=== PATIENT | female | born 1940 | race Caucasian/White ===

== ENCOUNTER → 2016-08-29 | Outpatient (CLI) | payer OTHER ==
[~2016-08-29] MED LIST: ATEN50TA PO; ATV/1 PO; CLTP PO; FERROUS SULFATE 325 MG PO; GELATIN PO; MULT-506 PO; OMEP20CA9 PO; OXYC-57 PO; POTASSIUM PO; ROSE HIPS PO; SIMV10TA2 PO; VIT B COMPLEX PO; VIT C PO; WARF5TAB90 PO; [UNRECOGNIZED DRUG - CODE]
--- NOTE | 2016-08-29 15:55 | MAMMOGRAPHY REPORT ---
BILATERAL DIGITAL SCREENING MAMMOGRAM TOMOSYNTHESIS WITH CAD: 08/29/2016 CLINICAL HISTORY: Routine screening examination. TECHNIQUE: Breast tomosynthesis in addition to standard 2D mammography was performed. Current study was also evaluated with a Computer Aided Detection (CAD) system. COMPARISON: Comparison is made to exams dated: 08/26/2015 mammogram, 08/20/2014 mammogram, 08/14/2013 ma mmogram, 08/12/2012 mammogram, 07/12/2011 mammogram, and 06/29/2010 mammogram - [facility] er. BREAST COMPOSITION: The tissue of both breasts is heterogeneously dense, which may obscure small mas ses. FINDINGS: There are moderate vascular calcifications in the breasts. No new suspicious mass, archite ctural distortion or cluster of microcalcifications is seen. IMPRESSION: ACR BI-RADS CATEGORY 1: NEGATIVE There is no mammographic evidence of malignancy. A 1 year screening mammogram is recommended. The pa tient will receive written notification of the results. Approximately 10% of breast cancers are not detected with mammography. A negative mammographic report should not delay biopsy if a clinically suggestive mass is present. Laura Rubalcava M.D. ay/:08/29/2016 14:53:17 Line Service Person: Krystina HEMPHILL(Veronica)(June), [facility] letter sent: Normal 1/2 BI-RADS Code: ACR BI-RADS Category 1: Negative
== END | disposition home or self-care (01) ==
LOC: C.MAMM 12:48
PROVIDERS: ATTEND Internal Medicine
DX: Z12.31 Encounter for screening mammogram for malignant neoplasm of breast (principal); Z79.01 Long term (current) use of anticoagulants

== ENCOUNTER → 2016-10-25 | Outpatient (CLI) | payer OTHER | END | disposition home or self-care (01) | LOC: C.LABBC 12:30 | PROVIDERS: ATTEND Internal Medicine Rheumatology | DX: Z00.00 Encounter for general adult medical examination without abnormal findings (principal); S32.000A Wedge compression fracture of unspecified lumbar vertebra, initial encounter for closed fracture; X58.XXXA Exposure to other specified factors, initial encounter; E61.8 Deficiency of other specified nutrient elements; M81.0 Age-related osteoporosis without current pathological fracture; E55.9 Vitamin D deficiency, unspecified; I10 Essential (primary) hypertension; E78.5 Hyperlipidemia, unspecified; R73.01 Impaired fasting glucose; D47.2 Monoclonal gammopathy; Z79.01 Long term (current) use of anticoagulants ==

== ENCOUNTER → 2017-02-19 | Outpatient (CLI) | payer OTHER ==
[2017-02-19 17:06] LABS: BASO % 0.2 %; BASO ABS # 0.01 K/uL (0-0.2); COMPLETE YES; EOS % 2.1 %; HEMATOCRIT 37.5 % (37-47); IG% 0.2 %; LYMPH % 25.5 %; LYMPH ABS # 1.59 K/uL (1.2-3.4); MEAN CELL VOLUME 93.3 fL (80-100); MEAN CORPUSCULAR HEMOGLOBIN 31.3 pg (25-34); MEAN CORPUSCULAR HGB CONC 33.6 g/dl (32-36); MEAN PLATELET VOLUME 9.8 fL (7.4-10.4); MONO % 8.3 %; NEUT % 63.7 %; PLATELET COUNT 199 K/uL (130-400); RED BLOOD COUNT 4.02 M/uL (4.2-5.4); WHITE BLOOD COUNT 6.24 K/uL (4.8-10.8)
[2017-02-19 17:28] LABS: ALT/SGPT 23 U/L (12-78); AST/SGOT 24 U/L (15-37); BLOOD UREA NITROGEN 17 mg/dl (7-18); BUN/CREATININE RATIO 17.5 (10-20); CALCIUM 8.3 mg/dl (8.5-10.1); CARBON DIOXIDE 26 mmol/L (21-32); CHLORIDE 101 mmol/L (98-107); CREATININE 0.97 mg/dl (0.60-1.20); GLUCOSE 109 mg/dl (70-99); SODIUM 133 mmol/L (136-145)
[2017-02-19 17:39] LABS: ALB/GLOB RATIO 0.7 (0.9-2); ALKALINE PHOSPHATASE 95 U/L (45-117); CHOLESTEROL 139 mg/dl (0-200); CHOLESTEROL/HDL RATIO 3.7; HDL CHOLESTEROL 38 mg/dl; LDL CHOLESTEROL CALCULATED 37 mg/dl; TRIGLYCERIDES 322 mg/dl (0-150); VERY LOW DENSITY LIPOPROT CALC 64 mg/dl
[2017-02-20 07:17] LABS: ESTIMATED AVERAGE GLUCOSE 117 mg/dl; HA1C FLAG Normal (Normal)
== END | disposition home or self-care (01) ==
LOC: C.LABBC 14:10
PROVIDERS: ATTEND Internal Medicine
DX: Z51.81 Encounter for therapeutic drug level monitoring (principal); I10 Essential (primary) hypertension; E78.5 Hyperlipidemia, unspecified; M54.5 Low back pain; M48.061 Spinal stenosis, lumbar region without neurogenic claudication; M81.0 Age-related osteoporosis without current pathological fracture; R73.01 Impaired fasting glucose; Z79.01 Long term (current) use of anticoagulants; D68.69 Other thrombophilia; I35.0 Nonrheumatic aortic (valve) stenosis

== ENCOUNTER → 2017-03-01 | Outpatient (CLI) | payer OTHER ==
[2017-03-01 17:00] LABS: INR 2.1 (0.9-1.1); PROTHROMBIN TIME (PATIENT) 21.9 SECONDS (9.0-12.0)
== END | disposition home or self-care (01) ==
LOC: C.LABBC 13:32
PROVIDERS: ATTEND Internal Medicine
DX: Z51.81 Encounter for therapeutic drug level monitoring (principal); Z79.01 Long term (current) use of anticoagulants

== ENCOUNTER → 2017-05-02 | Outpatient (CLI) | payer OTHER | END | disposition home or self-care (01) | LOC: C.LABBC 12:43 | PROVIDERS: ATTEND Internal Medicine Rheumatology | DX: M54.5 Low back pain (principal); M81.0 Age-related osteoporosis without current pathological fracture; E55.9 Vitamin D deficiency, unspecified ==

== ENCOUNTER → 2017-05-31 | Outpatient (CLI) | payer OTHER ==
[2017-05-31 17:23] LABS: INR 2.7 (0.9-1.1)
== END | disposition home or self-care (01) ==
LOC: C.LABBC 13:02
PROVIDERS: ATTEND Internal Medicine
DX: Z79.01 Long term (current) use of anticoagulants (principal)

== ENCOUNTER 2021-11-15 19:01 | Inpatient (IN) ==
--- NOTE | 2021-11-15 19:32 | ED Triage Note ---
Date of Service November 15, 2021 History of Present Illness This patient was briefly evaluated while in triage. An abbreviated physical exam was performed. This patient is a 81-year-old Female who presents to the ED for evaluation of mental status changes. Her daughter states that her mental status has been steadily declining ever since she had a surgery several weeks ago. Physical Exam VITALS: Vitals are noted on the nurse's note and reviewed by myself. GENERAL: This is an 81-year-old female, in no acute distress, sitting up in a wheelchair. SKIN: The skin was without rashes. EYES: Pupils equal round and reactive to light and accommodation. MOUTH: Mucous membranes slightly dry. NECK: Supple without nuchal rigidity. HEART: Regular rate and rhythm without murmurs gallops or rubs. LUNGS: Clear to auscultation bilaterally without wheezes, rales or rhonchi. NEURO: Patient is somewhat confused, does not answer questions appropriately. Initial orders for labs and / or imaging were placed and patient was placed in the waiting area until a bed is available. Please see further documentation for the full ED course. MDM / Impression Impression Impression: Acute hyponatremia, Confusion
--- NOTE | 2021-11-15 20:40 | XRay Report ---
XR chest 1V portable HISTORY: 81 years-old Female weakness acute weakness COMPARISON: Chest radiograph 08/25/2020 TECHNIQUE: Portable AP view of the chest FINDINGS: Cardiac silhouette is enlarged. Endograft of the aortic valve. Left subclavian pacer. No pneumothorax . Probable trace pleural effusions. Reticular interstitial coarsening is similar to prior. No lobar a irspace consolidation. Degenerative changes of the shoulders and spine. IMPRESSION: 1. Cardiomegaly with chronic interstitial coarsening. 2. Probable trace pleural effusions. ACT 112: Negative or not required by law. The above report was generated using voice recognition software. It may contain grammatical, syntax o r spelling errors. Electronically signed by: Marquise Hawley M.D. 11/15/2021 8:39 PM
--- NOTE | 2021-11-15 20:56 | Emergency Department Note ---
Impression & Plan Acute hyponatremia, Confusion ED Provider Note Provider: Kane Alcazar MD DATE OF SERVICE: 11/15/2021 CHIEF COMPLAINT: Confusion HISTORY OF PRESENT ILLNESS: Patient is a 81-year-old female history of Crohn's disease with ileostomy, aortic stenosis status post TAVR placement about 2 months ago, anxiety, hypertension, and vertebral compression fractures presenting here today with and daughter. Evidently over the last several weeks since the surgery has been declining a little bit according to the . The last several days has been much more confused and was emptying her ileostomy around the house overnight. No trauma or falls reported. She states that almost everything hurts just a little bit. Family report there is been a little bit of irritation around the ileostomy site. No fevers or illnesses or cough or cold symptoms reported. No recent medication changes otherwise noted. No history of similar reported. REVIEW OF SYSTEMS: A total of 10 review of systems was obtained and negative except as stated above in the HPI. PAST MEDICAL HISTORY: As noted above MEDICATIONS: Reviewed home medication list include Eliquis SOCIAL HISTORY: Lives at home with PHYSICAL EXAM: GENERAL: alert and oriented to person but not what year it is states is 1955 in no acute distress on stretcher Head: normocephalic and atraumatic EYES: No injection, discharge or icterus. NECK: Trachea midline. Supple. ENT: Mucous membranes pink and moist. LUNGS: Airway patent. No retractions. Breath sounds clear with good air entry bilaterally. HEART: Regular rate and rhythm. No chest wall tenderness with left upper chest pacemaker noted. ABDOMEN: Soft with some voluntary guarding. A left lower quadrant ileostomy and site in place with pink ostomy itself. There is some slight fungal irritation erythema around the site and a few small areas of slight skin breakdown but no significant depth or purulence noted. No crepitus. SKIN: Acyanotic, warm, dry, without rashes EXTREMITIES: Without swelling, tenderness or deformity NEUROLOGICAL: No focal deficits. No aphasia. No facial droop or slurred speech. Intact strength in the upper extremities. Well oriented to recent events or time. EK bpm AV paced rhythm occasional PVC. No acute ST segment elevation noted with significant amount of artifact. QTc 484. CONTINUOUS CARDIAC MONITORING: was ordered and showed a heart rate of 60s bpm in AV paced occasional PVC Patient's laboratory studies and imaging reviewed. Differential includes Infection, dehydration, metabolic abnormality, hypo/hyperglycemia, electrolyte disturbance, anemia, hypoxia, cardiac sources, intracerebral event, toxicologic, neurologic, as well as other pathologies. IMPRESSION/MEDICAL DECISION MAKING: Daughter family report a fairly significant change in mental status in the last several days but some declines and surgery 2 weeks ago. On an anticoagulant. No trauma history. No infectious symptoms reported. Lab work was sent and imaging of the head completed. Abdomen without significant tenderness ileostomy site in place with maybe little bit of slight tinea around the site and may be a small area of slight skin breakdown but no significant tenderness to doubt acute intra-abdominal process at this point. Blood work here shows worsened hyponatremia with a sodium of 120 could easily explain her confusion issues. No significant anemia or leukocytosis noted. No evidence of significant renal dysfunction. Urine and serum awesome's ordered. Will start on some slow LR replacement. Patient with some diffuse pain and given tylenol. Will bring in to hospital. DIAGNOSIS: hyponatremia, confusion DISPOSITION: Hospitalist will evaluate Preliminary Findings Only See Final Report For Complete Findings CT HEAD: Moderate brain volume loss and moderate chronic ischemic changes. No mass, hemorrhage or acute infarct. Sinuses, mastoids and bones are intact. Impression: No acute findings. Radiologist: Kirit Hdez M.D. 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 Opioid use agreement exists Osteoporosis Secondary hypercoagulable state Tremor Surgical History H/O abdominal aortic aneurysm repair H/O heart artery stent H/O pyloroplasty H/O resection of small bowel History of abdominal aortic aneurysm (AAA) repair History of appendectomy History of breast biopsy History of carpal tunnel surgery History of colostomy History of colposcopy History of hernia repair History of ileostomy History of resection of small bowel History of tonsillectomy and adenoidectomy History of tooth extraction Hx of tubal ligation Status post catheter ablation of atrial fibrillation Status post proctocolectomy Family History Father Coronary heart disease Hypertension Stroke Sister No problems noted. Mother Coronary heart disease Hypertension Stroke Denies family history of Ovarian cancer Prostate cancer Myocardial infarction Breast cancer Lung cancer Colorectal cancer Social History Smoking Status: Never smoker Age Started Using Tobacco: 26; Age Quit Using Tobacco: 61; packs per day: 1; Years Smoked: 20; Second Hand Exposure: No; Hx Alcohol Use: No Hx Substance Use: Yes Prescribed Medications: Opiates Preferred Language: Lao Communication Ability: Effective Visual Impairment: Limited Hearing Ability: Normal marital status: Current Living Situation: Spouse current occupational status: retired How many Children do You have: 2 Feels Safe at Home: Yes Childhood Exposure to Second-Hand Smoke: Yes caffeine: Yes (coffee) Dental Care, Regularly: Yes Physical Activity Frequency: Daily Physical Activity Frequency Comment: walks Seatbelt Use: always Sunscreen Use: Yes Allergies Allergies Allergy/AdvReac Type Severity Reaction Status Date / Time bee venom protein (honey bee) Allergy Unknown Unknown Verified 11/15/21 22:48 duloxetine [From Cymbalta] Allergy Unknown Unknown Verified 11/15/21 22:48 iodine Allergy Unknown Unknown Verified 11/15/21 22:48 shellfish derived Allergy Unknown Unknown Verified 11/15/21 22:48 Cymbal Allergy Severe severe Uncoded 11/15/21 22:48 nausea Home Meds Home Medications Medication Instructions Recorded Confirmed denosumab 60 mg/mL subcutaneous 60 mg subcut Q6MO 02/13/19 11/15/21 syringe (Prolia) nystatin 100,000 unit/gram topical 1 applic topical TID PRN irritation 11/15/21 11/15/21 powder (Nystop) omeprazole 20 mg capsule,delayed 20 mg PO BID 11/15/21 11/15/21 release Previous Rx's Medication Instructions Recorded drain pouches #10 ea 02/09/21 skin barrier wafer #10 ea 02/09/21 skin barriers seals #10 ea 02/09/21 atenolol 50 mg tablet 50 mg PO DAILY #90 tabs 03/10/21 apixaban 2.5 mg tablet (Eliquis) 2.5 mg PO BID #180 tabs 05/03/21 meclizine 25 mg tablet 25 mg PO TID PRN dizziness #30 tabs 09/06/21 simvastatin 10 mg tablet 10 mg PO DAILY #90 tabs 10/05/21 lorazepam 1 mg tablet 1 mg PO HS PRN sleep #30 tabs 10/31/21 oxycodone-acetaminophen 5 mg-325 0.5 - 1 tab PO BID PRN pain #30 11/11/21 mg tablet tabs Results & Data (ED) Vital Signs Vital Signs - 24 hr 11/15/21 19:26 11/15/21 21:01 11/15/21 23:00 Temperature 36.8 C Temperature Source Temporal Artery Scan Pulse Rate 78 70 Pulse Rate [Finger] 65 Pulse Rate from SpO2 Sensor 69 Respiratory Rate 18 18 15 Respiratory Effort / Characteristics Non-Labored Spontaneous Respiratory Depth Normal Blood Pressure 136/69 Blood Pressure [Right Arm] 137/64 Blood Pressure Mean 91 Blood Pressure Mean [Right Arm] 88 Pulse Oximetry 93 95 95 Oxygen Delivery Method Room Air Sepsis Recent Fever Within 48 Hours No Sepsis New/Unexplained Change in Mental Status No Sepsis Action Taken by Nursing No Action Required Laboratory Data Result diagrams: 11/15/21 20:34 11/15/21 20:34 Lab Results 11/15/21 11/15/21 11/15/21 Range/Units 20:34 20:34 20:34 WBC 6.96 (4.8-10.8) K/ul RBC 4.03 (3.93-5.22) M/uL Hgb 12.9 (12.0-16.0) g/dl Hct 36.4 (34.1-44.9) % MCV 90.3 (80.0-100.0) fL MCH 32.0 (25.0-34.0) pg MCHC 35.4 (32.0-36.0) g/dL RDW Std Deviation 46.3 (36.4-46.3) fL RDW Coeff of Ana M 14.0 (11.5-14.5) % Plt Count 176 (130-400) K/uL MPV 9.0 L (9.4-12.3) fL Immature Gran % (Auto) 0.4 % Neut % (Auto) 80.7 % Lymph % (Auto) 11.9 % Burnet % (Auto) 6.0 % Eos % (Auto) 0.7 % Baso % (Auto) 0.3 % Neut # (Auto) 5.61 (1.4-6.5) K/uL Lymph # (Auto) 0.83 L (1.2-3.4) K/uL Burnet # (Auto) 0.42 (0.24-0.82) K/uL Eos # (Auto) 0.05 (0-0.50) K/uL Baso # (Auto) 0.02 (0-0.2) K/uL Immature Gran # (Auto) 0.03 H (0.00-0.02) K/uL Sodium 120 L (136-145) mmol/L Potassium 4.1 (3.5-5.1) mmol/L Chloride 86 L (98-107) mmol/L Carbon Dioxide 26 (21-32) mmol/L Anion Gap 8 (3-11) BUN 13 (6-23) mg/dl Creatinine 0.67 (0.6-1.2) mg/dl Est Cr Clr Drug Dosing Not Reportable Est GFR ( Amer) 96.2 ml/min Est GFR (Non-Af Amer) 83.0 ml/min BUN/Creatinine Ratio 19.4 (10-20) Glucose 97 (70-99(Fasting)) mg/dl Calcium 10.1 (8.5-10.1) mg/dl Magnesium 1.7 (1.7-2.4) mg/dl Total Bilirubin 0.7 (0.2-1.0) mg/dl AST 31 (13-39) U/L ALT 16 (7-52) U/L Alkaline Phosphatase 96 (34-104) U/L Troponin I High Sens 16.0 H Cancelled (0-14) pg/ml Total Protein 8.6 H (6.0-8.3) gm/dl Albumin 4.0 (3.4-5.0) gm/dl Globulin 4.6 H (2.5-4.0) gm/dl Albumin/Globulin Ratio 0.9 (0.9-2) Urine Color Urine Appearance (Clear) Urine pH (4.5-7.5) Ur Specific Vidal (1.000-1.030) Urine Protein (Negative) Urine Glucose (UA) (Negative) Urine Ketones (Negative) Urine Blood (Negative) Urine Nitrite (Negative) Urine Bilirubin (Negative) Urine Urobilinogen (Negative) Ur Leukocyte Esterase (Negative) Urine Osmolality (500-800) mOsm/kg SARS-CoV-2, RNA, NAAT (NEGATIVE) 11/15/21 11/15/21 11/15/21 Range/Units 21:27 22:55 22:55 WBC (4.8-10.8) K/ul RBC (3.93-5.22) M/uL Hgb (12.0-16.0) g/dl Hct (34.1-44.9) % MCV (80.0-100.0) fL MCH (25.0-34.0) pg MCHC (32.0-36.0) g/dL RDW Std Deviation (36.4-46.3) fL RDW Coeff of Ana M (11.5-14.5) % Plt Count (130-400) K/uL MPV (9.4-12.3) fL Immature Gran % (Auto) % Neut % (Auto) % Lymph % (Auto) % Burnet % (Auto) % Eos % (Auto) % Baso % (Auto) % Neut # (Auto) (1.4-6.5) K/uL Lymph # (Auto) (1.2-3.4) K/uL Burnet # (Auto) (0.24-0.82) K/uL Eos # (Auto) (0-0.50) K/uL Baso # (Auto) (0-0.2) K/uL Immature Gran # (Auto) (0.00-0.02) K/uL Sodium (136-145) mmol/L Potassium (3.5-5.1) mmol/L Chloride (98-107) mmol/L Carbon Dioxide (21-32) mmol/L Anion Gap (3-11) BUN (6-23) mg/dl Creatinine (0.6-1.2) mg/dl Est Cr Clr Drug Dosing Est GFR ( Amer) ml/min Est GFR (Non-Af Amer) ml/min BUN/Creatinine Ratio (10-20) Glucose (70-99(Fasting)) mg/dl Calcium (8.5-10.1) mg/dl Magnesium (1.7-2.4) mg/dl Total Bilirubin (0.2-1.0) mg/dl AST (13-39) U/L ALT (7-52) U/L Alkaline Phosphatase (34-104) U/L Troponin I High Sens (0-14) pg/ml Total Protein (6.0-8.3) gm/dl Albumin (3.4-5.0) gm/dl Globulin (2.5-4.0) gm/dl Albumin/Globulin Ratio (0.9-2) Urine Color Yellow Urine Appearance Clear (Clear) Urine pH 6.0 (4.5-7.5) Ur Specific Vidal 1.022 (1.000-1.030) Urine Protein Negative (Negative) Urine Glucose (UA) Negative (Negative) Urine Ketones Trace H (Negative) Urine Blood Negative (Negative) Urine Nitrite Negative (Negative) Urine Bilirubin Negative (Negative) Urine Urobilinogen Negative (Negative) Ur Leukocyte Esterase Negative (Negative) Urine Osmolality 901 H (500-800) mOsm/kg SARS-CoV-2, RNA, NAAT NEGATIVE (NEGATIVE) Administered Medications Discontinued Medications Lactated Ringer's (Lr) 1,000 mls @ 80 mls/hr IV .[id number] MINNA Stop: 12/15/21 21:44 Last Infusion: 11/16/21 00:00 Dose: 0 mls/hr Documented By: Admin: 11/15/21 21:44 Dose: 80 mls/hr Documented By: SIL Acetaminophen (Ofirmev) 1,000 mg in 100 mls @ 400 mls/hr IV NOW STA Stop: 11/15/21 21:58 Last Infusion: 11/15/21 22:30 Dose: 0 mls/hr Documented By: Admin: 11/15/21 21:50 Dose: 400 mls/hr Documented By: SIL Miscellaneous (Patient's Height &/Or Weight Needed) 1 each N/A Q2H MINNA Stop: 12/16/21 00:44 Last Admin: 11/16/21 00:46 Dose: 1 each Documented By: MANDA Imaging Data Radiologist's Impression: Chest X-Ray 11/15/21 19:28 XR chest 1V portable HISTORY: 81 years-old Female weakness acute weakness COMPARISON: Chest radiograph 08/25/2020 TECHNIQUE: Portable AP view of the chest FINDINGS: Cardiac silhouette is enlarged. Endograft of the aortic valve. Left subclavian pacer. No pneumothorax. Probable trace pleural effusions. Reticular interstitial coarsening is similar to prior. No lobar airspace consolidation. Degenerative ch anges of the shoulders and spine. IMPRESSION: 1. Cardiomegaly with chronic interstitial coarsening. 2. Probable trace pleural effusions. ACT 112: Negative or not required by law. The above report was generated using voice recognition software. It may contain grammatical, syntax or spelling errors. Electronically signed by: Marquise Hawley M.D. 11/15/2021 8:39 PM Discharge Plan Visit Data Chief Complaint: Confusion Stated Complaint: CONFUSION ED Provider: Kane Alcazar Discharge Problem: Acute hyponatremia, Confusion Patient Disposition: Admitted As Inpatient Discharge Instructions Interventions: ED Discharge Assessment Last Done: 11/15/21 23:54
[2021-11-15 20:58] LABS: Basophils # (auto) 0.02 K/uL (0-0.2); Basophils % (auto) 0.3 %; Eosinophils # (auto) 0.05 K/uL (0-0.50); Eosinophils % (auto) 0.7 %; Hematocrit (blood only) 36.4 % (34.1-44.9); Hemoglobin 12.9 g/dl (12.0-16.0); Immature Granulocytes # (auto) 0.03 K/uL (0.00-0.02); Immature Granulocytes % (auto) 0.4 %; Lymphocytes # (auto) 0.83 K/uL (1.2-3.4); Lymphocytes % (auto) 11.9 %; Mean Corpuscular Hgb Conc 35.4 g/dL (32.0-36.0); Mean Corpuscular Volume 90.3 fL (80.0-100.0); Monocytes # (auto) 0.42 K/uL (0.24-0.82); Neutrophils # (auto) 5.61 K/uL (1.4-6.5); Neutrophils % (auto) 80.7 %; Platelet Count 176 K/uL (130-400); RDW Standard Deviation 46.3 fL (36.4-46.3); Red Blood Count 4.03 M/uL (3.93-5.22); White Blood Count 6.96 K/ul (4.8-10.8)
[2021-11-15 21:14] LABS: Alanine Aminotransferase 16 U/L (7-52); Albumin Globulin Ratio 0.9 (0.9-2); Alkaline Phosphatase 96 U/L (34-104); Anion Gap 8 (3-11); Aspartate Aminotransferase 31 U/L (13-39); BUN Creatinine Ratio 19.4 (10-20); Bilirubin,Total 0.7 mg/dl (0.2-1.0); Blood Urea Nitrogen 13 mg/dl (6-23); Calcium 10.1 mg/dl (8.5-10.1); Carbon Dioxide 26 mmol/L (21-32); Chloride 86 mmol/L (98-107); Est GFR (African American) 96.2 ml/min; Globulin 4.6 gm/dl (2.5-4.0); Glucose 97 mg/dl (70-99(Fasting)); Magnesium 1.7 mg/dl (1.7-2.4); Potassium 4.1 mmol/L (3.5-5.1); Sodium 120 mmol/L (136-145); Total Protein 8.6 gm/dl (6.0-8.3)
[2021-11-15] MEDS ORDERED: ACETAMINOPHEN 1,000 MG/100 ML VIAL IV STA (21:44)
[2021-11-15] MEDS ORDERED: LACTATED RINGER'S 1,000 ML IV SCH (21:45)
--- NOTE | 2021-11-15 23:06 | History & Physical Report ---
Date of Service November 15, 2021 Assessment & Plan (1) Acute hyponatremia: Plan: 81yo female s/p TAVR with pacemaker placement 09/23/21 presenting with functional decline and confusion over the last several weeks. Found with acute hyponatremia, Na of 120 (was previously 127 on 08/12/21). Patient given LR at 80mL/hr in ER -Admit to medical -Check urine and serum osmolality -Check urine Na -Check TSH -Frequent orientation -Repeat BMP q 8 hours (2) Confusion: Plan: Most likely secondary to acute hyponatremia as above -Monitor Na -Frequent orientation (3) Hypertension: Plan: Chronic. Well controlled presently at 137/64 -Continue Atenolol -Monitor (4) Vertebral compression fracture: Plan: With chronic pain, unchanged -Percocet PRN (5) GERD (gastroesophageal reflux disease): Plan: Chronic. Stable -Continue Protonix 40mg po BID (6) Hyperlipidemia: Plan: Chronic. Stable -Continue Simvastatin 10mg po daily F/E/N - Fluid restriction, monitor Na Ppx - Continue Apixaban Code - Full Dispo - Admit to medical History of Present Illness Chief Complaint: Confusion Primary Care Provider: Buck Zamorano MD Miranda Reddy is an 81yo female with history of GERD, HTN, longstanding colostomy presenting with confusion. Patient presents with her with whom she resides as well as her daughter who is an [employer] and does not live with her. Patient had a TAVR with pacemaker placement performed on 09/23/21 at [facility]. Per family and patient, the surgery went well with no complications. Patient was discharged home - she presently has visiting nursing on 2 days per week for 7 weeks. reports that patient has not been doing well at home since the surgery. She has not been eating well, has had progressive weakness and most recently episodes of confusion. Patient has become more forgetful, she wanders around the home and becomes confused. Yesterday she was in the office and emptied her colostomy bag in the office thinking it was the bathroom. There has been no report of fever, chest pain, cough, SOB, abdominal pain, nausea or vomiting. Ostomy output has been stable with no blood or diarrhea. No falls, imbalance or seizure No additional complaints at this time In the ER, patient afebrile, HD stable. She is confused but easily redirected, answering questions appropriately. Allergies Allergy/AdvReac Type Severity Reaction Status Date / Time bee venom protein (honey bee) Allergy Unknown Unknown Verified 11/15/21 22:48 duloxetine [From Cymbalta] Allergy Unknown Unknown Verified 11/15/21 22:48 iodine Allergy Unknown Unknown Verified 11/15/21 22:48 shellfish derived Allergy Unknown Unknown Verified 11/15/21 22:48 Cymbal Allergy Severe severe Uncoded 11/15/21 22:48 nausea Home Medications Medication Instructions Recorded Confirmed Type denosumab 60 mg/mL subcutaneous 60 mg subcut Q6MO 02/13/19 11/15/21 History syringe (Prolia) drain pouches #10 ea 02/09/21 08/22/21 Rx skin barrier wafer #10 ea 02/09/21 08/22/21 Rx skin barriers seals #10 ea 02/09/21 08/22/21 Rx atenolol 50 mg tablet 50 mg PO DAILY #90 tabs 03/10/21 11/15/21 Rx apixaban 2.5 mg tablet (Eliquis) 2.5 mg PO BID #180 tabs 05/03/21 11/15/21 Rx meclizine 25 mg tablet 25 mg PO TID PRN dizziness #30 tabs 09/06/21 11/15/21 Rx simvastatin 10 mg tablet 10 mg PO DAILY #90 tabs 10/05/21 11/15/21 Rx lorazepam 1 mg tablet 1 mg PO HS PRN sleep #30 tabs 10/31/21 11/15/21 Rx oxycodone-acetaminophen 5 mg-325 0.5 - 1 tab PO BID PRN pain #30 11/11/21 11/15/21 Rx mg tablet tabs nystatin 100,000 unit/gram topical 1 applic topical TID PRN irritation 11/15/21 11/15/21 History powder (Nystop) omeprazole 20 mg capsule,delayed 20 mg PO BID 11/15/21 11/15/21 History release Past Med/Surg History Medical History Aortic stenosis Chronic pain syndrome Colostomy care Crohns disease Degenerative lumbar spinal stenosis GERD (gastroesophageal reflux disease) H/O small bowel obstruction Hyperproteinemia (~02/13/19) Hypertension snf current use of anticoagulant Opioid use agreement exists Osteoporosis Secondary hypercoagulable state Tremor Surgical History H/O abdominal aortic aneurysm repair H/O heart artery stent H/O pyloroplasty H/O resection of small bowel History of abdominal aortic aneurysm (AAA) repair History of appendectomy History of breast biopsy History of carpal tunnel surgery History of colostomy History of colposcopy History of hernia repair History of ileostomy History of resection of small bowel History of tonsillectomy and adenoidectomy History of tooth extraction Hx of tubal ligation Status post catheter ablation of atrial fibrillation Status post proctocolectomy Family History Father Coronary heart disease Hypertension Stroke Sister No problems noted. Mother Coronary heart disease Hypertension Stroke Denies family history of Ovarian cancer Prostate cancer Myocardial infarction Breast cancer Lung cancer Colorectal cancer Social History Smoking Status: Never smoker Age Started Using Tobacco: 26; Age Quit Using Tobacco: 61; packs per day: 1; Years Smoked: 20; Second Hand Exposure: No; Hx Alcohol Use: No Hx Substance Use: Yes Prescribed Medications: Opiates Preferred Language: Montserratian Communication Ability: Effective Visual Impairment: Limited Hearing Ability: Normal marital status: Current Living Situation: Spouse current occupational status: retired How many Children do You have: 2 Feels Safe at Home: Yes Childhood Exposure to Second-Hand Smoke: Yes caffeine: Yes (coffee) Dental Care, Regularly: Yes Physical Activity Frequency: Daily Physical Activity Frequency Comment: walks Seatbelt Use: always Sunscreen Use: Yes Review of Systems Review of Systems: All systems reviewed & are unremarkable except as noted in HPI & below Physical Exam Physical Exam: General: patient resting comfortably, NAD, non-toxic in appearance, AA&O x 4 Skin: warm, dry, intact, no rashes or lesions HEENT: NC/AT, PERRL, EOMI, anicteric sclera, conjunctiva without injection, external ear normal to inspection and nontender, nares patent, moist mucus membranes, dentition intact, no oropharyngeal lesions, neck supple, trachea midline, no LAD, no thyromegaly, no JVD Heart: +S1/S2, regular, no m/r/g Lungs: equal air entry bilaterally, no rales/rhonchi/wheezes Abd: +BS, soft, NT/ND, no masses/organomegaly/ascites, ostomy in place Ext: warm, 2+ pulses in UE/LE bilaterally, no clubbing/cyanosis or edema Neuro: nonfocal, patient AA&O x 4, speech intact, no facial droop, moving all extremities on command with equal strength 5/5 Results & Data Results & Data ([facility]) Vital Signs (Past 12 Hours) Vital Signs Temp Pulse Pulse Resp BP BP Pulse Ox 11/15/21 21:01 65 18 137/64 95 11/15/21 19:26 36.8 C 78 18 136/69 93 O2 Del Method 11/15/21 21:01 11/15/21 19:26 Room Air Laboratory Results Laboratory Results WBC 6.96 K/ul (4.8-10.8) 11/15/21 20:34 RBC 4.03 M/uL (3.93-5.22) 11/15/21 20:34 Hgb 12.9 g/dl (12.0-16.0) 11/15/21 20:34 Hct 36.4 % (34.1-44.9) 11/15/21 20:34 MCV 90.3 fL (80.0-100.0) 11/15/21 20:34 MCH 32.0 pg (25.0-34.0) 11/15/21 20:34 MCHC 35.4 g/dL (32.0-36.0) 11/15/21 20:34 RDW Std Deviation 46.3 fL (36.4-46.3) 11/15/21 20:34 RDW Coeff of Ana M 14.0 % (11.5-14.5) 11/15/21 20:34 Plt Count 176 K/uL (130-400) 11/15/21 20:34 MPV 9.0 fL (9.4-12.3) L 11/15/21 20:34 Immature Gran % (Auto) 0.4 % 11/15/21 20:34 Neut % (Auto) 80.7 % 11/15/21 20:34 Lymph % (Auto) 11.9 % 11/15/21 20:34 [place] % (Auto) 6.0 % 11/15/21 20:34 Eos % (Auto) 0.7 % 11/15/21 20:34 Baso % (Auto) 0.3 % 11/15/21 20:34 Neut # (Auto) 5.61 K/uL (1.4-6.5) 11/15/21 20:34 Lymph # (Auto) 0.83 K/uL (1.2-3.4) L 11/15/21 20:34 [place] # (Auto) 0.42 K/uL (0.24-0.82) 11/15/21 20:34 Eos # (Auto) 0.05 K/uL (0-0.50) 11/15/21 20:34 Baso # (Auto) 0.02 K/uL (0-0.2) 11/15/21 20:34 Immature Gran # (Auto) 0.03 K/uL (0.00-0.02) H 11/15/21 20:34 Sodium 120 mmol/L (136-145) L 11/15/21 20:34 Potassium 4.1 mmol/L (3.5-5.1) 11/15/21 20:34 Chloride 86 mmol/L (98-107) L 11/15/21 20:34 Carbon Dioxide 26 mmol/L (21-32) 11/15/21 20:34 Anion Gap 8 (3-11) 11/15/21 20:34 BUN 13 mg/dl (6-23) 11/15/21:34 Creatinine 0.67 mg/dl (0.6-1.2) 11/15/21 20:34 Est Cr Clr Drug Dosing Not Reportable 11/15/21 20:34 Est GFR ( Amer) 96.2 ml/min 11/15/21 20:34 Est GFR (Non-Af Amer) 83.0 ml/min 11/15/21 20:34 BUN/Creatinine Ratio 19.4 (10-20) 11/15/21 20:34 Glucose 97 mg/dl (70-99(Fasting)) 11/15/21 20:34 Calcium 10.1 mg/dl (8.5-10.1) 11/15/21 20:34 Magnesium 1.7 mg/dl (1.7-2.4) 11/15/21 20:34 Total Bilirubin 0.7 mg/dl (0.2-1.0) 11/15/21 20:34 AST 31 U/L (13-39) 11/15/21 20:34 ALT 16 U/L (7-52) 11/15/21 20:34 Alkaline Phosphatase 96 U/L (34-104) 11/15/21 20:34 Troponin I High Sens 16.0 pg/ml (0-14) H 11/15/21 20:34 Troponin I High Sens Cancelled 11/15/21 20:34 Total Protein 8.6 gm/dl (6.0-8.3) H 11/15/21 20:34 Albumin 4.0 gm/dl (3.4-5.0) 11/15/21 20:34 Globulin 4.6 gm/dl (2.5-4.0) H 11/15/21 20:34 Albumin/Globulin Ratio 0.9 (0.9-2) 11/15/21 20:34 Urine Color Yellow 11/15/21 22:55 Urine Appearance Clear (Clear) 11/15/21 22:55 Urine pH 6.0 (4.5-7.5) 11/15/21 22:55 Ur Specific [place] 1.022 (1.000-1.030) 11/15/21 22:55 Urine Protein Negative (Negative) 11/15/21 22:55 Urine Glucose (UA) Negative (Negative) 11/15/21 22:55 Urine Ketones Trace (Negative) H 11/15/21 22:55 Urine Blood Negative (Negative) 11/15/21 22:55 Urine Nitrite Negative (Negative) 11/15/21 22:55 Urine Bilirubin Negative (Negative) 11/15/21 22:55 Urine Urobilinogen Negative (Negative) 11/15/21 22:55 Ur Leukocyte Esterase Negative (Negative) 11/15/21 22:55 Urine Osmolality 901 mOsm/kg (500-800) H 11/15/21 22:55 SARS-CoV-2, RNA, NAAT NEGATIVE (NEGATIVE) 11/15/21 21:27 Impressions Chest X-Ray 11/15/21 19:28 XR chest 1V portable HISTORY: 81 years-old Female weakness acute weakness COMPARISON: Chest radiograph 08/25/2020 TECHNIQUE: Portable AP view of the chest FINDINGS: Cardiac silhouette is enlarged. Endograft of the aortic valve. Left subclavian pacer. No pneumothorax. Probable trace pleural effusions. Reticular interstitial coarsening is similar to prior. No lobar airspace consolidation. Degenerative changes of the shoulders and spine. IMPRESSION: 1. Cardiomegaly with chronic interstitial coarsening. 2. Probable trace pleural effusions. ACT 112: Negative or not required by law. The above report was generated using voice recognition software. It may contain grammatical, syntax or spelling errors. Electronically signed by: Marquise Hawley M.D. 11/15/2021 8:39 PM Code Status & VTE Plan VTE Prophylaxis Plan VTE Prophylaxis will be ordered: Yes PG Care Time/CCT Total # of Minutes Spent Total Time Spent with Patient: Total time spent is greater than 50% in coordination of care (as documented) at patient's floor/unit and/or counseling patient: Coding Level of Care Code 25682 Initial Inpt Care Lvl 3 Diagnoses Acute hyponatremia E87.1 Confusion R41.0 Hypertension I10 Vertebral compression fracture M48.50XA GERD (gastroesophageal reflux disease) K21.9 Hyperlipidemia E78.5
[2021-11-15 23:26] LABS: Appearance Urine Clear (Clear); Bilirubin Urine Negative (Negative); Blood Urine Negative (Negative); Color Urine Yellow; Glucose Urine UA Negative (Negative); Ketones Urine Trace (Negative); Leukocyte Esterase Urine Negative (Negative); Nitrite Urine Negative (Negative); Protein Urine Negative (Negative); Specific Gravity Urine 1.022 (1.000-1.030); Urobilinogen Urine Negative (Negative)
[2021-11-16] MEDS ORDERED: ONDANSETRON INJ 2 MG/ML 2 ML VIAL IV PRN (00:16)
[2021-11-16] MEDS ORDERED: LORazepam 1 MG TAB PO PRN (00:16)
[2021-11-16] MEDS ORDERED: MECLIZINE HCL 25 MG TAB PO PRN (00:16)
[2021-11-16] MEDS ORDERED: Patient's HEIGHT &/or WEIGHT Needed SCH (00:45)
[2021-11-16 06:42] LABS: BUN Creatinine Ratio 19.4 (10-20); Calcium 9.5 mg/dl (8.5-10.1); Creatinine Clr Calc Pharmacy 51.3 ml/min; Est GFR (African American) 98.7 ml/min; Est GFR (Non-African American) 85.2 ml/min; Potassium 3.9 mmol/L (3.5-5.1)
[2021-11-16] MEDS: ACETAMINOPHEN 325 MG TAB PO PRN ×3 (07:20→23:00)
--- NOTE | 2021-11-16 07:20 | CT Scan Report ---
HEAD CT NONCONTRAST CT DOSE: 537.48 mGy.cm HISTORY: Confusion, mental status decline TECHNIQUE: Multiaxial CT images of the head were performed without the use of intravenous contrast. A utomated exposure control was utilized for this study. A dose lowering technique was utilized adheri ng to the principles of ALARA. Comparison: None. Findings: The paranasal sinuses and mastoid air cells are clear. The calvarium and skull base are int act. There is no mass, hematoma, midline shift, acute infarct. White matter hypodensity is nonspecifi c but suggestive of microvascular ischemic change. The ventricles and sulci demonstrate mild age-rela yanira involutional changes. Impression: No acute intracranial abnormality. Atrophy and microvascular ischemic changes. ACT 112: Negative or not required by law. Electronically signed by: Josh Palacios M.D. 11/16/2021 7:19 AM
--- NOTE | 2021-11-16 08:10 | Hospitalist Progress Note ---
Date of Service November 16, 2021 Assessment & Plan (1) Acute hyponatremia: Plan: 81yo female s/p TAVR with pacemaker placement 09/23/21 presenting with functional decline and confusion over the last several weeks SINCE TAVR/pacer Found with acute hyponatremia, Na of 120 (was previously 127 on 08/12/21). --suspect related to reset osm following surgery for recent TAVR in patient with baseline hyponatremia CT head negative CXR with cardiomegaly, chronic interstitial coarsening, trace pleural effusions Patient given LR at 80mL/hr in ER -- discontinued Urine sodium 33 Urine osm ELEVATED 900, serum Osm 268 Given 20mg PO lasix x 1 this morning after discussion with Cardiology and BNP 333 (not on diuretics) --Follows with [facility], stated recent ECHo looked good -- Per Grace PEREZ, patient cancelled her recent appt, they were going to look at her Na level, patient also cancelled her nephrology appointment TSH 1.464 wnl Na 123 on repeat not on any thiazie diuretics Moved to telemetry to look for any arrhythmias as well (hx PSVT s/p ablation in past) Seizure precautions given hyponatremia Nephrology consulted for acute on chronic hyponatremia --> plans to given 3% saline 150mL bolus and repeat Na after completion of bolus Continue fluid restriction 1200mL/day Plans to repeat urine osm in AM Continue to monitor labs (2) Confusion: Plan: Most likely secondary to acute hyponatremia as above appears alert oriented to person/place, intermittent to time but was easily re- oriented B12/tsh wnl deficiency WBC wnl, afebrile Suspect related to hyponatremia --> see above Frequent orientation (3) Hypertension: Plan: Chronic. presently at 130/68 Continue atenolol 50mg daily (4) Vertebral compression fracture: Plan: With chronic pain, unchanged Percocet PRN (5) GERD (gastroesophageal reflux disease): Plan: Chronic. Stable. Mag 1.7 Continue Protonix 40mg po BID (6) Hyperlipidemia: Plan: Chronic. Stable Continue Simvastatin 10mg po daily (7) Hypercoagulable state: Plan: hyperproteinemia, protein S deficiency remains on Eliquis 2.5mg BID (8) CHB (complete heart block): Plan: s/p pacemaker with recent TAVR (9) Cardiac pacemaker in situ: Plan: noted consider interrogation but moving to tele as above to eval any arrhythmias cont ributing to "weakness/fatigue" over past 2 weeks (10) S/P TAVR (transcatheter aortic valve replacement): Plan: noted as above Also with hx Crohn's disease s/p proctocolectomy with ileostomy formation 1976 Also hx abdominal aortic aneursym repair [address] Zaman Plan continued inpatient stay, working on hyponatremia nephrology on consult 3% NaCl for this afternoon, repeat labs following PT/OT consulted Admission and Anticipated Discharge Date Admission Date: November 15, 2021 Supervising Physician Co-Signing Physician Notes PA Supervision Note: I did not personally see or examine the patient today, but I verified all malloy points of KENNY Schaefer's assessment and plan with the following exceptions/additions: None Subjective Eval this morning, was hopeful for d/c. endorses TAVR about 2 weeks ago (and notes pacemaker). Endorses she has been feeling weak since the procedure. Discussed with cardiology, and recs to move to monitored bed. Patient does not take lasix in general, was going to have f/u appt at 1 months but she cancelled (had low sodium then, but f/u with nephro in 2 days, patient also cancelled that). 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 Consutled nephro as well. Patient denies any fever/chills, chest pain or shortness of breath,abdominal pain, nausea vomiting or diarrhea. Knows she is in the hospital but stated year 1965. When discussed 2021, she states she kept forgetting this, but that she knows it. Review of Systems Review of Systems: All systems reviewed & are unremarkable except as noted in HPI & below Physical Exam Physical Exam: General: WD/WN thin elderly female sitting in bed, NAD HEENT: head normocephalic, atraumatic, trachea midline, no deviation, mmm Chest: pacemaker to chest, no evidence for infection Resp: normal effort, diminished in the bases with rales bilaterally, no rhonchi/wheezing, on room air CV: regular rate/rhythm, 3/6 systolic murmur with radiation to carotid GI: +BS, soft, nontender, ostomy in place : no rm MSK/Neuro: moves all extremities, no facial droop/slurred speech, follows commands, no focal deficit Psych: alert to person/place (knows in hospital), intermittent to year (initially thought 1966, easily reoriented) Skin: cool, dry Results & Data Results & Data ([facility]) Vital Signs (Past 12 Hours) Vital Signs Temp Pulse Pulse Resp BP Pulse Ox O2 Del Method 11/16/21 07:56 36.5 C 73 19 181/74 H 94 Room Air 11/16/21 00:00 36.8 C 87 18 150/68 H 97 Room Air 11/15/21 23:50 73 15 11/15/21 23:40 71 17 95 11/15/21 23:30 67 16 97 11/15/21 23:20 69 14 95 11/15/21 23:10 68 14 93 11/15/21 23:00 70 15 95 11/15/21 21:01 65 18 137/64 95 Laboratory Results 11/16/21 11/16/21 11/16/21 Range/Units 12:41 08:40 08:40 WBC (4.8-10.8) K/ul RBC (3.93-5.22) M/uL Hgb (12.0-16.0) g/dl Hct (34.1-44.9) % MCV (80.0-100.0) fL MCH (25.0-34.0) pg MCHC (32.0-36.0) g/dL RDW Std Deviation (36.4-46.3) fL RDW Coeff of Ana M (11.5-14.5) % Plt Count (130-400) K/uL MPV (9.4-12.3) fL Immature Gran % (Auto) % Neut % (Auto) % Lymph % (Auto) % [place] % (Auto) % Eos % (Auto) % Baso % (Auto) % Neut # (Auto) (1.4-6.5) K/uL Lymph # (Auto) (1.2-3.4) K/uL [place] # (Auto) (0.24-0.82) K/uL Eos # (Auto) (0-0.50) K/uL Baso # (Auto) (0-0.2) K/uL Immature Gran # (Auto) (0.00-0.02) K/uL Sodium 123 L (136-145) mmol/L Potassium 3.5 (3.5-5.1) mmol/L Chloride 89 L (98-107) mmol/L Carbon Dioxide 25 (21-32) mmol/L Anion Gap 9 (3-11) BUN 12 (6-23) mg/dl Creatinine 0.59 L (0.6-1.2) mg/dl Est Cr Clr Drug Dosing 53.9 Est GFR ( Amer) 100.3 ml/min Est GFR (Non-Af Amer) 86.6 ml/min BUN/Creatinine Ratio 20.3 H (10-20) Glucose 91 (70-99(Fasting)) mg/dl Osmolality (280-300) mOsm/kg Calcium 9.4 (8.5-10.1) mg/dl Magnesium (1.7-2.4) mg/dl Total Bilirubin (0.2-1.0) mg/dl AST (13-39) U/L ALT (7-52) U/L Alkaline Phosphatase (34-104) U/L Troponin I High Sens (0-14) pg/ml B-Natriuretic Peptide 333 H (0-100) pg/ml Total Protein (6.0-8.3) gm/dl Albumin (3.4-5.0) gm/dl Globulin (2.5-4.0) gm/dl Albumin/Globulin Ratio (0.9-2) Vitamin B12 > 1500 H (180-914) pg/ml TSH (0.300-4.500) uIu/ml Urine Color Urine Appearance (Clear) Urine pH (4.5-7.5) Ur Specific [place] (1.000-1.030) Urine Protein (Negative) Urine Glucose (UA) (Negative) Urine Ketones (Negative) Urine Blood (Negative) Urine Nitrite (Negative) Urine Bilirubin (Negative) Urine Urobilinogen (Negative) Ur Leukocyte Esterase (Negative) Urine Osmolality (500-800) mOsm/kg Ur Random Sodium mmol/L SARS-CoV-2, RNA, NAAT (NEGATIVE) 11/16/21 11/16/21 11/16/21 Range/Units 07:30 06:04 01:24 WBC (4.8-10.8) K/ul RBC (3.93-5.22) M/uL Hgb (12.0-16.0) g/dl Hct (34.1-44.9) % MCV (80.0-100.0) fL MCH (25.0-34.0) pg MCHC (32.0-36.0) g/dL RDW Std Deviation (36.4-46.3) fL RDW Coeff of Ana M (11.5-14.5) % Plt Count (130-400) K/uL MPV (9.4-12.3) fL Immature Gran % (Auto) % Neut % (Auto) % Lymph % (Auto) % [place] % (Auto) % Eos % (Auto) % Baso % (Auto) % Neut # (Auto) (1.4-6.5) K/uL Lymph # (Auto) (1.2-3.4) K/uL [place] # (Auto) (0.24-0.82) K/uL Eos # (Auto) (0-0.50) K/uL Baso # (Auto) (0-0.2) K/uL Immature Gran # (Auto) (0.00-0.02) K/uL Sodium 122 L (136-145) mmol/L Potassium 3.9 (3.5-5.1) mmol/L Chloride 89 L (98-107) mmol/L Carbon Dioxide 27 (21-32) mmol/L Anion Gap 6 (3-11) BUN 12 (6-23) mg/dl Creatinine 0.62 (0.6-1.2) mg/dl Est Cr Clr Drug Dosing 51.3 Est GFR ( Amer) 98.7 ml/min Est GFR (Non-Af Amer) 85.2 ml/min BUN/Creatinine Ratio 19.4 (10-20) Glucose 83 (70-99(Fasting)) mg/dl Osmolality 268 L (280-300) mOsm/kg Calcium 9.5 (8.5-10.1) mg/dl Magnesium (1.7-2.4) mg/dl Total Bilirubin (0.2-1.0) mg/dl AST (13-39) U/L ALT (7-52) U/L Alkaline Phosphatase (34-104) U/L Troponin I High Sens (0-14) pg/ml B-Natriuretic Peptide (0-100) pg/ml Total Protein (6.0-8.3) gm/dl Albumin (3.4-5.0) gm/dl Globulin (2.5-4.0) gm/dl Albumin/Globulin Ratio (0.9-2) Vitamin B12 (180-914) pg/ml TSH (0.300-4.500) uIu/ml Urine Color Urine Appearance (Clear) Urine pH (4.5-7.5) Ur Specific [place] (1.000-1.030) Urine Protein (Negative) Urine Glucose (UA) (Negative) Urine Ketones (Negative) Urine Blood (Negative) Urine Nitrite (Negative) Urine Bilirubin (Negative) Urine Urobilinogen (Negative) Ur Leukocyte Esterase (Negative) Urine Osmolality (500-800) mOsm/kg Ur Random Sodium 33 mmol/L SARS-CoV-2, RNA, NAAT (NEGATIVE) 11/16/21 11/15/21 11/15/21 Range/Units 01:24 22:55 22:55 WBC (4.8-10.8) K/ul RBC (3.93-5.22) M/uL Hgb (12.0-16.0) g/dl Hct (34.1-44.9) % MCV (80.0-100.0) fL MCH (25.0-34.0) pg MCHC (32.0-36.0) g/dL RDW Std Deviation (36.4-46.3) fL RDW Coeff of Ana M (11.5-14.5) % Plt Count (130-400) K/uL MPV (9.4-12.3) fL Immature Gran % (Auto) % Neut % (Auto) % Lymph % (Auto) % [place] % (Auto) % Eos % (Auto) % Baso % (Auto) % Neut # (Auto) (1.4-6.5) K/uL Lymph # (Auto) (1.2-3.4) K/uL [place] # (Auto) (0.24-0.82) K/uL Eos # (Auto) (0-0.50) K/uL Baso # (Auto) (0-0.2) K/uL Immature Gran # (Auto) (0.00-0.02) K/uL Sodium (136-145) mmol/L Potassium (3.5-5.1) mmol/L Chloride (98-107) mmol/L Carbon Dioxide (21-32) mmol/L Anion Gap (3-11) BUN (6-23) mg/dl Creatinine (0.6-1.2) mg/dl Est Cr Clr Drug Dosing Est GFR ( Amer) ml/min Est GFR (Non-Af Amer) ml/min BUN/Creatinine Ratio (10-20) Glucose (70-99(Fasting)) mg/dl Osmolality (280-300) mOsm/kg Calcium (8.5-10.1) mg/dl Magnesium (1.7-2.4) mg/dl Total Bilirubin (0.2-1.0) mg/dl AST (13-39) U/L ALT (7-52) U/L Alkaline Phosphatase (34-104) U/L Troponin I High Sens (0-14) pg/ml B-Natriuretic Peptide (0-100) pg/ml Total Protein (6.0-8.3) gm/dl Albumin (3.4-5.0) gm/dl Globulin (2.5-4.0) gm/dl Albumin/Globulin Ratio (0.9-2) Vitamin B12 (180-914) pg/ml TSH 1.464 (0.300-4.500) uIu/ml Urine Color Yellow Urine Appearance Clear (Clear) Urine pH 6.0 (4.5-7.5) Ur Specific [place] 1.022 (1.000-1.030) Urine Protein Negative (Negative) Urine Glucose (UA) Negative (Negative) Urine Ketones Trace H (Negative) Urine Blood Negative (Negative) Urine Nitrite Negative (Negative) Urine Bilirubin Negative (Negative) Urine Urobilinogen Negative (Negative) Ur Leukocyte Esterase Negative (Negative) Urine Osmolality 901 H (500-800) mOsm/kg Ur Random Sodium mmol/L SARS-CoV-2, RNA, NAAT (NEGATIVE) 11/15/21 11/15/21 11/15/21 Range/Units 21:27 20:34 20:34 WBC (4.8-10.8) K/ul RBC (3.93-5.22) M/uL Hgb (12.0-16.0) g/dl Hct (34.1-44.9) % MCV (80.0-100.0) fL MCH (25.0-34.0) pg MCHC (32.0-36.0) g/dL RDW Std Deviation (36.4-46.3) fL RDW Coeff of Ana M (11.5-14.5) % Plt Count (130-400) K/uL MPV (9.4-12.3) fL Immature Gran % (Auto) % Neut % (Auto) % Lymph % (Auto) % [place] % (Auto) % Eos % (Auto) % Baso % (Auto) % Neut # (Auto) (1.4-6.5) K/uL Lymph # (Auto) (1.2-3.4) K/uL [place] # (Auto) (0.24-0.82) K/uL Eos # (Auto) (0-0.50) K/uL Baso # (Auto) (0-0.2) K/uL Immature Gran # (Auto) (0.00-0.02) K/uL Sodium 120 L (136-145) mmol/L Potassium 4.1 (3.5-5.1) mmol/L Chloride 86 L (98-107) mmol/L Carbon Dioxide 26 (21-32) mmol/L Anion Gap 8 (3-11) BUN 13 (6-23) mg/dl Creatinine 0.67 (0.6-1.2) mg/dl Est Cr Clr Drug Dosing Not Reportable Est GFR ( Amer) 96.2 ml/min Est GFR (Non-Af Amer) 83.0 ml/min BUN/Creatinine Ratio 19.4 (10-20) Glucose 97 (70-99(Fasting)) mg/dl Osmolality (280-300) mOsm/kg Calcium 10.1 (8.5-10.1) mg/dl Magnesium 1.7 (1.7-2.4) mg/dl Total Bilirubin 0.7 (0.2-1.0) mg/dl AST 31 (13-39) U/L ALT 16 (7-52) U/L Alkaline Phosphatase 96 (34-104) U/L Troponin I High Sens Cancelled 16.0 H (0-14) pg/ml B-Natriuretic Peptide (0-100) pg/ml Total Protein 8.6 H (6.0-8.3) gm/dl Albumin 4.0 (3.4-5.0) gm/dl Globulin 4.6 H (2.5-4.0) gm/dl Albumin/Globulin Ratio 0.9 (0.9-2) Vitamin B12 (180-914) pg/ml TSH (0.300-4.500) uIu/ml Urine Color Urine Appearance (Clear) Urine pH (4.5-7.5) Ur Specific [place] (1.000-1.030) Urine Protein (Negative) Urine Glucose (UA) (Negative) Urine Ketones (Negative) Urine Blood (Negative) Urine Nitrite (Negative) Urine Bilirubin (Negative) Urine Urobilinogen (Negative) Ur Leukocyte Esterase (Negative) Urine Osmolality (500-800) mOsm/kg Ur Random Sodium mmol/L SARS-CoV-2, RNA, NAAT NEGATIVE (NEGATIVE) 11/15/21 Range/Units 20:34 WBC 6.96 (4.8-10.8) K/ul RBC 4.03 (3.93-5.22) M/uL Hgb 12.9 (12.0-16.0) g/dl Hct 36.4 (34.1-44.9) % MCV 90.3 (80.0-100.0) fL MCH 32.0 (25.0-34.0) pg MCHC 35.4 (32.0-36.0) g/dL RDW Std Deviation 46.3 (36.4-46.3) fL RDW Coeff of Ana M 14.0 (11.5-14.5) % Plt Count 176 (130-400) K/uL MPV 9.0 L (9.4-12.3) fL Immature Gran % (Auto) 0.4 % Neut % (Auto) 80.7 % Lymph % (Auto) 11.9 % [place] % (Auto) 6.0 % Eos % (Auto) 0.7 % Baso % (Auto) 0.3 % Neut # (Auto) 5.61 (1.4-6.5) K/uL Lymph # (Auto) 0.83 L (1.2-3.4) K/uL [place] # (Auto) 0.42 (0.24-0.82) K/uL Eos # (Auto) 0.05 (0-0.50) K/uL Baso # (Auto) 0.02 (0-0.2) K/uL Immature Gran # (Auto) 0.03 H (0.00-0.02) K/uL Sodium (136-145) mmol/L Potassium (3.5-5.1) mmol/L Chloride (98-107) mmol/L Carbon Dioxide (21-32) mmol/L Anion Gap (3-11) BUN (6-23) mg/dl Creatinine (0.6-1.2) mg/dl Est Cr Clr Drug Dosing Est GFR ( Amer) ml/min Est GFR (Non-Af Amer) ml/min BUN/Creatinine Ratio (10-20) Glucose (70-99(Fasting)) mg/dl Osmolality (280-300) mOsm/kg Calcium (8.5-10.1) mg/dl Magnesium (1.7-2.4) mg/dl Total Bilirubin (0.2-1.0) mg/dl AST (13-39) U/L ALT (7-52) U/L Alkaline Phosphatase (34-104) U/L Troponin I High Sens (0-14) pg/ml B-Natriuretic Peptide (0-100) pg/ml Total Protein (6.0-8.3) gm/dl Albumin (3.4-5.0) gm/dl Globulin (2.5-4.0) gm/dl Albumin/Globulin Ratio (0.9-2) Vitamin B12 (180-914) pg/ml TSH (0.300-4.500) uIu/ml Urine Color Urine Appearance (Clear) Urine pH (4.5-7.5) Ur Specific [place] (1.000-1.030) Urine Protein (Negative) Urine Glucose (UA) (Negative) Urine Ketones (Negative) Urine Blood (Negative) Urine Nitrite (Negative) Urine Bilirubin (Negative) Urine Urobilinogen (Negative) Ur Leukocyte Esterase (Negative) Urine Osmolality (500-800) mOsm/kg Ur Random Sodium mmol/L SARS-CoV-2, RNA, NAAT (NEGATIVE) Diagnostic Findings Chest X-Ray 11/15/21 19:28 XR chest 1V portable HISTORY: 81 years-old Female weakness acute weakness COMPARISON: Chest radiograph 08/25/2020 TECHNIQUE: Portable AP view of the chest FINDINGS: Cardiac silhouette is enlarged. Endograft of the aortic valve. Left subclavian pacer. No pneumothorax. Probable trace pleural effusions. Reticular interstitial coarsening is similar to prior. No lobar airspace consolidation. Degenerative changes of the shoulders and spine. IMPRESSION: 1. Cardiomegaly with chronic interstitial coarsening. 2. Probable trace pleural effusions. ACT 112: Negative or not required by law. The above report was generated using voice recognition software. It may contain grammatical, syntax or spelling errors. Electronically signed by: Marquise Hawley M.D. 11/15/2021 8:[address] 11/15/21 19:[address] DOSE: 537.48 mGy.cm HISTORY: Confusion, mental status decline TECHNIQUE: Multiaxial CT images of the head were performed without the use of intravenous contrast. Automated exposure control was utilized for this study. A dose lowering technique was utilized adhering to the principles of ALARA. Comparison: None. Findings: The paranasal sinuses and mastoid air cells are clear. The calvarium and skull base are intact. There is no mass, hematoma, midline shift, acute infarct. White matter hypodensity is nonspecific but suggestive of microvascular ischemic change. The ventricles and sulci demonstrate mild age-related involutional changes. Impression: No acute intracranial abnormality. Atrophy and microvascular ischemic changes. ACT 112: Negative or not required by law. Electronically signed by: Josh Palacios M.D. 11/16/2021 7:19 AM PG Care Time/CCT Total # of Minutes Spent Total Time Spent with Patient: Total time spent is greater than 50% in coordination of care (as documented) at patient's floor/unit and/or counseling patient: Coding Level of Care Code 08997 Subseq Hosp Care Lvl 3 Diagnoses Acute hyponatremia E87.1 Confusion R41.0 Hypertension I10 Vertebral compression fracture M48.50XA GERD (gastroesophageal reflux disease) K21.9 Hyperlipidemia E78.5 Hypercoagulable state D68.59 CHB (complete heart block) I44.2 Cardiac pacemaker in situ Z95.0 S/P TAVR (transcatheter aortic valve replacement) Z95.2
[2021-11-16] MEDS: PANTOprazole 40 MG TAB PO SCH ×2 (08:56→20:05)
[2021-11-16] MEDS: SIMVASTATIN 10 MG TAB PO SCH (08:56)
[2021-11-16] MEDS: APIXABAN 2.5 MG TAB PO SCH ×2 (08:56→20:05)
[2021-11-16] MEDS: ATENOLOL 50 MG TABLET PO SCH (08:56)
[2021-11-16] MEDS ORDERED: FUROSEMIDE 20 MG TAB PO ONE (10:11)
--- NOTE | 2021-11-16 10:24 | Cardiology Consultation ---
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 Also had permanent pacemaker implanted at that time due to postprocedural complete heart block. Has had ongoing/worsening hyponatremia with progressive confusion. Patient examining possibly mildly hypervolemic. Crackles heard throughout lung bello. Patient subjectively denies shortness of breath. Was given Lasix 20 mg p.o. by hospitalist team. TAVR gradient stable on recent echocardiogram on 11/07. Case was discussed at bedside with Eliana Cruz PA-C. 1. Confusion likely secondary to significant hyponatremia. Agree with nephrology consult as well as additional lab work as ordered by primary team. 2. Continue to trend BMP/sodium level. We will watch to see outpatient response to p.o. Lasix this morning. Fluid restriction. 3. Recommend transferring patient to a monitored bed. Recommend seizure precautions. 4. Blood pressure elevated this afternoon, normally controlled. Will monitor. Continue all cardiac medications as ordered. Case discussed with Dr. Billy, will follow. Supervising Physician Co-Signing Physician Notes I have seen and examined the patient. I reviewed the medical record and discussed the case with the PROOF TECHNICIAN. It appears the patient's predominant problem is hyponatremia and I agree with consultation with nephrology. History of Present Illness Reason for Consultation: Confusion/hyponatremia Requesting Physician: Anel hospitalist Attending Physician: Shannan Redmond MD History of Present Illness Medically complex 81-year-old female initially presenting to the emergency department due to worsening functional capacity and confusion. Patient primarily follows with Edmar Garcia PA-C as an outpatient. She has been evaluated by the undersigned in valve clinic on 11/07 approximately 1 month following her TAVR. At this appointment on 11/07 her main concern was having little stamina or drive to do activities. Patient did not offer much insight to her symptoms during this appointment would not elaborate on how she is feeling. Patient appeared slightly confused. She went on to have an echocardiogram following that appointment showing stable TAVR gradients. Since discharge from her TAVR she was having hyponatremia. Sodium continued to decrease patient was instructed to come to the emergency department on 11/07 due to a sodium level of 125. Patient declined ED presentation and then canceled both of her nephrology appointments on 11/09 and 11/10. Sodium on admission was 120, this morning 122. Chest x-ray: Cardiomegaly with chronic interstitial coarsening, probable trace pleural effusions Head CT: No acute intracranial abnormalities, atrophy and microvascular ischemic changes. EKG 11/15: AV dual paced rhythm with occasional PVCs Upon entrance into the room patient was resting comfortably in bed. Patient remains confused. Specifically with dates. Easily redirected. No chest pain or shortness of breath. No lower extremity edema. No nausea or vomiting. No diarrhea. Past medical history: 1. Severe aortic stenosis, s/p TAVR (Successful transcarotidimplantation of a # 26mm Loving Elvi S3 Ultravalve, underinflated by one cc) 1. HB post TAVR s/p dual chamber ppm 09/23/[address] Gayle. 2. Recurrent drug-refractory PSVT status post ablation 3. Hypertension 4. Mild carotid stenosis 5. Dyslipidemia 6. Abdominal aortic aneurysm status post remote repair by Dr. Zaman, 2005 7. PFO 8. 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 Crohn's disease 12. GERD 13. Osteoporosis 14. Lumbar spinal stenosis 15. Chronic pain syndrome 16. Anxiety 17. Pyloroplasty 18. Small bowel resection 1. Proctocolectomy with ileostomy formation in 1976. 19. Multiple incisional hernia repairs Allergies Allergy/AdvReac Type Severity Reaction Status Date / Time bee venom protein (honey bee) Allergy Unknown Unknown Verified 11/15/21 22:48 duloxetine [From Cymbalta] Allergy Unknown Unknown Verified 11/15/21 22:48 iodine Allergy Unknown Unknown Verified 11/15/21 22:48 shellfish derived Allergy Unknown Unknown Verified 11/15/21 22:48 Cymbal Allergy Severe severe Uncoded 11/15/21 22:48 nausea Home Medications Medication Instructions Recorded Confirmed Type denosumab 60 mg/mL subcutaneous 60 mg subcut Q6MO 12/05/19 09/06/22 History syringe (Prolia) drain pouches #10 ea 02/09/21 08/22/21 Rx skin barrier wafer #10 ea 02/09/21 08/22/21 Rx skin barriers seals #10 ea 02/09/21 08/22/21 Rx atenolol 50 mg tablet 50 mg PO DAILY #90 tabs 03/10/21 11/15/21 Rx apixaban 2.5 mg tablet (Eliquis) 2.5 mg PO BID #180 tabs 05/03/21 11/15/21 Rx meclizine 25 mg tablet 25 mg PO TID PRN dizziness #30 tabs 09/06/21 11/15/21 Rx simvastatin 10 mg tablet 10 mg PO DAILY #90 tabs 10/05/21 11/15/21 Rx lorazepam 1 mg tablet 1 mg PO HS PRN sleep #30 tabs 10/31/21 11/15/21 Rx oxycodone-acetaminophen 5 mg-325 0.5 - 1 tab PO BID PRN pain #30 11/11/21 11/15/21 Rx mg tablet tabs nystatin 100,000 unit/gram topical 1 applic topical TID PRN irritation 11/15/21 11/15/21 History powder (Nystop) omeprazole 20 mg capsule,delayed 20 mg PO BID 11/15/21 11/15/21 History release Patient History Medical History Aortic stenosis Chronic pain syndrome Colostomy care Crohns disease Degenerative lumbar spinal stenosis GERD (gastroesophageal reflux disease) H/O small bowel obstruction Hyperproteinemia (~02/13/19) Hypertension senior care current use of anticoagulant Opioid use agreement exists Osteoporosis Secondary hypercoagulable state Tremor Surgical History H/O abdominal aortic aneurysm repair H/O heart artery stent H/O pyloroplasty H/O resection of small bowel History of abdominal aortic aneurysm (AAA) repair History of appendectomy History of breast biopsy History of carpal tunnel surgery History of colostomy History of colposcopy History of hernia repair History of ileostomy History of resection of small bowel History of tonsillectomy and adenoidectomy History of tooth extraction Hx of tubal ligation Status post catheter ablation of atrial fibrillation Status post proctocolectomy Family History Father Coronary heart disease Hypertension Stroke Sister No problems noted. 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 Beliefs That Will Affect Care: None marital status: Current Living Situation: Spouse current occupational status: retired How many Children do You have: 2 Other Information That Helps Us Care for You: No Feels Safe at Home: Yes Safety Concerns: Feels Safe At This Time Childhood Exposure to Second-Hand Smoke: Yes caffeine: Yes (coffee) Dental Care, Regularly: Yes Physical Activity Frequency: Daily Physical Activity Frequency Comment: walks Seatbelt Use: always Sunscreen Use: Yes Assistive Devices: None Review of Systems Review of Systems: All systems reviewed & are unremarkable except as noted in HPI & below Patient is confused. Physical Exam Constitutional: + thin, cooperative and comfortable Neck: normal visual inspection and trachea midline Respiratory: normal respiratory effort; no cough Auscultation: + rales (BL); no rhonchi and no wheezes Cardiovascular: Rate/Rhythm: regular rate and regular rhythm Heart Sounds: normal S1, normal S2 and + murmur (+1/6 systolic murmur) Vessels: no JVD Chest (Breasts): Chest: + pacemaker Skin: no rashes, warm and dry Psychiatric: Orientation: alert and oriented to person; + not oriented to place (intermittently) and + not oriented to time (intermittently) Affect: euthymic affect Results & Data ([facility]) Vital Signs (Past 12 Hours) Vital Signs Temp Pulse Pulse Resp BP Pulse Ox O2 Del Method 11/16/21 07:56 36.5 C 73 19 181/74 H 94 Room Air 11/16/21 00:00 36.8 C 87 18 150/68 H 97 Room Air 11/15/21 23:50 73 15 11/15/21 23:40 71 17 95 11/15/21 23:30 67 16 97 11/15/21 23:20 69 14 95 11/15/21 23:10 68 14 93 11/15/21 23:00 70 15 95 Laboratory Results Cardiac Enzymes 11/15/21 11/15/21 11/16/21 Range/Units 20:34 20:34 08:40 AST 31 (13-39) U/L Troponin I High Sens 16.0 H Cancelled (0-14) pg/ml B-Natriuretic Peptide 333 H (0-100) pg/ml Coagulation 11/16/21 Range/Units 08:40 B-Natriuretic Peptide 333 H (0-100) pg/ml CBC 11/15/21 Range/Units 20:34 WBC 6.96 (4.8-10.8) K/ul RBC 4.03 (3.93-5.22) M/uL Hgb 12.9 (12.0-16.0) g/dl Hct 36.4 (34.1-44.9) % Plt Count 176 (130-400) K/uL Neut # (Auto) 5.61 (1.4-6.5) K/uL Lymph # (Auto) 0.83 L (1.2-3.4) K/uL [place] # (Auto) 0.42 (0.24-0.82) K/uL Eos # (Auto) 0.05 (0-0.50) K/uL Baso # (Auto) 0.02 (0-0.2) K/uL Comprehensive Metabolic Panel 11/15/21 11/16/21 Range/Units 20:34 06:04 Sodium 120 L 122 L (136-145) mmol/L Potassium 4.1 3.9 (3.5-5.1) mmol/L Chloride 86 L 89 L (98-107) mmol/L Carbon Dioxide 26 27 (21-32) mmol/L BUN 13 12 (6-23) mg/dl Creatinine 0.67 0.62 (0.6-1.2) mg/dl Glucose 97 83 (70-99(Fasting)) mg/dl Calcium 10.1 9.5 (8.5-10.1) mg/dl AST 31 (13-39) U/L ALT 16 (7-52) U/L Alkaline Phosphatase 96 (34-104) U/L Total Protein 8.6 H (6.0-8.3) gm/dl Albumin 4.0 (3.4-5.0) gm/dl Intake and Output 11/15/21 11/16/21 11/16/21 22:59 06:59 14:59 Intake Total 100 / 281.333 181.333 / 281.333 Balance 100 / 281.333 181.333 / 281.333 Intake: IV 100 / 281.333 181.333 / 281.333 Acetaminophen 1,000 mg In 100 100 / 100 ml @ 400 mls/hr IV NOW STA Rx#: [id number] Lactated Ringer's 1,000 ml @ 80 181.333 / 181.333 mls/hr IV .[id number] MINNA Rx#: [id number] Other: # Unmeasured Voids 1 Weight 44.9 kg Weight Measurement Method Wheelchair Built in [facility] Diagnostic Findings Echo 11/07/2021 The examination is adequate to evaluate the referral indication. The qualitative LV ejection fraction is 65-69% (normal). The LV wall thickness is moderately increased (concentric). The patient is status post TAVR with Elvi type prosthetic valve. Aortic valve prosthesis stenosis is absent. Significant aortic valve prosthesis regurgitation is absent. Mild tricuspid regurgitation is present. The estimated pulmonary artery systolic pressure is 39mm Hg. There are moderate atherosclerotic plaques in the descending aorta.
[2021-11-16 13:38] LABS: BUN Creatinine Ratio 20.3 (10-20); Calcium 9.4 mg/dl (8.5-10.1); Creatinine Clr Calc Pharmacy 53.9 ml/min; Est GFR (African American) 100.3 ml/min; Est GFR (Non-African American) 86.6 ml/min; Potassium 3.5 mmol/L (3.5-5.1)
--- NOTE | 2021-11-16 15:30 | Nephrology Consultation ---
Date of Consultation November 16, 2021 Assessment & Plan (1) Acute hyponatremia: Plan Acute hyponatremia associated with generalized weakness forgetfulness with recent history of TAVR and pacemaker placement few weeks ago. No diarrhea or vomiting. Blood pressure has been somewhat elevated without any history of hypertensive episode. Significantly elevated urine osmolality suggestive of some component of SIADH. -- will give 3% saline 150 mL bolus and repeat serum sodium after the completion of the bolus. Avoid normal saline, restrict free water intake to less than 1200 mL per day -- check S Na q 6 h and urine osm in am Thank you for allowing me to participate in your patient's care. It was a pleasure to see Miranda History of Present Illness Reason for Consultation: acute hyponatremia Attending Physician: Shannan Redmond MD History of Present Illness Miranda Reddy is an 81yo female with past medical history significant for hypertension, recent TAVR and pacemaker placement, GERD admitted to the hospital with generalized weakness, confusion and noted to have acute hyponatremia. Nephrology consult was requested for further management. EMR records are reviewed in detail during patient's visit. Miranda was brought to the hospital yesterday with progressive generalized weakn ess and episodes of confusion. She was also becoming more forgetful and was wondering around the home. In ER sodium was found to be 120, received LR and now she is on fluid restriction and sodium this afternoon was 123. Urine osmolality was 900. she was not on any thiazide diuretics. Urine sodium was 33. TSH was normal at 1.4. No recent hypotension, dizziness, lightheadedness. s/p TAVR with pacemaker placement on 09/23/21 at [facility]. Per family and patient, the surgery went well with no complications But according to the family since the surgery overall she has not been doing well. She has been becoming more and more forgetful. No report of fever, chest pain, cough, SOB, abdominal pain, nausea or vomiting. no personal history of malignancy. h/o Crohn's disease s/p ileostomy. She feels tired but denies confusion and her feels she is doing slightly better. Allergies Allergy/AdvReac Type Severity Reaction Status Date / Time bee venom protein (honey bee) Allergy Unknown Unknown Verified 11/15/21 22:48 duloxetine [From Cymbalta] Allergy Unknown Unknown Verified 11/15/21 22:48 Fish Containing Products Allergy Unknown Gastrointestinal Verified 11/16/21 15:40 Upset iodine Allergy Unknown Unknown Verified 11/15/21 22:48 shellfish derived Allergy Unknown Unknown Verified 11/15/21 22:48 Home Medications Medication Instructions Recorded Confirmed Type denosumab 60 mg/mL subcutaneous 60 mg subcut Q6MO 02/13/19 11/15/21 History syringe (Prolia) drain pouches #10 ea 02/09/21 08/22/21 Rx skin barrier wafer #10 ea 02/09/21 08/22/21 Rx skin barriers seals #10 ea 02/09/21 08/22/21 Rx atenolol 50 mg tablet 50 mg PO DAILY #90 tabs 03/10/21 11/15/21 Rx apixaban 2.5 mg tablet (Eliquis) 2.5 mg PO BID #180 tabs 05/03/21 11/15/21 Rx meclizine 25 mg tablet 25 mg PO TID PRN dizziness #30 tabs 09/06/21 11/15/21 Rx simvastatin 10 mg tablet 10 mg PO DAILY #90 tabs 10/05/21 11/15/21 Rx lorazepam 1 mg tablet 1 mg PO HS PRN sleep #30 tabs 10/31/21 11/15/21 Rx oxycodone-acetaminophen 5 mg-325 0.5 - 1 tab PO BID PRN pain #30 11/11/21 11/15/21 Rx mg tablet tabs nystatin 100,000 unit/gram topical 1 applic topical TID PRN irritation 11/15/21 11/15/21 History powder (Nystop) omeprazole 20 mg capsule,delayed 20 mg PO BID 11/15/21 11/15/21 History release Patient History Medical History Aortic stenosis Chronic pain syndrome Colostomy care Crohns disease Degenerative lumbar spinal stenosis GERD (gastroesophageal reflux disease) H/O small bowel obstruction Hyperproteinemia (~02/13/19) Hypertension rn long term care current use of anticoagulant Opioid use agreement exists Osteoporosis Secondary hypercoagulable state Tremor Surgical History H/O abdominal aortic aneurysm repair H/O heart artery stent H/O pyloroplasty H/O resection of small bowel History of abdominal aortic aneurysm (AAA) repair History of appendectomy History of breast biopsy History of carpal tunnel surgery History of colostomy History of colposcopy History of hernia repair History of ileostomy History of resection of small bowel History of tonsillectomy and adenoidectomy History of tooth extraction Hx of tubal ligation Status post catheter ablation of atrial fibrillation Status post proctocolectomy Family History Father Coronary heart disease Hypertension Stroke Sister No problems noted. 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 Beliefs That Will Affect Care: None marital status: Current Living Situation: Spouse current occupational status: retired How many Children do You have: 2 Other Information That Helps Us Care for You: No Feels Safe at Home: Yes Safety Concerns: Feels Safe At This Time Childhood Exposure to Second-Hand Smoke: Yes caffeine: Yes (coffee) Dental Care, Regularly: Yes Physical Activity Frequency: Daily Physical Activity Frequency Comment: walks Seatbelt Use: always Sunscreen Use: Yes Assistive Devices: None Review of Systems Review of Systems: Detail ROS was otherwise negative except mentioned in HPI. Physical Exam Constitutional: WD/WN, vitals as above + ill appearing and + thin; no acute distress Eyes: + anicteric sclerae ENMT: Ears: no hearing impairment Neck: normal visual inspection Respiratory: normal respiratory effort, lungs clear to auscultation Cardiovascular: Rate/Rhythm: regular rate and regular rhythm Heart Sounds: + murmur Extremities: no edema Gastrointestinal (Abdomen): Inspection/Auscultation: abdomen normal to inspection and normal bowel sounds Percussion/Palpation: abdomen soft; abdomen nontender Musculoskeletal: Extremities: extremities normal to inspection Skin: no rashes Neurologic: no focal motor deficits Psychiatric: Orientation: alert and oriented x 3 Affect: euthymic affect Results & Data ([facility]) Vital Signs (Past 12 Hours) Vital Signs Temp Pulse Resp BP Pulse Ox O2 Del Method 11/16/21 12:09 36.4 C L 61 20 158/71 H 96 Room Air 11/16/21 07:56 36.5 C 73 19 181/74 H 94 Room Air PG Care Time/CCT Total # of Minutes Spent Total Time Spent with Patient: Total time spent is greater than 50% in coordination of care (as documented) at patient's floor/unit and/or counseling patient: Coding Level of Care Code 42855 Office/OBS Consult Lvl 4 Diagnoses Acute hyponatremia E87.1
[2021-11-16] MEDS ORDERED: STAT IV STA (16:15)
[2021-11-16] MEDS ORDERED: SODIUM CHLORIDE 3 % 150 ML IV ONE (16:15)
--- NOTE | 2021-11-16 17:46 | Electrocardiogram Report ---
Test Reason : Blood Pressure : / mmHG Vent. Rate : 064 BPM Atrial Rate : 064 BPM P-R Int : 000 ms QRS Dur : 142 ms QT Int : 470 ms P-R-T Axes : 000 264 -07 degrees QTc Int : 484 ms AV dual-paced rhythm with occasional Premature ventricular complexes Abnormal ECG When compared with ECG of 13-JAN-2012 19:35, Electronic ventricular pacemaker has replaced Sinus rhythm Confirmed by Slim Yousif ([id number]) on 11/16/2021 5:45:54 PM Referred By: REFERRED SELF Confirmed By:Demarco Yousif
[2021-11-16 18:54] LABS: BUN Creatinine Ratio 21.5 (10-20); Calcium 9.1 mg/dl (8.5-10.1); Creatinine Clr Calc Pharmacy 48.9 ml/min; Est GFR (African American) 97.2 ml/min; Est GFR (Non-African American) 83.9 ml/min; Potassium 3.3 mmol/L (3.5-5.1)
[2021-11-16] MEDS ORDERED: POTASSIUM CHLORIDE CRTAB 20 MEQ TABCR PO STA (19:01)
[2021-11-17] MEDS: ACETAMINOPHEN 325 MG TAB PO PRN ×3 (06:36→19:51)
[2021-11-17 07:06] LABS: BUN Creatinine Ratio 23.4 (10-20); Calcium 9.4 mg/dl (8.5-10.1); Creatinine Clr Calc Pharmacy 49.7 ml/min; Est GFR (African American) 97.7 ml/min; Est GFR (Non-African American) 84.3 ml/min; Magnesium 1.6 mg/dl (1.7-2.4); Potassium 3.8 mmol/L (3.5-5.1)
--- NOTE | 2021-11-17 07:24 | Cardiology Progress Note ---
Date of Service November 17, 2021 Assessment & Plan (1) Acute hyponatremia: (2) Confusion: (3) Aortic stenosis: (4) S/P TAVR (transcatheter aortic valve replacement): (5) CHB (complete heart block): (6) Cardiac pacemaker in situ: Plan: Device interrogation as an outpatient 11/07/2021: A paced V sensed, 51% atrial pacing burden, 93% RV pacing burden. 0 mode switches. Battery longevity 4.8 years. Decreased amplitudes, PW, turned off acute phase clock Normal dual-chamber pacemaker function with stable pacing and sensing thresholds. (7) Hypertension: (8) Hypercoagulable state: (9) senior living current use of anticoagulant: Plan Medically complex 81-year-old female with status post TAVR in September. Also had permanent pacemaker implanted at that time due to postprocedural complete heart block. TAVR gradient stable on recent echo, 11/07. Pacemaker interrogation on 11/07 showing stable function. Has had ongoing/worsening hyponatremia with progressive confusion since TAVR. Hyponatremia likely the cause of her significant confusion. Questionable component of SIADH. 1. Confusion likely secondary to significant hyponatremia. Management per nephrology. 1200mL fluid restriction per nephro 2. Continue to monitor on telemetry. Seizure precautions given hyponatremia. 3. Blood pressure controlled. No changes at this time Case discussed with Dr. Billy, will follow. Admission and Anticipated Discharge Date Admission Date: November 15, 2021 Supervising Physician Co-Signing Physician Notes I have reviewed the medical record and discussed the case with the ASSOCIATE APPLICATION DEVELOPER. Sodium is up to 125. The patient is up to baseline mental status. Subjective Medically complex 81-year-old female status post TAVR and pacemaker placement 09/23/2021 initially presenting to the emergency department due to worsening functional capacity and confusion. Patient found to have acute hyponatremia, sodium level of 120. 9/7: Given x1 dose of 20 mg of p.o. Lasix, not normally on diuretics. Moved to telem etry. Seen by nephrology, questionable SIADH-given 3% saline, 150 mL bolus. NA-- 120>>122>>123>>126>>126>>125 Chart and telemetry reviewed. Patient seen and examined at bedside. Patient appears slightly more oriented. Still confusing dates. States that she is feeling well. No chest pain or unusual shortness of breath. No palpitations, dizziness or syncope. Review of Systems Review of Systems: All systems reviewed & are unremarkable except as noted in HPI & below Physical Exam Constitutional: + thin, cooperative and comfortable Neck: normal visual inspection and trachea midline Respiratory: normal respiratory effort; no cough Auscultation: + rales (BL); no rhonchi and no wheezes Cardiovascular: Rate/Rhythm: regular rate and regular rhythm Heart Sounds: normal S1, normal S2 and + murmur (+1/6 systolic murmur) Vessels: no JVD Chest (Breasts): Chest: + pacemaker Skin: no rashes, warm and dry Psychiatric: Orientation: alert and oriented to person; + not oriented to place (intermittently) and + not oriented to time (intermittently) Affect: euthymic affect Results & Data ([facility]) Vital Signs (Past 12 Hours) Vital Signs Temp Pulse Pulse Resp BP Pulse Ox O2 Del Method 11/17/21 07:00 36.4 C L 63 20 132/62 96 Room Air 11/17/21 03:00 36.6 C 64 20 128/62 97 Room Air 11/17/21 01:00 66 11/17/21 00:03 Room Air 11/16/21 22:49 36.8 C 67 20 137/62 94 Room Air
[2021-11-17] MEDS ORDERED: MAGNESIUM SULFATE / D5W 1 GM/100 ML BAG IV ONE (07:30)
--- NOTE | 2021-11-17 07:30 | Hospitalist Progress Note ---
Date of Service November 17, 2021 Assessment & Plan (1) Acute hyponatremia: Plan: 81yo female s/p TAVR with pacemaker placement 09/23/21 presenting with functional decline and confusion over the last several weeks SINCE TAVR/pacer Found with acute hyponatremia, Na of 120 (was previously 127 on 08/12/21). 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 chronic hyponatremia and recent surgery (not on diuretics at home) --Follows with [facility], stated recent ECHo looked good -- Per Grace PEREZ, patient cancelled her recent appt, they were going to look at her Na level, patient also cancelled her nephrology appointment TSH 1.464 wnl Moved to telemetry to look for any arrhythmias as well (hx PSVT s/p ablation in past) Seizure precautions given hyponatremia Nephrology consulted for acute on chronic hyponatremia --> given 3% saline 150mL bolus Na 125 this morning, repeat urine Osm 365 from 901 Fluid restriction removed by nephrology Given tolvaptan 15mg x 1 this morning Repeat BMP this afternoon, additional medications pending repeat Would like to be closer to 130 prior to discharge Continue to monitor labs (2) Metabolic encephalopathy: Plan: likely 2nd to above, hyponatremia/SIADH improving with improvement in Na-alert oriented to person/place, intermittent to time per at bedside, having issues with using phone but is on the right track Most likely secondary to acute hyponatremia as above appears alert oriented to person/place, intermittent to time but was easily re- oriented B12/tsh wnl deficiency WBC wnl, afebrile Frequent orientation (3) Hypertension: Plan: Chronic. presently at 154/64 Continue atenolol 50mg daily (4) Vertebral compression fracture: Plan: With chronic pain, unchanged. meds per Dr Zamorano w/ Percocet prn Percocet PRN --> instructed to ask tonight if needed (5) GERD (gastroesophageal reflux disease): Plan: Chronic. Stable. Continue Protonix 40mg po BID mag checked 1.6 --> 1gm IV replacement ordered for today and repeat mag in AM (6) Hyperlipidemia: Plan: Chronic. Stable Continue Simvastatin 10mg po daily (7) Hypercoagulable state: Plan: hyperproteinemia, protein S deficiency remains on Eliquis 2.5mg BID (8) CHB (complete heart block): Plan: s/p pacemaker with recent TAVR (9) Cardiac pacemaker in situ: Plan: noted consider interrogation but moving to tele as above to eval any arrhythmias contributing to "weakness/fatigue" over past 2 weeks (10) S/P TAVR (transcatheter aortic valve replacement): Plan: noted as above Also with hx Crohn's disease s/p proctocolectomy with ileostomy formation 1976 ostomy changed last evening 11/16, has own supplies in room Also hx abdominal aortic aneursym repair [address] Zaman (11) Protein calorie malnutrition: Plan: Moderate protein-calorie malnutrition will consult cotton expert while inpatient Plan Tolvaptan x 1 this morning, repeat BMP this afternoon. Appreciate continued nephrology recs Aiming for sodium closer to 130 prior to discharge Patient anxious for discharge but understands PT/OT consulted Admission and Anticipated Discharge Date Admission Date: November 15, 2021 Supervising Physician Co-Signing Physician Notes PA Supervision Note: I did not personally see or examine the patient today, but I verified all malloy points of KENNY Schaefer's assessment and plan with the following exceptions/additions: None Subjective Eval this morning with at bedside, patient states feeling well. Na to 125 but given medication this morning and repeat labs pending for this afternoon. Would like to see sodium closer to 130. Patient alert/oriented to person/place but intermittent to time. states still having issues with dialing phone numbers but improved from day prior. Ostomy changed last night, has own supplies. Has a slight headache, frontal, similar to headaches at home and requesting Tylenol. JERRY Tafoya, in another room but to administer after finished up. Of note, patient takes oxycodone at night as prescribed from Dr Zamorano for back pain -- discussed available prn and will have to ask for it tonight. Also takes lorazepam at night on occasion for sleep, has not gotten inpatient but also discussed available prn. Discussed cautious use of both with confusion but given chronic use at home can ask if needed for this evening. No fever/chills, chest pain, shortness of breath, abdominal pain, nausea or vomiting. Questions/concerns addressed at this time. would like written instructions of what she is to be taking/not taking at home. Discussed will outline and review prior to discharge. Patient notes she was on oral salt tabs in the past after placement of her ostomy over 40 years ago. Review of Systems Review of Systems: All systems reviewed & are unremarkable except as noted in HPI & below Physical Exam Physical Exam: General: WD/WN thin elderly female sitting in bed, NAD HEENT: head normocephalic, atraumatic, trachea midline, no deviation, mmm Chest: pacemaker to chest, no evidence for infection Resp: normal effort, diminished in the bases, no rhonchi/wheezing, on room air CV: regular rate/rhythm, 3/6 systolic murmur with radiation to carotid GI: +BS, soft, nontender, ostomy in place (reportedly changed last night) : no Roth MSK/Neuro: moves all extremities, no facial droop/slurred speech, follows comma nds, no focal deficit Psych: alert to person/place (knows in hospital), intermittent to year (initially thought wrong year, easily reoriented) Skin: cool, dry Results & Data Results & Data ([facility]) Vital Signs (Past 12 Hours) Vital Signs Temp Pulse Pulse Resp BP Pulse Ox O2 Del Method 11/17/21 07:00 36.4 C L 63 20 132/62 96 Room Air 11/17/21 03:00 36.6 C 64 20 128/62 97 Room Air 11/17/21 01:00 66 11/17/21 00:03 Room Air 11/16/21 22:49 36.8 C 67 20 137/62 94 Room Air Laboratory Results 11/17/21 11/16/21 11/16/21 Range/Units 06:28 22:40 18:26 Sodium 125 L 126 L (136-145) mmol/L Potassium 3.8 (3.5-5.1) mmol/L Chloride 94 L (98-107) mmol/L Carbon Dioxide 27 (21-32) mmol/L Anion Gap 4 (3-11) BUN 15 (6-23) mg/dl Creatinine 0.64 (0.6-1.2) mg/dl Est Cr Clr Drug Dosing 49.7 ml/min Est GFR ( Amer) 97.7 ml/min Est GFR (Non-Af Amer) 84.3 ml/min BUN/Creatinine Ratio 23.4 H (10-20) Glucose 97 (70-99(Fasting)) mg/dl Calcium 9.4 (8.5-10.1) mg/dl Magnesium 1.6 L (1.7-2.4) mg/dl B-Natriuretic Peptide (0-100) pg/ml Vitamin B12 (180-914) pg/ml Urine Osmolality 365 L (500-800) mOsm/kg Ur Random Sodium mmol/L 11/16/21 11/16/21 11/16/21 Range/Units 18:26 12:41 08:40 Sodium 126 L 123 L (136-145) mmol/L Potassium 3.3 L 3.5 (3.5-5.1) mmol/L Chloride 94 L 89 L (98-107) mmol/L Carbon Dioxide 25 25 (21-32) mmol/L Anion Gap 7 9 (3-11) BUN 14 12 (6-23) mg/dl Creatinine 0.65 0.59 L (0.6-1.2) mg/dl Est Cr Clr Drug Dosing 48.9 53.9 ml/min Est GFR ( Amer) 97.2 100.3 ml/min Est GFR (Non-Af Amer) 83.9 86.6 ml/min BUN/Creatinine Ratio 21.5 H 20.3 H (10-20) Glucose 114 H 91 (70-99(Fasting)) mg/dl Calcium 9.1 9.4 (8.5-10.1) mg/dl Magnesium (1.7-2.4) mg/dl B-Natriuretic Peptide 333 H (0-100) pg/ml Vitamin B12 (180-914) pg/ml Urine Osmolality (500-800) mOsm/kg Ur Random Sodium mmol/L 11/16/21 11/16/21 Range/Units 08:40 07:30 Sodium (136-145) mmol/L Potassium (3.5-5.1) mmol/L Chloride (98-107) mmol/L Carbon Dioxide (21-32) mmol/L Anion Gap (3-11) BUN (6-23) mg/dl Creatinine (0.6-1.2) mg/dl Est Cr Clr Drug Dosing ml/min Est GFR ( Amer) ml/min Est GFR (Non-Af Amer) ml/min BUN/Creatinine Ratio (10-20) Glucose (70-99(Fasting)) mg/dl Calcium (8.5-10.1) mg/dl Magnesium (1.7-2.4) mg/dl B-Natriuretic Peptide (0-100) pg/ml Vitamin B12 > 1500 H (180-914) pg/ml Urine Osmolality (500-800) mOsm/kg Ur Random Sodium 33 mmol/L PG Care Time/CCT Total # of Minutes Spent Total Time Spent with Patient: Total time spent is greater than 50% in coordination of care (as documented) at patient's floor/unit and/or counseling patient: Coding Level of Care Code 19196 Subseq Hosp Care Lvl 3 Diagnoses Acute hyponatremia E87.1 Metabolic encephalopathy G93.41 Hypertension I10 Vertebral compression fracture M48.50XA GERD (gastroesophageal reflux disease) K21.9 Hyperlipidemia E78.5 Hypercoagulable state D68.59 CHB (complete heart block) I44.2 Cardiac pacemaker in situ Z95.0 S/P TAVR (transcatheter aortic valve replacement) Z95.2 Protein calorie malnutrition E46
[2021-11-17] MEDS ORDERED: TOLVAPTAN 15 MG TABLET PO ONE (08:00)
[2021-11-17] MEDS: PANTOprazole 40 MG TAB PO SCH ×2 (08:23→21:04)
[2021-11-17] MEDS: ATENOLOL 50 MG TABLET PO SCH (08:23)
[2021-11-17] MEDS: SIMVASTATIN 10 MG TAB PO SCH (08:23)
[2021-11-17] MEDS: APIXABAN 2.5 MG TAB PO SCH ×2 (08:23→21:04)
--- NOTE | 2021-11-17 09:36 | Nephrology Progress Note ---
Date of Service November 17, 2021 Assessment & Plan (1) Acute hyponatremia: Plan Acute hyponatremia associated with generalized weakness forgetfulness with recent history of TAVR and pacemaker placement few weeks ago. No diarrhea or vomiting. Blood pressure has been somewhat elevated without any history of hypertensive episode. Significantly elevated urine osmolality suggestive of some component of SIADH. Na slightly improved to 126 after 3% saline but again dropped to 125 --Tolvaptan 15 mg x 1 dose now, encourage po intake, cncel fluid restriction, repeat Na at 2 pm Admission and Anticipated Discharge Date Admission Date: November 15, 2021 Gabe Jean was seen and evaluated this morning. She is comfortable, awake, alert, no confusion. Eager to go home. Na dropped to 125 , U osm improved to 350. BP stable. Review of Systems Review of Systems: Detail ROS was otherwise negative except mentioned above. Physical Exam Constitutional: WD/WN, vitals as above + ill appearing and + thin; no acute distress Eyes: + anicteric sclerae Respiratory: normal respiratory effort, lungs clear to auscultation Cardiovascular: RRR, no murmur, no edema Rate/Rhythm: regular rate and regular rhythm Heart Sounds: + murmur Extremities: no edema Skin: no rashes Neurologic: no focal motor deficits Psychiatric: Orientation: alert and oriented x 3 Affect: euthymic affect Results & Data ([facility] [place]) Vital Signs (Past 12 Hours) Vital Signs Temp Pulse Pulse Resp BP Pulse Ox O2 Del Method 11/17/21 07:00 36.4 C L 63 20 132/62 96 Room Air 11/17/21 03:00 36.6 C 64 20 128/62 97 Room Air 11/17/21 01:00 66 11/17/21 00:03 Room Air 11/16/21 22:49 36.8 C 67 20 137/62 94 Room Air PG Care Time/CCT Total # of Minutes Spent Total Time Spent with Patient: Total time spent is greater than 50% in coordination of care (as documented) at patient's floor/unit and/or counseling patient: Coding Level of Care Code 51085 Subseq Hosp Care Lvl 2 Diagnoses Acute hyponatremia E87.1
[2021-11-17] MEDS: oxyCODONE/ACETAMINOPHEN 5mg/325mg TAB PO PRN (20:30)
[2021-11-17] MEDS ORDERED: SODIUM CHLORIDE 1 GM TABLET PO ONE (23:06)
[2021-11-18] MEDS: ACETAMINOPHEN 325 MG TAB PO PRN (06:20)
[2021-11-18 07:06] LABS: BUN Creatinine Ratio 28.6 (10-20); Calcium 9.3 mg/dl (8.5-10.1); Creatinine Clr Calc Pharmacy 50.5 ml/min; Est GFR (African American) 98.2 ml/min; Est GFR (Non-African American) 84.7 ml/min; Magnesium 1.6 mg/dl (1.7-2.4); Potassium 3.9 mmol/L (3.5-5.1)
--- NOTE | 2021-11-18 07:57 | Hospitalist Progress Note ---
Date of Service November 18, 2021 Assessment & Plan Admission and Anticipated Discharge Date Admission Date: November 15, 2021 Results & Data Results & Data ([facility]) Vital Signs (Past 12 Hours) Vital Signs Temp Pulse Pulse Resp BP Pulse Ox O2 Del Method 11/18/21 07:50 36.5 C 66 17 138/71 96 Room Air 11/18/21 04:15 36.8 C 61 18 143/69 H 97 Room Air 11/17/21 22:30 63 11/17/21 22:00 36.7 C 64 20 145/72 H 97 Room Air Laboratory Results 11/18/21 11/17/21 11/17/21 Range/Units 05:54 20:48 14:11 Sodium 128 L 127 L 127 L (136-145) mmol/L Potassium 3.9 (3.5-5.1) mmol/L Chloride 97 L (98-107) mmol/L Carbon Dioxide 26 (21-32) mmol/L Anion Gap 5 (3-11) BUN 18 (6-23) mg/dl Creatinine 0.63 (0.6-1.2) mg/dl Est Cr Clr Drug Dosing 50.5 ml/min Est GFR ( Amer) 98.2 ml/min Est GFR (Non-Af Amer) 84.7 ml/min BUN/Creatinine Ratio 28.6 H (10-20) Glucose 92 (70-99(Fasting)) mg/dl Calcium 9.3 (8.5-10.1) mg/dl Magnesium 1.6 L (1.7-2.4) mg/dl PG Care Time/CCT Total # of Minutes Spent Total Time Spent with Patient: Total time spent is greater than 50% in coordination of care (as documented) at patient's floor/unit and/or counseling patient: Coding
[2021-11-18] MEDS ORDERED: TOLVAPTAN 15 MG TABLET PO ONE (08:28)
[2021-11-18] MEDS ORDERED: SODIUM CHLORIDE 1 GM TABLET PO SCH (09:00)
[2021-11-18] MEDS: APIXABAN 2.5 MG TAB PO SCH (09:17)
[2021-11-18] MEDS: PANTOprazole 40 MG TAB PO SCH (09:17)
[2021-11-18] MEDS: SIMVASTATIN 10 MG TAB PO SCH (09:17)
[2021-11-18] MEDS: ATENOLOL 50 MG TABLET PO SCH (09:17)
[2021-11-18] MEDS ORDERED: SODIUM CHLORIDE 1 GM TABLET PO ONE (10:00)
[2021-11-18] MEDS: oxyCODONE/ACETAMINOPHEN 5mg/325mg TAB PO PRN (10:11)
--- NOTE | 2021-11-18 10:11 | Nephrology Progress Note ---
Date of Service November 18, 2021 Assessment & Plan (1) Acute hyponatremia: Plan Acute hyponatremia associated with generalized weakness forgetfulness with recent history of TAVR and pacemaker placement few weeks ago. No diarrhea or vomiting. Blood pressure has been somewhat elevated without any history of hypertensive episode. Significantly elevated urine osmolality suggestive of some component of SIADH. Na improved to 128 this morning after 1 dose of tolvaptan yesterday and salt tablet. --another dose of tolvaptan was ordered for this morning however not available in stock at this time. Will give 2 g of salt tablet now and then check sodium at noon. If sodium stays stable or improved, okay to be discharged. -- Continue oral salt tablet 1 g twice a day on discharge, advised to liberalize salt in diet and decreased free water intake to less than 1500 mL per day. Repeat sodium Sunday and follow with PCP. No further Nephrology follow-up needed at this time. will sign off. Admission and Anticipated Discharge Date Admission Date: November 15, 2021 Gabe Jean was seen and evaluated this morning. She is comfortable, awake, alert, no confusion. Eager to go home. Na improved to 128 this morning after 1 dose of tolvaptan yesterday. BP stable. Review of Systems Review of Systems: Detail ROS was otherwise negative except mentioned above. Physical Exam Constitutional: WD/WN, vitals as above + ill appearing and + thin; no acute distress Eyes: + anicteric sclerae Respiratory: normal respiratory effort, lungs clear to auscultation Cardiovascular: RRR, no murmur, no edema Rate/Rhythm: regular rate and regular rhythm Heart Sounds: + murmur Extremities: no edema Skin: no rashes Neurologic: no focal motor deficits Psychiatric: Orientation: alert and oriented x 3 Affect: euthymic affect Results & Data ([facility]) Vital Signs (Past 12 Hours) Vital Signs Temp Pulse Pulse Resp BP Pulse Ox O2 Del Method 11/18/21 09:58 61 11/18/21 07:50 36.5 C 66 17 138/71 96 Room Air 11/18/21 04:15 36.8 C 61 18 143/69 H 97 Room Air 11/17/21 22:30 63 PG Care Time/CCT Total # of Minutes Spent Total Time Spent with Patient: Total time spent is greater than 50% in coordination of care (as documented) at patient's floor/unit and/or counseling patient: Coding Level of Care Code 20265 Subseq Hosp Care Lvl 3 Diagnoses Acute hyponatremia E87.1
[2021-11-18] MEDS ORDERED: MAGNESIUM SULFATE / D5W 1 GM/100 ML BAG IV SCH (10:30)
--- NOTE | 2021-11-18 11:23 | Discharge Summary ---
Date of Service November 18, 2021 Admission HPI Per Admitting Provider Miranda Reddy is an 81yo female with history of GERD, HTN, longstanding colostomy presenting with confusion. Patient presents with her with whom she resides as well as her daughter who is an IT GENERALIST and does not live with her. Patient had a TAVR with pacemaker placement performed on 09/23/21 at [facility]. Per family and patient, the surgery went well with no complications. Patient was discharged home - she presently has visiting nursing on 2 days per week for 7 weeks. reports that patient has not been doing well at home since the surgery. She has not been eating well, has had progressive weakness and most recently episodes of confusion. Patient has become more forgetful, she wanders around the home and becomes confused. Yesterday she was in the office and emptied her colostomy bag in the office thinking it was the bathroom. There has been no report of fever, chest pain, cough, SOB, abdominal pain, nausea or vomiting. Ostomy output has been stable with no blood or diarrhea. No falls, imbalance or seizure No additional complaints at this time In the ER, patient afebrile, HD stable. She is confused but easily redirected, answering questions appropriately. Admission Exam Per Admitting Provider General: patient resting comfortably, NAD, non-toxic in appearance, AA&O x 4 Skin: warm, dry, intact, no rashes or lesions HEENT: NC/AT, PERRL, EOMI, anicteric sclera, conjunctiva without injection, external ear normal to inspection and nontender, nares patent, moist mucus membranes, dentition intact, no oropharyngeal lesions, neck supple, trachea midline, no LAD, no thyromegaly, no JVD Heart: +S1/S2, regular, no m/r/g Lungs: equal air entry bilaterally, no rales/rhonchi/wheezes Abd: +BS, soft, NT/ND, no masses/organomegaly/ascites, ostomy in place Ext: warm, 2+ pulses in UE/LE bilaterally, no clubbing/cyanosis or edema Neuro: nonfocal, patient AA&O x 4, speech intact, no facial droop, moving all extremities on command with equal strength 5/5 Principal Diagnosis Hyponatremia Discharge Exam General: WD/WN thin elderly female sitting in bed, NAD HEENT: head normocephalic, atraumatic, trachea midline, no deviation, mmm Chest: pacemaker to chest, no evidence for infection Resp: normal effort, diminished in the bases, no rhonchi/wheezing, on room air CV: regular rate/rhythm, systolic murmur, no calf edema/tenderness to palpation GI: +BS, soft, nontender, ostomy in place : no Roth MSK/Neuro: moves all extremities, no facial droop/slurred speech, follows commands, no focal deficit Psych: alert to person/place/year, anxious about wanting to go home regardless of further testing Skin: cool, dry Discharge Data Allergies Allergy/AdvReac Type Severity Reaction Status Date / Time bee venom protein (honey bee) Allergy Unknown Unknown Verified 11/15/21 22:48 duloxetine [From Cymbalta] Allergy Unknown Unknown Verified 11/15/21 22:48 Fish Containing Products Allergy Unknown Gastrointestinal Verified 11/16/21 15:40 Upset iodine Allergy Unknown Unknown Verified 11/15/21 22:48 shellfish derived Allergy Unknown Unknown Verified 11/15/21 22:48 Consultations 11/15/21 22:07 ED Decision to Admit Stat 11/16/21 09:42 Consult Cardiology Routine 11/16/21 10:10 Consult Nephrology Routine Ordered Studies Chest X-Ray 11/15/21 19:28 XR chest 1V portable HISTORY: 81 years-old Female weakness acute weakness COMPARISON: Chest radiograph 08/25/2020 TECHNIQUE: Portable AP view of the chest FINDINGS: Cardiac silhouette is enlarged. Endograft of the aortic valve. Left subclavian pacer. No pneumothorax. Probable trace pleural effusions. Reticular interstitial coarsening is similar to prior. No lobar airspace consolidation. Degenerative changes of the shoulders and spine. IMPRESSION: 1. Cardiomegaly with chronic interstitial coarsening. 2. Probable trace pleural effusions. ACT 112: Negative or not required by law. The above report was generated using voice recognition software. It may contain grammatical, syntax or spelling errors. Electronically signed by: Marquise Hawley M.D. 11/15/2021 8:[address] 11/15/21 19:[address] DOSE: 537.48 mGy.cm HISTORY: Confusion, mental status decline TECHNIQUE: Multiaxial CT images of the head were performed without the use of intravenous contrast. Automated exposure control was utilized for this study. A dose lowering technique was utilized adhering to the principles of ALARA. Comparison: None. Findings: The paranasal sinuses and mastoid air cells are clear. The calvarium and skull base are intact. There is no mass, hematoma, midline shift, acute infarct. White matter hypodensity is nonspecific but suggestive of microvascular ischemic change. The ventricles and sulci demonstrate mild age-related involutional changes. Impression: No acute intracranial abnormality. Atrophy and microvascular ischemic changes. ACT 112: Negative or not required by law. Electronically signed by: Josh Palacios M.D. 11/16/2021 7:19 AM Hospital Course (1) Acute hyponatremia: 81yo female s/p TAVR with pacemaker placement 09/23/21 presenting with functional decline and confusion over the last several weeks SINCE TAVR/pacer Found with acute hyponatremia, Na of 120 (was previously 127 on 08/12/21). 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 and recent surgery --Follows with [facility], stated recent ECHo looked good -- Per Grace PEREZ, patient cancelled her recent appt, they were going to look at her Na level, patient also cancelled her nephrology appointment CT head negative CXR with cardiomegaly, chronic interstitial coarsening, trace pleural effusions Patient given LR at 80mL/hr in ER -- discontinued Urine sodium was 33, Urine osm ELEVATED 900, serum Osm 268 TSH wnl 1.464 Moved to telemetry to look for any arrhythmias as well (hx PSVT s/p ablation in past) -- no arrhythmia, paced on monitor 60-70s No seizure activity witnessed Nephrology consulted given 3% Nacl 150ml bolus with repeat urine osm 365 from 901 and fluid restriction removed. subsequently given tolvaptan 15mg and 2gm NaCl on 11/17 with improvement in Na to 128 on AM labs Ideally wanted to be closer to 130 however patient stated nephrology told her she could go this morning. Repeat unchanged but at base cognitively Rx for 1gm Nacl BID at discharge with repeat labs on Sunday provided. To liberalize salt in diet and decreased free water intake to less than 1500ml/day ENCOURAGED PATIENT TO KEEP ALL FOLLOW UP APPOINTMENTS GIVEN SHE CANCELLED CARDS/NEPHRO FOLLOWING TAVR SHE "WASN'T FEELING WELL" Of note, patient with mild headache reported to myself on 11/17 (reporedly frontal, similar to prior at home and relieved with Tylenol). NO headache reported to myself 11/18 however was reported to supervising provider but had resolved (2) Metabolic encephalopathy: likely 2nd to above, hyponatremia/SIADH improving with improvement in Na Per , almost to baseline 11/17 but trouble with report and fatigue, 11/18 reported at baseline B12/TSH wnl WBC wnl , afebrile nacl at discharge, fluid restriction and liberalized salt with close f/u with cards/nephrology this upcoming week (3) Hypertension: Continued atenolol 50mg daily (4) Vertebral compression fracture: With chronic pain, unchanged. meds per Dr Zamorano w/ Percocet prn Percocet PRN --> took dose evening 11/17, AM 11/18 --> could have rebound headache in afternoon from opiates limit use to only as needed -- reported increased back pain due to bed, controlled with home meds (5) GERD (gastroesophageal reflux disease): Chronic. Stable. Continued Protonix 40mg po BID while inpatient, omeprazole resumed at discharge Checked mag, tomas given ostomy --> 1.6 IV replacement w/ 1gm however repeat unchanged. Given 1gm IV prior to d/c as declined waiting for 2nd dose given dose slow mag and rx for once daily at discharge recommend outpatient follow up (6) Hyperlipidemia: Chronic. Stable Continued Simvastatin 10mg po daily (7) Hypercoagulable state: hyperproteinemia, protein S deficiency Remained on eliquis 2.5mg BID (8) CHB (complete heart block): s/p pacemaker with recent TAVR (9) Cardiac pacemaker in situ: noted (10) S/P TAVR (transcatheter aortic valve replacement): noted as above Also with hx Crohn's disease s/p proctocolectomy with ileostomy formation 1976 ostomy changed evening 11/16, own supplies in room Also hx abdominal aortic aneursym repair [address] Zaman (11) Protein calorie malnutrition: Moderate protein-calorie malnutrition nutrition consulted while inpatient, encouraged vanilla boost GC daily (equate at home), yogurt at dinner and snack in afternoon encouraged increased intake/supplements at discharge Total Time Total Time Spent Total Time Spent (In Minutes): 45 Discharge Plan Discharge Items Patient Disposition: Home - Self-Care Reason For Visit: HYPONATREMIA Discharge Diagnosis: Hyponatremia Goals: You have been hospitalized for an acute medical problem. During your stay at [facility], we have made an effort to correct the problem that brought you to the hospital while keeping you as comfortable as possible. Medications were used to bring your condition under control and your discharge instructions will include directions for any medications you should take after leaving the hospital. Please make sure you see your Primary Care Provider as part of your follow up plan. Activity: Resume your previous activity Non-emergency contact: Primary Care Provider, Financial Operations Clerk and Deicer Tester Call non-emergency contact if: you have any medication questions, your symptoms worsen and you have a fever Follow-up/Referrals: Buck Zamorano MD [Primary Care Provider] - 11/25/21 11:00 am Guillermo Fitzgerald DO [Physician] - 11/30/21 10:40 am Glenn Paula MD [Physician] - Diet: Heart Healthy Diet Comment: KEEP WATER INTAKE TO LESS THAN 1500mL/day Ambulatory Orders: Basic Metabolic Panel (Routine) Timeframe: [id number] Location: Determined by Patient Ordered By: Eliana Murillo Attending Provider Instructions: You have been hospitalized for altered mental status and confusion. Imaging of the brain was NEGATIVE for stroke. Your sodium level was found to be much lower than usual and nephrology was consulted. You have an issue with an inappropriate diuretic hormone secretion which was probably worsened after your surgery for your heart valve. Cardiology saw you while inpatient and your valve and pacemaker were functioning properly and you should follow up with them in 1 week to monitor your status after valve replacement. Your sodium levels have slowly been improving and repeat levels are closer to your normal. You are being sent on oral salt tablets 1g by mouth TWICE daily. We have sent in repeat labs for Sunday and will have the results forwarded to the automobile mechanic supervisor office. I have also sent in prescription for slow magnesium as your magnesium levels have been a little lower and this is likely from your ostomy output. Please follow up with your PCP in the next 7-10 days to ensure stable after hospital discharge. It is VERY IMPORTANT TO KEEP FOLLOW UP APPOINTMENTS especially when feeling poor so that we can catch these issues before they require inpatient hospitalization. Please return to the ER with any increased confusion/fatigue, shortness of breath or for any other symptoms concerning for you. Take care! Pending Studies at Discharge: No Stand-Alone Forms: My [facility] Medications and DC Order Prescriptions: New Mag 64 64 mg Tablet,Delayed Release (Dr/Ec) 64 mg PO QAM Qty: 30 0RF sodium chloride 1 gram Tablet 1 g PO BID Qty: 60 0RF Continued (DME) skin barrier wafer See Rx Instructions .Route .MEDSUPPLY Qty: 10 11RF Rx Instructions: As directed (DME) drain pouches See Rx Instructions .Route .MEDSUPPLY Qty: 10 11RF Rx Instructions: As directed (DME) skin barriers seals See Rx Instructions .Route .MEDSUPPLY Qty: 10 11RF Rx Instructions: As directed atenolol 50 mg tablet 50 mg PO DAILY Qty: 90 3RF Eliquis 2.5 mg tablet 2.5 mg PO BID Qty: 180 3RF meclizine 25 mg tablet 25 mg PO TID PRN (Reason: dizziness) Qty: 30 0RF simvastatin 10 mg tablet 10 mg PO DAILY Qty: 90 3RF lorazepam 1 mg tablet 1 mg PO HS PRN (Reason: sleep) Qty: 30 0RF oxycodone-acetaminophen 5-325 mg tablet 0.5 - 1 tab PO BID PRN (Reason: pain) Qty: 30 0RF Prolia 60 mg/mL syringe 60 mg SQ Q6MO omeprazole 20 mg capsule,delayed release(DR/EC) 20 mg PO BID nystatin [Nystop] 100,000 unit/gram powder 1 applic topical TID PRN (Reason: irritation) Discharge Orders: Discharge Order (Routine); Ordered 11/18/21 Ordered By: Eliana Noyola/Other Patient Handouts: Hyponatremia Dc Admission Data Admit Date/Time: 11/15/21 23:05 Attending Provider: Shannan Redmond Admit Provider: Mary Jane Snow Primary Care Provider: Buck Zamorano Other Providers: Mary Jane Snow ; Glenn Paula ; Guillermo Fitzgerald Other Interventions: Discharge Summary Assessment (RN) Last Done: 11/18/21 13:26 Supervising Physician Co-Signing Physician Notes PA Supervision Note: I personally saw and examined the patient. I verified all malloy points and agree with KENNY Schaefer with the following exceptions and/or additions: S-Pt feeling so much better. No further headache, no more confusion. Anxious for discharge. Sodium back to her baseline O- Vitals reviewed Gen: [AAOx3, NAD] HEENT: [anicteric sclerae, EOMI] CV: [RRR 2/6 DILAN RUSB nl S1S2] Pulm: [CTAB no wcr] Abd: [+BS soft NT ND no masses or hernias] Ext: [no edema] Skin: [no rashes, warm/dry] Neuro: [full strength throughout] A/P-81 yo female here with acute encephalopathy, acute on chronic hyponatremia, from SIADH. Now resolved, sodium back to baseline. CLose f/u of sodium as outpt dc to home with plan as above Coding Level of Care Code D/C DAY MANAGEMENT >30 MINS Diagnoses Acute hyponatremia E87.1 Metabolic encephalopathy G93.41 Hypertension I10 Vertebral compression fracture M48.50XA GERD (gastroesophageal reflux disease) K21.9 Hyperlipidemia E78.5 Hypercoagulable state D68.59 CHB (complete heart block) I44.2 Cardiac pacemaker in situ Z95.0 S/P TAVR (transcatheter aortic valve replacement) Z95.2 Protein calorie malnutrition E46
[2021-11-18] MEDS ORDERED: MAGNESIUM CHLORIDE W/CALCIUM 64MG DELAYED REL TAB PO SCH (11:30)
== END 2021-11-18 14:04 | disposition home health service (06) | DRG 643 ==
LOC: ED 19:01 → SUATTDRO 23:05 → 3N 23:05 → 2N 11-16 10:47

== ENCOUNTER 2022-01-24 07:41 | Inpatient (IN) ==
--- NOTE | 2022-01-24 08:17 | Emergency Department Note ---
Impression & Plan Hypoxia, CHF (congestive heart failure), Breath shortness ED Provider Note NAME: SANDRA NAVA AGE: 81 SEX: F : 1940 ARRIVES VIA: Walk-In INFORMANT: Patient ED PROVIDER(S): Vlad Baron DO CHIEF COMPLAINT: Shortness of breath HPI: Patient is an 81-year-old female who presents to the ER for shortness of breath which has been getting worse for the past 2 weeks. Got significant worse over the past 24 hours. Denies any headache or change in vision. No chest pain but does note that she has trouble with memory. 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 No belly pain, nausea, vomiting, or diarrhea. No dysuria, urgency, or frequency. No other exacerbating or remitting factors. Family notes that she does recently have a new cough for the past 24 hours as well. Nonproductive. ROS: See above HPI for pertinent positives & negatives. A total of 10 systems reviewed and were otherwise negative. PAST MEDICAL HISTORY:See Below PAST SURGICAL HISTORY:See Below FAMILY HISTORY:See Below SOCIAL HISTORY:See Below HOME MEDICATIONS:See Below ALLERGIES:See Below VITALS:See Below PHYSICAL EXAMINATION: GENERAL: Sitting up in bed, alert, cachectic, disheveled EYE EXAM: normal conjunctiva. PERRL and EOM's grossly intact. OROPHARYNX: no exudate, no erythema, lips, buccal mucosa, and tongue normal and mucous membranes are moist NECK: supple, no nuchal rigidity, no adenopathy, non-tender CHEST: Pacer in left upper chest wall LUNGS: Mild wheezing at the bilateral bases. Normal chest wall mechanics HEART: no murmurs, S1 normal and S2 normal ABDOMEN: abdomen soft, non-tender, normo-active bowel sounds, ostomy in left lower quadrant UPPER EXTREMITIES: upper extremities are grossly normal. LOWER EXTREMITIES: No pitting edema. NEURO EXAM: Normal sensorium, cranial nerves II-XII grossly intact, normal speech, no gross weakness of arms, no gross weakness of legs. MEDICAL DECISION MAKING: Patient is an 81-year-old female who presents ER for above-stated complaint. Patient was found to be hypoxic at 87% on room air. She was placed on 2 L nasal cannula. IV was established blood work is obtained. Labs show no significant leukocytosis. Mild anemia 11.4. BMP along with LFTs bilirubin was unremarkable. Troponin was slightly elevated at 19. Lipase was normal. Influenza COVID and RSV were negative. Chest x-ray with some questionable cephalization. Patient remained on 2 L nasal cannula throughout her stay in the ER. She was updated bedside. Discussed with Guillermo king not any hospitalist was seen and evaluated admitted for further work-up. Triage Nursing notes reviewed. Limited review of prior medical records performed Vital Signs: reviewed and remarkable for hypoxia Differential diagnosis: Differential diagnoses includes but is not limited to pneumonia, bronchitis, COPD/Asthma exacerbation, pneumothorax, pulmonary embolism, congestive heart f ailure, acute coronary syndrome ER treatment provided: See below Diagnostics interpreted by me: ECG: Atrial sensed ventricularly paced rate 89 Left axis No PVCs T wave inversion in V1 through V3 QTC 452 Cardiac Monitoring: An order was placed for continuous cardiac monitoring. The monitor shows a rate of 92 with sinus rhythm. Laboratory studies: As stated above and show below. Imaging studies: Portable AP upright 1 view of the chest as described above Consultation(s): As described above Procedures: none Critical Care: I have personally spent 31 minutes of critical care time in the direct management of this patient. This includes bedside care, interpretation of diagnostic studies, and testing, discussion with consultants, patient, and family members, and other required patient management activities. This 31 minutes is in excess of all separately billable procedures. 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 Opioid use agreement exists Osteoporosis Secondary hypercoagulable state Tremor Surgical History H/O abdominal aortic aneurysm repair H/O heart artery stent H/O pyloroplasty H/O resection of small bowel History of abdominal aortic aneurysm (AAA) repair History of appendectomy History of breast biopsy History of carpal tunnel surgery History of colostomy History of colposcopy History of hernia repair History of ileostomy History of resection of small bowel History of tonsillectomy and adenoidectomy History of tooth extraction Hx of tubal ligation Status post catheter ablation of atrial fibrillation Status post proctocolectomy Family History Father Coronary heart disease Hypertension Stroke Sister No problems noted. 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 Beliefs That Will Affect Care: None marital status: Current Living Situation: Spouse current occupational status: retired How many Children do You have: 2 Other Information That Helps Us Care for You: No Feels Safe at Home: Yes Safety Concerns: Feels Safe At This Time Childhood Exposure to Second-Hand Smoke: Yes caffeine: Yes (coffee) Dental Care, Regularly: Yes Physical Activity Frequency: Daily Physical Activity Frequency Comment: walks Seatbelt Use: always Sunscreen Use: Yes Assistive Devices: None Allergies Allergies Allergy/AdvReac Type Severity Reaction Status Date / Time bee venom protein (honey bee) Allergy Unknown Unknown Verified 12/02/21 14:39 duloxetine [From Cymbalta] Allergy Unknown Unknown Verified 12/02/21 14:39 Fish Containing Products Allergy Unknown Gastrointestinal Verified 12/02/21 14:39 Upset iodine Allergy Unknown Unknown Verified 12/02/21 14:39 shellfish derived Allergy Unknown Unknown Verified 12/02/21 14:39 Home Meds Home Medications Medication Instructions Recorded Confirmed denosumab 60 mg/mL subcutaneous 60 mg subcut Q6MO 02/13/19 01/24/22 syringe (Prolia) nystatin 100,000 unit/gram topical 1 applic topical TID PRN irritation 11/15/21 01/24/22 powder (Nystop) omeprazole 20 mg capsule,delayed 20 mg PO BID 11/15/21 01/24/22 release Previous Rx's Medication Instructions Recorded apixaban 2.5 mg tablet (Eliquis) 2.5 mg PO BID #180 tabs 05/03/21 meclizine 25 mg tablet 25 mg PO TID PRN dizziness #30 tabs 09/06/21 simvastatin 10 mg tablet 10 mg PO DAILY #90 tabs 10/05/21 magnesium chloride 64 mg 64 mg PO QAM #30 tabs 11/18/21 (magnesium chloride) tablet,delayed release (Mag 64) furosemide 20 mg tablet 20 mg PO DAILY #30 tabs 12/02/21 potassium chloride 20 mEq 20 meq PO DAILY #30 tabs 12/05/21 tablet,extended release atenolol 50 mg tablet 50 mg PO DAILY #90 tabs 12/12/21 lorazepam 1 mg tablet 1 mg PO HS PRN sleep #30 tabs 12/21/21 oxycodone-acetaminophen 5 mg-325 0.5 tab PO BID PRN pain #30 tabs 01/13/22 mg tablet sodium chloride 1 gram tablet 1,000 mg PO BID #60 tabs 01/23/22 Results & Data (ED) Vital Signs Vital Signs - 24 hr 01/24/22 07:50 01/24/22 08:06 01/24/22 08:08 Temperature 36.4 C L Temperature Source Temporal Artery Scan Pulse Rate 96 H Pulse Rate [Apical] 84 Respiratory Rate 44 H 23 Respiratory Effort / Characteristics SOB on Exertion Short of Breath SOB on Exertion Blood Pressure 172/84 H Blood Pressure Mean 113 Pulse Oximetry 95 86 L Oxygen Delivery Method Room Air Room Air Oxygen Flow Rate Sepsis Recent Fever Within 48 Hours No Sepsis New/Unexplained Change in Mental Status N/A Sepsis Action Taken by Nursing No Action Required 01/24/22 08:08 01/24/22 08:22 Temperature Temperature Source Pulse Rate Pulse Rate [Apical] Respiratory Rate Respiratory Effort / Characteristics Blood Pressure Blood Pressure Mean Pulse Oximetry 98 96 Oxygen Delivery Method Nasal Cannula Nasal Cannula Oxygen Flow Rate 2 2 Sepsis Recent Fever Within 48 Hours Sepsis New/Unexplained Change in Mental Status Sepsis Action Taken by Nursing Laboratory Data Result diagrams: 01/24/22 08:25 01/24/22 10:15 Lab Results 01/24/22 01/24/22 01/24/22 Range/Units 08:25 08:25 08:25 WBC 8.62 (4.8-10.8) K/ul RBC 3.52 L (3.93-5.22) M/uL Hgb 11.4 L (12.0-16.0) g/dl Hct 34.4 (34.1-44.9) % MCV 97.7 (80.0-100.0) fL MCH 32.4 (25.0-34.0) pg MCHC 33.1 (32.0-36.0) g/dL RDW Std Deviation 55.0 H (36.4-46.3) fL RDW Coeff of Ana M 15.5 H (11.5-14.5) % Plt Count 221 (130-400) K/uL MPV 9.4 (9.4-12.3) fL Immature Gran % (Auto) 0.6 % Neut % (Auto) 76.2 % Lymph % (Auto) 13.8 % [place] % (Auto) 7.9 % Eos % (Auto) 1.4 % Baso % (Auto) 0.1 % Neut # (Auto) 6.57 H (1.4-6.5) K/uL Lymph # (Auto) 1.19 L (1.2-3.4) K/uL [place] # (Auto) 0.68 (0.24-0.82) K/uL Eos # (Auto) 0.12 (0-0.50) K/uL Baso # (Auto) 0.01 (0-0.2) K/uL Immature Gran # (Auto) 0.05 H (0.00-0.02) K/uL Sodium 133 L (136-145) mmol/L Potassium TNP Chloride 98 (98-107) mmol/L Carbon Dioxide 30 (21-32) mmol/L Anion Gap 5 (3-11) BUN 16 (6-23) mg/dl Creatinine 0.54 L (0.6-1.2) mg/dl Est Cr Clr Drug Dosing 55.7 ml/min Est GFR ( Amer) 103.3 ml/min Est GFR (Non-Af Amer) 89.1 ml/min BUN/Creatinine Ratio 29.6 H (10-20) Glucose 95 (70-99(Fasting)) mg/dl Calcium 8.4 L (8.5-10.1) mg/dl Total Bilirubin 0.4 (0.2-1.0) mg/dl AST TNP ALT 12 (7-52) U/L Alkaline Phosphatase 133 H (34-104) U/L Troponin I High Sens 19.1 H (0-14) pg/ml B-Natriuretic Peptide (0-100) pg/ml Total Protein 7.5 (6.0-8.3) gm/dl Albumin 3.3 L (3.4-5.0) gm/dl Globulin 4.2 H (2.5-4.0) gm/dl Albumin/Globulin Ratio 0.8 L (0.9-2) Lipase 23 (11-82) U/L Procalcitonin (0-0.5) ng/ml SARS-CoV-2 (PCR) NEGATIVE (Negative) Influenza Type A (PCR) Negative (Neg) Influenza Type B (PCR) Negative (Neg) RSV (RT-PCR) Negative (Neg) 01/24/22 01/24/22 01/24/22 Range/Units 08:25 10:15 10:15 WBC (4.8-10.8) K/ul RBC (3.93-5.22) M/uL Hgb (12.0-16.0) g/dl Hct (34.1-44.9) % MCV (80.0-100.0) fL MCH (25.0-34.0) pg MCHC (32.0-36.0) g/dL RDW Std Deviation (36.4-46.3) fL RDW Coeff of Ana M (11.5-14.5) % Plt Count (130-400) K/uL MPV (9.4-12.3) fL Immature Gran % (Auto) % Neut % (Auto) % Lymph % (Auto) % [place] % (Auto) % Eos % (Auto) % Baso % (Auto) % Neut # (Auto) (1.4-6.5) K/uL Lymph # (Auto) (1.2-3.4) K/uL [place] # (Auto) (0.24-0.82) K/uL Eos # (Auto) (0-0.50) K/uL Baso # (Auto) (0-0.2) K/uL Immature Gran # (Auto) (0.00-0.02) K/uL Sodium (136-145) mmol/L Potassium 4.1 Chloride (98-107) mmol/L Carbon Dioxide (21-32) mmol/L Anion Gap (3-11) BUN (6-23) mg/dl Creatinine (0.6-1.2) mg/dl Est Cr Clr Drug Dosing ml/min Est GFR ( Amer) ml/min Est GFR (Non-Af Amer) ml/min BUN/Creatinine Ratio (10-20) Glucose (70-99(Fasting)) mg/dl Calcium (8.5-10.1) mg/dl Total Bilirubin (0.2-1.0) mg/dl AST 17 ALT (7-52) U/L Alkaline Phosphatase (34-104) U/L Troponin I High Sens (0-14) pg/ml B-Natriuretic Peptide 318 H (0-100) pg/ml Total Protein (6.0-8.3) gm/dl Albumin (3.4-5.0) gm/dl Globulin (2.5-4.0) gm/dl Albumin/Globulin Ratio (0.9-2) Lipase (11-82) U/L Procalcitonin < 0.05 (0-0.5) ng/ml SARS-CoV-2 (PCR) (Negative) Influenza Type A (PCR) (Neg) Influenza Type B (PCR) (Neg) RSV (RT-PCR) (Neg) Administered Medications Discontinued Medications Morphine Sulfate (Morphine Sulfate 2 Mg/Ml Carp) 1 mg IV NOW STA Stop: 01/24/22 10:34 Last Admin: 01/24/22 10:44 Dose: 1 mg Documented By: KV Imaging Data Radiologist's Impression: Chest X-Ray 01/24/22 08:13 XR chest 1V portable HISTORY: Shortness of breath. Wheezing. Atypical Chest Pain COMPARISON: Chest 11/15/2021. FINDINGS: There are low lung volumes. The patient is slightly rotated. Progressive interstitial thickening is noted which may represent mild congestive change. The heart is mildly enlarged. Cardiac valve prosthesis and a left-sided pacemaker again noted. No pneumothorax. No pleural effusions. There are in creased markings within the left lung base. There is a tortuous thoracic aorta. IMPRESSION: 1. Mild interstitial thickening which is slightly progressed. This could represent superimposed congestive change. 2. Increased markings at the left lung base which may represent chronic interstitial change or atelectasis/pneumonitis. ACT 112: Negative or not required by law. Electronically signed by: Josh Palacios M.D. 01/24/2022 8:43 AM Discharge Plan Visit Data Chief Complaint: Shortness of Breath/Dyspnea Stated Complaint: SOB ED Provider: Vlad Baron Discharge Problem: Hypoxia, CHF (congestive heart failure), Breath shortness
[2022-01-24 08:43] LABS: Basophils # (auto) 0.01 K/uL (0-0.2); Basophils % (auto) 0.1 %; Eosinophils # (auto) 0.12 K/uL (0-0.50); Eosinophils % (auto) 1.4 %; Hematocrit (blood only) 34.4 % (34.1-44.9); Hemoglobin 11.4 g/dl (12.0-16.0); Immature Granulocytes # (auto) 0.05 K/uL (0.00-0.02); Immature Granulocytes % (auto) 0.6 %; Lymphocytes # (auto) 1.19 K/uL (1.2-3.4); Lymphocytes % (auto) 13.8 %; Mean Corpuscular Hemoglobin 32.4 pg (25.0-34.0); Mean Corpuscular Hgb Conc 33.1 g/dL (32.0-36.0); Mean Corpuscular Volume 97.7 fL (80.0-100.0); Mean Platelet Volume 9.4 fL (9.4-12.3); Monocytes # (auto) 0.68 K/uL (0.24-0.82); Monocytes % (auto) 7.9 %; Neutrophils # (auto) 6.57 K/uL (1.4-6.5); Neutrophils % (auto) 76.2 %; Platelet Count 221 K/uL (130-400); RDW Coefficient of Variation 15.5 % (11.5-14.5); Red Blood Count 3.52 M/uL (3.93-5.22); White Blood Count 8.62 K/ul (4.8-10.8)
--- NOTE | 2022-01-24 08:44 | XRay Report ---
XR chest 1V portable HISTORY: Shortness of breath. Wheezing. Atypical Chest Pain COMPARISON: Chest 11/15/2021. FINDINGS: There are low lung volumes. The patient is slightly rotated. Progressive interstitial thick ening is noted which may represent mild congestive change. The heart is mildly enlarged. Cardiac valv e prosthesis and a left-sided pacemaker again noted. No pneumothorax. No pleural effusions. There are increased markings within the left lung base. There is a tortuous thoracic aorta. IMPRESSION: 1. Mild interstitial thickening which is slightly progressed. This could represent superimposed conge stive change. 2. Increased markings at the left lung base which may represent chronic interstitial change or atelec tasis/pneumonitis. ACT 112: Negative or not required by law. Electronically signed by: Josh Palacios M.D. 01/24/2022 8:43 AM
[2022-01-24 09:19] LABS: Alanine Aminotransferase 12 U/L (7-52); Albumin Globulin Ratio 0.8 (0.9-2); Albumin Level 3.3 gm/dl (3.4-5.0); Alkaline Phosphatase 133 U/L (34-104); Anion Gap 5 (3-11); BUN Creatinine Ratio 29.6 (10-20); Bilirubin,Total 0.4 mg/dl (0.2-1.0); Blood Urea Nitrogen 16 mg/dl (6-23); Calcium 8.4 mg/dl (8.5-10.1); Carbon Dioxide 30 mmol/L (21-32); Chloride 98 mmol/L (98-107); Creatinine Clr Calc Pharmacy 55.7 ml/min; Est GFR (African American) 103.3 ml/min; Est GFR (Non-African American) 89.1 ml/min; Globulin 4.2 gm/dl (2.5-4.0); Glucose 95 mg/dl (70-99(Fasting)); Lipase 23 U/L (11-82); Sodium 133 mmol/L (136-145); Total Protein 7.5 gm/dl (6.0-8.3); Troponin I High Sensitivity 19.1 pg/ml (0-14)
[2022-01-24 09:21] LABS: Influenza A virus by PCR Negative (Neg); Influenza B virus by PCR Negative (Neg); RSV by PCR Negative (Neg); SARS CoV2 RNA(COVID-19)Cepheid NEGATIVE (Negative)
--- NOTE | 2022-01-24 10:13 | History & Physical Report ---
Date of Service January 24, 2022 Assessment & Plan (1) Hypoxia: Plan: -Admit to med/tele -Patient is currently afebrile, hemodynamically stable, and currently stable on 2L NC -Tried to wean patient off O2 during me exam but she desaturated into the mid 80's on RA -Hypoxia is likely multifactorial at this time including CHF exacerbation, anxiety, and pain driven. Low suspicion for infectious etiology at this time, has been afebrile, no leukocytosis, and negative procal. BNP elevated at 318 -Continue as needed O2 for SpO2 equal to or greater than 95% -Ordering incentive spirometry, flutter therapy, and scheduled albuterol treatments -Low suspicion for PE at this time as she is has been on her prescribed Eliquis -Will obtain new TTE as her last was over a year ago -Will start IV lasix at 20 mg BID, home dose is normally 20 mg po daily -Will start with a 2L fluid restriction, and 2g sodium restriction. Management of fluid level may be difficult as she has been on NaCL tabs for her hyponatremia, will continue for now as we are using IV lasix. Will obtain urine studies tomorrow morning prior to am lasix dose to monitor -Monitor intake and output -Wean O2 as able -May need to adjust lasix dose prior to discharge -AM CBC and CMP (2) Elevated troponin: Plan: -First high sensitivity trop elevated at 19.1 -No chest pain/pressure or ECG changes noted -Likely due to demand from her hypoxia -Will obtain repeat and monitor for any substantial elevation (3) Confusion: Plan: -Patient is currently alert and oriented and at neurologic baseline -She and her family report more memory loss and forgetfulness over the past year -No acute neuro defects on exam, sodium currently stable at 133 -Should likely be evaluated for possible dementia/Alzheimer's in an outpatient setting on discharge (4) Hypertension: Plan: -Continue Atenlol (5) Vertebral compression fracture: Plan: -Has chronic pain -Gave 1mg IV morphine prior to exam and ABG -Continue home Percocet (6) Crohn's disease: Plan: -Currently stable and with ostomy bag in place, continue to monitor output (7) GERD (gastroesophageal reflux disease): Plan: -Continue omeprazole (8) Secondary hypercoagulable state: Plan: -Continue Eliquis (9) Anxiety disorder: Plan: -Will continue HS ativan as she has been on it for years but would recommend PCP try starting her on an antidepressant and attempting to wean her off as jail Benzodiazepine use can increase risk of Dementia (10) Sacral decubitus ulcer: Plan: -Turn and position q2h -Wound care nurse consult placed Plan The patiient was discussed with Dr. Simons at the time of the admission History of Present Illness Chief Complaint: Shortness of breath Primary Care Provider: Buck Zamorano MD Miranda is an 81 year old female with a PMH significant for Aortic stenosis and complete heart block, S/P TAVR and pacemaker placement in 2020, grade I diastolic dysfunction, LVEF of 65% as of 08/2020, hx of hyperproteinemia and protein S deficiency on Eliquis, hx of vertebral compression fracture, chronic pain syndrome, Crohns disease, Hx of SBO, current colostomy status, chronic hyponatremia, GERD, and hypertension who presented to the [facility] ED on 01/24/22 with a chief complaint of SOB and confusion. In the ED the patient was found to be afebrile, hemodynamically stable, but hypoxic at 86% on RA, but was stable when placed on 2L NC. Labs were significant for WBC WNL, stable Hgb at 11.4, Lymphocyte count of 1.19, sodium of 133, potassium hemolyzed with repeat ordered, stable renal function, corrected calcium of 9.0, AST which is in process but Alk phos of 133, high sensitivity trop of 19.1, and negative covid, influenza A/B, and RSV. Chest xray shows "Mild interstitial thickening which is slightly progressed. This could represent superimposed congestive change. Increased markings at the left lung base which may represent chronic interstitial change or atelectasis/pneumonitis." Prior to admission the patient was not given treatment for her SOB. At the time of the exam the patient was sitting in bed in moderate distress due to her chronic back pain with her and family friend at bedside. History was obtained from all three during the exam. They state that the patient has had progressive dyspnea and SOB for the past two weeks. Starting yesterday she started to develop a productive cough with yellow sputum. They deny any recent fevers or chills during this time. They state that she always has to sleep in a recliner due to her chronic back pain so she is unsure if she gets SOB when she would lay flat. She smoked approximately 30 years ago and does not use oxygen at baseline. She and her family have noted increased swelling in her BL lower extremities over the past two weeks, despite taking her daily lasix. They state that ever since being hospitalized for her hyponatremia she has continued issues with memory loss and forgetfulness, they think she is at her neurologic baseline at this time. I spoke to them regarding code status, the patient was adamant that she wants to be a DNR/DNI. During my initial exam the patient was very anxious and distraught due to her chronic back pain and not having pain medications yet today. She was taking very shallow breaths due to her back pain. She denies any chest pain, hemoptysis, abdominal pain, changes in ostomy output, nausea, vomiting, dysuria, hematuria, and recent falls. The patient's states that she has started to develop a sacral ulcer on her buttocks as she is sitting most of the day. They confirmed that she has no had any of her meds yet today and still takes her Eliquis as prescribed. Please refer to Dr. Simons's attestation for any changes to the treatment plan Allergies Allergy/AdvReac Type Severity Reaction Status Date / Time bee venom protein (honey bee) Allergy Unknown Unknown Verified 12/02/21 14:39 duloxetine [From Cymbalta] Allergy Unknown Unknown Verified 12/02/21 14:39 Fish Containing Products Allergy Unknown Gastrointestinal Verified 12/02/21 14:39 Upset iodine Allergy Unknown Unknown Verified 12/02/21 14:39 shellfish derived Allergy Unknown Unknown Verified 12/02/21 14:39 Home Medications Medication Instructions Recorded Confirmed Type denosumab 60 mg/mL subcutaneous 60 mg subcut Q6MO 02/13/19 01/24/22 History syringe (Prolia) apixaban 2.5 mg tablet (Eliquis) 2.5 mg PO BID #180 tabs 05/03/21 01/24/22 Rx meclizine 25 mg tablet 25 mg PO TID PRN dizziness #30 tabs 09/06/21 01/24/22 Rx simvastatin 10 mg tablet 10 mg PO DAILY #90 tabs 10/05/21 01/24/22 Rx nystatin 100,000 unit/gram topical 1 applic topical TID PRN irritation 11/15/21 01/24/22 History powder (Nystop) omeprazole 20 mg capsule,delayed 20 mg PO BID 11/15/21 01/24/22 History release magnesium chloride 64 mg 64 mg PO QAM #30 tabs 11/18/21 01/24/22 Rx (magnesium chloride) tablet,delayed release (Mag 64) furosemide 20 mg tablet 20 mg PO DAILY #30 tabs 12/02/21 01/24/22 Rx potassium chloride 20 mEq 20 meq PO DAILY #30 tabs 12/05/21 01/24/22 Rx tablet,extended release atenolol 50 mg tablet 50 mg PO DAILY #90 tabs 12/12/21 01/24/22 Rx lorazepam 1 mg tablet 1 mg PO HS PRN sleep #30 tabs 12/21/21 01/24/22 Rx oxycodone-acetaminophen 5 mg-325 0.5 tab PO BID PRN pain #30 tabs 01/13/22 01/24/22 Rx mg tablet sodium chloride 1 gram tablet 1,000 mg PO BID #60 tabs 01/23/22 01/24/22 Rx Past Med/Surg History Medical History (Updated 01/24/22 @ 12:29 by Vlad Baron DO) Aortic stenosis Chronic pain syndrome Colostomy care Crohns disease Degenerative lumbar spinal stenosis GERD (gastroesophageal reflux disease) H/O small bowel obstruction Hyperproteinemia (~02/13/19) Hypertension Hypokalemia MCC current use of anticoagulant Opioid use agreement exists Osteoporosis Secondary hypercoagulable state Tremor Surgical History H/O abdominal aortic aneurysm repair H/O heart artery stent H/O pyloroplasty H/O resection of small bowel History of abdominal aortic aneurysm (AAA) repair History of appendectomy History of breast biopsy History of carpal tunnel surgery History of colostomy History of colposcopy History of hernia repair History of ileostomy History of resection of small bowel History of tonsillectomy and adenoidectomy History of tooth extraction Hx of tubal ligation Status post catheter ablation of atrial fibrillation Status post proctocolectomy Family History Father Coronary heart disease Hypertension Stroke Sister No problems noted. Mother Coronary heart disease Hypertension Stroke Denies family history of Ovarian cancer Prostate cancer Myocardial infarction Breast cancer Lung cancer Colorectal cancer Social History Smoking Status: Former smoker Tobacco Type: Cigarettes Age Started Using Tobacco: 26; Age Quit Using Tobacco: 61; packs per day: 1; Second Hand Exposure: No; Do You Dip or Chew Tobacco: No; Tobacco Cessation Education Requested by Patient: No Hx Alcohol Use: No Hx Substance Use: No Preferred Language: Turkmen Communication Ability: Effective Visual Impairment: Limited Hearing Ability: Normal Convey[employer] Work[employer] Required: No Beliefs That Will Affect Care: None marital status: Current Living Situation: Spouse current occupational status: retired How many Children do You have: 2 Other Information That Helps Us Care for You: No Feels Safe at Home: Yes Safety Concerns: Feels Safe At This Time Childhood Exposure to Second-Hand Smoke: Yes caffeine: Yes (coffee) Dental Care, Regularly: Yes Physical Activity Frequency: Daily Physical Activity Frequency Comment: walks Seatbelt Use: always Sunscreen Use: Yes Assistive Devices: None Review of Systems Review of Systems: Denies current fever, chills, headache, changes in vision, hearing, taste, and smell, chest pain, abdominal pain, nausea, vomiting, diarrhea, hematemesis, melena, dysuria, hematuria, and recent falls. All systems have been reviewed and are otherwise negative. Physical Exam Physical Exam: Physical Exam: General: In moderate distress due to chronic back pain, stated age, malnourished, chronically ill-appearing HEENT: Normocephalic, atraumatic, no scleral icterus, pupils around round, symmetrical, and reactive to light, moist mucus membranes, trachea midline, no thyromegaly Chest/Pulm: No respiratory distress, symmetrical chest expansion, rales and crackles noted in the lower left lung field, all other lung bello are CTA Cardiac: RRR, systolic murmur noted Abdomen: Negative for ascites and bruising, ostomy in site in the left lower abdomen without signs of infection or leaking, normoactive bowel sounds, soft, non-tender to palpation throughout Musculoskeletal: Symmetrical and without signs of acute trauma, upper and lower extremities with full ROM, no atrophy, spasticity, or flaccidity Extremities: Radial, dorsalis pedis, and posterior tibial pulses are intact and symmetrical, no pitting edema noted in the BL LE's Skin: Patient noted to have erythema and skin breakdown on the sacrum without signs of drainage during skin exam Neuro: Alert and oriented to person, place, month, year, and president, no focal defects, CN II-XII tested and intact, finger to nose test negative, no tremors noted Psych: Anxious, in moderate distress, able to redirect and was cooperative during exam Results & Data Results & Data ([facility]) Vital Signs (Past 12 Hours) Vital Signs Temp Pulse Pulse Resp BP Pulse Ox O2 Del Method 01/24/22 08:22 96 Nasal Cannula 01/24/22 08:08 98 Nasal Cannula 01/24/22 08:06 84 23 86 L Room Air 01/24/22 07:50 36.4 C L 96 H 44 H 172/84 H 95 Room Air O2 Flow Rate 01/24/22 08:22 2 01/24/22 08:08 2 01/24/22 08:06 01/24/22 07:50 Laboratory Results Abnormal lab results 01/24/22 01/24/22 Range/Units 08:25 08:25 RBC 3.52 L (3.93-5.22) M/uL Hgb 11.4 L (12.0-16.0) g/dl RDW Std Deviation 55.0 H (36.4-46.3) fL RDW Coeff of Ana M 15.5 H (11.5-14.5) % Neut # (Auto) 6.57 H (1.4-6.5) K/uL Lymph # (Auto) 1.19 L (1.2-3.4) K/uL Immature Gran # (Auto) 0.05 H (0.00-0.02) K/uL Sodium 133 L (136-145) mmol/L Creatinine 0.54 L (0.6-1.2) mg/dl BUN/Creatinine Ratio 29.6 H (10-20) Calcium 8.4 L (8.5-10.1) mg/dl Alkaline Phosphatase 133 H (34-104) U/L Troponin I High Sens 19.1 H (0-14) pg/ml Albumin 3.3 L (3.4-5.0) gm/dl Globulin 4.2 H (2.5-4.0) gm/dl Albumin/Globulin Ratio 0.8 L (0.9-2) Diagnostic Findings Chest X-Ray 01/24/22 08:13 XR chest 1V portable HISTORY: Shortness of breath. Wheezing. Atypical Chest Pain COMPARISON: Chest 11/15/2021. FINDINGS: There are low lung volumes. The patient is slightly rotated. Progressive interstitial thickening is noted which may represent mild congestive change. The heart is mildly enlarged. Cardiac valve prosthesis and a left-sided pacemaker again noted. No pneumothorax. No pleural effusions. There are increased markings within the left lung base. There is a tortuous thoracic aorta. IMPRESSION: 1. Mild interstitial thickening which is slightly progressed. This could represent superimposed congestive change. 2. Increased markings at the left lung base which may represent chronic interstitial change or atelectasis/pneumonitis. ACT 112: Negative or not required by law. Electronically signed by: Josh Palacios M.D. 01/24/2022 8:43 AM ECG Additional Comments: Atrial-sensed ventricular-paced rhythm Abnormal ECG When compared with ECG of 15-NOV-2021 20:20, Premature ventricular complexes are no longer Present Vent. rate has increased BY 25 BPM Code Status & VTE Plan Code Status DNR/DNI VTE Prophylaxis Plan VTE Prophylaxis will be ordered: Yes Supervising Physician Co-Signing Physician Notes Patient seen and examined, chart reviewed, case discussed with Guillermo Singh PA-C and I agree with the assessment and plan as above except as otherwise noted Labs and images reviewed Miranda is an 81-year-old female with a past medical history of complete heart block s/p pacemaker placement, PSVT, Crohn's, ileostomy 2/2 Crohn's, GERD, hyperlipidemia, and protein calorie malnutrition with BMI of 18 who presents with 2 weeks of progressively worsening shortness of breath which acutely worsened in the last day. Chronic hyponatremia thought to be due to stress/operative induced SIADH. On chronic oxy/APAP 2/2 compression fractures. Has an ostomy x20 years 2/2 chrons. Denies fevers/chills. No chest pain/chest pressure. Cannot lay flat due to back pain, unsure if change/orthopnea. Productive cough for yellow sputum x1 days. Remote tobacco use history, no O2 at baseline. Hypoxic in ER and on supplemental O2. +anxiety on chronic benzos attempting to wean as outpatient. Will continue home reqs for now. Acute SOB: ABG 7.41/51/34/32, compensated hypercapnea with low O2. No leukocytosis. Hemoglobin 11.4, baseline approximately 12. MCV 97. Sodium 133, potassium last 4.1 pending recheck due to hemolysis. Creatinine with normal b aseline, 0.54 on admission although age adjusted creatinine clearance of 55. High-sensitivity troponin 19.1, repeat trended; no CP. COVID-negative, flu/RSV negative. CXR: Mild progressive interstitial thickening suggestive of congestion. Increased left lung base? Atelectasis/pneumonitis. BNP mildly elevated. Procalcitonin negative. Given overall appearance suspect CHF. Lasix 20mg IV, Spo2 PRN. Incentive bipin. No wheezing on exam, defer abx/steroids. Chronic medications as below. Protein S deficiency, continue eliquis. 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 Mild, on salt tabs at home. Continue fluid restriction. 133 on admission, no indication for urgent interventions. PG Care Time/CCT Total # of Minutes Spent Total Time Spent with Patient: Total time spent is greater than 50% in coordination of care (as documented) at patient's floor/unit and/or counseling patient: Coding Level of Care Code 44674 Initial Inpt Care Lvl 3 Diagnoses Hypoxia R09.02 Elevated troponin R77.8 Confusion R41.0 Hypertension I10 Vertebral compression fracture M48.50XA Crohn's disease K50.90 GERD (gastroesophageal reflux disease) K21.9 Secondary hypercoagulable state D68.69 Anxiety disorder F41.9 Sacral decubitus ulcer L89.159
[2022-01-24] MEDS ORDERED: MoRPHine SULFATE 2 MG/ML CARP IV STA (10:33)
[2022-01-24 10:54] LABS: Potassium 4.1 mmol/L (3.5-5.1)
[2022-01-24 10:55] LABS: Base Excess ABG 6.3 mEq/L (-9-1.8); HCO3 ABG 32 mmol/L (19-24); Oxygen Saturation ABG < 60.0 % (90-95); PCO2 ABG 51 mmHg (35-46); PO2 ABG 34 mmHg (80-95); pH ABG 7.41 (7.35-7.45)
[2022-01-24 10:56] LABS: Allen Test Pos (Pos)
[2022-01-24] MEDS ORDERED: LORazepam 1 MG TAB PO PRN (11:48)
[2022-01-24] MEDS ORDERED: SODIUM CHLORIDE 1 GM TABLET PO SCH (12:19)
[2022-01-24] MEDS ORDERED: MECLIZINE HCL 25 MG TAB PO PRN (12:19)
[2022-01-24] MEDS: POTASSIUM CHLORIDE CRTAB 20 MEQ TABCR PO SCH (12:48)
[2022-01-24] MEDS: FUROSEMIDE INJ 20 MG/2 ML VIAL IV SCH ×2 (12:48→21:09)
[2022-01-24] MEDS: ATENOLOL 50 MG TABLET PO SCH (12:49)
[2022-01-24] MEDS: SODIUM CHLORIDE 1 GM TABLET PO SCH ×2 (12:49→21:08)
[2022-01-24] MEDS: ALBUTEROL 0.5% NEB SOLN 2.5 MG/0.5 ML VIAL NEB SCH ×2 (13:09→19:48)
[2022-01-24] MEDS: oxyCODONE/ACETAMINOPHEN 5mg/325mg TAB PO PRN ×2 (13:20→18:18)
--- NOTE | 2022-01-24 16:51 | XCELERA ---
[id number]
--- NOTE | 2022-01-24 17:04 | Electrocardiogram Report ---
Test Reason : Blood Pressure : / mmHG Vent. Rate : 089 BPM Atrial Rate : 089 BPM P-R Int : 182 ms QRS Dur : 076 ms QT Int : 372 ms P-R-T Axes : 039 -65 004 degrees QTc Int : 452 ms Atrial-sensed ventricular-paced rhythm Abnormal ECG When compared with ECG of 15-NOV-2021 20:20, Premature ventricular complexes are no longer Present Vent. rate has increased BY 25 BPM Confirmed by Nickolas Wilburn ([id number]) on 01/24/2022 5:04:42 PM Referred By: REFERRED SELF Confirmed By:Nickolas Wilburn
[2022-01-24] MEDS: APIXABAN 2.5 MG TAB PO SCH (21:08)
[2022-01-24] MEDS: PANTOprazole 40 MG TAB PO SCH (21:09)
[2022-01-24] MEDS: LORazepam 1 MG TAB PO PRN (22:01)
[2022-01-25] MEDS: ALBUTEROL 0.5% NEB SOLN 2.5 MG/0.5 ML VIAL NEB SCH ×2 (00:31→07:15)
[2022-01-25] MEDS: oxyCODONE/ACETAMINOPHEN 5mg/325mg TAB PO PRN ×2 (05:51→16:16)
[2022-01-25 06:29] LABS: Hematocrit (blood only) 31.8 % (34.1-44.9); Hemoglobin 10.5 g/dl (12.0-16.0); Mean Corpuscular Hemoglobin 32.6 pg (25.0-34.0); Mean Corpuscular Volume 98.8 fL (80.0-100.0); Mean Platelet Volume 9.6 fL (9.4-12.3); Platelet Count 196 K/uL (130-400); RDW Coefficient of Variation 15.5 % (11.5-14.5); RDW Standard Deviation 56.2 fL (36.4-46.3); Red Blood Count 3.22 M/uL (3.93-5.22); White Blood Count 8.13 K/ul (4.8-10.8)
[2022-01-25 06:52] LABS: Albumin Globulin Ratio 0.8 (0.9-2); BUN Creatinine Ratio 30.2 (10-20); Bilirubin,Total 0.4 mg/dl (0.2-1.0); Calcium 7.8 mg/dl (8.5-10.1); Creatinine Clr Calc Pharmacy 49.1 ml/min; Est GFR (African American) 98.2 ml/min; Est GFR (Non-African American) 84.7 ml/min; Globulin 3.8 gm/dl (2.5-4.0); Potassium 3.9 mmol/L (3.5-5.1); Total Protein 6.8 gm/dl (6.0-8.3)
[2022-01-25] MEDS: POTASSIUM CHLORIDE CRTAB 20 MEQ TABCR PO SCH (07:52)
[2022-01-25] MEDS: MAGNESIUM CHLORIDE W/CALCIUM 64MG DELAYED REL TAB PO SCH (07:53)
[2022-01-25] MEDS: APIXABAN 2.5 MG TAB PO SCH ×2 (07:53→20:28)
[2022-01-25] MEDS: FUROSEMIDE INJ 20 MG/2 ML VIAL IV SCH ×2 (07:53→20:27)
[2022-01-25] MEDS: PANTOprazole 40 MG TAB PO SCH ×2 (07:53→20:28)
[2022-01-25] MEDS: SODIUM CHLORIDE 1 GM TABLET PO SCH (07:53)
[2022-01-25] MEDS: ATENOLOL 50 MG TABLET PO SCH (07:54)
[2022-01-25] MEDS: SIMVASTATIN 10 MG TAB PO SCH (07:54)
--- NOTE | 2022-01-25 08:40 | Hospitalist Progress Note ---
Date of Service January 25, 2022 Assessment & Plan (1) Hypoxia: Plan: No oxygen use at home, desaturated to mid 80s on room air in ER, improved with 2L Multifactorial -- CHF exacerbation (acute on chronic diastolic CHF), anxiety/pain (did appear anxious, stated pain to back making breathing worse as well) WBC not elevated on admission but did have L shift. Afebrile. Procal negative Had been admitted in November w/ hyponatremia (na as low as 120) and discharg ed on PO NaCl tablets w/ discussions with Nephrology, started on 20mg PO lasix outpatient and had been taking up to 2gm PO NaCl TWICE DAILY (1gm BID on admit, but stated Dr Story had her taking 2gm BID) CXR with mild interstitial thickening, slightly progressed. Could represent superimposed congestive change. increased markings L lung base ? chronic interstitial change/atelectasis/pneumonitis BNP elevated at 318 (was actually slightly higher in November, but no increased LE edema or hypoxia/shortness of breath at that time, however did just recover from recent TAVR/pacemaker this summer) * ECHO repeated--> compared to August 2018, aortic valve replaced, R ventricular systolic pressure now mildly increased. Otherwise, no significant change * Lasix 20mg IV BID continued (on 20mg PO daily) * -->On PO Kcl 20meq daily, will give additional 20meq today * Monitor I&O -- not accurate * Daily weights -- actually weights appear less than in the summer. Rec standing scale weights, unclear how accurate prior weights were * Continue fluid restriction, decrease from 2L to 1200ml per nephro prior instructions Discussed with Nephrology, can decrease NaCl to 1gm PO daily, consider 40mg PO lasix at d/c but will monitor labs on repeat/adjust as needed. Can reach out/consult if needed but Na much improved and actually 136 on AM labs Supplemental O2 as needed to maintain sats, currently 95% on 1L rec 2step prior to d/c as well Hyponatremia Na 136 on am labs, following with Dr Story. Discussed with nephro today, as suspected volume overload from increased NaCl outpatient Plans to decreased to 1gm once daily (may need to adjust back to 1gm BID given recently was taking 2gm BID) and possible lasix 40mg PO daily to prevent volume overload Urine Na 113 (prior 33) but did get lasix last evening, urine osm 428 Monitor labs in AM (2) CHF (congestive heart failure): Plan: hx diastolic CHF, repeat ECHO w/ grade I diastolic dysfunction admitted with acute on chronic diastolic heart failure Weights/I&O, lasix as above -- weights actually lower than last admission (BNP was 333, currently 318) Follows with [facility] -- recently had TAVR in September, and 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 Pacer interrogations stable 11/07 Of note, had been admitted and missed her cards follow up local after her TAVR due to "feeling poorly" when admitted with hyponatremia in w/ Na down to 120 Discussed with nephrology and recs to decrease nacl to 1gm daily, --> plans to change lasix to 40mg PO daily, but will continue IV BID for now/possible switch to PO in AM pending response to IV this evening Will need close f/u both nephrology/cardiology (3) Elevated troponin: Plan: First high sensitivity trop elevated at 19.1, decreased on repeat -No chest pain/pressure or ECG changes noted -Likely due to demand from her hypoxia (4) Confusion: Plan: Patient is currently alert and oriented and at neurologic baseline, at bedside -She and her family report more memory loss and forgetfulness over the past year -No acute neuro defects on exam, sodium currently stable at 136 -Should likely be evaluated for possible dementia/Alzheimer's in an outpatient setting on discharge (5) Hypertension: Plan: -Continue Atenlol (6) Vertebral compression fracture: Plan: -Has chronic pain -Gave 1mg IV morphine prior to exam and ABG -Continue home Percocet , increased to TID Checking sarcal/lumbar xrays given increased pain reported waffle cushion for comfort (7) Crohn's disease: Plan: Currently stable and with ostomy bag in place sine 1977 continue to monitor output -- liquid output, assists with changing (8) GERD (gastroesophageal reflux disease): Plan: Continue omeprazole (9) Secondary hypercoagulable state: Plan: hyperproteinemia, protein S deficiency Continue Eliquis 2.5mg BID (10) Anxiety disorder: Plan: Will continue HS ativan as she has been on it for years but would recommend PCP try starting her on an antidepressant and attempting to wean her off as care home Benzodiazepine use can increase risk of Dementia She does have a large component of anxiety driving worsening shortness of breath, worsened by increased pain to her lower back (11) Sacral decubitus ulcer: Plan: -Turn and position q2h -Wound care nurse consult placed Plan continued inpatient stay continue diuresis, adjustment in PO NaCl, possible need for increased PO lasix at d/c will consult PT/OT as well Admission and Anticipated Discharge Date Admission Date: January 24, 2022 Supervising Physician Co-Signing Physician Notes KENNY Supervision Note: I did not personally see or examine the patient today, but I verified all malloy points of KENNY Schaefer's assessment and plan with the following exceptions/additions: None Subjective Eval this morning, mild distress reporting pain to her coccyx. Usually takes oxycodone twice daily at home. Will order 1x now dose, change prn to TID and instructed to alert if not controlled. Slightly less swelling to her LE. Endorses shortness of breath, but that pain making breathing issues worse. Discussed obtaining pain control, continuing diuretics. She had been on 2gm NaCl twice daily, decreased to twice daily on admission. Discussed Na 136 on am labs and discussed with Nephrology recs to decrease to once daily and possible d/c on increased dose of diuretics but will reach out to them in AM if any issues. Ostomy intact and functioning, just emptied this morning. Eating/drinking ok. No chest pain reported/sputum production. Review of Systems Review of Systems: All systems reviewed & are unremarkable except as noted in HPI & below Physical Exam Physical Exam: General: WD slightly malnourished, frail elderly female sitting up in bed, at bedside, mild-moderately uncomfortable with reported back pain, NAD HEENT: head normocephalic, mmm, trachea midline without deviation Resp: diminished in the bases with associated crackles, with faint expiratory wheezing, no rales, on 2L NC CV: RRR, +systolic murmur, calves nontender, cap refill wnl, trace pedal LE edema ( reported decreased) GI: soft/nontender, ostomy to LLQ functioning and intact MSK/Neuro: pain to sacrum w/ movements in bed, no spinal tenderness to palpation, sensation intact b/l LE, follows commands, no focal deficit Skin: cool, dry Psych: alert/oriented to person/place/time, at bedside, anxious and sofia nful Results & Data Results & Data ([facility]) Vital Signs (Past 12 Hours) Vital Signs Temp Pulse Pulse Resp BP Pulse Ox O2 Del Method 01/25/22 07:39 36.8 C 79 20 106/60 98 Nasal Cannula 01/25/22 07:17 80 20 97 Nasal Cannula 01/25/22 03:46 36.7 C 82 18 151/68 H 100 Nasal Cannula 01/24/22 22:16 70 01/24/22 22:33 36.8 C 74 18 105/58 L 98 Nasal Cannula 01/24/22 22:17 Nasal Cannula O2 Flow Rate 01/25/22 07:39 2 01/25/22 07:17 2 01/25/22 03:46 2 01/24/22 22:16 01/24/22 22:33 2 01/24/22 22:17 2 Laboratory Results 01/25/22 01/25/22 01/25/22 Range/Units 05:23 05:23 05:23 WBC 8.13 (4.8-10.8) K/ul RBC 3.22 L (3.93-5.22) M/uL Hgb 10.5 L (12.0-16.0) g/dl Hct 31.8 L (34.1-44.9) % MCV 98.8 (80.0-100.0) fL MCH 32.6 (25.0-34.0) pg MCHC 33.0 (32.0-36.0) g/dL RDW Std Deviation 56.2 H (36.4-46.3) fL RDW Coeff of Ana M 15.5 H (11.5-14.5) % Plt Count 196 (130-400) K/uL MPV 9.6 (9.4-12.3) fL ABG pH (7.35-7.45) ABG pCO2 (35-46) mmHg ABG pO2 (80-95) mmHg ABG HCO3 (19-24) mmol/L ABG O2 Saturation (90-95) % ABG Base Excess (-9-1.8) mEq/L Srikanth Test (Pos) Oxygen Given Sodium 136 (136-145) mmol/L Potassium 3.9 Chloride 101 (98-107) mmol/L Carbon Dioxide 31 (21-32) mmol/L Anion Gap 4 (3-11) BUN 19 (6-23) mg/dl Creatinine 0.63 (0.6-1.2) mg/dl Est Cr Clr Drug Dosing 49.1 ml/min Est GFR ( Amer) 98.2 ml/min Est GFR (Non-Af Amer) 84.7 ml/min BUN/Creatinine Ratio 30.2 H (10-20) Glucose 89 (70-99(Fasting)) mg/dl Osmolality 289 (280-300) mOsm/kg Calcium 7.8 L (8.5-10.1) mg/dl Total Bilirubin 0.4 (0.2-1.0) mg/dl AST 16 ALT 9 (7-52) U/L Alkaline Phosphatase 115 H (34-104) U/L Troponin I High Sens (0-14) pg/ml B-Natriuretic Peptide (0-100) pg/ml Total Protein 6.8 (6.0-8.3) gm/dl Albumin 3.0 L (3.4-5.0) gm/dl Globulin 3.8 (2.5-4.0) gm/dl Albumin/Globulin Ratio 0.8 L (0.9-2) Lipase (11-82) U/L Procalcitonin (0-0.5) ng/ml Urine Osmolality (500-800) mOsm/kg Ur Random Sodium mmol/L SARS-CoV-2 (PCR) (Negative) Influenza Type A (PCR) (Neg) Influenza Type B (PCR) (Neg) RSV (RT-PCR) (Neg) 01/25/22 01/25/22 01/24/22 Range/Units 04:09 04:09 12:54 WBC (4.8-10.8) K/ul RBC (3.93-5.22) M/uL Hgb (12.0-16.0) g/dl Hct (34.1-44.9) % MCV (80.0-100.0) fL MCH (25.0-34.0) pg MCHC (32.0-36.0) g/dL RDW Std Deviation (36.4-46.3) fL RDW Coeff of Ana M (11.5-14.5) % Plt Count (130-400) K/uL MPV (9.4-12.3) fL ABG pH (7.35-7.45) ABG pCO2 (35-46) mmHg ABG pO2 (80-95) mmHg ABG HCO3 (19-24) mmol/L ABG O2 Saturation (90-95) % ABG Base Excess (-9-1.8) mEq/L Srikanth Test (Pos) Oxygen Given Sodium (136-145) mmol/L Potassium Chloride (98-107) mmol/L Carbon Dioxide (21-32) mmol/L Anion Gap (3-11) BUN (6-23) mg/dl Creatinine (0.6-1.2) mg/dl Est Cr Clr Drug Dosing ml/min Est GFR ( Amer) ml/min Est GFR (Non-Af Amer) ml/min BUN/Creatinine Ratio (10-20) Glucose (70-99(Fasting)) mg/dl Osmolality (280-300) mOsm/kg Calcium (8.5-10.1) mg/dl Total Bilirubin (0.2-1.0) mg/dl AST ALT (7-52) U/L Alkaline Phosphatase (34-104) U/L Troponin I High Sens 18.6 H (0-14) pg/ml B-Natriuretic Peptide (0-100) pg/ml Total Protein (6.0-8.3) gm/dl Albumin (3.4-5.0) gm/dl Globulin (2.5-4.0) gm/dl Albumin/Globulin Ratio (0.9-2) Lipase (11-82) U/L Procalcitonin (0-0.5) ng/ml Urine Osmolality 428 L (500-800) mOsm/kg Ur Random Sodium 113 mmol/L SARS-CoV-2 (PCR) (Negative) Influenza Type A (PCR) (Neg) Influenza Type B (PCR) (Neg) RSV (RT-PCR) (Neg) 01/24/22 01/24/22 01/24/22 Range/Units 10:46 10:15 10:15 WBC (4.8-10.8) K/ul RBC (3.93-5.22) M/uL Hgb (12.0-16.0) g/dl Hct (34.1-44.9) % MCV (80.0-100.0) fL MCH (25.0-34.0) pg MCHC (32.0-36.0) g/dL RDW Std Deviation (36.4-46.3) fL RDW Coeff of Ana M (11.5-14.5) % Plt Count (130-400) K/uL MPV (9.4-12.3) fL ABG pH 7.41 (7.35-7.45) ABG pCO2 51 H (35-46) mmHg ABG pO2 34 L (80-95) mmHg ABG HCO3 32 H (19-24) mmol/L ABG O2 Saturation < 60.0 L (90-95) % ABG Base Excess 6.3 H (-9-1.8) mEq/L Srikanth Test Pos (Pos) Oxygen Given 2 L Sodium (136-145) mmol/L Potassium 4.1 Chloride (98-107) mmol/L Carbon Dioxide (21-32) mmol/L Anion Gap (3-11) BUN (6-23) mg/dl Creatinine (0.6-1.2) mg/dl Est Cr Clr Drug Dosing ml/min Est GFR ( Amer) ml/min Est GFR (Non-Af Amer) ml/min BUN/Creatinine Ratio (10-20) Glucose (70-99(Fasting)) mg/dl Osmolality (280-300) mOsm/kg Calcium (8.5-10.1) mg/dl Total Bilirubin (0.2-1.0) mg/dl AST 17 ALT (7-52) U/L Alkaline Phosphatase (34-104) U/L Troponin I High Sens (0-14) pg/ml B-Natriuretic Peptide 318 H (0-100) pg/ml Total Protein (6.0-8.3) gm/dl Albumin (3.4-5.0) gm/dl Globulin (2.5-4.0) gm/dl Albumin/Globulin Ratio (0.9-2) Lipase (11-82) U/L Procalcitonin (0-0.5) ng/ml Urine Osmolality (500-800) mOsm/kg Ur Random Sodium mmol/L SARS-CoV-2 (PCR) (Negative) Influenza Type A (PCR) (Neg) Influenza Type B (PCR) (Neg) RSV (RT-PCR) (Neg) 01/24/22 01/24/22 01/24/22 Range/Units 08:25 08:25 08:25 WBC (4.8-10.8) K/ul RBC (3.93-5.22) M/uL Hgb (12.0-16.0) g/dl Hct (34.1-44.9) % MCV (80.0-100.0) fL MCH (25.0-34.0) pg MCHC (32.0-36.0) g/dL RDW Std Deviation (36.4-46.3) fL RDW Coeff of Ana M (11.5-14.5) % Plt Count (130-400) K/uL MPV (9.4-12.3) fL ABG pH (7.35-7.45) ABG pCO2 (35-46) mmHg ABG pO2 (80-95) mmHg ABG HCO3 (19-24) mmol/L ABG O2 Saturation (90-95) % ABG Base Excess (-9-1.8) mEq/L Srikanth Test (Pos) Oxygen Given Sodium 133 L (136-145) mmol/L Potassium TNP Chloride 98 (98-107) mmol/L Carbon Dioxide 30 (21-32) mmol/L Anion Gap 5 (3-11) BUN 16 (6-23) mg/dl Creatinine 0.54 L (0.6-1.2) mg/dl Est Cr Clr Drug Dosing 55.7 ml/min Est GFR ( Amer) 103.3 ml/min Est GFR (Non-Af Amer) 89.1 ml/min BUN/Creatinine Ratio 29.6 H (10-20) Glucose 95 (70-99(Fasting)) mg/dl Osmolality (280-300) mOsm/kg Calcium 8.4 L (8.5-10.1) mg/dl Total Bilirubin 0.4 (0.2-1.0) mg/dl AST TNP ALT 12 (7-52) U/L Alkaline Phosphatase 133 H (34-104) U/L Troponin I High Sens 19.1 H (0-14) pg/ml B-Natriuretic Peptide (0-100) pg/ml Total Protein 7.5 (6.0-8.3) gm/dl Albumin 3.3 L (3.4-5.0) gm/dl Globulin 4.2 H (2.5-4.0) gm/dl Albumin/Globulin Ratio 0.8 L (0.9-2) Lipase 23 (11-82) U/L Procalcitonin < 0.05 (0-0.5) ng/ml Urine Osmolality (500-800) mOsm/kg Ur Random Sodium mmol/L SARS-CoV-2 (PCR) NEGATIVE (Negative) Influenza Type A (PCR) Negative (Neg) Influenza Type B (PCR) Negative (Neg) RSV (RT-PCR) Negative (Neg) Diagnostic Findings Chest X-Ray 01/24/22 08:13 XR chest 1V portable HISTORY: Shortness of breath. Wheezing. Atypical Chest Pain COMPARISON: Chest 11/15/2021. FINDINGS: There are low lung volumes. The patient is slightly rotated. Progressive interstitial thickening is noted which may represent mild congestive change. The heart is mildly enlarged. Cardiac valve prosthesis and a left-sided pacemaker again noted. No pneumothorax. No pleural effusions. There are increased markings within the left lung base. There is a tortuous thoracic aorta. IMPRESSION: 1. Mild interstitial thickening which is slightly progressed. This could represent superimposed congestive change. 2. Increased markings at the left lung base which may represent chronic interstitial change or atelectasis/pneumonitis. ACT 112: Negative or not required by law. Electronically signed by: Josh Palacios M.D. 01/24/2022 8:43 AM PG Care Time/CCT Total # of Minutes Spent Total Time Spent with Patient: Total time spent is greater than 50% in coordination of care (as documented) at patient's floor/unit and/or counseling patient: Coding Level of Care Code 83964 Subseq Hosp Care Lvl 3 Diagnoses Hypoxia R09.02 CHF (congestive heart failure) I50.9 Elevated troponin R77.8 Confusion R41.0 Hypertension I10 Vertebral compression fracture M48.50XA Crohn's disease K50.90 GERD (gastroesophageal reflux disease) K21.9 Secondary hypercoagulable state D68.69 Anxiety disorder F41.9 Sacral decubitus ulcer L89.159
[2022-01-25] MEDS ORDERED: ALBUTEROL 0.5% NEB SOLN 2.5 MG/0.5 ML VIAL NEB PRN (10:14)
[2022-01-25] MEDS ORDERED: oxyCODONE HCL IR 5 MG TAB (IMMEDIATE RELEASE) PO STA (11:05)
--- NOTE | 2022-01-25 13:40 | XRay Report ---
LUMBAR SPINE 5 VIEWS HISTORY: low back pain, eval fx COMPARISON: Lumbar spine 07/19/2020. FINDINGS: Mild levoscoliosis again noted centered at the L2 level. The sacrum appears intact. The marcos marcia are osteopenic. Pacemaker wires and a cardiac valve prosthesis are noted. Moderate anterior wedge -shaped compression deformity at T12 and L1, unchanged. Moderate anterior wedge-shaped compression de formity at L2 has slightly progressed. This demonstrates up to 40% loss of height anteriorly. No sign ificant retropulsion. Mild superior endplate compression deformities at L3, L4, and L5 remain unchang ed. Mild disc space narrowing and facet degenerative changes throughout the lumbar spine IMPRESSION: 1. Interval progression of the moderate anterior wedge-shaped compression deformity at L2 as describe d above. This favors a subacute fracture given the endplate sclerosis. 2. Multiple old compression deformities again noted throughout the lumbar spine. ACT 112: Negative or not required by law. Electronically signed by: Josh Palacios M.D. 01/25/2022 1:39 PM
[2022-01-25] MEDS ORDERED: POTASSIUM CHLORIDE CRTAB 20 MEQ TABCR PO STA (13:41)
--- NOTE | 2022-01-25 14:27 | XRay Report ---
SACRUM AND COCCYX 3 VIEWS CLINICAL HISTORY: Sacral pain. FINDINGS: 3 views of the sacrum and coccyx are compared to study dated 04/11/2012. The skeletal struct ures are osteopenic. There is no radiographic evidence of sacrococcygeal fracture. Sclerotic degenera tive change is noted in the sacroiliac joints. Lumbosacral spondylosis is partially imaged. Surgical clips are noted in the pelvis. IMPRESSION: There is no radiographic evidence of sacrococcygeal fracture. If there is clinical concer n for occult fracture a pelvic CT would be more sensitive. Electronically signed by: Addy Tai M.D. 01/25/2022 2:25 PM
[2022-01-25 15:15] LABS: Basophils # (auto) 0.02 K/uL (0-0.2); Basophils % (auto) 0.2 %; Eosinophils # (auto) 0.14 K/uL (0-0.50); Eosinophils % (auto) 1.7 %; Immature Granulocytes # (auto) 0.03 K/uL (0.00-0.02); Immature Granulocytes % (auto) 0.4 %; Lymphocytes # (auto) 1.09 K/uL (1.2-3.4); Lymphocytes % (auto) 13.1 %; Monocytes # (auto) 0.66 K/uL (0.24-0.82); Neutrophils # (auto) 6.35 K/uL (1.4-6.5); Neutrophils % (auto) 76.6 %
[2022-01-25] MEDS: DICLOFENAC SOD 1% GEL 100 GM TUBE EXT SCH ×2 (16:16→20:28)
[2022-01-26 06:22] LABS: Hematocrit (blood only) 30.5 % (34.1-44.9); Hemoglobin 9.9 g/dl (12.0-16.0); Mean Corpuscular Hemoglobin 32.1 pg (25.0-34.0); Mean Corpuscular Hgb Conc 32.5 g/dL (32.0-36.0); Mean Platelet Volume 9.6 fL (9.4-12.3); Platelet Count 191 K/uL (130-400); RDW Coefficient of Variation 15.3 % (11.5-14.5); RDW Standard Deviation 55.5 fL (36.4-46.3); Red Blood Count 3.08 M/uL (3.93-5.22); White Blood Count 6.81 K/ul (4.8-10.8)
[2022-01-26 06:51] LABS: Albumin Globulin Ratio 0.8 (0.9-2); BUN Creatinine Ratio 36.4 (10-20); Bilirubin,Total 0.3 mg/dl (0.2-1.0); Calcium 8.1 mg/dl (8.5-10.1); Creatinine Clr Calc Pharmacy 46.3 ml/min; Est GFR (African American) 96.7 ml/min; Est GFR (Non-African American) 83.4 ml/min; Globulin 3.8 gm/dl (2.5-4.0); Potassium 4.4 mmol/L (3.5-5.1); Total Protein 6.8 gm/dl (6.0-8.3)
--- NOTE | 2022-01-26 07:39 | Hospitalist Progress Note ---
Date of Service January 26, 2022 Assessment & Plan (1) Hypoxia: Plan: No oxygen use at home, desaturated to mid 80s on room air in ER, improved with 2L Multifactorial -- CHF exacerbation (acute on chronic diastolic CHF), anxiety/pain (did appear anxious, stated pain to back making breathing worse as well) WBC not elevated on admission but did have L shift (resolved on repeat) Remains afebrile, procal was negative Admit in Nov for hyponatremia w/ Na 120 and d/c on NaCl PO tablets and f/u Nephrology. Per had been up to 2gm BID recently w/ 20mg PO lasix CXR with mild interstitial thickening, slightly progressed compared to prior and likely congestive change BNP elevated 318 ECHO compared to August 2018, aortic valve replaced, R ventricular systolic pressure now mildly increased. Otherwise, no significant change Placed on lasix 20mg IV BID (20mg PO daily at home), weight 43.1kg (44kg on admit). Continued through last evening, discussed with nephrology and decreased PO NaCl to 1gm once daily and can consider increasing her lasix to 40mg PO daily --> Decreased NaCl to 1gm daily, transitioned to 40mg PO lasix this morning, down to 1L NC -- continue fluid restriction 1200ml per nephrology prior recs May need additional dose of diuretic this evening but will monitor response/just continue the increased 40mg PO dose in AM ?2 step prior to d/c. Also discussed palliaitve w/ daughter during update. 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 Relayed info to CM to contact about possible additional services. (2) Hyponatremia: Plan: Prior lows to 120 during last admission, following outpatient with Dr Story as above, recently upped to 2gm NaCl BID outpatient, likely causing volume overload/hypoxia as above Na stable 136 x 2 days with diuretics and remained stable on AM labs with decrease to 1gm once daily for PO NaCl as discussed with nephrology on 01/25 Urine sodium 113 (prior 33) but did get lasix prior to testing Changed to lasix 40mg PO daily for this morning as outlined above Will need nephro f/u outpatient for continued monitoring Monitor BMP in AM (3) CHF (congestive heart failure): Plan: hx diastolic CHF, repeat ECHO w/ grade I diastolic dysfunction admitted with acute on chronic diastolic heart failure, likely 2nd to oral salt tablet administration as outpatient. 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 Interrogation stable 11/07 Lasix IV BID, transitioned to PO but doubled dose to 40mg daily Will need f/u cards outpatient (4) Elevated troponin: Plan: First high sensitivity trop elevated at 19.1, decreased on repeat -No chest pain/pressure or ECG changes noted -Likely due to demand from her hypoxia (5) Confusion: Plan: Patient is currently alert and oriented and at neurologic baseline, at bedside 01/25. Memory loss/forgetfullness over the past year At baseline 01/26 but anxious, continued reassurance provided Prior confusions/AMS w/ hyponatremia, Na stable w/ above No acute neuro deficits on exam Should likely be evaluated for possible dementia/Alzheimer's in an outpatient setting on discharge (6) Hypertension: Plan: Continue Atenolol (7) Vertebral compression fracture: Plan: Has chronic pain Gave 1mg IV morphine prior to exam and ABG Continue home Percocet , increased to TID on 01/25 and reported improvement in pain control with such, as well as waffle cushion for comfort Sacral/lumbar xrays given increased pain reported --> interval progression of moderate anterior wedge shaped compression deformity at L2. Favors subacute fx. Was going to attempt orthotics consult for LSO brace, however patient with ostomy and likely would not work. I discussed with karey about this and she stated patient would have declined anyway due to her ostomy Pain control/PT/OT consulted (8) Crohn's disease: Plan: Currently stable and with ostomy bag in place 1976 continue to monitor output -- no issues currently (9) GERD (gastroesophageal reflux disease): Plan: Continue omeprazole (10) Secondary hypercoagulable state: Plan: hyperproteinemia, protein S deficiency Continue Eliquis 2.5mg BID (11) Anxiety disorder: Plan: Will continue HS ativan as she has been on it for years but would recommend PCP try starting her on an antidepressant and attempting to wean her off as residential Benzodiazepine use can increase risk of Dementia She does have a large component of anxiety driving worsening shortness of breath, worsened by increased pain to her lower back Ativan 0.5mg PO x 1 provided due to increased anxiety of having to stay in the hospital again overnight, reported improvement with such. 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 titrate O2 as able PT/OT consulted Admission and Anticipated Discharge Date Admission Date: January 24, 2022 Supervising Physician Co-Signing Physician Notes PA Supervision Note: I did not personally see or examine the patient today, but I verified all malloy points of KENNY Schaefer's assessment and plan with the following exceptions/additions: None Subjective Eval this morning, states she thinks her breathing is improved. Titrated to 1L this morning, switching to oral lasix 40mg PO (just received while in the room) Eating/drinking without issue. Ostomy functioning. Discussed fracture in lower spine but unable to provide brace due to ostomy. She reports her pain in sacrum is better today. Discussed keeping overnight and continue diuresis/ensuring labs stable on repeat in am. She was hopeful for d/c today but agreeable to stay overnight. Her /daughter will be by today. Discussed meals to be brought in. Will call with update. No fever/chills, chest pain, abdominal pain, nausea or vomiting. Questions/concerns addressed. Review of Systems Review of Systems: All systems reviewed & are unremarkable except as noted in HPI & below Physical Exam Physical Exam: General: WD slightly malnourished, frail elderly female sitting up in bed, improved comfort to sacrum reported, NAD but anxious about not going home today HEENT: head normocephalic, mmm, trachea midline without deviation Resp: diminished in the bases with associated crackles (improved), improvement in air entry bilaterally, faint end expiratory wheezing, on 1L NC CV: RRR, +systolic murmur, calves nontender, cap refill wnl, trace pedal LE edema almost completely resolved ( reported decreased) GI: soft/nontender, ostomy to LLQ functioning and intact MSK/Neuro: pain to sacrum w/ movements in bed improved, sensation intact b/l LE, follows commands, no focal deficit Skin: cool, dry Psych: alert/oriented to person/place/time, anxious at times Results & Data Results & Data ([facility]) Vital Signs (Past 12 Hours) Vital Signs Temp Pulse Pulse Resp BP Pulse Ox O2 Del Method 01/26/22 07:29 36.8 C 82 20 122/68 98 Nasal Cannula 01/26/22 04:00 36.6 C 74 18 128/78 97 Nasal Cannula 01/25/22 22:15 80 01/25/22 23:56 Nasal Cannula 01/25/22 22:53 36.6 C 87 18 119/84 100 Nasal Cannula O2 Flow Rate 01/26/22 07:29 1 01/26/22 04:00 1 01/25/22 22:15 01/25/22 23:56 1 01/25/22 22:53 1 Laboratory Results 01/26/22 01/26/22 01/26/22 Range/Units 05:38 05:38 05:38 WBC 6.81 (4.8-10.8) K/ul RBC 3.08 L (3.93-5.22) M/uL Hgb 9.9 L (12.0-16.0) g/dl Hct 30.5 L (34.1-44.9) % MCV 99.0 (80.0-100.0) fL MCH 32.1 (25.0-34.0) pg MCHC 32.5 (32.0-36.0) g/dL RDW Std Deviation 55.5 H (36.4-46.3) fL RDW Coeff of Ana M 15.3 H (11.5-14.5) % Plt Count 191 (130-400) K/uL MPV 9.6 (9.4-12.3) fL Immature Gran % (Auto) % Neut % (Auto) % Lymph % (Auto) % Swain % (Auto) % Eos % (Auto) % Baso % (Auto) % Neut # (Auto) (1.4-6.5) K/uL Lymph # (Auto) (1.2-3.4) K/uL Swain # (Auto) (0.24-0.82) K/uL Eos # (Auto) (0-0.50) K/uL Baso # (Auto) (0-0.2) K/uL Immature Gran # (Auto) (0.00-0.02) K/uL Sodium 136 (136-145) mmol/L Potassium 4.4 (3.5-5.1) mmol/L Chloride 102 (98-107) mmol/L Carbon Dioxide 31 (21-32) mmol/L Anion Gap 3 (3-11) BUN 24 H (6-23) mg/dl Creatinine 0.66 (0.6-1.2) mg/dl Est Cr Clr Drug Dosing 46.3 ml/min Est GFR ( Amer) 96.7 ml/min Est GFR (Non-Af Amer) 83.4 ml/min BUN/Creatinine Ratio 36.4 H (10-20) Glucose 96 (70-99(Fasting)) mg/dl Calcium 8.1 L (8.5-10.1) mg/dl Magnesium (1.7-2.4) mg/dl Total Bilirubin 0.3 (0.2-1.0) mg/dl AST 17 (13-39) U/L ALT 10 (7-52) U/L Alkaline Phosphatase 111 H (34-104) U/L Total Protein 6.8 (6.0-8.3) gm/dl Albumin 3.0 L (3.4-5.0) gm/dl Globulin 3.8 (2.5-4.0) gm/dl Albumin/Globulin Ratio 0.8 L (0.9-2) 25-OH Vitamin D Total 89.5 (30-100) ng/ml 01/25/22 01/25/22 Range/Units 05:23 05:23 WBC 8.13 (4.8-10.8) K/ul RBC 3.22 L (3.93-5.22) M/uL Hgb 10.5 L (12.0-16.0) g/dl Hct 31.8 L (34.1-44.9) % MCV 98.8 (80.0-100.0) fL MCH 32.6 (25.0-34.0) pg MCHC 33.0 (32.0-36.0) g/dL RDW Std Deviation 56.2 H (36.4-46.3) fL RDW Coeff of Ana M 15.5 H (11.5-14.5) % Plt Count 196 (130-400) K/uL MPV 9.6 (9.4-12.3) fL Immature Gran % (Auto) 0.4 % Neut % (Auto) 76.6 % Lymph % (Auto) 13.1 % Swain % (Auto) 8.0 % Eos % (Auto) 1.7 % Baso % (Auto) 0.2 % Neut # (Auto) 6.35 (1.4-6.5) K/uL Lymph # (Auto) 1.09 L (1.2-3.4) K/uL Swain # (Auto) 0.66 (0.24-0.82) K/uL Eos # (Auto) 0.14 (0-0.50) K/uL Baso # (Auto) 0.02 (0-0.2) K/uL Immature Gran # (Auto) 0.03 H (0.00-0.02) K/uL Sodium (136-145) mmol/L Potassium (3.5-5.1) mmol/L Chloride (98-107) mmol/L Carbon Dioxide (21-32) mmol/L Anion Gap (3-11) BUN (6-23) mg/dl Creatinine (0.6-1.2) mg/dl Est Cr Clr Drug Dosing ml/min Est GFR ( Amer) ml/min Est GFR (Non-Af Amer) ml/min BUN/Creatinine Ratio (10-20) Glucose (70-99(Fasting)) mg/dl Calcium (8.5-10.1) mg/dl Magnesium 1.8 (1.7-2.4) mg/dl Total Bilirubin (0.2-1.0) mg/dl AST (13-39) U/L ALT (7-52) U/L Alkaline Phosphatase (34-104) U/L Total Protein (6.0-8.3) gm/dl Albumin (3.4-5.0) gm/dl Globulin (2.5-4.0) gm/dl Albumin/Globulin Ratio (0.9-2) 25-OH Vitamin D Total (30-100) ng/ml Diagnostic Findings Lumbar Spine X-Ray 01/25/22 11:14 LUMBAR SPINE 5 VIEWS HISTORY: low back pain, eval fx COMPARISON: Lumbar spine 07/19/2020. FINDINGS: Mild levoscoliosis again noted centered at the L2 level. The sacrum appears intact. The bones are osteopenic. Pacemaker wires and a cardiac valve prosthesis are noted. Moderate anterior wedge-shaped compression deformity at T12 and L1, unchanged. Moderate anterior wedge-shaped compression deformity at L2 has slightly progressed. This demonstrates up to 40% loss of height anteriorly. No significant retropulsion. Mild superior endplate compression deformities at L3, L4, and L5 remain unchanged. Mild disc space narrowing and facet degenerative changes throughout the lumbar spine IMPRESSION: 1. Interval progression of the moderate anterior wedge-shaped compression deformity at L2 as described above. This favors a subacute fracture given the endplate sclerosis. 2. Multiple old compression deformities again noted throughout the lumbar spine. ACT 112: Negative or not required by law. Electronically signed by: Josh Palacios M.D. 01/25/2022 1:39 PM Sacrum and Coccyx X-Ray 01/25/22 11:14 SACRUM AND COCCYX 3 VIEWS CLINICAL HISTORY: Sacral pain. FINDINGS: 3 views of the sacrum and coccyx are compared to study dated 04/11/2012. The skeletal structures are osteopenic. There is no radiographic evidence of sacrococcygeal fracture. Sclerotic degenerative change is noted in the sacroiliac joints. Lumbosacral spondylosis is partially imaged. Surgical clips are noted in the pelvis. IMPRESSION: There is no radiographic evidence of sacrococcygeal fracture. If there is clinical concern for occult fracture a pelvic CT would be more sensitive. Electronically signed by: Addy Tai M.D. 01/25/2022 2:25 PM PG Care Time/CCT Total # of Minutes Spent Total Time Spent with Patient: Total time spent is greater than 50% in coordination of care (as documented) at patient's floor/unit and/or counseling patient: Coding Level of Care Code 78473 Subseq Hosp Care Lvl 3 Diagnoses Hypoxia R09.02 Hyponatremia E87.1 CHF (congestive heart failure) I50.9 Elevated troponin R77.8 Confusion R41.0 Hypertension I10 Vertebral compression fracture M48.50XA Crohn's disease K50.90 GERD (gastroesophageal reflux disease) K21.9 Secondary hypercoagulable state D68.69 Anxiety disorder F41.9 Sacral decubitus ulcer L89.159
[2022-01-26] MEDS: oxyCODONE/ACETAMINOPHEN 5mg/325mg TAB PO PRN ×3 (07:40→21:08)
[2022-01-26] MEDS: DICLOFENAC SOD 1% GEL 100 GM TUBE EXT SCH ×4 (07:41→20:51)
[2022-01-26] MEDS: APIXABAN 2.5 MG TAB PO SCH ×2 (07:42→20:50)
[2022-01-26] MEDS: SODIUM CHLORIDE 1 GM TABLET PO SCH (07:42)
[2022-01-26] MEDS: SIMVASTATIN 10 MG TAB PO SCH (07:42)
[2022-01-26] MEDS: PANTOprazole 40 MG TAB PO SCH ×2 (07:42→20:50)
[2022-01-26] MEDS: POTASSIUM CHLORIDE CRTAB 20 MEQ TABCR PO SCH (07:43)
[2022-01-26] MEDS: MAGNESIUM CHLORIDE W/CALCIUM 64MG DELAYED REL TAB PO SCH (07:43)
[2022-01-26] MEDS: ATENOLOL 50 MG TABLET PO SCH (07:43)
[2022-01-26] MEDS: FUROSEMIDE 40 MG TAB PO SCH (09:40)
[2022-01-26] MEDS ORDERED: LORazepam 0.5 MG TAB PO STA (11:32)
[2022-01-26] MEDS: LORazepam 1 MG TAB PO PRN (18:22)
[2022-01-26] MEDS ORDERED: LORazepam 0.5 MG TAB SL PRN (18:24)
[2022-01-27 06:29] LABS: Hematocrit (blood only) 31.5 % (34.1-44.9); Hemoglobin 10.3 g/dl (12.0-16.0); Mean Corpuscular Hemoglobin 32.6 pg (25.0-34.0); Mean Corpuscular Hgb Conc 32.7 g/dL (32.0-36.0); Mean Corpuscular Volume 99.7 fL (80.0-100.0); Mean Platelet Volume 9.7 fL (9.4-12.3); Platelet Count 194 K/uL (130-400); RDW Coefficient of Variation 15.2 % (11.5-14.5); RDW Standard Deviation 55.7 fL (36.4-46.3); Red Blood Count 3.16 M/uL (3.93-5.22); White Blood Count 6.27 K/ul (4.8-10.8)
[2022-01-27] MEDS: oxyCODONE/ACETAMINOPHEN 5mg/325mg TAB PO PRN (06:46)
[2022-01-27 06:52] LABS: Albumin Globulin Ratio 0.8 (0.9-2); Albumin Level 3.1 gm/dl (3.4-5.0); BUN Creatinine Ratio 30.6 (10-20); Bilirubin,Total 0.4 mg/dl (0.2-1.0); Calcium 8.2 mg/dl (8.5-10.1); Creatinine Clr Calc Pharmacy 42.5 ml/min; Est GFR (African American) 91.7 ml/min; Est GFR (Non-African American) 79.1 ml/min; Globulin 3.9 gm/dl (2.5-4.0); Potassium 4.2 mmol/L (3.5-5.1)
--- NOTE | 2022-01-27 07:42 | Hospitalist Progress Note ---
Date of Service January 27, 2022 Assessment & Plan (1) Hypoxia: Plan: No oxygen use at home, desaturated to mid 80s on room air in ER, improved with 2L Multifactorial -- CHF exacerbation (acute on chronic diastolic CHF), anxiety/pain (did appear anxious, stated pain to back making breathing worse as well) WBC not elevated on admission but did have L shift (resolved on repeat) Remains afebrile, procal was negative Admit in Nov for hyponatremia w/ Na 120 and d/c on NaCl PO tablets and f/u Nephrology. Per had been up to 2gm BID recently w/ 20mg PO lasix CXR with mild interstitial thickening, slightly progressed compared to prior and likely congestive change BNP elevated 318 ECHO compared to August 2018, aortic valve replaced, R ventricular systolic pressure now mildly increased. Otherwise, no significant change Placed on lasix 20mg IV BID (20mg PO daily at home), weight 43.1kg (44kg on admit). Continued through last evening, discussed with nephrology and decreased PO NaCl to 1gm once daily and can consider increasing her lasix to 40mg PO daily --> Decreased NaCl to 1gm daily, transitioned to 40mg PO lasix this morning, down to 1L NC -- continue fluid restriction 1200ml per nephrology prior recs May need additional dose of diuretic this evening but will monitor response/just continue the increased 40mg PO dose in AM ?2 step prior to d/c. Also discussed palliaitve w/ daughter during update. 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 Relayed info to CM to contact about possible additional services. (2) Hyponatremia: Plan: Prior lows to 120 during last admission, following outpatient with Dr Story as above, recently upped to 2gm NaCl BID outpatient, likely causing volume overload/hypoxia as above Na stable 136 x 2 days with diuretics and remained stable on AM labs with decrease to 1gm once daily for PO NaCl as discussed with nephrology on 01/25 Urine sodium 113 (prior 33) but did get lasix prior to testing Changed to lasix 40mg PO daily for this morning as outlined above Will need nephro f/u outpatient for continued monitoring Monitor BMP in AM (3) CHF (congestive heart failure): Plan: hx diastolic CHF, repeat ECHO w/ grade I diastolic dysfunction admitted with acute on chronic diastolic heart failure, likely 2nd to oral salt tablet administration as outpatient. 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 Interrogation stable 11/07 Lasix IV BID, transitioned to PO but doubled dose to 40mg daily Will need f/u cards outpatient (4) Elevated troponin: Plan: First high sensitivity trop elevated at 19.1, decreased on repeat -No chest pain/pressure or ECG changes noted -Likely due to demand from her hypoxia (5) Confusion: Plan: Patient is currently alert and oriented and at neurologic baseline, at bedside 01/25. Memory loss/forgetfullness over the past year At baseline 01/26 but anxious, continued reassurance provided Prior confusions/AMS w/ hyponatremia, Na stable w/ above No acute neuro deficits on exam Should likely be evaluated for possible dementia/Alzheimer's in an outpatient setting on discharge (6) Hypertension: Plan: Continue Atenolol (7) Vertebral compression fracture: Plan: Has chronic pain Gave 1mg IV morphine prior to exam and ABG Continue home Percocet , increased to TID on 01/25 and reported improvement in pain control with such, as well as waffle cushion for comfort Sacral/lumbar xrays given increased pain reported --> interval progression of moderate anterior wedge shaped compression deformity at L2. Favors subacute fx. Was going to attempt orthotics consult for LSO brace, however patient with ostomy and likely would not work. I discussed with karey about this and she stated patient would have declined anyway due to her ostomy Pain control/PT/OT consulted (8) Crohn's disease: Plan: Currently stable and with ostomy bag in place 1976 continue to monitor output -- no issues currently (9) GERD (gastroesophageal reflux disease): Plan: Continue omeprazole (10) Secondary hypercoagulable state: Plan: hyperproteinemia, protein S deficiency Continue Eliquis 2.5mg BID (11) Anxiety disorder: Plan: Will continue HS ativan as she has been on it for years but would recommend PCP try starting her on an antidepressant and attempting to wean her off as fci Benzodiazepine use can increase risk of Dementia She does have a large component of anxiety driving worsening shortness of breath, worsened by increased pain to her lower back Ativan 0.5mg PO x 1 provided due to increased anxiety of having to stay in the hospital again overnight, reported improvement with such. 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 titrate O2 as able PT/OT consulted Admission and Anticipated Discharge Date Admission Date: January 24, 2022 Results & Data Results & Data ([facility]) Vital Signs (Past 12 Hours) Vital Signs Temp Pulse Pulse Resp BP Pulse Ox O2 Del Method 01/27/22 07:30 81 01/26/22 21:58 81 01/27/22 04:06 36.6 C 81 18 128/73 93 Room Air 01/26/22 23:00 36.5 C 79 18 131/80 94 Room Air 01/26/22 19:51 Room Air Laboratory Results 01/27/22 01/27/22 Range/Units 05:34 05:34 WBC 6.27 (4.8-10.8) K/ul RBC 3.16 L (3.93-5.22) M/uL Hgb 10.3 L (12.0-16.0) g/dl Hct 31.5 L (34.1-44.9) % MCV 99.7 (80.0-100.0) fL MCH 32.6 (25.0-34.0) pg MCHC 32.7 (32.0-36.0) g/dL RDW Std Deviation 55.7 H (36.4-46.3) fL RDW Coeff of Ana M 15.2 H (11.5-14.5) % Plt Count 194 (130-400) K/uL MPV 9.7 (9.4-12.3) fL Sodium 136 (136-145) mmol/L Potassium 4.2 (3.5-5.1) mmol/L Chloride 101 (98-107) mmol/L Carbon Dioxide 31 (21-32) mmol/L Anion Gap 4 (3-11) BUN 22 (6-23) mg/dl Creatinine 0.72 (0.6-1.2) mg/dl Est Cr Clr Drug Dosing 42.5 ml/min Est GFR ( Amer) 91.7 ml/min Est GFR (Non-Af Amer) 79.1 ml/min BUN/Creatinine Ratio 30.6 H (10-20) Glucose 90 (70-99(Fasting)) mg/dl Calcium 8.2 L (8.5-10.1) mg/dl Total Bilirubin 0.4 (0.2-1.0) mg/dl AST 19 (13-39) U/L ALT 13 (7-52) U/L Alkaline Phosphatase 119 H (34-104) U/L Total Protein 7.0 (6.0-8.3) gm/dl Albumin 3.1 L (3.4-5.0) gm/dl Globulin 3.9 (2.5-4.0) gm/dl Albumin/Globulin Ratio 0.8 L (0.9-2) PG Care Time/CCT Total # of Minutes Spent Total Time Spent with Patient: Total time spent is greater than 50% in coordination of care (as documented) at patient's floor/unit and/or counseling patient: Coding Diagnoses Hypoxia R09.02 Hyponatremia E87.1 CHF (congestive heart failure) I50.9 Elevated troponin R77.8 Confusion R41.0 Hypertension I10 Vertebral compression fracture M48.50XA Crohn's disease K50.90 GERD (gastroesophageal reflux disease) K21.9 Secondary hypercoagulable state D68.69 Anxiety disorder F41.9 Sacral decubitus ulcer L89.159
[2022-01-27] MEDS: FUROSEMIDE 40 MG TAB PO SCH (08:00)
[2022-01-27] MEDS: ATENOLOL 50 MG TABLET PO SCH (08:01)
[2022-01-27] MEDS: APIXABAN 2.5 MG TAB PO SCH (08:01)
[2022-01-27] MEDS: MAGNESIUM CHLORIDE W/CALCIUM 64MG DELAYED REL TAB PO SCH (08:01)
[2022-01-27] MEDS: SIMVASTATIN 10 MG TAB PO SCH (08:01)
[2022-01-27] MEDS: SODIUM CHLORIDE 1 GM TABLET PO SCH (08:01)
[2022-01-27] MEDS: PANTOprazole 40 MG TAB PO SCH (08:01)
[2022-01-27] MEDS: DICLOFENAC SOD 1% GEL 100 GM TUBE EXT SCH (08:02)
[2022-01-27] MEDS ORDERED: LORazepam 0.5 MG TAB PO STA (11:21)
--- NOTE | 2022-01-27 11:27 | Discharge Summary ---
Date of Service January 27, 2022 Admission HPI Per Admitting Provider Miranda is an 81 year old female with a PMH significant for Aortic stenosis and complete heart block, S/P TAVR and pacemaker placement in 2020, grade I diastolic dysfunction, LVEF of 65% as of 08/2020, hx of hyperproteinemia and protein S deficiency on Eliquis, hx of vertebral compression fracture, chronic pain syndrome, Crohns disease, Hx of SBO, current colostomy status, chronic hyponatremia, GERD, and hypertension who presented to the [facility] ED on 01/24/22 with a chief complaint of SOB and confusion. In the ED the patient was found to be afebrile, hemodynamically stable, but hypoxic at 86% on RA, but was stable when placed on 2L NC. Labs were significant for WBC WNL, stable Hgb at 11.4, Lymphocyte count of 1.19, sodium of 133, potassium hemolyzed with repeat ordered, stable renal function, corrected calcium of 9.0, AST which is in process but Alk phos of 133, high sensitivity trop of 19.1, and negative covid, influenza A/B, and RSV. Chest xray shows "Mild interstitial thickening which is slightly progressed. This could represent superimposed congestive change. Increased markings at the left lung base which may represent chronic interstitial change or atelectasis/pneumonitis." Prior to admission the patient was not given treatment for her SOB. At the time of the exam the patient was sitting in bed in moderate distress due to her chronic back pain with her and family friend at bedside. History was obtained from all three during the exam. They state that the patient has had progressive dyspnea and SOB for the past two weeks. Starting yesterday she started to develop a productive cough with yellow sputum. They deny any recent fevers or chills during this time. They state that she always has to sleep in a recliner due to her chronic back pain so she is unsure if she gets SOB when she would lay flat. She smoked approximately 30 years ago and does not use oxygen at baseline. She and her family have noted increased swelling in her BL lower extremities over the past two weeks, despite taking her daily lasix. They state that ever since being hospitalized for her hyponatremia she has continued issues with memory loss and forgetfulness, they think she is at her neurologic baseline at this time. I spoke to them regarding code status, the patient was adamant that she wants to be a DNR/DNI. During my initial exam the patient was very anxious and distraught due to her chronic back pain and not having pain medications yet today. She was taking very shallow breaths due to her back pain. She denies any chest pain, hemoptysis, abdominal pain, changes in ostomy output, nausea, vomiting, dysuria, hematuria, and recent falls. The patient's states that she has started to develop a sacral ulcer on her buttocks as she is sitting most of the day. They confirmed that she has no had any of her meds yet today and still takes her Eliquis as prescribed. Please refer to Dr. Simons's attestation for any changes to the treatment plan Admission Exam Per Admitting Provider Physical Exam: General:In moderate distress due to chronic back pain, stated age, malnourished, chronically ill-appearing HEENT:Normocephalic, atraumatic, no scleral icterus, pupils around round, symmetrical, and reactive to light, moist mucus membranes, trachea midline, no thyromegaly Chest/Pulm:No respiratory distress, symmetrical chest expansion, rales and crackles noted in the lower left lung field, all other lung bello are CTA Cardiac:RRR, systolic murmur noted Abdomen:Negative for ascites and bruising, ostomy in site in the left lower abdomen without signs of infection or leaking, normoactive bowel sounds, soft, non-tender to palpation throughout Musculoskeletal:Symmetrical and without signs of acute trauma, upper and lower extremities with full ROM, no atrophy, spasticity, or flaccidity Extremities:Radial, dorsalis pedis, and posterior tibial pulses are intact and symmetrical, no pitting edema noted in the BL LE's Skin:Patient noted to have erythema and skin breakdown on the sacrum without signs of drainage during skin exam Neuro:Alert and oriented to person, place, month, year, and president, no focal defects, CN II-XII tested and intact, finger to nose test negative, no tremors noted Psych:Anxious, in moderate distress, able to redirect and was cooperative during exam Principal Diagnosis Acute on Chronic CHF Exacerbation Discharge Exam General: WD slightly malnourished, frail elderly female sitting up in bed, improved comfort to sacrum reported, NAD, but +anxiety -- ordered 0.5mg ativan with improvement HEENT: head normocephalic, mmm, trachea midline without deviation Resp: diminished in the bases, improvement in air entry bilaterally, on room air, no crackles CV: RRR, +systolic murmur, calves nontender, cap refill wnl, trace pedal LE edema RESOLVED GI: soft/nontender, ostomy to LLQ intact MSK/Neuro: pain to sacrum w/ movements in bed improved, sensation intact b/l LE, follows commands, no focal deficit Skin: cool, dry Psych: alert/oriented to person/place/time, anxious at times Discharge Data Allergies Allergy/AdvReac Type Severity Reaction Status Date / Time bee venom protein (honey bee) Allergy Unknown Unknown Verified 12/02/21 14:39 duloxetine [From Cymbalta] Allergy Unknown Unknown Verified 12/02/21 14:39 Fish Containing Products Allergy Unknown Gastrointestinal Verified 12/02/21 14:39 Upset iodine Allergy Unknown Unknown Verified 12/02/21 14:39 shellfish derived Allergy Unknown Unknown Verified 12/02/21 14:39 Consultations 01/24/22 09:56 ED Decision to Admit Stat Ordered Studies Chest X-Ray 01/24/22 08:13 XR chest 1V portable HISTORY: Shortness of breath. Wheezing. Atypical Chest Pain COMPARISON: Chest 11/15/2021. FINDINGS: There are low lung volumes. The patient is slightly rotated. Progressive interstitial thickening is noted which may represent mild congestive change. The heart is mildly enlarged. Cardiac valve prosthesis and a left-sided pacemaker again noted. No pneumothorax. No pleural effusions. There are increased markings within the left lung base. There is a tortuous thoracic aorta. IMPRESSION: 1. Mild interstitial thickening which is slightly progressed. This could represent superimposed congestive change. 2. Increased markings at the left lung base which may represent chronic interstitial change or atelectasis/pneumonitis. ACT 112: Negative or not required by law. Electronically signed by: Josh Palacios M.D. 01/24/2022 8:43 AM Lumbar Spine X-Ray 01/25/22 11:14 LUMBAR SPINE 5 VIEWS HISTORY: low back pain, eval fx COMPARISON: Lumbar spine 07/19/2020. FINDINGS: Mild levoscoliosis again noted centered at the L2 level. The sacrum appears intact. The bones are osteopenic. Pacemaker wires and a cardiac valve prosthesis are noted. Moderate anterior wedge-shaped compression deformity at T12 and L1, unchanged. Moderate anterior wedge-shaped compression deformity at L2 has slightly progressed. This demonstrates up to 40% loss of height anteriorly. No significant retropulsion. Mild superior endplate compression deformities at L3, L4, and L5 remain unchanged. Mild disc space narrowing and facet degenerative changes throughout the lumbar spine IMPRESSION: 1. Interval progression of the moderate anterior wedge-shaped compression deformity at L2 as described above. This favors a subacute fracture given the endplate sclerosis. 2. Multiple old compression deformities again noted throughout the lumbar spine. ACT 112: Negative or not required by law. Electronically signed by: Josh Palacios M.D. 01/25/2022 1:39 PM Sacrum and Coccyx X-Ray 01/25/22 11:14 SACRUM AND COCCYX 3 VIEWS CLINICAL HISTORY: Sacral pain. FINDINGS: 3 views of the sacrum and coccyx are compared to study dated 04/11/2012. The skeletal structures are osteopenic. There is no radiographic evidence of sacrococcygeal fracture. Sclerotic degenerative change is noted in the sacroiliac joints. Lumbosacral spondylosis is partially imaged. Surgical clips are noted in the pelvis. IMPRESSION: There is no radiographic evidence of sacrococcygeal fracture. If there is clinical concern for occult fracture a pelvic CT would be more sensitive. Electronically signed by: Addy Tai M.D. 01/25/2022 2:25 PM 01/24/22 ECHOCARDIOGRAM Compared to 09/03/2018 echo report, aortic valve has been replaced, RVSP now mildly increased, otherwise no significant change. Hospital Course (1) CHF (congestive heart failure): hx diastolic CHF, repeat ECHO w/ grade I diastolic dysfunction admitted with acute on chronic diastolic heart failure, likely 2nd to oral salt tablet administration as outpatient. BNP elevated w/ symptoms/congestive changes on CXR and requirement for supplemental O2 to maintain sats Follows w/ [facility] cards, recent TAVR in September/pacemaker placement for post procedural complete heart block. Interrogation stable 11/07 No oxygen use at home, desaturated to mid 80s on room air in ER, improved with 2L on admit CXR with mild interstitial thickening, slightly progressed compared to prior and likely congestive change BNP elevated 318 ECHO compared to August 2018, aortic valve replaced, R ventricular systolic p ressure now mildly increased. Otherwise, no significant change WBC not elevated on admission but did have L shift (resolved on repeat) Remains afebrile, procal was negative Admit in Nov for hyponatremia w/ Na 120 and d/c on NaCl PO tablets and f/u Nephrology. Per had been up to 2gm BID recently w/ 20mg PO lasix as outpatient, suspect volume overload from excessive NaCl Placed on lasix 20mg IV BID (20mg PO daily at home), transitioned to 40mg PO lasix AM 01/26 and volume status back to baseline, titrated to room air. Weight down to 42.5kg (44kg on admit) Had decreased NaCl tablets to 1gm ONCE daily 01/26 and Na remained stable at 136 on repeat x 3 lab draws Weight down to 42.5kg (44kg on admit) Repeat labs ordered for Sunday to ensure kidney function remains stable on i ncreased diuretics 2 step prior to d/c w 2L w/ ambulation, nothing at rest. Rx to CM and O2 delivered for patient She follows with [facility], I asked them to arrange CHF clinic follow up last time. Mr/Mrs Reddy to continue to monitor daily weights at home and alert cardiology/nephrology if any weight gain >3lb in 24 hours or 5lb in a week Of note, I did increase her pain regimen to percocet 1 tablet TID given continued uncontrolled back pain in days past on admit, tolerating well and pain reported much more tolerable Does mention in nephrology notes that adequate management of back pain will be malloy to maintain serum sodium which could be secondary to high ADH state in setting of significant back pain Given pain controlled, could suspect that she may be able to go back down to 20mg lasix and/or completely eliminate the NaCl tablets in the future Did discuss possible transition to palliative in future given decline and additional resources and centre home care selected for home health for nursing, PT/OT, palliative at discharged and arranged by case management. (2) Hyponatremia: Prior lows to 120 during last admission, following outpatient with Dr Story as above, recently upped to 2gm NaCl BID outpatient, likely causing volume overload/hypoxia as above Na stable 136 x 3 days with diuretics and remained stable on AM labs with decrease to 1gm once daily for PO NaCl as discussed with nephrology on 01/25 and lasix to 40mg daily Urine sodium 113 (prior 33) but did get lasix prior to testing Continued lasix 40mg PO daily at discharge, repeat labs for sunday and encouraged follow up with Dr Story in next 1-2 weeks and did have BMP results to be forwarded to nephrology If Na remains stable on repeat lab testing with control of her back pain symptoms, possibly she will be able to come off the salt tablets as well as the lasix and possibly use as needed for weight gain (3) Hypoxia: Multifactorial causes for hypoxia-- CHF exacerbation (acute on chronic diastolic CHF), anxiety/pain (did appear anxious, stated pain to back making breathing worse as well on admission, improved with pain control) Lasix/Nacl adjustments as above -- will need cards/nephro in follow up Titrated to room air. 2step w/ need for 2L with ambulation after diuresis, weights improved Did have endorsement of significant anxiety, additional lorazepam provided and pain control for lumbar fractures Discussed with /daughter at bedside -- patient very tearful w/ pain at home 0.5 tablet Percocet tid not have effective pain control at home and this was increased to a full tablet as needed up to three times daily --> she reported pain controlled with that change but also reported continued anxiety (anxiety at baseline) and that was imporved with additional prn ativan use --> discussed about sending extra 1mg to split for morning /afternoon for anxiety symptoms and should follow up with PCP for continued management of her anxiety/pain control ON ROOM AIR PRIOR TO D/C (4) Elevated troponin: First high sensitivity trop elevated at 19.1, decreased on repeat (of note did have recent TAVR in September) No EKG changes/Chest pain reported Suspected demand from hypoxia, improved with lasix (5) Confusion: Patient is currently alert and oriented and at neurologic baseline, at bedside 01/25-01/27. Memory loss/forgetfulness over the past year very likely to longstanding hyponatremia which is improved Patient alert/oriented but very anxious at baseline which had improvements w/ increase in Ativan and had been on for a while -- attempt to wean back down as outpatient if able but suspect drives worsening tachypnea at times, especially w/ pain from her back No acute neuro deficits on exam Should likely be evaluated for possible dementia/Alzheimer's in an outpatient setting on discharge in follow up discussions with PCP (6) Hypertension: Continued Atenolol BP stable 138/77 (7) Vertebral compression fracture: Has chronic pain Gave 1mg IV morphine prior to exam and ABG Continued home Percocet , increased to TID on 01/25 and reported improvement in pain control with such, as well as waffle cushion for comfort Sacral/lumbar xrays given increased pain reported --> interval progression of moderate anterior wedge shaped compression deformity at L2. Favors subacute fx. Was going to attempt orthotics consult for LSO brace, however patient with ostomy and likely would not work. I discussed with daughter about this and she stated patient would have declined anyway due to her ostomy -- did decline brace Increased pain control as above -- continued at discharge and encouraged f/u PCP for continued management. 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 Also, her family at bedside this afternoon helping as well per nursing Cautious use SSRI in patient w/ SIADH/hyponatremia hx (12) Sacral decubitus ulcer: -Turn and position q2h had worsened since her valve replacement in September, worsening due to sleeping in recliner at home as well no acute infection, but will consult director of student aid not initially ordered (13) Lumbar vertebral fracture: as above pain regimen increased and pain reportedly imporved/controlled Total Time Total Time Spent Total Time Spent (In Minutes): 65 Discharge Plan Discharge Items Patient Disposition: Home - Home Health Services Reason For Visit: SOB Discharge Diagnosis: CHF exacerbation Goals: You have been hospitalized for an acute medical problem. During your stay at [facility], we have made an effort to correct the problem that brought you to the hospital while keeping you as comfortable as possible. Medications were used to bring your condition under control and your discharge instructions will include directions for any medications you should take after leaving the hospital. Please make sure you see your Primary Care Provider as part of your follow up plan. Activity: Resume your previous activity Non-emergency contact: Primary Care Provider Call non-emergency contact if: you have any medication questions Follow-up/Referrals: Buck Zamorano MD [Primary Care Provider] - 02/06/22 11:00 am Dlema Story MD [Physician] - (1-2 weeks) Ranjith Billy DO [Aircraft Navigator] - 03/10/22 8:30 am (Please arrive 15 minutes prior to appointment time) Diet: Heart Healthy Ambulatory Orders: Basic Metabolic Panel (Routine) Timeframe: 3 Days Location: Determined by Patient Ordered By: Eliana Murillo Attending Provider Instructions: You have been hospitalized for hypoxia/shortness of breath. This was felt to be related likely to the increased salt tablets taking for low sodium levels. We have treated you with IV Lasix and I spoke with Nephrology while in the hospital for further recommendations and changes were made as following: * Your Lasix (furosemide) has been increased to 40mg daily * NaCl tablets have been DECREASED to ONE GRAM ONE TABLET ONCE DAILY You had your salt tablets decreased in the hospital and your sodium levels have remained normal for the last three checks. You should follow up with your bit sander as well as your group work program director in follow up to monitor for any increased symptoms of heart failure or for monitoring of your sodium levels. You should monitor your weights at home and alert your bit sander for any weight gain >3lb in a 24 hour period of time or 5lb in a week as this may indicate you need an extra dose of lasix. I have put in for repeat labs to ensure your sodium level and kidney function remain stable on these changes for Sunday. Results should be forwarded to Dr Story. I would like you to follow up with Dr Story as well. There is potential would be able to discontinue your salt tablets in the future but will continue as above given stability. I obtained imaging of your back and you do have known fractures, but a brace is not feasible with your ostomy. We have attempted improvement in pain control and your pain medication has been increased to 1 tablet up to three times daily as needed and you can follow up with primary care to continue treatment. Please continue over the counter bowel regimen if needed as this can cause constipation. We have also increased your lorazepam as there is a component of anxiety I suspect contributing to worsening feeling of shortness of breath. You can continue your 1mg at night for sleep but I have sent a new prescription for 1mg twice a day and you can split the first pill in half and take a pill in the morning and additional 0.5mg in the afternoon as needed for anxiety symptoms. You have been titrated to room air and remained stable but we did do a test to see if you need any oxygen with ambulation and testing shows you should continue 2L with ambulation, but do not need anything at rest. You should follow up with your primary care provider in the next 7-10 days to monitor your status. Please return to the ER with any increased shortness of breath, chest pain, or for any other symptoms concerning for you. It has been a pleasure being a part of the medical team providing for you while you have been in the hospital. Take care! Pending Studies at Discharge: No Stand-Alone Forms: My [facility] [employer], Smoking Cessation Medications and DC Order Prescriptions: New diclofenac sodium [Voltaren Arthritis Pain] 1 % Gel 2 g EXT QID Qty: 100 0RF sodium chloride 1 gram Tablet 1 g PO QAM Qty: 30 0RF furosemide 40 mg Tablet 40 mg PO QAM Qty: 30 0RF (DME) Oxygen Home Liters Per Minute See Rx Instructions .Route Qty: 1 0RF Rx Instructions: As directed Continued Eliquis 2.5 mg tablet 2.5 mg PO BID Qty: 180 3RF meclizine 25 mg tablet 25 mg PO TID PRN (Reason: dizziness) Qty: 30 0RF simvastatin 10 mg tablet 10 mg PO DAILY Qty: 90 3RF atenolol 50 mg tablet 50 mg PO DAILY Qty: 90 3RF Prolia 60 mg/mL syringe 60 mg SQ Q6MO omeprazole 20 mg capsule,delayed release(DR/EC) 20 mg PO BID nystatin [Nystop] 100,000 unit/gram powder 1 applic topical TID PRN (Reason: irritation) Mag 64 64 mg Tablet,Delayed Release (Dr/Ec) 64 mg PO QAM Qty: 30 0RF potassium chloride 20 mEq tablet extended release 20 meq PO DAILY Qty: 30 2RF Changed oxycodone-acetaminophen 5-325 mg tablet 1 tab PO TID PRN (Reason: pain) Qty: 30 0RF lorazepam 1 mg tablet See Rx Instructions .ROUTE .COMPLEX PRN (Reason: sleep) Qty: 30 0RF Rx Instructions: can take 0.5mg twice daily during the day Q6H apart, then 1mg at night as needed for anxiety/sleep Discontinued sodium chloride 1 gram tablet 1,000 mg PO BID Qty: 60 0RF furosemide 20 mg tablet 20 mg PO DAILY Qty: 30 2RF Discharge Orders: Discharge Order (Routine); Ordered 01/27/22 Ordered By: Eliana Schaefer Admission Data Admit Date/Time: 01/24/22 10:25 Attending Provider: Mathieu Merrill Admit Provider: Buck Simons Primary Care Provider: Buck Zamorano Other Providers: [place],Home [facility] Other Interventions: Discharge Summary Assessment (RN) Last Done: 01/27/22 11:52 Supervising Physician Co-Signing Physician Notes The patient's case was reviewed by me. Discussed with PA. Agree with assessment and plan and discharge. Coding Level of Care Code D/C DAY MANAGEMENT >30 MINS Diagnoses CHF (congestive heart failure) I50.9 Hyponatremia E87.1 Hypoxia R09.02 Elevated troponin R77.8 Confusion R41.0 Hypertension I10 Vertebral compression fracture M48.50XA Crohn's disease K50.90 GERD (gastroesophageal reflux disease) K21.9 Secondary hypercoagulable state D68.69 Anxiety disorder F41.9 Sacral decubitus ulcer L89.159 Lumbar vertebral fracture S32.009A
--- NOTE | 2022-02-05 14:56 | Coding Query ---
PRESSURE ULCER DOCUMENTATION To promote full compliance with coding requirements relating to patient care, physician participation is requested in all cases of lens cleaner uncertainty. Please assist us with the question(s) below: Please specify the known or suspected type by placing an "X" within the parenthesis (x). A pressure ulcer of the Sacral region (Sacral Decubitus Ulcer), beginning on the H&P. If possible, please check the box that provides the specific stage of the pressure ulcer ( ) Stage I ( ) Stage II ( ) Stage III ( ) Stage IV ( ) Unstageable (X ) Unable to determine Thank you [facility]
--- NOTE | 2022-02-05 14:59 | Coding Query ---
To promote full compliance with coding requirements relating to patient care, physician participation is requested in all cases of coder operator uncertainty. Please assist us with the question(s) below: Coding Question(s): It was noted throughout the record that the patient has/is suspected to have osteoporosis. According to coding guidelines "a code for osteoporotic fracture, and not a traumatic fracture, should be used for any patient with known osteoporosis who suffers a fracture, even if the patient had a minor fall or trauma, if that fall or trauma would not usually break a normal, healthy bone." Please indicate below the type of fracture: Physician's Response(s): ( x ) Osteoporotic fracture of Vertebral Compression Fracture ( ) Traumatic fracture of Vertebral Compression Fracture ( ) Other, please specify ( ) Unable to be determined MTDD
== END 2022-01-27 14:11 | disposition home health service (06) | DRG 291 ==
LOC: ED 07:41 → SUATTDRO 10:25 → 2W 10:25

== ENCOUNTER 2022-02-01 14:07 | Inpatient (IN) ==
[2022-02-01] MEDS ORDERED: SODIUM CHLORIDE 0.9% 500 ML IV ONE (14:21)
--- NOTE | 2022-02-01 14:25 | Emergency Department Note ---
Impression & Plan AMS (altered mental status), Acute UTI, Elevated troponin ED Provider Note NAME: SANDRA NAVA AGE: 81 SEX: F : 1940 ARRIVES VIA: Ambulance INFORMANT: Patient ED PROVIDER(S): Vlad Baron DO CHIEF COMPLAINT: confused HPI: Patient is an 81-year-old female with a past medical history of heart block, metabolic encephalopathy, hypoxia, status post TAVR, paroxysmal SVT, Crohn's who presents the ER for confusion difficulty staying awake which has been worsening over the past 2 days. She denies any headache or chest pain. No belly pain, nausea, vomiting, or diarrhea. No dysuria, urgency, or frequency. No other exacerbating or remitting factors. She was just recently admitted and discharged over a week ago and placed on narcotics and benzos. notes that he can barely take care of her anymore at home. She is to be completely independent and now cannot even change her ostomy bag. ROS: See above HPI for pertinent positives & negatives. A total of 10 systems reviewed and were otherwise negative. PAST MEDICAL HISTORY:See Below PAST SURGICAL HISTORY:See Below FAMILY HISTORY:See Below SOCIAL HISTORY:See Below HOME MEDICATIONS:See Below ALLERGIES:See Below VITALS:See Below PHYSICAL EXAMINATION: GENERAL: Sitting up in bed, alert, ill-appearing, disheveled, cachectic EYE EXAM: normal conjunctiva. PERRL and EOM's grossly intact. OROPHARYNX: no exudate, no erythema, lips, buccal mucosa, and tongue normal and mucous membranes are moist NECK: supple, no nuchal rigidity, no adenopathy, non-tender LUNGS: Clear to auscultation. Normal chest wall mechanics HEART: no murmurs, S1 normal and S2 normal ABDOMEN: abdomen soft, non-tender, normo-active bowel sounds, no masses, no rebound or guarding. UPPER EXTREMITIES: upper extremities are grossly normal. LOWER EXTREMITIES: No pitting edema. NEURO EXAM: Oriented to person not place or year, cranial nerves II-XII grossly intact, normal speech, no gross weakness of arms, no gross weakness of legs. No drift. Finger to nose intact. Gross sensation intact. MEDICAL DECISION MAKING: Patient is a 81-year-old female who presents ER for confusion brought in by . IV was established blood work was obtained. Labs show no significant leukocytosis. Mild anemia 10.5. BMP with a creatinine 1.3. Bilirubin LFTs were unremarkable. Troponin was elevated at 35. Lipase was normal. UA does suggest UTI. Patient was given Rocephin. Updated bedside. Unable to perform CT of the head as she was unable to lay flat. Chest x-ray was unremarkable. Family was updated bedside. They are unable to take care of her at home. Discussed with Dr. Ayad Smith for further evaluation. Triage Nursing notes reviewed. Limited review of prior medical records performed Vital Signs: reviewed and remarkable for no significant abnormalities Differential diagnosis: Differential diagnoses includes but is not limited to toxic, metabolic, infectious, traumatic, cardiac, neurologic, hematologic, psychiatric and inflammatory etiologies. ER treatment provided: See below Diagnostics interpreted by me: ECG: Sinus rhythm rate of 59 Normal axis No PVCs QTC 461 Cardiac Monitoring: An order was placed for continuous cardiac monitoring. The monitor shows a rate of 62 with sinus rhythm. Laboratory studies: As stated above and show below. Imaging studies: Portable AP upright 1 view of the chest unremarkable Consultation(s): Discussed with Dr. Ayad Vences for further evaluation Procedures: none Critical Care: None Past Med/Surg History Medical History (Updated 02/01/22 @ 20:59 by Vlad Baron DO) Aortic stenosis Chronic pain syndrome Colostomy care Crohns disease Degenerative lumbar spinal stenosis GERD (gastroesophageal reflux disease) H/O small bowel obstruction Hyperproteinemia (~02/13/19) Hypertension Hypokalemia USP current use of anticoagulant Opioid use agreement exists Osteoporosis Secondary hypercoagulable state Tremor Surgical History H/O abdominal aortic aneurysm repair H/O heart artery stent H/O pyloroplasty H/O resection of small bowel History of abdominal aortic aneurysm (AAA) repair History of appendectomy History of breast biopsy History of carpal tunnel surgery History of colostomy History of colposcopy History of hernia repair History of ileostomy History of resection of small bowel History of tonsillectomy and adenoidectomy History of tooth extraction Hx of tubal ligation Status post catheter ablation of atrial fibrillation Status post proctocolectomy Family History Father Coronary heart disease Hypertension Stroke Sister No problems noted. Mother Coronary heart disease Hypertension Stroke Denies family history of Ovarian cancer Prostate cancer Myocardial infarction Breast cancer Lung cancer Colorectal cancer Social History Smoking Status: Unknown if ever smoked Tobacco Type: Cigarettes Age Started Using Tobacco: 26; Age Quit Using Tobacco: 61; packs per day: 1; Second Hand Exposure: No; Hx Alcohol Use: No Hx Substance Use: No Preferred Language: Nauruan Communication Ability: Effective Visual Impairment: Limited Hearing Ability: Normal [employer] Professional Required: No Beliefs That Will Affect Care: None marital status: Current Living Situation: Spouse current occupational status: retired How many Children do You have: 2 Feels Safe at Home: Yes Childhood Exposure to Second-Hand Smoke: Yes caffeine: Yes (coffee) Dental Care, Regularly: Yes Physical Activity Frequency: Daily Physical Activity Frequency Comment: walks Seatbelt Use: always Sunscreen Use: Yes Assistive Devices: Walker Allergies Allergies Allergy/AdvReac Type Severity Reaction Status Date / Time bee venom protein (honey bee) Allergy Unknown Unknown Verified 02/01/22 17:05 duloxetine [From Cymbalta] Allergy Unknown Unknown Verified 02/01/22 17:05 iodine Allergy Unknown Unknown Verified 02/01/22 17:05 shellfish derived Allergy Unknown Unknown Verified 02/01/22 17:05 Fish Containing Products AdvReac Intermediate Gastrointestinal Verified 02/01/22 17:05 Upset Home Meds Home Medications Medication Instructions Recorded Confirmed denosumab 60 mg/mL subcutaneous 60 mg subcut Q6MO 02/13/19 02/01/22 syringe (Prolia) nystatin 100,000 unit/gram topical 1 applic topical TID PRN irritation 11/15/21 02/01/22 powder (Nystop) omeprazole 20 mg capsule,delayed 20 mg PO BID 11/15/21 02/01/22 release Previous Rx's Medication Instructions Recorded apixaban 2.5 mg tablet (Eliquis) 2.5 mg PO BID #180 tabs 05/03/21 meclizine 25 mg tablet 25 mg PO TID PRN dizziness #30 tabs 09/06/21 simvastatin 10 mg tablet 10 mg PO DAILY #90 tabs 10/05/21 magnesium chloride 64 mg 64 mg PO QAM #30 tabs 11/18/21 (magnesium chloride) tablet,delayed release (Mag 64) atenolol 50 mg tablet 50 mg PO DAILY #90 tabs 12/12/21 Oxygen Home #1 ea 01/27/22 diclofenac sodium 1 % topical gel 2 g EXT QID #100 grams 01/27/22 (Voltaren Arthritis Pain) furosemide 40 mg tablet 40 mg PO QAM #30 tabs 01/27/22 lorazepam 1 mg tablet See Rx Instructions .Route 01/27/22 .COMPLEX PRN sleep #30 tabs oxycodone-acetaminophen 5 mg-325 1 tab PO TID PRN pain #30 tabs 01/27/22 mg tablet potassium chloride 20 mEq 20 meq PO DAILY #30 tabs 01/27/22 tablet,extended release sodium chloride 1 gram tablet 1 g PO QAM #30 tabs 01/27/22 Results & Data (ED) Vital Signs Vital Signs - 24 hr 02/01/22 13:53 02/01/22 14:24 Temperature 36.5 C Temperature Source Oral Pulse Rate 84 Respiratory Rate 20 Blood Pressure 119/63 Blood Pressure Mean 81 Pulse Oximetry 94 93 Oxygen Delivery Method Nasal Cannula Sepsis Recent Fever Within 48 Hours No Sepsis New/Unexplained Change in Mental Status Yes Sepsis Action Taken by Nursing No Action Required Laboratory Data Result diagrams: 02/01/22 14:32 02/01/22 14:32 Lab Results 02/01/22 02/01/22 02/01/22 Range/Units 14:32 14:32 14:32 WBC 9.08 (4.8-10.8) K/ul RBC 3.25 L (3.93-5.22) M/uL Hgb 10.5 L (12.0-16.0) g/dl Hct 32.5 L (34.1-44.9) % MCV 100.0 (80.0-100.0) fL MCH 32.3 (25.0-34.0) pg MCHC 32.3 (32.0-36.0) g/dL RDW Std Deviation 53.9 H (36.4-46.3) fL RDW Coeff of Ana M 14.6 H (11.5-14.5) % Plt Count 209 (130-400) K/uL MPV 9.5 (9.4-12.3) fL Immature Gran % (Auto) 0.4 % Neut % (Auto) 74.8 % Lymph % (Auto) 16.1 % [place] % (Auto) 7.3 % Eos % (Auto) 1.2 % Baso % (Auto) 0.2 % Neut # (Auto) 6.79 H (1.4-6.5) K/uL Lymph # (Auto) 1.46 (1.2-3.4) K/uL [place] # (Auto) 0.66 (0.24-0.82) K/uL Eos # (Auto) 0.11 (0-0.50) K/uL Baso # (Auto) 0.02 (0-0.2) K/uL Immature Gran # (Auto) 0.04 H (0.00-0.02) K/uL VBG pH 7.35 L (7.36-7.41) VBG pCO2 57 H (38-50) mmHg VBG pO2 21 mmHg VBG HCO3 32 mmol/L VBG O2 Saturation < 60.0 % VBG Base Excess 4.3 mEq/L Sodium 136 (136-145) mmol/L Potassium 4.8 (3.5-5.1) mmol/L Chloride 99 (98-107) mmol/L Carbon Dioxide 29 (21-32) mmol/L Anion Gap 8 (3-11) BUN 53 H (6-23) mg/dl Creatinine 1.32 H (0.6-1.2) mg/dl Est Cr Clr Drug Dosing 22.9 ml/min Est GFR ( Amer) 44.1 ml/min Est GFR (Non-Af Amer) 38.0 ml/min BUN/Creatinine Ratio 40.2 H (10-20) Glucose 94 (70-99(Fasting)) mg/dl Calcium 10.5 H (8.5-10.1) mg/dl Total Bilirubin 0.5 (0.2-1.0) mg/dl AST 30 (13-39) U/L ALT 20 (7-52) U/L Alkaline Phosphatase 132 H (34-104) U/L Troponin I High Sens 35.8 H D (0-14) pg/ml Total Protein 7.7 (6.0-8.3) gm/dl Albumin 3.4 (3.4-5.0) gm/dl Globulin 4.3 H (2.5-4.0) gm/dl Albumin/Globulin Ratio 0.8 L (0.9-2) Lipase 24 (11-82) U/L Urine Color Urine Appearance (Clear) Urine pH (4.5-7.5) Ur Specific [place] (1.000-1.030) Urine Protein (Negative) Urine Glucose (UA) (Negative) Urine Ketones (Negative) Urine Blood (Negative) Urine Nitrite (Negative) Urine Bilirubin (Negative) Urine Urobilinogen (Negative) Ur Leukocyte Esterase (Negative) Urine WBC (Auto) (0-5) /hpf Urine RBC (Auto) (0-4) /hpf U Hyaline Cast (Auto) (0-5) /lpf U Epithel Cells (Auto) (0-5) /lpf Urine Bacteria (Auto) (Negative) Urine Yeast SARS-CoV-2, RNA, NAAT (NEGATIVE) 02/01/22 02/01/22 Range/Units 14:52 15:24 WBC (4.8-10.8) K/ul RBC (3.93-5.22) M/uL Hgb (12.0-16.0) g/dl Hct (34.1-44.9) % MCV (80.0-100.0) fL MCH (25.0-34.0) pg MCHC (32.0-36.0) g/dL RDW Std Deviation (36.4-46.3) fL RDW Coeff of Ana M (11.5-14.5) % Plt Count (130-400) K/uL MPV (9.4-12.3) fL Immature Gran % (Auto) % Neut % (Auto) % Lymph % (Auto) % [place] % (Auto) % Eos % (Auto) % Baso % (Auto) % Neut # (Auto) (1.4-6.5) K/uL Lymph # (Auto) (1.2-3.4) K/uL [place] # (Auto) (0.24-0.82) K/uL Eos # (Auto) (0-0.50) K/uL Baso # (Auto) (0-0.2) K/uL Immature Gran # (Auto) (0.00-0.02) K/uL VBG pH (7.36-7.41) VBG pCO2 (38-50) mmHg VBG pO2 mmHg VBG HCO3 mmol/L VBG O2 Saturation % VBG Base Excess mEq/L Sodium (136-145) mmol/L Potassium (3.5-5.1) mmol/L Chloride (98-107) mmol/L Carbon Dioxide (21-32) mmol/L Anion Gap (3-11) BUN (6-23) mg/dl Creatinine (0.6-1.2) mg/dl Est Cr Clr Drug Dosing ml/min Est GFR ( Amer) ml/min Est GFR (Non-Af Amer) ml/min BUN/Creatinine Ratio (10-20) Glucose (70-99(Fasting)) mg/dl Calcium (8.5-10.1) mg/dl Total Bilirubin (0.2-1.0) mg/dl AST (13-39) U/L ALT (7-52) U/L Alkaline Phosphatase (34-104) U/L Troponin I High Sens (0-14) pg/ml Total Protein (6.0-8.3) gm/dl Albumin (3.4-5.0) gm/dl Globulin (2.5-4.0) gm/dl Albumin/Globulin Ratio (0.9-2) Lipase (11-82) U/L Urine Color Yellow Urine Appearance Cloudy A (Clear) Urine pH 5.0 (4.5-7.5) Ur Specific [place] 1.011 (1.000-1.030) Urine Protein Negative (Negative) Urine Glucose (UA) Negative (Negative) Urine Ketones Negative (Negative) Urine Blood Trace H (Negative) Urine Nitrite Negative (Negative) Urine Bilirubin Negative (Negative) Urine Urobilinogen Negative (Negative) Ur Leukocyte Esterase 2+ H (Negative) Urine WBC (Auto) >30 H (0-5) /hpf Urine RBC (Auto) 0-4 (0-4) /hpf U Hyaline Cast (Auto) 1-5 (0-5) /lpf U Epithel Cells (Auto) 0-5 (0-5) /lpf Urine Bacteria (Auto) 4+ H (Negative) Urine Yeast Not Reportable SARS-CoV-2, RNA, NAAT NEGATIVE (NEGATIVE) Administered Medications Discontinued Medications Sodium Chloride (Nss) 500 mls @ 999 mls/hr IV .Q31M ONE Stop: 02/01/22 14:51 Last Infusion: 02/01/22 15:39 Dose: 0 mls/hr Documented By: Admin: 02/01/22 15:09 Dose: 999 mls/hr Documented By: HÉCTOR Ceftriaxone Sodium (Rocephin) 2,000 mg in 70 mls @ 140 mls/hr IV NOW STA Stop: 02/01/22 16:43 Last Infusion: 02/01/22 16:56 Dose: 0 mls/hr Documented By: Admin: 02/01/22 16:38 Dose: 140 mls/hr Documented By: HÉCTOR Imaging Data Radiologist's Impression: Chest X-Ray 02/01/22 16:13 XR chest 1V portable HISTORY: Altered mental status. COMPARISON: Chest 01/24/2022. FINDINGS: Slightly rotated study. No pneumothorax. No pleural effusions. The heart remains mildly enlarged. Is left-sided dual-chamber pacemaker cardiac joseph ve prosthesis again noted. Interstitial thickening is again noted. This is most pronounced within the left lower lobe. IMPRESSION: No change in interstitial thickening which is most pronounced within the left lower lobe. This could be chronic or represent a superimposed left lower lobe interstitial pneumonitis. ACT 112: Negative or not required by law. Electronically signed by: Josh Palacios M.D. 02/01/2022 4:46 PM Discharge Plan Visit Data Chief Complaint: Altered Mental Status Stated Complaint: LETHARGIC ED Provider: Vlad Baron Discharge Problem: AMS (altered mental status), Acute UTI, Elevated troponin Patient Disposition: Admitted As Inpatient Discharge Instructions Interventions: ED Discharge Assessment Last Done: 02/01/22 19:23
[2022-02-01 14:44] LABS: Basophils # (auto) 0.02 K/uL (0-0.2); Basophils % (auto) 0.2 %; Eosinophils # (auto) 0.11 K/uL (0-0.50); Eosinophils % (auto) 1.2 %; Hematocrit (blood only) 32.5 % (34.1-44.9); Hemoglobin 10.5 g/dl (12.0-16.0); Immature Granulocytes # (auto) 0.04 K/uL (0.00-0.02); Immature Granulocytes % (auto) 0.4 %; Lymphocytes # (auto) 1.46 K/uL (1.2-3.4); Lymphocytes % (auto) 16.1 %; Mean Corpuscular Hemoglobin 32.3 pg (25.0-34.0); Mean Corpuscular Hgb Conc 32.3 g/dL (32.0-36.0); Mean Platelet Volume 9.5 fL (9.4-12.3); Monocytes # (auto) 0.66 K/uL (0.24-0.82); Monocytes % (auto) 7.3 %; Neutrophils # (auto) 6.79 K/uL (1.4-6.5); Neutrophils % (auto) 74.8 %; Platelet Count 209 K/uL (130-400); RDW Coefficient of Variation 14.6 % (11.5-14.5); RDW Standard Deviation 53.9 fL (36.4-46.3); Red Blood Count 3.25 M/uL (3.93-5.22); White Blood Count 9.08 K/ul (4.8-10.8)
[2022-02-01 14:45] LABS: Base Excess VBG 4.3 mEq/L; HCO3 VBG 32 mmol/L; Oxygen Saturation VBG < 60.0 %; PCO2 VBG 57 mmHg (38-50); PO2 VBG 21 mmHg; pH VBG 7.35 (7.36-7.41)
[2022-02-01 15:14] LABS: Troponin I High Sensitivity 35.8 pg/ml (0-14)
[2022-02-01 15:15] LABS: Albumin Globulin Ratio 0.8 (0.9-2); Albumin Level 3.4 gm/dl (3.4-5.0); BUN Creatinine Ratio 40.2 (10-20); Bilirubin,Total 0.5 mg/dl (0.2-1.0); Calcium 10.5 mg/dl (8.5-10.1); Creatinine Clr Calc Pharmacy 22.9 ml/min; Est GFR (African American) 44.1 ml/min; Globulin 4.3 gm/dl (2.5-4.0); Potassium 4.8 mmol/L (3.5-5.1); Total Protein 7.7 gm/dl (6.0-8.3)
[2022-02-01 15:16] LABS: Appearance Urine Cloudy (Clear); Bacteria Urine Automated 4+ (Negative); Bilirubin Urine Negative (Negative); Blood Urine Trace (Negative); Color Urine Yellow; Epithelial Cell Urine Auto 0-5 /lpf (0-5); Glucose Urine UA Negative (Negative); Ketones Urine Negative (Negative); Leukocyte Esterase Urine 2+ (Negative); Nitrite Urine Negative (Negative); Protein Urine Negative (Negative); RBC Urine Automated 0-4 /hpf (0-4); Specific Gravity Urine 1.011 (1.000-1.030); Urobilinogen Urine Negative (Negative); WBC Urine Automated >30 /hpf (0-5)
[2022-02-01] MEDS ORDERED: cefTRIAXone SODIUM 2,000 MG/70 ML BAG IV STA (16:14)
--- NOTE | 2022-02-01 16:27 | History & Physical Report ---
Date of Service February 01, 2022 Assessment & Plan (1) Confusion: Plan: Patient with decline and increased confusion possible metabolic encephalopathy from urinary tract infection present on admission with a UA which is abnormal, patient was given 500 of fluid and ceftriaxone in the ER which will be continued urine culture is currently pending There is some discussion on her last discharge of possibly considering palliative care post discharge will have to have a repeat evaluation by case management of appropriate disposition for the patient given the family's ability to care for her and reevaluation by PT and OT. Consideration of inpatient palliative care if family is open to that (2) Elevated troponin: Plan: Patient cannot recall chest pain troponin is 35 this will be trended her typical troponins are usually not in this range EKG was not performed in emergency department but an EKG will be ordered and reviewed Patient is on simvastatin for secondary risk reduction (3) CHF (congestive heart failure): Plan: Patient has a history of diastolic heart failure heart failure preserved ejection fraction. She appears euvolemic at this time fluid to be used cautiously Remains on atenolol Patient's had multiple issues in the past with hyponatremia currently she is with normal serum sodium. She appears clinically dehydrated and her BUN is elevated. There was descriptions in the record at discharge of perhaps stopping her daily salt tablets and Lasix therapy. Subsequently we will take this opportunity to do that. We will give her another liter of fluid over the next 10 to 12 hours and reassess her volume status in the morning. We will employ the heart failure order set and watch her daily weights to help gauge her euvolemic status. 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 There [facility] named Zafar Cook [phone] History of Present Illness Primary Care Provider: Buck Zamorano MD 81-year-old female presents with confusion and her 's inability to care for her at home. She was discharged on 01/27/2022 that hospital stay was for acute on chronic diastolic heart failure (follows with [facility] cardiology with recent TAVR and pacemaker) this is complicated by hyponatremia on salt administration, persistent back pain with opiate use from pre-existing vertebral compression fractures, history of Crohn's disease with ostomy since 1976 and chronic anticoagulation for protein S deficiency being on Eliquis twice daily. During her last hospital stay she developed a decubitus ulcer There was discussion of palliative care post discharge and the discharge summary Allergies Allergy/AdvReac Type Severity Reaction Status Date / Time bee venom protein (honey bee) Allergy Unknown Unknown Verified 02/01/22 17:05 duloxetine [From Cymbalta] Allergy Unknown Unknown Verified 02/01/22 17:05 iodine Allergy Unknown Unknown Verified 02/01/22 17:05 shellfish derived Allergy Unknown Unknown Verified 02/01/22 17:05 Fish Containing Products AdvReac Intermediate Gastrointestinal Verified 02/01/22 17:05 Upset Home Medications Medication Instructions Recorded Confirmed Type denosumab 60 mg/mL subcutaneous 60 mg subcut Q6MO 02/13/19 01/30/22 History syringe (Prolia) apixaban 2.5 mg tablet (Eliquis) 2.5 mg PO BID #180 tabs 05/03/21 01/30/22 Rx meclizine 25 mg tablet 25 mg PO TID PRN dizziness #30 tabs 09/06/21 01/30/22 Rx simvastatin 10 mg tablet 10 mg PO DAILY #90 tabs 10/05/21 01/30/22 Rx nystatin 100,000 unit/gram topical 1 applic topical TID PRN irritation 11/15/21 01/30/22 History powder (Nystop) omeprazole 20 mg capsule,delayed 20 mg PO BID 11/15/21 01/30/22 History release magnesium chloride 64 mg 64 mg PO QAM #30 tabs 11/18/21 01/30/22 Rx (magnesium chloride) tablet,delayed release (Mag 64) atenolol 50 mg tablet 50 mg PO DAILY #90 tabs 12/12/21 01/30/22 Rx Oxygen Home #1 ea 01/27/22 01/30/22 Rx diclofenac sodium 1 % topical gel 2 g EXT QID #100 grams 01/27/22 01/30/22 Rx (Voltaren Arthritis Pain) furosemide 40 mg tablet 40 mg PO QAM #30 tabs 01/27/22 01/30/22 Rx lorazepam 1 mg tablet See Rx Instructions .Route 01/27/22 01/30/22 Rx .COMPLEX PRN sleep #30 tabs oxycodone-acetaminophen 5 mg-325 1 tab PO TID PRN pain #30 tabs 01/27/22 01/30/22 Rx mg tablet potassium chloride 20 mEq 20 meq PO DAILY #30 tabs 01/27/22 01/30/22 Rx tablet,extended release sodium chloride 1 gram tablet 1 g PO QAM #30 tabs 01/27/22 01/30/22 Rx Past Med/Surg History Medical History (Updated 02/01/22 @ 16:31 by Ayad Vences MD) Aortic stenosis Chronic pain syndrome Colostomy care Crohns disease Degenerative lumbar spinal stenosis GERD (gastroesophageal reflux disease) H/O small bowel obstruction Hyperproteinemia (~02/13/19) Hypertension Hypokalemia prison current use of anticoagulant Opioid use agreement exists Osteoporosis Secondary hypercoagulable state Tremor Surgical History H/O abdominal aortic aneurysm repair H/O heart artery stent H/O pyloroplasty H/O resection of small bowel History of abdominal aortic aneurysm (AAA) repair History of appendectomy History of breast biopsy History of carpal tunnel surgery History of colostomy History of colposcopy History of hernia repair History of ileostomy History of resection of small bowel History of tonsillectomy and adenoidectomy History of tooth extraction Hx of tubal ligation Status post catheter ablation of atrial fibrillation Status post proctocolectomy Family History Father Coronary heart disease Hypertension Stroke Sister No problems noted. Mother Coronary heart disease Hypertension Stroke Denies family history of Ovarian cancer Prostate cancer Myocardial infarction Breast cancer Lung cancer Colorectal cancer Social History Smoking Status: Unknown if ever smoked Tobacco Type: Cigarettes Age Started Using Tobacco: 26; Age Quit Using Tobacco: 61; packs per day: 1; Second Hand Exposure: No; Hx Alcohol Use: No Hx Substance Use: No Preferred Language: Jamaican Communication Ability: Effective Visual Impairment: Limited Hearing Ability: Normal Civil Celebrant Required: No Beliefs That Will Affect Care: None marital status: Current Living Situation: Spouse current occupational status: retired How many Children do You have: 2 Feels Safe at Home: Yes Childhood Exposure to Second-Hand Smoke: Yes caffeine: Yes (coffee) Dental Care, Regularly: Yes Physical Activity Frequency: Daily Physical Activity Frequency Comment: walks Seatbelt Use: always Sunscreen Use: Yes Assistive Devices: Walker Review of Systems Review of Systems: Mild distress and fatigue no headache, no visual changes no speech or swallowing issues no chest pain, pressure or palpitations no shortness of breath, cough or wheezes no abdominal pain, nausea or vomiting, diarrhea or constipation no dysuria, hematuria or frequency no focal joint pain or swelling no back pain, CVA tenderness or radicular pain no bruising, bleeding or rashes no focal signs of weakness or numbness or altered sensation no complaints of anxiety or depression.. Physical Exam Physical Exam: The patient appeared well nourished and normally developed. Vital signs as documented. Head exam is normocephalic atraumatic Neck is without JVD, thyromegaly, or carotid bruits. Lungs are clear to auscultation, no focal loss of breath sounds Cardiac exam, Rhythm is regular.. No murmurs, rubs or gallops. Abdominal exam reveals normal bowel sounds, soft non tender, no masses Extremities are nonedematous and both pedal pulses are present Neurologic exam is alert and oriented, no focal loss of strength or sensation Skin is without bruises or rashes Psychologically is without concerns for anxiety or depression.. Results & Data Results & Data ([facility]) Vital Signs (Past 12 Hours) Vital Signs Temp Pulse Resp BP Pulse Ox O2 Del Method 02/01/22 14:24 93 Nasal Cannula 02/01/22 13:53 97.7 F 84 20 119/63 94 PG Care Time/CCT Total # of Minutes Spent Total Time Spent with Patient: Total time spent is greater than 50% in coordination of care (as documented) at patient's floor/unit and/or counseling patient: Coding Level of Care Code 00203 Initial Inpt Care Lvl 3 Diagnoses Confusion R41.0 Elevated troponin R77.8 CHF (congestive heart failure) I50.9 Lumbar vertebral fracture S32.009A S/P TAVR (transcatheter aortic valve replacement) Z95.2 Crohn's disease K50.90 terminal manager 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
--- NOTE | 2022-02-01 16:47 | XRay Report ---
XR chest 1V portable HISTORY: Altered mental status. COMPARISON: Chest 01/24/2022. FINDINGS: Slightly rotated study. No pneumothorax. No pleural effusions. The heart remains mildly enl arged. Is left-sided dual-chamber pacemaker cardiac valve prosthesis again noted. Interstitial thicke randolph is again noted. This is most pronounced within the left lower lobe. IMPRESSION: No change in interstitial thickening which is most pronounced within the left lower lobe. This could be chronic or represent a superimposed left lower lobe interstitial pneumonitis. ACT 112: Negative or not required by law. Electronically signed by: Josh Palacios M.D. 02/01/2022 4:46 PM
[2022-02-01] MEDS ORDERED: NYSTATIN POWDER 15GM BTL EXT PRN (19:22)
[2022-02-01] MEDS ORDERED: oxyCODONE HCL IR 5 MG TAB (IMMEDIATE RELEASE) PO PRN (19:22)
[2022-02-01] MEDS ORDERED: SODIUM CHLORIDE 0.9% 1000ML 1,000 ML IV SCH (19:22)
[2022-02-01] MEDS ORDERED: ONDANSETRON INJ 2 MG/ML 2 ML VIAL IV PRN (19:22)
[2022-02-01] MEDS ORDERED: APIXABAN 2.5 MG TAB PO SCH (21:00)
[2022-02-01] MEDS: DICLOFENAC SOD 1% GEL 100 GM TUBE EXT SCH ×2 (22:02→22:04)
[2022-02-01] MEDS: ACETAMINOPHEN 500 MG TAB PO SCH (22:03)
[2022-02-01] MEDS: PANTOprazole 40 MG TAB PO SCH (22:05)
[2022-02-01] MEDS: APIXABAN 5 MG TABLET PO SCH (22:18)
[2022-02-01] MEDS ORDERED: LORazepam 0.5 MG TAB PO PRN (23:30)
[2022-02-02 05:23] LABS: Hematocrit (blood only) 27.3 % (34.1-44.9); Mean Corpuscular Hemoglobin 32.1 pg (25.0-34.0); Mean Corpuscular Volume 97.5 fL (80.0-100.0); Mean Platelet Volume 9.6 fL (9.4-12.3); Platelet Count 172 K/uL (130-400); RDW Coefficient of Variation 14.4 % (11.5-14.5); RDW Standard Deviation 52.3 fL (36.4-46.3); White Blood Count 7.58 K/ul (4.8-10.8)
[2022-02-02 05:48] LABS: BUN Creatinine Ratio 51.7 (10-20); Calcium 9.2 mg/dl (8.5-10.1); Est GFR (African American) 70.9 ml/min; Est GFR (Non-African American) 61.2 ml/min
[2022-02-02 05:56] LABS: Troponin I High Sensitivity 40.3 pg/ml (0-14)
[2022-02-02] MEDS: ACETAMINOPHEN 500 MG TAB PO SCH (08:28)
[2022-02-02] MEDS: PANTOprazole 40 MG TAB PO SCH (08:30)
[2022-02-02] MEDS: APIXABAN 5 MG TABLET PO SCH (08:31)
[2022-02-02] MEDS: DICLOFENAC SOD 1% GEL 100 GM TUBE EXT SCH (08:32)
[2022-02-02] MEDS ORDERED: ATENOLOL 50 MG TABLET PO SCH (09:00)
[2022-02-02] MEDS ORDERED: SIMVASTATIN 10 MG TAB PO SCH (09:00)
[2022-02-02] MEDS ORDERED: MAGNESIUM CHLORIDE W/CALCIUM 64MG DELAYED REL TAB PO SCH (09:00)
[2022-02-02] MEDS ORDERED: cefTRIAXone SODIUM 2,000 MG in DEXTROSE 5% 50 ML IV SCH (09:00)
[2022-02-02] MEDS ORDERED: SODIUM CHLORIDE 1 GM TABLET PO SCH (09:00)
--- NOTE | 2022-02-02 10:16 | Electrocardiogram Report ---
Test Reason : Blood Pressure : / mmHG Vent. Rate : 079 BPM Atrial Rate : 079 BPM P-R Int : 158 ms QRS Dur : 114 ms QT Int : 440 ms P-R-T Axes : 037 -57 -11 degrees QTc Int : 504 ms Poor data quality, interpretation may be adversely affected Atrial-sensed ventricular-paced rhythm Abnormal ECG When compared with ECG of 24-JAN-2022 08:02, Vent. rate has decreased BY 10 BPM Confirmed by Nickolas Wilburn ([id number]) on 02/02/2022 10:15:57 AM Referred By: REFERRED SELF Confirmed By:Nickolas Wilburn
--- NOTE | 2022-02-02 13:24 | Discharge Summary ---
Date of Service February 02, 2022 Admission HPI Per Admitting Provider 81-year-old female presents with confusion and her 's inability to care for her at home. She was discharged on 01/27/2022 that hospital stay was for acute on chronic diastolic heart failure (follows with [facility] cardiology with recent TAVR and pacemaker) this is complicated by hyponatremia on salt administration, persistent back pain with opiate use from pre-existing vertebral compression fractures, history of Crohn's disease with ostomy since 1976 and chronic anticoagulation for protein S deficiency being on Eliquis twice daily. During her last hospital stay she developed a decubitus ulcer There was discussion of palliative care post discharge and the discharge summary Principal Diagnosis UTI , acute encephalopathy Discharge Exam The patient is awake, alert confused, thin HEENT--PERRL, EOMI, mucous membranes and oropharynx mildly dry Neck--supple. No JVD. No bruits. Thyroid normal, trachea midline, no adenopathy. Heart--normal S1 and S2. No murmurs, rubs or gallops. Lungs--clear bilaterally, no respiratory distress, no accessory muscle use. Abdomen--normal bowel sounds and soft. Mild epigastric and left sided abdominal pain Extremities--no cyanosis or clubbing. No edema. Dermatologic--normal skin turgor, normal color, no abnormal lymph nodes, no rash. Neurologic--cranial nerves II through XII grossly intact. Rheumatologic--normal range of motion. Psychiatric--normal affect. Discharge Data Allergies Allergy/AdvReac Type Severity Reaction Status Date / Time bee venom protein (honey bee) Allergy Unknown Unknown Verified 02/01/22 17:05 duloxetine [From Cymbalta] Allergy Unknown Unknown Verified 02/01/22 17:05 iodine Allergy Unknown Unknown Verified 02/01/22 17:05 shellfish derived Allergy Unknown Unknown Verified 02/01/22 17:05 Fish Containing Products AdvReac Intermediate Gastrointestinal Verified 02/01/22 17:05 Upset Consultations 02/01/22 16:14 ED Decision to Admit Stat Hospital Course (1) Acute metabolic encephalopathy: Patient with decline and increased confusion possible metabolic encephalopathy , etiology is likely from urinary tract infection present on admission (2) Acute UTI: UTI present on admission with a UA which is abnormal, patient was given 500 of fluid and ceftriaxone in the ER which will be continued urine culture is growing gram negatives, sensistivity pending However, patients daughter who is a FARM FACILITY MANAGER said she prefers to take the patient evonne, and if eventually the cultures and sensitivity needs a different antibiotics to the empiric one prescribed, they would be notified and a different antibiotics called in if necessary Will d/c patient on PO Ciprofloxacin 500mg BID for 7 days (3) Confusion: There is some discussion on her last discharge of possibly considering palliative care post discharge will have to have a repeat evaluation by case management of appropriate disposition for the patient given the family's ability to care for her and reevaluation by PT and OT. Consideration of inpatient palliative care if family is open to that (4) Elevated troponin: Patient cannot recall chest pain troponin is 35 this will be trended her typical troponins are usually not in this range EKG was not performed in emergency department but an EKG will be ordered and reviewed Patient is on simvastatin for secondary risk reduction (5) CHF (congestive heart failure): Patient has a history of diastolic heart failure heart failure preserved ejection fraction. She appears euvolemic at this time fluid to be used cautiously Remains on atenolol Patient's had multiple issues in the past with hyponatremia currently she is w ith normal serum sodium. She appears clinically dehydrated and her BUN is elevated. There was descriptions in the record at discharge of perhaps stopping her daily salt tablets and Lasix therapy. Subsequently we will take this opportunity to do that. We will give her another liter of fluid over the next 10 to 12 hours and reassess her volume status in the morning. We will employ the heart failure order set and watch her daily weights to help gauge her euvolemic status. If need be nephrology had been involved in her past hyponatremic states and did recommend if the sodium was stopped to consider a very low-dose of furosemide such as 20 mg a day (6) Lumbar vertebral fracture: Persistent because of chronic low back pain typically patient takes, patient typically takes oxycodone/acetaminophen topical Voltaren we will continue low- dose oxycodone scheduled acetaminophen and topical Voltaren (7) S/P TAVR (transcatheter aortic valve replacement): (8) Crohn's disease: Patient has an ostomy which will have a wound ostomy consultation in place (9) prison current use of anticoagulant: Patient has protein S deficiencies remains on apixaban renal dose adjusted (10) Protein calorie malnutrition: Plan Case management consultation would be required the feels he cannot care for the patient at home. There is a relationship with him in a strange stepdaughter named Zafar Cook [phone] The daughter insisted she wants to take the patient home. Total Time Total Time Spent Total Time Spent (In Minutes): 35 Discharge Plan Discharge Items Patient Disposition: Home - Self-Care Reason For Visit: METABOLIC ENCEPH(UTI) ELEV TROP Discharge Diagnosis: UTI, acute encephalopathy Activity: Resume your previous activity Non-emergency contact: Primary Care Provider Call non-emergency contact if: you have any medication questions Follow-up/Referrals: Buck Zamorano MD [Primary Care Provider] - 02/08/22 3:30 pm Diet: Regular Addtl Attending Provider Instructions: please make appointment to follow up with your PCP Pending Studies at Discharge: No Stand-Alone Forms: My Cogn[employer]K, Smoking Cessation Medications and DC Order Prescriptions: New ciprofloxacin HCl 500 mg tablet 500 mg PO BID 7 Days Qty: 14 0RF Continued Eliquis 2.5 mg tablet 2.5 mg PO BID Qty: 180 3RF meclizine 25 mg tablet 25 mg PO TID PRN (Reason: dizziness) Qty: 30 0RF simvastatin 10 mg tablet 10 mg PO DAILY Qty: 90 3RF atenolol 50 mg tablet 50 mg PO DAILY Qty: 90 3RF Prolia 60 mg/mL syringe 60 mg SQ Q6MO omeprazole 20 mg capsule,delayed release(DR/EC) 20 mg PO BID nystatin [Nystop] 100,000 unit/gram powder 1 applic topical TID PRN (Reason: irritation) Mag 64 64 mg Tablet,Delayed Release (Dr/Ec) 64 mg PO QAM Qty: 30 0RF oxycodone-acetaminophen 5-325 mg tablet 1 tab PO TID PRN (Reason: pain) Qty: 30 0RF lorazepam 1 mg tablet See Rx Instructions .ROUTE .COMPLEX PRN (Reason: sleep) Qty: 30 0RF Rx Instructions: can take 0.5mg twice daily during the day Q6H apart, then 1mg at night as needed for anxiety/sleep diclofenac sodium [Voltaren Arthritis Pain] 1 % Gel 2 g EXT QID Qty: 100 0RF sodium chloride 1 gram Tablet 1 g PO QAM Qty: 30 0RF furosemide 40 mg Tablet 40 mg PO QAM Qty: 30 0RF (DME) Oxygen Home Liters Per Minute See Rx Instructions .Route Qty: 1 0RF Rx Instructions: As directed potassium chloride 20 mEq tablet extended release 20 meq PO DAILY Qty: 30 2RF Discharge Orders: Discharge Order (Routine); Ordered 02/02/22 Ordered By: Jorge Reyes Admission Data Admit Date/Time: 02/01/22 16:43 Attending Provider: Jorge Reyes Admit Provider: Ayad Vences Primary Care Provider: Buck Zamorano Other Providers: Ayad Vences ; Fleming,Home Care Coding Level of Care Code D/C DAY MANAGEMENT >30 MINS Diagnoses Acute metabolic encephalopathy G93.41 Acute UTI N39.0 Confusion R41.0 Elevated troponin R77.8 CHF (congestive heart failure) I50.9 Lumbar vertebral fracture S32.009A S/P TAVR (transcatheter aortic valve replacement) Z95.2 Crohn's disease K50.90 terminal gauger 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 Time Spent (min) 35
[2022-02-03] MEDS ORDERED: LORazepam 1 MG TAB PO SCH (09:00)
--- NOTE | 2022-02-03 09:02 | Electrocardiogram Report ---
Test Reason : Blood Pressure : / mmHG Vent. Rate : 071 BPM Atrial Rate : 071 BPM P-R Int : 156 ms QRS Dur : 114 ms QT Int : 448 ms P-R-T Axes : 068 -87 061 degrees QTc Int : 486 ms Atrial-sensed ventricular-paced rhythm Abnormal ECG When compared with ECG of 01-FEB-2022 14:20, Vent. rate has decreased BY 8 BPM Confirmed by Nickolas Wilubrn ([id number]) on 02/03/2022 9:01:45 AM Referred By: REFERRED SELF Confirmed By:Nickolas Wilburn
== END 2022-02-02 14:20 | disposition home or self-care (01) | DRG 689 ==
LOC: ED 14:07 → SUATTDRO 16:43 → EDINP 16:43 → 2N 19:23

== ENCOUNTER 2023-08-04 15:28 | Inpatient (IN) ==
[2023-08-04 16:14] LABS: Base Excess VBG 3.6 mEq/L; HCO3 VBG 31 mmol/L; Oxygen Saturation VBG < 60.0 %; PCO2 VBG 59 mmHg (38-50); PO2 VBG < 20 mmHg; pH VBG 7.33 (7.36-7.41)
[2023-08-04 16:26] LABS: Basophils # (auto) 0.01 K/uL (0.00-0.20); Basophils % (auto) 0.1 %; Eosinophils # (auto) 0.07 K/uL (0.00-0.50); Eosinophils % (auto) 0.7 %; Hematocrit (blood only) 37.1 % (37.0-47.0); Hemoglobin 11.6 g/dl (12.0-16.0); Immature Granulocytes # (auto) 0.06 K/uL (0.01-0.20); Immature Granulocytes % (auto) 0.6 %; Lymphocytes # (auto) 0.81 K/uL (1.20-3.40); Lymphocytes % (auto) 8.3 %; Mean Corpuscular Hemoglobin 29.7 pg (25.0-34.0); Mean Corpuscular Hgb Conc 31.3 g/dL (32.0-36.0); Mean Corpuscular Volume 95.1 fL (80.0-100.0); Mean Platelet Volume 10.4 fL (9.4-12.4); Monocytes # (auto) 0.54 K/uL (0.11-0.59); Monocytes % (auto) 5.6 %; Neutrophils # (auto) 8.23 K/uL (1.40-6.50); Neutrophils % (auto) 84.7 %; Platelet Count 131 K/uL (130-400); White Blood Count 9.72 K/ul (4.8-10.8)
[2023-08-04 16:46] LABS: Partial Thromboplastin Ratio 0.8; Partial Thromboplastin Time 22 Seconds (21-31); Prothrombin Time 11.3 Seconds (9.0-12.0)
[2023-08-04 16:48] LABS: Albumin Level 3.5 gm/dl (3.4-5.0); BUN Creatinine Ratio 30.4 (10-20); Bilirubin,Total 0.4 mg/dl (0.2-1.0); Calcium 11.2 mg/dl (8.6-10.3); Creatinine Clr Calc Pharmacy 36.1 ml/min; Est GFR (African American) 59.7 ml/min; Est GFR (Non-African American) 51.5 ml/min; Magnesium 1.8 mg/dl (1.7-2.4); Total Protein 8.3 gm/dl (6.0-8.3); Troponin I High Sensitivity 52.4 pg/ml (0-14)
[2023-08-04 16:55] LABS: Bilirubin Direct 0.1 mg/dl (0-0.2); Potassium 4.5 mmol/L (3.5-5.1)
--- NOTE | 2023-08-04 17:07 | CT Scan Report ---
HEAD CT NONCONTRAST CT DOSE: HISTORY: fall TECHNIQUE: Multiaxial CT images of the head were performed without the use of intravenous contrast. A utomated exposure control was utilized for this study. A dose lowering technique was utilized adheri ng to the principles of ALARA. Comparison: Head CT 11/15/2021. Findings: The paranasal sinuses and mastoid air cells are clear. The calvarium and skull base are int act. There is no mass, hematoma, midline shift, acute infarct. White matter hypodensity is nonspecifi c but suggestive of microvascular ischemic change. The ventricles and sulci demonstrate mild age-rela yanira involutional changes. 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 Impression: No significant change compared to the prior study. No acute intracranial abnormality. ACT 112: Negative or not required by law. Electronically signed by: Josh Palacios M.D. 08/04/2023 5:05 PM
--- NOTE | 2023-08-04 17:20 | CT Scan Report ---
ABDOMEN AND PELVIS CT WITHOUT CONTRAST CT DOSE: HISTORY: Urinary incontinence. fall TECHNIQUE: Multiaxial CT images of the abdomen and pelvis were performed without contrast. A dose lo wering technique was utilized adhering to the principles of ALARA. COMPARISON STUDY: Abdomen and pelvis CT 11/27/2006.. FINDINGS: Interstitial thickening with fibrotic change at the lung bases. Patchy densities within the lung bases most pronounced within the left lower lobe may represent a component of the fibrotic grimaldo ge. A superimposed pneumonitis would be difficult to exclude but considered less likely. No pneumoper itoneum. No pneumatosis. Subtle cortical irregularity within the right superior pubic ramus appears t o represent a nondisplaced fracture. This is best seen on axial image 267. Moderate to severe carey araceli deformities seen throughout the lower thoracic and lumbar spine. These are technically age indet erminate but are likely chronic. A few these demonstrate mild retropulsion of up to 3 mm. This most p ronounced at the L1-L2 level which demonstrates moderate central canal narrowing. Mild central canal narrowing throughout the remaining lumbar spine levels. A cardiac valve prosthesis is noted. Pacemake r wires are present. The heart is enlarged. 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 There is a tortuous abdominal aorta with advanced calcified plaque. The unenhanced liver demonstrate a few small calcifications. The unenhance d spleen, adrenal glands, and pancreas are unremarkable. The gallbladder is distended. No gallbladder wall thickening. There are few large gallstones measuring up to 2.4 cm. There is a ptotic right kidn ey. Bilateral nephrolithiasis. Mild fullness within the bilateral renal collecting system without fra nk hydronephrosis. This is likely secondary to the severely distended bladder. There is mild pelvic f balbina collapse. The uterus and bilateral adnexa are unremarkable. Evidence for distal colectomy with a left lower quadrant ostomy. Suboptimal evaluation for bowel pathology due to the lack of intravenous and oral contrast. However, there is no definite bowel wall thickening or obstruction. No retroperit soria hematoma. IMPRESSION: 1. Subtle cortical irregularity within the right superior pubic ramus. This could represent an acute nondisplaced fracture. Recommend correlation for point tenderness. 2. Severely distended bladder. There is mild pelvic floor collapse. Recommend catheterization if the patient is unable to void. 3. Mild fullness within the bilateral renal collecting system without hydronephrosis. This is likely due to the severely distended bladder. 4. Bilateral nephrolithiasis. No ureteral stones identified. 5. Distended gallbladder containing multiple stones. However, no gallbladder wall thickening. 6. Moderate to severe compression deformities seen throughout the lower thoracic and lumbar spine. Th dhara are technically age indeterminate but are likely chronic. 7. Additional findings as described above. ACT 112: Negative or not required by law. Electronically signed by: Josh Palacios M.D. 08/04/2023 5:18 PM
[2023-08-04 17:21] LABS: Appearance Urine Clear (Clear); Bacteria Urine Automated 4+ (None Seen); Bilirubin Urine Negative (Negative); Blood Urine Trace (Negative); Color Urine Yellow; Epithelial Cell Urine Auto 0-2 /hpf (0-2); Glucose Urine UA Negative (Negative); Ketones Urine Trace (Negative); Leukocyte Esterase Urine 2+ (Negative); Nitrite Urine Negative (Negative); Protein Urine Negative (Negative); Urobilinogen Urine Negative (Negative)
--- NOTE | 2023-08-04 17:28 | CT Scan Report ---
CERVICAL SPINE CT CT DOSE: 1772.1 mGy.cm HISTORY: fall TECHNIQUE: Multiaxial CT images of the cervical spine were performed and reformatted in the sagittal and coronal plane without the use of contrast. A dose lowering technique was utilized adhering to th e principles of ALARA. COMPARISON: None. FINDINGS: No fractures within the cervical spine. There is 2 mm of anterolisthesis of C4 on C5. This is likely due to the long-standing degenerative change. Moderate to severe disc space narrowing at C5 -C6 and C6-C7. There or mild superior endplate compression deformities at T2 and T3. These are likely chronic. Prevertebral soft tissues and the C1-C2 interval are intact. No pneumothorax. IMPRESSION: 1. No acute fractures within the cervical spine. 2. Mild superior endplate compression deformities at T2 and T3 which are likely chronic. ACT 112: Negative or not required by law. Electronically signed by: Josh aPlacios M.D. 08/04/2023 5:26 PM
--- NOTE | 2023-08-04 17:45 | XRay Report ---
XR chest 1V portable HISTORY: Sepsis COMPARISON: Chest 02/01/2022. Abdomen and pelvis CT 08/04/2023. FINDINGS: No pneumothorax. There are low lung volumes. The heart is enlarged. There is an aortic valv e prosthesis and a left-sided dual-chamber pacemaker. Chronic fibrotic change has progressed. There a re patchy densities within the left lung base again noted. This likely represents the fibrotic change . A superimposed pneumonitis would be difficult to exclude by imaging. Multiple compression voids see n throughout the thoracic spine. IMPRESSION: 1. Chronic fibrotic change has progressed. 2. There are patchy densities within the left lung base again noted. This likely represents the fibro tic change. A superimposed pneumonitis would be difficult to exclude by imaging. ACT 112: Negative or not required by law. Electronically signed by: Josh Palacios M.D. 08/04/2023 5:44 PM
--- NOTE | 2023-08-04 17:52 | History & Physical Report ---
Date of Service August 04, 2023 Assessment & Plan (1) Acute UTI: Plan: Multiple falls and altered mental status on the morning of 08/03 UA positive on arrival Roth catheter placed in the ED; Daily Roth catheter care Rocephin 2000 mg IV q24h Only prior UCx 2021 grew Klebsiella sensitive to Rocephin Follow current UCx A.m. CBC, BMP, mag (2) AMS (altered mental status): Plan: Likely secondary to #1 No slurred speech, facial droop, or unilateral deficits Head CT revealed NAF (3) Fracture of right superior pubic ramus: Plan: A/P CT revealed acute nondisplaced right superior pubic ramus fracture; multiple age-indeterminate compression fractures (chronic) in the thoracic and lumbar spine Given history of recent falls, unclear when this occurred Continue oxycodoneacetaminophen 5-325 BID scheduled Additional acetaminophen as needed for pain/fever (4) Recurrent falls: Plan: Fall precautions PT/OT evaluations appreciated Case management consulted for potential placement given patient's gradual decline, and 's difficulty caring for patient at home (5) longterm current use of anticoagulant: Plan: Secondary hypercoagulable state, protein S deficiency, prescribed lifelong anticoagulation Will hold apixaban for 24 hours in the setting of acute falls; okay to resume if hemoglobin remains stable (6) Colostomy care: Plan: S/p ileostomy Daily ileostomy care Ostomy nurse consulted (7) Cachexia: Plan: Hypervolemic on arrival; Plasma-Lyte 500 mL bolus + maintenance fluids at 100mL/hr x 2 Dietitian consulted (8) CHF (congestive heart failure): Plan: Hold AM Lasix / K supplementation due to hypotension and hypovolemia; okay to restart pending am BP / fluid status Last echocardiogram in 2022 revealed LVEF at 60-64% (9) History of SIADH: Plan: Monitor for hyponatremia with UTI + fluid resuscitation Continue sodium chloride 1000 mg tablets QAM (10) Elevated troponin: Plan: Troponin 52 on arrival, repeat pending Clinically, patient denies chest pain Continuous telemetry monitoring (11) Anemia: Plan: Hgb 11.6 on arrival No signs of active bleeding on clinical exam Patient denies blood in stool/urine, or change in urinary/bowel habits Follow AM CBCs (12) S/P TAVR (transcatheter aortic valve replacement): Plan: Hx of severe ; underwent TAVR with Dr. Eli in September 2021 (13) Ileostomy in place: (14) Crohn's disease: (15) GERD (gastroesophageal reflux disease): (16) Cardiac pacemaker in situ: (17) Coronary artery disease: (18) Hyperlipidemia: Plan Disposition: Admit to PCU telemetry DNR/DNI Heart healthy diet, easy to chew (protein supplementation; aspiration precautions) VTE PPx: Hold apixaban 24 hours in the setting of acute falls/trauma History of Present Illness Chief Complaint: Fall Primary Care Provider: Bertha Alexander MD Miranda is an 82-year-old female with PMH of ileostomy, CAD, s/p TAVR, cardiac pacemaker, CHF, SIADH, HTN, hyperlipidemia, anxiety, aortic stenosis, GERD, Crohn's, PSVT, and UTIs. She presented for multiple falls on the morning of 08/03. Patient's reports that she fell around 1 AM, and then again around 5:30 AM. These were unwitnessed falls. No LOC. Possible head strike; patient says she "bumped" her head on the carpeted floor. Patient reports that she lost her balance, and her legs gave out on her. However she also felt dizzy/lightheaded prior to fall. Patient appears to be a poor historian at this time. Patient's daughter is present, and does report that this is an acute change in cognitive baseline for her mother. Patient has a history of recurrent falls, and per , she has been on a clinical decline ever since she had a heart valve replaced around a year ago. She has difficulty with ambulation; a mbulates with a walker at baseline. She also has been eating less and less. Patient's has concerns about taking care of her at home. She is ileostomy status, and requires daily ostomy care. Patient does have supplemental oxygen at home (2L NC) however she only uses it as needed. No CPAP at night. Patient took all of her regular morning medications today; no recent change in medications. Patient's daughter reports that during her last UTI, the patient did develop confusion as well as hyponatremia. No history of strokes. Patient is a former smoker but quit 40 years ago. She denies any recent alcohol use. Patient is hypotensive at 106/48 at time of admission; SpO2 87% on 2L NC. ED course: Lorazepam 0.25 mg IV Rocephin 2000 mg IV ROS is difficult to obtain at this time given patient's acute change in cognitive baseline. However: Patient endorses multiple falls, left lower back pain, urinary incontinence, confusion, lightheadedness, and nausea. Patient denies fever, chills, night sweats, new body aches, headaches, slurred speech, facial droop, chest pain, pleuritic CP, SOB, cough, abdominal pain, burning with urination, or blood in the urine/stool. Allergies Allergy/AdvReac Type Severity Reaction Status Date / Time bee venom protein (honey bee) Allergy Unknown Unknown Verified 08/04/23 16:42 duloxetine [From Cymbalta] Allergy Unknown Unknown Verified 08/04/23 16:42 iodine Allergy Unknown Unknown Verified 08/04/23 16:42 shellfish derived Allergy Unknown Unknown Verified 08/04/23 16:42 Fish Containing Products AdvReac Intermediate Gastrointestinal Verified 08/04/23 16:42 Upset Home Medications Medication Instructions Recorded Confirmed Type magnesium chloride 64 mg 64 mg PO QAM #30 tabs 11/18/21 08/04/23 Rx (magnesium chloride) tablet,delayed release (Mag 64) Oxygen Home #1 ea 01/27/22 01/05/23 Rx cholecalciferol (vitamin D3) 25 25 mcg PO BID 09/21/22 08/04/23 History mcg (1,000 unit) tablet atenolol 50 mg tablet 50 mg PO DAILY #90 tabs 03/08/23 08/04/23 Rx furosemide 40 mg tablet 40 mg PO QAM #90 tabs 04/04/23 08/04/23 Rx apixaban 2.5 mg tablet (Eliquis) 2.5 mg PO BID #180 tabs 05/29/23 08/04/23 Rx omeprazole 20 mg capsule,delayed 20 mg PO BID #180 caps 07/30/23 08/04/23 Rx release Lactobacillus acidophilus 10 10,000 mmu cells PO DAILY 08/04/23 08/04/23 History billion cell capsule (Probiotic) ascorbic acid (vitamin C) 1,000 mg 1 g PO BID 08/04/23 08/04/23 History tablet (Vitamin C With Oriana Hips) calcium carbonate (Calcium 600) 600 mg PO BID 08/04/23 08/04/23 History clonazepam 1 mg tablet See Rx Instructions .Route .COMPLEX 08/04/23 08/04/23 History cyanocobalamin (vitamin B-12) 1,000 mcg PO Q OTHER DAY 08/04/23 08/04/23 History 1,000 mcg tablet (Vitamin B-12) ferrous sulfate 325 mg (65 mg 325 mg PO DAILY 08/04/23 08/04/23 History iron) tablet (iron) krill 1,000 mg-omega-3 230 mg-dha 1 cap PO DAILY 08/04/23 08/04/23 History 60 gf-gvi-wqqvqbzhj-astaxan capsule (MegaRed [place]-3 Krill Oil) oxycodone-acetaminophen 5 mg-325 1 tab PO BID 08/04/23 08/04/23 History mg tablet potassium chloride 20 mEq 20 meq PO QAM 08/04/23 08/04/23 History tablet,extended release simvastatin 10 mg tablet 10 mg PO HS 08/04/23 08/04/23 History sodium chloride 1,000 mg soluble 1,000 mg PO QAM 08/04/23 08/04/23 History tablet Past Med/Surg History Problem List (Updated 08/04/23 @ 19:14 by Josh Duke PA-C) Cachexia Anemia History of SIADH Recurrent falls (Acute) Acute UTI (Acute) Fracture of right superior pubic ramus Fall History of compression fracture of spine (~01/24/22) Interval progression of the moderate anterior wedge-shaped compression deformity at L2 History of compression fracture of vertebral column (~08/17/20) SIADH (syndrome of inappropriate ADH production) Interstitial lung disease Acute metabolic encephalopathy AMS (altered mental status) (Acute) Acute UTI (Acute) Elevated troponin (Acute) Confusion Hypoxia (Acute) CHF (congestive heart failure) (Acute) Breath shortness (Acute) Sacral decubitus ulcer Elevated troponin Hypoxia Hypokalemia Hyponatremia Protein calorie malnutrition Metabolic encephalopathy CHB (complete heart block) Hypercoagulable state Cardiac pacemaker in situ S/P TAVR (transcatheter aortic valve replacement) Acute hyponatremia (Acute) Confusion (Acute) Hypocalcemia Elevated erythrocyte sedimentation rate Weight loss Hypertension PSVT (paroxysmal supraventricular tachycardia) Crohns disease (Chronic) Degenerative lumbar spinal stenosis (Chronic) Colostomy care (Chronic) GERD (gastroesophageal reflux disease) (Chronic) Crohn's disease (Chronic) Osteoporosis (Chronic) Hyperproteinemia (Chronic ~02/13/19) Opioid use agreement exists (Chronic) Chronic pain syndrome (Chronic) Secondary hypercoagulable state (Chronic) Aortic stenosis (Chronic) longterm current use of anticoagulant (Chronic) Anxiety disorder (Chronic) Coronary artery disease (Chronic) Hyperlipidemia (Chronic) 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) Medical History Hyponatremia Tremor H/O small bowel obstruction Surgical History Status post proctocolectomy History of abdominal aortic aneurysm (AAA) repair History of resection of small bowel History of tooth extraction History of carpal tunnel surgery History of breast biopsy History of ileostomy History of hernia repair History of colposcopy History of colostomy Status post catheter ablation of atrial fibrillation Hx of tubal ligation History of tonsillectomy and adenoidectomy History of appendectomy H/O resection of small bowel H/O pyloroplasty H/O heart artery stent H/O abdominal aortic aneurysm repair Family History Father Coronary heart disease Hypertension Stroke Sister No problems noted. Mother Coronary heart disease Hypertension Stroke Denies family history of Ovarian cancer Prostate cancer Myocardial infarction Breast cancer Lung cancer Colorectal cancer Social History Smoking Status: Never smoker Tobacco Type: Cigarettes Age Started Using Tobacco: 26; Age Quit Using Tobacco: 61; packs per day: 1; Second Hand Exposure: No; Do You Dip or Chew Tobacco: No; Hx Alcohol Use: No Hx Substance Use: No Preferred Language: Lithuanian Communication Ability: Effective Visual Impairment: Limited Hearing Ability: Normal Sql Application Developer Required: No Beliefs That Will Affect Care: None marital status: Current Living Situation: Spouse current occupational status: retired How many Children do You have: 2 Feels Safe at Home: Yes Childhood Exposure to Second-Hand Smoke: Yes caffeine: Yes (coffee) Dental Care, Regularly: Yes Physical Activity Frequency: Daily Physical Activity Frequency Comment: walks Seatbelt Use: always Sunscreen Use: Yes Assistive Devices: Oxygen - Continuous and Walker Review of Systems Review of Systems: See HPI above Physical Exam Physical Exam: General: Lethargic; dazed; cachectic; SpO2 87% on 2 L NC HEENT: normocephalic, atraumatic; no scleral icterus; PERRLA; dry mucus membrane; vision and hearing intact Neck: supple; no lymphadenopathy; trachea midline Skin: warm, dry without signs of tenting; no cyanosis; no rashes, bruising, or erythema noted CV: chest wall NTP; RRR; S1/S2 normal; 2/6 systolic ejection murmur auscultated at the 2nd ICS MCL; pulses intact and symmetric at radial, DP, and PT Lungs: Mild respiratory distress; symmetrical chest wall expansion; clear breath sounds across all lung bello w/o adventitious sounds; no wheezing ABD: Soft, NTP; BS present; no rebound/guarding; no distention; positive left CVA tenderness; negative right CVA tenderness MSK: no tics or fasciculations; no edema noted in the LEs b/l, nonerythematous; lesions noted on the lower extremities bilaterally; 5/5 tmr teacher strength bilaterally; patient demonstrates ability to wiggle toes, plantar/dorsiflex ankles, and bend knees bilaterally without pain Neuro: A&Ox3; dazed; slow to respond to questioning; fluent speech; sensation intact in the LEs b/l Results & Data Results & Data Vital Signs (Past 12 Hours) Vital Signs Temp Pulse Resp BP Pulse Ox O2 Del Method O2 Flow Rate 08/04/23 17:40 82 14 87 L 08/04/23 17:31 106/48 L 08/04/23 17:31 68 18 92 08/04/23 17:30 69 20 90 08/04/23 17:20 80 22 90 08/04/23 17:10 100 H 16 08/04/23 17:00 137/66 08/04/23 17:00 79 21 92 08/04/23 16:50 62 21 91 08/04/23 16:44 96 H 20 08/04/23 16:44 121/67 08/04/23 16:39 92 H 24 08/04/23 16:20 111 H 20 96 08/04/23 16:17 94 H 08/04/23 16:10 73 22 92 08/04/23 16:04 95 Nasal Cannula 2 08/04/23 16:00 60 16 92 Nasal Cannula 2 08/04/23 16:00 127/63 08/04/23 15:50 83 18 08/04/23 15:43 36.8 C 96 H 14 121/65 88 L Room Air 08/04/23 15:40 65 16 08/04/23 15:38 121/65 08/04/23 15:38 73 17 08/04/23 15:36 72 24 Laboratory Results Abnormal lab results 08/04/23 08/04/23 Range/Units 16:04 16:18 RBC 3.90 L (4.20-5.40) M/uL Hgb 11.6 L (12.0-16.0) g/dl MCHC 31.3 L (32.0-36.0) g/dL RDW Std Deviation 52.0 H (36.4-46.3) fL RDW Coeff of Ana M 15.0 H (11.5-14.5) % Neut # (Auto) 8.23 H (1.40-6.50) K/uL Lymph # (Auto) 0.81 L (1.20-3.40) K/uL VBG pH 7.33 L (7.36-7.41) VBG pCO2 59 H (38-50) mmHg BUN 31 H (6-23) mg/dl BUN/Creatinine Ratio 30.4 H (10-20) Calcium 11.2 H (8.6-10.3) mg/dl Troponin I High Sens 52.4 H* (0-14) pg/ml Urine Ketones Trace H (Negative) Urine Blood Trace H (Negative) Ur Leukocyte Esterase 2+ H (Negative) Urine WBC (Auto) 6-10 H (0-5) /hpf Urine RBC (Auto) 3-5 H (0-2) /hpf U Hyaline Cast (Auto) 3-5 H (0-2) /lpf Urine Bacteria (Auto) 4+ H (None Seen) Diagnostic Findings Abdomen/Pelvis CT 08/04/23 15:[address] WITHOUT CONTRAST CT DOSE: HISTORY: Urinary incontinence. fall TECHNIQUE: Multiaxial CT images of the abdomen and pelvis were performed without contrast. A dose lowering technique was utilized adhering to the principles of ALARA. COMPARISON STUDY: Abdomen and pelvis CT 11/27/2006.. FINDINGS: Interstitial thickening with fibrotic change at the lung bases. Patchy densities within the lung bases most pronounced within the left lower lobe may represent a component of the fibrotic change. A superimposed pneumonitis would be difficult to exclude but considered less likely. No pneumoperitoneum. No pneumatosis. Subtle cortical irregularity within the right superior pubic ramus appears to represent a nondisplaced fracture. This is best seen on axial image 267. Moderate to severe compression deformities seen throughout the lower thoracic and lumbar spine. These are technically age indeterminate but are likely chronic. A few these demonstrate mild retropulsion of up to 3 mm. This most pronounced at the L1-L2 level which demonstrates moderate central canal narrowing. Mild central canal narrowing throughout the remaining lumbar spine levels. A cardiac valve prosthesis is noted. Pacemaker wires are present. The heart is enlarged. 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 There is a tortuous abdominal aorta with advanced calcified plaque. The unenhanced liver demonstrate a few small calcifications. The unenhanced spleen, adrenal glands, and pancreas are unremarkable. The gallbladder is distended. No gallbladder wall thickening. There are few large gallstones measuring up to 2.4 cm. There is a ptotic right kidney. Bilateral nephrolithiasis. Mild fullness within the bilateral renal collecting system without jaxon hydronephrosis. This is likely secondary to the severely distended bladder. There is mild pelvic floor collapse. The uterus and bilateral adnexa are unremarkable. Evidence for distal colectomy with a left lower quadrant ostomy. Suboptimal evaluation for bowel pathology due to the lack of intravenous and oral contrast. However, there is no definite bowel wall thick ening or obstruction. No retroperitoneal hematoma. IMPRESSION: 1. Subtle cortical irregularity within the right superior pubic ramus. This could represent an acute nondisplaced fracture. Recommend correlation for point tenderness. 2. Severely distended bladder. There is mild pelvic floor collapse. Recommend catheterization if the patient is unable to void. 3. Mild fullness within the bilateral renal collecting system without hydronephrosis. This is likely due to the severely distended bladder. 4. Bilateral nephrolithiasis. No ureteral stones identified. 5. Distended gallbladder containing multiple stones. However, no gallbladder wall thickening. 6. Moderate to severe compression deformities seen throughout the lower thoracic and lumbar spine. These are technically age indeterminate but are likely chronic. 7. Additional findings as described above. ACT 112: Negative or not required by law. Electronically signed by: Josh Palacios M.D. 08/04/2023 5:[address] 08/04/23 15:[address] DOSE: 1772.1 mGy.cm HISTORY: fall TECHNIQUE: Multiaxial CT images of the cervical spine were performed and reformatted in the sagittal and coronal plane without the use of contrast. A dose lowering technique was utilized adhering to the principles of ALARA. COMPARISON: None. FINDINGS: No fractures within the cervical spine. There is 2 mm of anterolisthesis of C4 on C5. This is likely due to the long-standing degenerative change. Moderate to severe disc space narrowing at C5-C6 and C6-C7. There or mild superior endplate compression deformities at T2 and T3. These are likely chronic. Prevertebral soft tissues and the C1-C2 interval are intact. No pneumothorax. IMPRESSION: 1. No acute fractures within the cervical spine. 2. Mild superior endplate compression deformities at T2 and T3 which are likely chronic. ACT 112: Negative or not required by law. Electronically signed by: Josh Palacios M.D. 08/04/2023 5:[address] 08/04/23 15:[address] DOSE: HISTORY: fall TECHNIQUE: Multiaxial CT images of the head were performed without the use of intravenous contrast. Automated exposure control was utilized for this study. A dose lowering technique was utilized adhering to the principles of ALARA. Comparison: Head CT 11/15/2021. Findings: The paranasal sinuses and mastoid air cells are clear. The calvarium and skull base are intact. There is no mass, hematoma, midline shift, acute infarct. White matter hypodensity is nonspecific but suggestive of microvascular ischemic change. The ventricles and sulci demonstrate mild age-related involutional changes. 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 Impression: No significant change compared to the prior study. No acute intracranial abnormality. ACT 112: Negative or not required by law. Electronically signed by: Josh Palacios M.D. 08/04/2023 5:05 PM Chest X-Ray 08/04/23 15:42 XR chest 1V portable HISTORY: Sepsis COMPARISON: Chest 02/01/2022. Abdomen and pelvis CT 08/04/2023. FINDINGS: No pneumothorax. There are low lung volumes. The heart is enlarged. There is an aortic valve prosthesis and a left-sided dual-chamber pacemaker. Chronic fibrotic change has progressed. There are patchy densities within the left lung base again noted. This likely represents the fibrotic change. A superimposed pneumonitis would be difficult to exclude by imaging. Multiple compression voids seen throughout the thoracic spine. IMPRESSION: 1. Chronic fibrotic change has progressed. 2. There are patchy densities within the left lung base again noted. This likely represents the fibrotic change. A superimposed pneumonitis would be difficult to exclude by imaging. ACT 112: Negative or not required by law. Electronically signed by: Josh Palacios M.D. 08/04/2023 5:44 PM ECG Additional Comments: ECG revealed atrial sensed ventricular paced rhythm at 71 bpm; QTc 447 Code Status & VTE Plan Code Status DNR/DNI VTE Prophylaxis Plan VTE Prophylaxis will be ordered: Yes Supervising Physician Co-Signing Physician Notes Patient seen and examined, chart reviewed, case discussed with Josh Duke PA-C and I agree with the assessment and plan as above except as otherwise noted Labs and images reviewed 82-year-old female with multiple falls at home in the last 24 hours, new urinary incontinence, confusion and new poor p.o. intake. She has a mild respiratory acidosis on admission. Troponin is mildly elevated and suspicious for demand ischemia. Opponent has been trended. UA is overtly infected. Chest x-ray without obvious pneumonia, suspected fibrotic range in the left lung base. CT of the head is without acute process. CT of the C-spine shows chronic compression deformities at T2/T3, no acute fractures. CT of the abdomen and pelvis shows a suspected acute nondisplaced superior pubic ramus fracture. Distended bladder for which catheterization has been ordered. Distended gallbladder with multiple stones without gallbladder wall thickening. She has no hyperbilirubinemia or transaminitis to suggest choledocholithiasis. Agree with treatment of UTI as above. Patient has numerous cholelithiasis with distention however shows no signs of transaminitis to suggest choledocholithiasis, and no wall thickening to suggest acute cholecystitis. Agree with antibiotics and management as above. PG Care Time/CCT Total # of Minutes Spent Total Time Spent with Patient: Total time spent is greater than 50% in coordination of care (as documented) at patient's floor/unit and/or counseling patient: [place] [address] INT INP/OBS CARE 375MIN Patient Type Established Medical Decision Making High Complexity Diagnoses Acute UTI N39.0 AMS (altered mental status) R41.82 Fracture of right superior pubic ramus S32.511A Recurrent falls R29.6 buttermaker helper current use of anticoagulant Z79.01 Colostomy care Z43.3 Cachexia R64 CHF (congestive heart failure) I50.9 History of SIADH Z86.39 Elevated troponin R77.8 Anemia D64.9 S/P TAVR (transcatheter aortic valve replacement) Z95.[address] Z93.2 Crohn's disease K50.90 GERD (gastroesophageal reflux disease) K21.9 Cardiac pacemaker in situ Z95.0 Coronary artery disease I25.10 Hyperlipidemia E78.5
[2023-08-04] MEDS: LORazepam 1 MG/1 ML SYR ED Inj Use IV STA (17:59)
[2023-08-04] MEDS: cefTRIAXone SODIUM 2,000 MG/50 ML BAG IV STA (17:59)
--- NOTE | 2023-08-04 18:40 | Emergency Department Note ---
History of Present Illness General Chief complaint: Fall Stated complaint: ILLNESS, MENTAL STATUS CHANGE Time Seen by Provider: 08/04/23 15:36 History of Present Illness Provider complaint: Fall 82-year-old female presents emergency department for fall. Family reports that the patient is fallen multiple times over the last 24 hours. Patient is on Eliquis. Patient has been urinating more frequently. Patient wears home oxygen. Home Medications Medication Instructions Recorded Confirmed Type magnesium chloride 64 mg 64 mg PO QAM #30 tabs 11/18/21 08/04/23 Rx (magnesium chloride) tablet,delayed release (Mag 64) Oxygen Home #1 ea 01/27/22 01/05/23 Rx cholecalciferol (vitamin D3) 25 25 mcg PO BID 09/21/22 08/04/23 History mcg (1,000 unit) tablet atenolol 50 mg tablet 50 mg PO DAILY #90 tabs 03/08/23 08/04/23 Rx furosemide 40 mg tablet 40 mg PO QAM #90 tabs 04/04/23 08/04/23 Rx apixaban 2.5 mg tablet (Eliquis) 2.5 mg PO BID #180 tabs 05/29/23 08/04/23 Rx omeprazole 20 mg capsule,delayed 20 mg PO BID #180 caps 07/30/23 08/04/23 Rx release Lactobacillus acidophilus 10 10,000 mmu cells PO DAILY 08/04/23 08/04/23 History billion cell capsule (Probiotic) ascorbic acid (vitamin C) 1,000 mg 1 g PO BID 08/04/23 08/04/23 History tablet (Vitamin C With Oriana Hips) calcium carbonate (Calcium 600) 600 mg PO BID 08/04/23 08/04/23 History clonazepam 1 mg tablet See Rx Instructions .Route .COMPLEX 08/04/23 08/04/23 History cyanocobalamin (vitamin B-12) 1,000 mcg PO Q OTHER DAY 08/04/23 08/04/23 History 1,000 mcg tablet (Vitamin B-12) ferrous sulfate 325 mg (65 mg 325 mg PO DAILY 08/04/23 08/04/23 History iron) tablet (iron) krill 1,000 mg-omega-3 230 mg-dha 1 cap PO DAILY 08/04/23 08/04/23 History 60 nw-jmb-hyawtmypi-astaxan capsule (MegaRed [place]-3 Krill Oil) oxycodone-acetaminophen 5 mg-325 1 tab PO BID 08/04/23 08/04/23 History mg tablet potassium chloride 20 mEq 20 meq PO QAM 08/04/23 08/04/23 History tablet,extended release simvastatin 10 mg tablet 10 mg PO HS 08/04/23 08/04/23 History sodium chloride 1,000 mg soluble 1,000 mg PO QAM 08/04/23 08/04/23 History tablet Allergies Allergy/AdvReac Type Severity Reaction Status Date / Time bee venom protein (honey bee) Allergy Unknown Unknown Verified 08/04/23 16:42 duloxetine [From Cymbalta] Allergy Unknown Unknown Verified 08/04/23 16:42 iodine Allergy Unknown Unknown Verified 08/04/23 16:42 shellfish derived Allergy Unknown Unknown Verified 08/04/23 16:42 Fish Containing Products AdvReac Intermediate Gastrointestinal Verified 08/04/23 16:42 Upset Past Med/Surg History Problem List (Updated 08/04/23 @ 18:42 by Chaz Boudreaux MD) Recurrent falls (Acute) Acute UTI (Acute) Fracture of right superior pubic ramus Fall History of compression fracture of spine (~01/24/22) Interval progression of the moderate anterior wedge-shaped compression deformity at L2 History of compression fracture of vertebral column (~08/17/20) SIADH (syndrome of inappropriate ADH production) Interstitial lung disease Acute metabolic encephalopathy AMS (altered mental status) (Acute) Acute UTI (Acute) Elevated troponin (Acute) Confusion Hypoxia (Acute) CHF (congestive heart failure) (Acute) Breath shortness (Acute) Sacral decubitus ulcer Elevated troponin Hypoxia Hypokalemia Hyponatremia Protein calorie malnutrition Metabolic encephalopathy CHB (complete heart block) Hypercoagulable state Cardiac pacemaker in situ S/P TAVR (transcatheter aortic valve replacement) Acute hyponatremia (Acute) Confusion (Acute) Hypocalcemia Elevated erythrocyte sedimentation rate Weight loss Hypertension PSVT (paroxysmal supraventricular tachycardia) Crohns disease (Chronic) Degenerative lumbar spinal stenosis (Chronic) Colostomy care (Chronic) GERD (gastroesophageal reflux disease) (Chronic) Crohn's disease (Chronic) Osteoporosis (Chronic) Hyperproteinemia (Chronic ~02/13/19) Opioid use agreement exists (Chronic) Chronic pain syndrome (Chronic) Secondary hypercoagulable state (Chronic) Aortic stenosis (Chronic) shelter current use of anticoagulant (Chronic) Anxiety disorder (Chronic) Coronary artery disease (Chronic) Hyperlipidemia (Chronic) 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) Medical History Hyponatremia Tremor H/O small bowel obstruction Surgical History Status post proctocolectomy History of abdominal aortic aneurysm (AAA) repair History of resection of small bowel History of tooth extraction History of carpal tunnel surgery History of breast biopsy History of ileostomy History of hernia repair History of colposcopy History of colostomy Status post catheter ablation of atrial fibrillation Hx of tubal ligation History of tonsillectomy and adenoidectomy History of appendectomy H/O resection of small bowel H/O pyloroplasty H/O heart artery stent H/O abdominal aortic aneurysm repair Family History Father Coronary heart disease Hypertension Stroke Sister No problems noted. Mother Coronary heart disease Hypertension Stroke Denies family history of Ovarian cancer Prostate cancer Myocardial infarction Breast cancer Lung cancer Colorectal cancer Social History Smoking Status: Never smoker Tobacco Type: Cigarettes Age Started Using Tobacco: 26; Age Quit Using Tobacco: 61; packs per day: 1; Second Hand Exposure: No; Do You Dip or Chew Tobacco: No; Hx Alcohol Use: No Hx Substance Use: No Preferred Language: Kinyarwanda Communication Ability: Effective Visual Impairment: Limited Hearing Ability: Normal School [employer] Required: No Beliefs That Will Affect Care: None marital status: Current Living Situation: Spouse current occupational status: retired How many Children do You have: 2 Feels Safe at Home: Yes Childhood Exposure to Second-Hand Smoke: Yes caffeine: Yes (coffee) Dental Care, Regularly: Yes Physical Activity Frequency: Daily Physical Activity Frequency Comment: walks Seatbelt Use: always Sunscreen Use: Yes Assistive Devices: Oxygen - Continuous and Walker Physical Exam Vital Signs Vital Signs - 24 hr 08/04/23 15:36 08/04/23 15:38 08/04/23 15:38 Temperature Temperature Source Pulse Rate 72 73 Pulse Rate from SpO2 Sensor Respiratory Rate 24 17 Blood Pressure 121/65 Blood Pressure Mean 102 Pulse Oximetry Oxygen Delivery Method Oxygen Flow Rate Sepsis Recent Fever Within 48 Hours Sepsis New/Unexplained Change in Mental Status Sepsis Action Taken by Nursing 08/04/23 15:40 08/04/23 15:43 08/04/23 15:50 Temperature 36.8 C Temperature Source Oral Pulse Rate 65 96 H 83 Pulse Rate from SpO2 Sensor Respiratory Rate 16 14 18 Blood Pressure 121/65 Blood Pressure Mean 83 Pulse Oximetry 88 L Oxygen Delivery Method Room Air Oxygen Flow Rate Sepsis Recent Fever Within 48 Hours No Sepsis New/Unexplained Change in Mental Status Yes Sepsis Action Taken by Nursing No Action Required 08/04/23 16:00 08/04/23 16:00 08/04/23 16:04 Temperature Temperature Source Pulse Rate 60 Pulse Rate from SpO2 Sensor Respiratory Rate 16 Blood Pressure 127/63 Blood Pressure Mean 84 Pulse Oximetry 92 95 Oxygen Delivery Method Nasal Cannula Nasal Cannula Oxygen Flow Rate 2 2 Sepsis Recent Fever Within 48 Hours Sepsis New/Unexplained Change in Mental Status Sepsis Action Taken by Nursing 08/04/23 16:10 08/04/23 16:17 08/04/23 16:20 Temperature Temperature Source Pulse Rate 73 94 H 111 H Pulse Rate from SpO2 Sensor 67 Respiratory Rate 22 20 Blood Pressure Blood Pressure Mean Pulse Oximetry 92 96 Oxygen Delivery Method Oxygen Flow Rate Sepsis Recent Fever Within 48 Hours Sepsis New/Unexplained Change in Mental Status Sepsis Action Taken by Nursing 08/04/23 16:39 08/04/23 16:44 08/04/23 16:44 Temperature Temperature Source Pulse Rate 92 H 96 H Pulse Rate from SpO2 Sensor Respiratory Rate 24 20 Blood Pressure 121/67 Blood Pressure Mean 97 Pulse Oximetry Oxygen Delivery Method Oxygen Flow Rate Sepsis Recent Fever Within 48 Hours Sepsis New/Unexplained Change in Mental Status Sepsis Action Taken by Nursing 08/04/23 16:50 08/04/23 17:00 08/04/23 17:00 Temperature Temperature Source Pulse Rate 62 79 Pulse Rate from SpO2 Sensor 70 69 Respiratory Rate 21 21 Blood Pressure 137/66 Blood Pressure Mean 98 Pulse Oximetry 91 92 Oxygen Delivery Method Oxygen Flow Rate Sepsis Recent Fever Within 48 Hours Sepsis New/Unexplained Change in Mental Status Sepsis Action Taken by Nursing 08/04/23 17:10 08/04/23 17:20 08/04/23 17:30 Temperature Temperature Source Pulse Rate 100 H 80 69 Pulse Rate from SpO2 Sensor 76 66 Respiratory Rate 16 22 20 Blood Pressure Blood Pressure Mean Pulse Oximetry 90 90 Oxygen Delivery Method Oxygen Flow Rate Sepsis Recent Fever Within 48 Hours Sepsis New/Unexplained Change in Mental Status Sepsis Action Taken by Nursing 08/04/23 17:31 08/04/23 17:31 08/04/23 17:40 Temperature Temperature Source Pulse Rate 68 82 Pulse Rate from SpO2 Sensor 68 Respiratory Rate 18 14 Blood Pressure 106/48 L Blood Pressure Mean 68 Pulse Oximetry 92 87 L Oxygen Delivery Method Oxygen Flow Rate Sepsis Recent Fever Within 48 Hours Sepsis New/Unexplained Change in Mental Status Sepsis Action Taken by Nursing Physical Exam GENERAL: Cachectic. HENT: Exam performed. -Head: Normocephalic and atraumatic. NECK: Normal range of motion. Neck supple. No JVD present. No spinous process tenderness present. CV: Normal rate, regular rhythm, normal heart sounds and intact distal pulses. There is no peripheral edema. Palpable radial pulses bue. PULM/CHEST: Effort normal and breath sounds normal. No respiratory distress. No stridor. She has no wheezes. She has no rales. ABD: The abdomen is soft. Ostomy bag present. There is no tenderness. There is no rebound, no guarding. MUSC: Pelvis stable. NEURO: Motor and sensation grossly intact. Course Course 1536: The patient was evaluated in room C9. A complete history and physical exam was performed Cardiac monitoring: An order was placed for continuous cardiac monitoring. The monitor shows a rate of 70 with paced rhythm interpreted by me 1735: Vital signs stable on supplemental oxygen at baseline. Labs show an elevated troponin which is chronically elevated. Urinalysis is concerning for UTI. Imaging shows no traumatic injury. Patient will be admitted to the [facility]ist team. Administered Medications Discontinued Medications Ceftriaxone Sodium (Rocephin) 2,000 mg in 50 mls @ 100 mls/hr IV NOW STA Stop: 08/04/23 18:04 Last Admin: 08/04/23 17:59 Dose: 100 mls/hr Documented By: [facility] Lorazepam (Lorazepam 1 Mg/1 Ml Syr Ed Inj Use) 0.25 mg IV ONE STA Stop: 08/04/23 17:50 Last Admin: 08/04/23 17:59 Dose: 0.25 mg Documented By: [facility] Medical Decision Making Medical Records Attestation: I reviewed the patient's medical records. External medical records reviewed. There is an on-call note from Dr. Alex which stated that the daughter was calling saying the patient was not eating drinking or ambulating and had been fallen multiple times. Daughter was concerned that the patient needs group home or hospice placement according to her note. Laboratory Data Attestation: I reviewed the patient's lab results. 08/04/23 16:04 08/04/23 16:04 Lab Results 08/04/23 08/04/23 Range/Units 16:04 16:18 WBC 9.72 (4.8-10.8) K/ul RBC 3.90 L (4.20-5.40) M/uL Hgb 11.6 L (12.0-16.0) g/dl Hct 37.1 (37.0-47.0) % MCV 95.1 (80.0-100.0) fL MCH 29.7 (25.0-34.0) pg MCHC 31.3 L (32.0-36.0) g/dL RDW Std Deviation 52.0 H (36.4-46.3) fL RDW Coeff of Ana M 15.0 H (11.5-14.5) % Plt Count 131 (130-400) K/uL MPV 10.4 (9.4-12.4) fL Immature Gran % (Auto) 0.6 % Neut % (Auto) 84.7 % Lymph % (Auto) 8.3 % [place] % (Auto) 5.6 % Eos % (Auto) 0.7 % Baso % (Auto) 0.1 % Neut # (Auto) 8.23 H (1.40-6.50) K/uL Lymph # (Auto) 0.81 L (1.20-3.40) K/uL [place] # (Auto) 0.54 (0.11-0.59) K/uL Eos # (Auto) 0.07 (0.00-0.50) K/uL Baso # (Auto) 0.01 (0.00-0.20) K/uL Immature Gran # (Auto) 0.06 (0.01-0.20) K/uL PT 11.3 (9.0-12.0) Seconds INR 1.0 (0.9-1.1) APTT 22 (21-31) Seconds PTT Ratio 0.8 VBG pH 7.33 L (7.36-7.41) VBG pCO2 59 H (38-50) mmHg VBG pO2 < 20 mmHg VBG HCO3 31 mmol/L VBG O2 Saturation < 60.0 % VBG Base Excess 3.6 mEq/L Sodium 138 (136-145) mmol/L Potassium 4.5 (3.5-5.1) mmol/L Chloride 103 (98-107) mmol/L Carbon Dioxide 29 (21-32) mmol/L Anion Gap 6 (3-11) BUN 31 H (6-23) mg/dl Creatinine 1.02 (0.6-1.2) mg/dl Est Cr Clr Drug Dosing 36.1 ml/min Est GFR ( Amer) 59.7 ml/min Est GFR (Non-Af Amer) 51.5 ml/min BUN/Creatinine Ratio 30.4 H (10-20) Glucose 84 (70-99(Fasting)) mg/dl Lactate 1.0 (0.4-2.0) mmol/L Calcium 11.2 H (8.6-10.3) mg/dl Magnesium 1.8 (1.7-2.4) mg/dl Total Bilirubin 0.4 (0.2-1.0) mg/dl Direct Bilirubin 0.1 (0-0.2) mg/dl AST 22 (13-39) U/L ALT 8 (7-52) U/L Alkaline Phosphatase 66 (34-104) U/L Total Creatine Kinase 35 (26-192) U/L Troponin I High Sens 52.4 H* (0-14) pg/ml Total Protein 8.3 (6.0-8.3) gm/dl Albumin 3.5 (3.4-5.0) gm/dl Procalcitonin 0.11 (0-0.5) ng/ml Urine Color Yellow Urine Appearance Clear (Clear) Urine pH 5.0 (4.5-7.5) Ur Specific [place] 1.010 (1.000-1.030) Urine Protein Negative (Negative) Urine Glucose (UA) Negative (Negative) Urine Ketones Trace H (Negative) Urine Blood Trace H (Negative) Urine Nitrite Negative (Negative) Urine Bilirubin Negative (Negative) Urine Urobilinogen Negative (Negative) Ur Leukocyte Esterase 2+ H (Negative) Urine WBC (Auto) 6-10 H (0-5) /hpf Urine RBC (Auto) 3-5 H (0-2) /hpf U Hyaline Cast (Auto) 3-5 H (0-2) /lpf U Epithel Cells (Auto) 0-2 (0-2) /hpf Urine Bacteria (Auto) 4+ H (None Seen) Blood Type A Positive Antibody Screen NEGATIVE Imaging Data Attestation: I personally reviewed and interpreted this imaging study as follows: My Impression: Chest x-ray negative. Airway clear. No pneumothorax. No consolidation. No cardiomegaly or cephalization.. No free air under the diaphragm. No fractures of the skeletal structures. Pacemaker present with no acute fracture of the leads. Radiologist's Impression: Abdomen/Pelvis CT 08/04/23 15:[address] WITHOUT CONTRAST CT DOSE: HISTORY: Urinary incontinence. fall TECHNIQUE: Multiaxial CT images of the abdomen and pelvis were performed without contrast. A dose lowering technique was utilized adhering to the principles of ALARA. COMPARISON STUDY: Abdomen and pelvis CT 11/27/2006.. FINDINGS: Interstitial thickening with fibrotic change at the lung bases. Patchy densities within the lung bases most pronounced within the left lower lobe may represent a component of the fibrotic change. A superimposed pneumonitis would be difficult to exclude but considered less likely. No pneumoperitoneum. No pneumatosis. Subtle cortical irregularity within the right superior pubic ramus appears to represent a nondisplaced fracture. This is best seen on axial image 267. Moderate to severe compression deformities seen throughout the lower thoracic and lumbar spine. These are technically age indeterminate but are likely chronic. A few these demonstrate mild retropulsion of up to 3 mm. This most pronounced at the L1-L2 level which demonstrates moderate central canal narrowing. Mild central canal narrowing throughout the remaining lumbar spine levels. A cardiac valve prosthesis is noted. Pacemaker wires are present. The heart is enlarged. 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 There is a tortuous abdominal aorta with advanced calcified plaque. The unenhanced liver demonstrate a few small calcifications. The unenhanced spleen, adrenal glands, and pancreas are unremarkable. The gallbladder is distended. No gallbladder wall thickening. There are few large gallstones measuring up to 2.4 cm. There is a ptotic right kidney. Bilateral nephrolithiasis. Mild fullness within the bilateral renal collecting system without jaxon hydronephrosis. This is likely secondary to the severely distended bladder. There is mild pelvic floor collapse. The uterus and bilateral adnexa are unremarkable. Evidence for distal colectomy with a left lower quadrant ostomy. Suboptimal evaluation for bowel pathology due to the lack of intravenous and oral contrast. However, there is no definite bowel wall thickening or obstruction. No retroperitoneal hematoma. IMPRESSION: 1. Subtle cortical irregularity within the right superior pubic ramus. This could represent an acute nondisplaced fracture. Recommend correlation for point tenderness. 2. Severely distended bladder. There is mild pelvic floor collapse. Recommend catheterization if the patient is unable to void. 3. Mild fullness within the bilateral renal collecting system without hydronephrosis. This is likely due to the severely distended bladder. 4. Bilateral nephrolithiasis. No ureteral stones identified. 5. Distended gallbladder containing multiple stones. However, no gallbladder wall thickening. 6. Moderate to severe compression deformities seen throughout the lower thoracic and lumbar spine. These are technically age indeterminate but are likely chronic. 7. Additional findings as described above. ACT 112: Negative or not required by law. Electronically signed by: Josh Palacios M.D. 08/04/2023 5:[address] 08/04/23 15:[address] DOSE: 1772.1 mGy.cm HISTORY: fall TECHNIQUE: Multiaxial CT images of the cervical spine were performed and reformatted in the sagittal and coronal plane without the use of contrast. A dose lowering technique was utilized adhering to the principles of ALARA. COMPARISON: None. FINDINGS: No fractures within the cervical spine. There is 2 mm of anterolisthesis of C4 on C5. This is likely due to the long-standing degenerative change. Moderate to severe disc space narrowing at C5-C6 and C6-C7. There or mild superior endplate compression deformities at T2 and T3. These are likely chronic. Prevertebral soft tissues and the C1-C2 interval are intact. No pneumothorax. IMPRESSION: 1. No acute fractures within the cervical spine. 2. Mild superior endplate compression deformities at T2 and T3 which are likely chronic. ACT 112: Negative or not required by law. Electronically signed by: Josh Palacios M.D. 08/04/2023 5:[address] 08/04/23 15:[address] DOSE: HISTORY: fall TECHNIQUE: Multiaxial CT images of the head were performed without the use of intravenous contrast. Automated exposure control was utilized for this study. A dose lowering technique was utilized adhering to the principles of ALARA. Comparison: Head CT 11/15/2021. Findings: The paranasal sinuses and mastoid air cells are clear. The calvarium and skull base are intact. There is no mass, hematoma, midline shift, acute infarct. White matter hypodensity is nonspecific but suggestive of microvascular ischemic change. The ventricles and sulci demonstrate mild age-related involutional changes. 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 Impression: No significant change compared to the prior study. No acute intracranial abnormality. ACT 112: Negative or not required by law. Electronically signed by: Josh Palacios M.D. 08/04/2023 5:05 PM Chest X-Ray 08/04/23 15:42 XR chest 1V portable HISTORY: Sepsis COMPARISON: Chest 02/01/2022. Abdomen and pelvis CT 08/04/2023. FINDINGS: No pneumothorax. There are low lung volumes. The heart is enlarged. There is an aortic valve prosthesis and a left-sided dual-chamber pacemaker. Chronic fibrotic change has progressed. There are patchy densities within the left lung base again noted. This likely represents the fibrotic change. A superimposed pneumonitis would be difficult to exclude by imaging. Multiple compression voids seen throughout the thoracic spine. IMPRESSION: 1. Chronic fibrotic change has progressed. 2. There are patchy densities within the left lung base again noted. This likely represents the fibrotic change. A superimposed pneumonitis would be difficult to exclude by imaging. ACT 112: Negative or not required by law. Electronically signed by: Josh Palacios M.D. 08/04/2023 5:44 PM ECG Data Attestation: I personally reviewed and interpreted this ECG as follows: Additional Comments: Paced rhythm with a rate of 71. ID [id number] QRS 80 QTc 447. No ectopy. No ST elevation or ST depression. [facility] Narrative 1536: The patient was evaluated in room C9. A complete history and physical exam was performed Cardiac monitoring: An order was placed for continuous cardiac monitoring. The monitor shows a rate of 70 with paced rhythm interpreted by me 1735: Vital signs stable on supplemental oxygen at baseline. Labs show an elevated troponin which is chronically elevated. Urinalysis is concerning for UTI. Imaging shows no traumatic injury. Patient will be admitted to the [facility] hospitalist team. Impression & Plan Acute UTI, Elevated troponin, Recurrent falls Discharge Plan Visit Data Chief Complaint: Fall Stated Complaint: ILLNESS, MENTAL STATUS CHANGE ED Provider: Chaz Boudreaux Discharge Problem: Acute UTI, Elevated troponin, Recurrent falls Patient Disposition: Being Evaluated by Hospitalist Forms Stand Alone Forms: My [facility] Prescriptions Prescriptions: No Action cholecalciferol (vitamin D3) 25 mcg (1,000 unit) tablet 25 mcg PO BID atenolol 50 mg tablet 50 mg PO DAILY Qty: 90 3RF furosemide 40 mg tablet 40 mg PO QAM Qty: 90 3RF Eliquis 2.5 mg tablet 2.5 mg PO BID Qty: 180 3RF omeprazole 20 mg capsule,delayed release(DR/EC) 20 mg PO BID Qty: 180 3RF Rx Instructions: take 1 cap PO BID magnesium chloride [Mag 64] 64 mg Tablet,Delayed Release (Dr/Ec) 64 mg PO QAM Qty: 30 0RF (DME) Oxygen Home Liters Per Minute See Rx Instructions .Route Qty: 1 0RF Rx Instructions: As directed ascorbic acid (vitamin C) [Vitamin C With Oriana Hips] 1,000 mg Tablet 1 g PO BID cyanocobalamin (vitamin B-12) [Vitamin B-12] 1,000 mcg Tablet 1,000 mcg PO Q OTHER DAY oxycodone-acetaminophen 5-325 mg tablet 1 tab PO BID Rx Instructions: TAKES AT 1100 & 2300 calcium carbonate [Calcium 600] 600 mg calcium (1,500 mg) Tablet 600 mg PO BID ferrous sulfate [iron] 325 mg (65 mg iron) Tablet 325 mg PO DAILY sodium chloride 1,000 mg Tablet,Soluble 1,000 mg PO QAM Probiotic 10 billion cell Capsule 10,000 mmu cells PO DAILY [id number] [MegaRed [place]-3 Krill Oil] 1,000-230-60 mg Capsule 1 cap PO DAILY simvastatin 10 mg tablet 10 mg PO HS clonazepam 1 mg tablet See Rx Instructions .ROUTE .COMPLEX Rx Instructions: TAKES 0.5 MG @ 1100, THEN 1 MG AT 2300. potassium chloride 20 mEq tablet extended release 20 meq PO QAM Referrals Referrals: Bertha Alexander MD [Primary Care Provider] -
[2023-08-04] MEDS ORDERED: LACTATED RINGER'S 1,000 ML IV SCH (19:00)
[2023-08-04] MEDS: PLASMA-LYTE A 1,000 ML IV SCH (19:02)
[2023-08-04] MEDS: PLASMA-LYTE A 500 ML IV ONE (20:03)
[2023-08-04] MEDS ORDERED: ONDANSETRON INJ 2 MG/ML 2 ML VIAL IV PRN (21:00)
[2023-08-04] MEDS: LORazepam 0.5 MG in SYRINGE 0.25 ML IV PRN (21:39)
[2023-08-04] MEDS: oxyCODONE/ACETAMINOPHEN 5mg/325mg TAB PO STA (21:44)
[2023-08-04] MEDS: SIMVASTATIN 10 MG TAB PO SCH (21:47)
[2023-08-04] MEDS: PANTOprazole 40 MG TAB PO SCH (21:47)
[2023-08-04] MEDS: LACTATED RINGER'S 250 ML IV ONE (23:46)
--- OUTSIDE RECORDS SUMMARY | 2023-08-04 23:49 | External Medical Summary | Summary of Care ---
Author Name Unknown Organization [facility] Address [address] [facility] [place] [address] Phone [phone] Care Team Providers Care Biophysics Teacher Name Role Phone Ethel Cummings PA-C Primary Care Provider [phone] Reason for Visit * Reason Onset Date Comments Order Request 07/27/2023 prolia Encounter Details Date Type Department Care Team (Late st Contact Info) Description 07/27/2023 Telephone Rheumatology [facility] [address] [place] [address] [place] [address] Mc Urias MD [address] [facility] [place] [address] Order Request (prolia) Allergies Active Allergy Reactions Criticality Noted Date Comments Bee Venom 12/09/2002 Duloxetine 12/02/2021 Other reaction(s): Unknown Shellfish Diarrhea 01/11/2010 Loses water via Ostomy documented as of this encounter (statuses as of 07/27/2023) Medications Medication Sig Dispensed Refills Start Date End Date Status VITAMIN B COMPLEX PO TABS One tablet daily 0 0 07/31/2005 Active MULTIVITAMINS PO TABS One tablet daily 0 0 07/31/2005 Active POTASSIUM 99 MG PO TABS One tablet daily 0 0 07/31/2005 Active LORAZEPAM 1 MG PO TABS 1 pill every 6 hours prn 60 0 08/08/2005 Active VITAMIN C-BRANDY HIPS 100 MG PO TABS one pill each day 0 08/08/2005 Act natacha CALCIUM 600 + D 600-200 MG-UNIT PO TABS one pill twice a day 0 08/08/2005 Active FEOSOL 200 (65 FE) MG PO TABS one pill each day 0 Active SIMVASTATIN 10 MG PO TABS take one daily 0 Active OMEPRAZOLE 20 MG PO CPDR two tablets daily 0 Active Magnesium 250 MG Tablet Take 1 Tablet by mouth in the morning. 0 Active Cholecalciferol 25 MCG (1000 UT) Oral Tablet Take 1 Tablet by mouth in the morning and 1 Tablet before bedtime. 0 Active Gelatin 650 MG CAPS Take by mouth. 0 A ctive nystatin (NYSTOP) 570440 UNIT/GM powderIndications:as directed for ileostomy Apply topically to affected area. Indications: as directed for ileostomy 0 Active meclizine (ANTIVERT) 25 MG Tablet Take 1 Tablet by mouth 3 times a day as needed. 0 Active Aspirin 81 MG Oral Tablet Chewable Take by mouth 1 Tablet in the morning. Do not start before September 24, 2021. 30 Tablet 3 09/24/2021 Active Eliquis 2.5 MG Oral Tablet Take 1 Tablet by mouth in the morning and 1 Tablet before bedtime. 0 09/24/2021 Active Amoxicillin 500 MG Oral Capsule (Amoxil) Take 4 capsules 1 hour prior to any dental work. 4 Capsule 6 11/07/2021 Active Atenolol 50 MG Oral Tablet (Tenormin) 0 12/12/2021 Active Furosemide 20 MG Oral Tablet (Lasix) 0 12/02/2021 Activ e oxyCODONE-Acetaminop hen 5-325 MG Oral Tablet (Percocet) 0 11/26/2021 Active Potassium Chloride ER 20 MEQ Oral Tablet Extended Release 0 12/05/2021 Active Diclofenac Sodium 1 % External Gel (Voltaren) FOUR TIMES DAILY 0 01/27/2022 Active Sodium Chloride 1 GM Oral Tablet DAILY IN THE MORNING 0 01/27/2022 Active Prolia 60 MG/ML Subcutaneous Solution Prefilled Syringe Inject 60 mg under the skin every 6 months. As directed. 1 mL 0 12/15/2022 Active Eliquis 2.5 MG Oral Tablet (Apixaban) take 1t ablet by mouth twice a day 180 Tablet 3 05/29/2023 Active Hospital, Clinic, or Other Facility Administered Medication Ordered Dose Route Frequency Start Date End Date Status Denosumab (Prolia) subcut inj 60 mgIndications:Senile osteoporosis 60 mg SC ONCE 08/01/2023 08/02/2023 Active documented as of this encounter (statuses as of 07/27/2023) Active Problems Problem Noted Date Diagnosed Date Cardiac pacemaker in situ 09/23/2021 S/P TAVR (transcatheter aortic valve replacement ) 09/20/2021 AAA (abdominal aortic aneurysm) 01/22/2015 MGUS (monoclonal gammopathy of unknown significa nce) 02/13/2014 Other specified diseases of blood and blood-forming organs(289.89) 11/30/2010 Patent foramen ovale 11/30/2010 Crohn's disease of small intestine 11/30/2010 ADVANCE DIRECTIVE INFORMATION 01/03/2006 Overview: Yes, Patient instructed to provide copy of advance directive for provider to review and to be scanned into Electronic Medical Record.Patient states copy given to PCP. Ulcerative ileocolitis Overview: chrones disease Palpitations documented as of this encounter (statuses as of 07/27/2023) Resolved Problems Problem Noted Date Diagnosed Date Resolved Date Atrioventricular block, Mobi tz type 1, Wenckebach 09/23/2021 09/23/2021 Thrombocytopenia 09/21/2021 09/23/2021 Nonrheumatic aortic valve stenosis 07/07/2020 09/23/2021 SVT (supraventricular tachycardia) 07/07/2020 02/13/2023 documented as of this encounter (statuses as of 07/27/2023) Immunizations Name Administration Dates Next Due COVID-19 mRNA, LNP-s, No Pre serve, 2-Dose Series (Moderna) 05/15/2020,04/17/2020 Seasonal Influenza, QUAD, wi th Preserv, 6 mons & Above, 0.5 mL, IM 11/15/2020 Seasonal Influenza, Quadrivalent Hd (Fluzone Hd) 01/20/2023 documented as of this encounter Social History Tobacco Use Types Packs/Day Years Used Date Smoking Tobacco: Former Cigarettes 2 27 Smokeless Tobacco: Never Comments:Quit ~6 years ago Alcohol Use Standard Drinks/Week Comments No 0 (1 standard drink = 0.6 oz pur e alcohol) Sex and Gender Information Value Date Recorded Sex Assigned at Female 01/30/2023 8:04 AM EST Gender Identity Female 01/30/2023 8:04 AM EST Sexual Orientation Straight 01/30/2023 8: 04 AM EST Job Start Date Occupation Industry Not on file Not on file Not on file documented as of this encounter Functional Status Functional Status Response Date of Assess ment Are you deaf or do you have serious difficulty h earing? No 09/20/2021 Are you blind or do you have serious difficulty seeing, even when wearing glasses? No 09/20/2021 Do you have serious difficul ty walking or climbing stairs? (5 years old or older) No 09/20/2021 Do you have difficulty dress ing or bathing? (5 years old or older) No 09/20/2021 Because of a physical, menta l, or emotional condition, do you have difficulty doing errands alone such as visiting a doctor s office or shopping? (15 years old or older) No 09/21/19 Cognitive Status Response Date of Assessm ent Because of a physical, menta l, or emotional condition, do you have serious difficulty concentrating, remembering, or making decisions? (5 years old or older) No 09/20/2021 documented as of this encounter Miscellaneous Notes * Telephone Encounter - Mc Urias MD - 07/27/2023 12:59 PM EDT signed * Telephone Encounter - Sylvia Sanchez LPN - 07/27/2023 11:23 AM EDT Chart reviewed and labs noted to be within normal limits. Patient has been seen within the last 12 months by a Rheumatology provider. Prolia authorization approved and updated in referral. Last injection has been > 6 months and 1 day. CAM orders pended for signature. Thank you! documented in this encounter Plan of Treatment Upcoming Encounters Date Type Department Care Team (Late st Contact Info) Description 08/01/2023 2:30 PM EDT Nurse Only Rheumatology [address] [place] [address] Pf, Nurse Rheum [address] [place] [address] [place], [place] [address] 11/14/2023 1:00 PM EDT Cardiac Studies Cardiology, [facility] [address] [facility] [place] [address] [facility] [address] [place] [address] 01/14/2024 2:00 PM EST Cardiac Studies Cardiac Studies, [facility] [address] [facility] [address] 01/21/2024 1:30 PM EST Office Visit Cardiology, [facility] [address] [place] [address] Grace Knowles CRNP [address] [place] [address] 02/11/2024 1:40 PM EST Office Visit Rheumatology [address] [place] [address] Mc Urias MD [address] [place] [address] [place], [place] [address] Health Maintenance Due Date Last Done Comments Depression Screening 1952 DTaP,Tdap,and Td Vaccines (1 - Tdap) 1959 AAA Monitoring 07/04/2022 07/04/2021, 01/20/2015 COVID-19 Vaccine (3 - 2022-24 season) 2022 05/15/2020, 04/17/2020 DXA Scan 04/23/2030 04/23/2023, 01/10, 09/21/2015, Additional history exists Pneumococcal Vaccine: 65+ Years Completed 01/22/2014, 01/19/2009 Zoster Vaccines Completed 08/19/2018, 04/12, 07/13/2011 Influenza Vaccine (FLU shot) Completed 01/2023, 12/01/2022, 01/06/2022, Additional history exists GARDASIL-HPV IMMUNIZATION SERIES Aged Out No longer eligible based on patient's age to complete this topic Hepatitis B Aged Out No longer eligi ble based on patient's age to complete this topic MENINGOCOCCAL (MENACTRA/MENVEO) Aged Out No longer eligible based on patient's age to complete this topic documented as of this encounter Medical Devices Implanted Type Area Toll Gate Tender Device Identifier Shelf Expiration Date Model / Serial / Lot Lens 21.0 Mx60 - [id number] - [id number] Implanted:Qty: 1 on 11/07/2016 by Anatoliy Gonzalez MD at OR [facility] Left: Eye [employer] : SURGICAL 02/08/2019 MX60-21.0 / [id number] / Lens 20.5 Mx60 - [id number] - [id number] Implanted:Qty: 1 on 11/21/2016 by Anatoliy Gonzalez MD at OR [facility] Right: Eye BAUSCH [employer] LOMB : SURGICAL 03/11/2019 MX60-20.5 / [id number] / [id number] Valve Elvi 3 Ultra 26mm - [id number] Implanted:Qty: 1 on 09/20/2021 by Azael Eli MD at [facility] [employer] [id number] 07/10/2022 [id number] / / Lead Novus Bipolar 45cm - [id number] Implanted:Qty: 1 on 09/23/2021 by Lyn Henderson IV, MD at [facility] [employer] : CRM [id number] 05/09/2023 5076- 45 / [id number] 1 / [id number] Lead Pace [employer] 3830-69 - [id number] Implanted:Qty: 1 on 09/23/2021 by Lyn Henderson IV, MD at [facility] [employer] : CRM [id number] 07/01/2023 [id number] / [id number] V / [id number] V Pacemaker Gricelda Xt Dr Mri [facility] - [id number] Implanted:Qty: 1 on 09/23/2021 by Lyn Henderson IV, MD at [facility] [employer] [id number] 02/22/2023 [id number] / [id number] G / [id number] documented as of this encounter Visit Diagnoses Diagnosis Senile osteoporosis- Primary documented in this encounter Advance Directives Latest Code Status on File Code Status Date Activated Date Inactivated Comments Full Code 09/20/2021 3:20 PM 09/23/2021 7:40 PM This order reflects the patients wishes and were consensually agreed upon. Question Answer Comments Discussion of Advance Directives occurred with: Patient/Family Code Status History Code Status Date Activated Date Inactivated Comments Full Code 11/21/2016 9:22 AM 11/21/2016 3:39 PM This order reflects the patients wishes and were consensually agreed upon. Full Code 11/07/2016 11:32 AM 11/07/2016 5:58 PM This order reflects the patients wishes and were consensually agreed upon. Care Teams Biophysics Teacher Relationship Specialty Start Date End Date Ethel Cummings PA-C [address] [place], [place] [address] PCP - General Physician Real Estate Associate 07/19/23 documented as of this encounter
--- OUTSIDE RECORDS SUMMARY | 2023-08-04 23:49 | External Medical Summary | Summary of Care ---
Author Name Unknown Organization [facility] Address [address] [facility] [address] Phone [phone] Care Team Providers Care High School Vice Principal Name Role Phone Ethel Cummings PA-C Primary Care Provider [phone] Reason for Visit * Reason Onset Date Comments Pacemaker Clinic 08/02/2023 Disconnected mo nitor Encounter Details Date Type Department Care Team (Late st Contact Info) Description 08/02/2023 Telephone Cardiology, [facility] [address] [facility] [place] [address] [place], [facility]er Clinic [facility] [address] [facility] [place] [address] Pacemaker Clinic (Disconnected monitor ) Allergies Active Allergy Reactions Criticality Noted Date Comments Bee Venom 12/09/2002 Duloxetine 12/02/2021 Other reaction(s): Unknown Shellfish Diarrhea 01/11/2010 Loses water via Ostomy documented as of this encounter (statuses as of 08/02/2023) Medications Medication Sig Dispensed Refills Start Date [...] MG PO TABS one pill each day Active SIMVASTATIN 10 MG PO TABS take one daily Active OMEPRAZOLE 20 MG PO CPDR two tablets daily Active Magnesium 250 MG Tablet Take 1 Tablet by mouth in the morning. Active Cholecalciferol 25 MCG (1000 UT) Oral Tablet Take 1 Tablet by mouth in the morning and 1 Tablet before bedtime. Active Gelatin 650 MG CAPS Take by mouth. A ctive nystatin (NYSTOP) [id number] UNIT/GM powderIndications:as directed for ileostomy Apply topically to affected area. Indications: as directed for ileostomy Active meclizine (ANTIVERT) 25 MG Tablet Take 1 Tablet by mouth 3 times a day as needed. Active Aspirin 81 MG Oral Tablet Chewable Take by mouth 1 Tablet in the morning. Do not start before September 24, 2021. 30 Tablet 3 09/24/2021 Active Eliquis 2.5 MG Oral Tablet Take 1 Tablet by mouth in the morning and 1 Tablet before bedtime. 09/24/2021 Active Amoxicillin 500 MG Oral Capsule (Amoxil) Take 4 capsules 1 hour prior to any dental work. 4 Capsule 6 11/07/2021 Active Atenolol 50 MG Oral Tablet (Tenormin) 12/12/2021 Active Furosemide 20 MG Oral Tablet (Lasix) 12/02/2021 Activ e oxyCODONE-Acetaminop hen 5-325 MG Oral Tablet (Percocet) 11/26/2021 Active Potassium Chloride ER 20 MEQ Oral Tablet Extended Release 12/05/2021 Active Diclofenac Sodium 1 % External Gel (Voltaren) FOUR TIMES DAILY 01/27/2022 Active Sodium Chloride 1 GM Oral Tablet DAILY IN THE MORNING 01/27/2022 Active Prolia 60 MG/ML Subcutaneous Solution Prefilled Syringe Inject 60 mg under the skin every 6 months. As directed. 1 mL 12/15/2022 Active Eliquis 2.5 MG Oral Tablet (Apixaban) take 1t ablet by mouth twice a day 180 Tablet 3 05/29/2023 Active documented as of this encounter (statuses as of 08/02/2023) Active Problems Problem Noted Date Diagnosed Date [...] as of this encounter (statuses as of 08/02/2023) Resolved Problems Problem Noted Date Diagnosed Date Resolved Date Atrioventricular block, Mobi tz type 1, Mateonckebach 09/23/2021 09/23/2021 Thrombocytopenia 09/21/2021 09/23/2021 Nonrheumatic aortic valve stenosis 07/07/2020 09/23/2021 SVT (supraventricular tachycardia) 07/07/2020 02/13/2023 documented as of this encounter (statuses as of 08/02/2023) Immunizations Name Administration Dates Next Due COVID-19 [...] encounter Miscellaneous Notes * Telephone Encounter - Marycarmen Valencia LPN - 08/02/2023 2:23 PM EDT MyG message sent to patient regarding disconnected home monitor documented in this encounter Plan of Treatment Upcoming Encounters Date Type Department Care Team (Late st Contact Info) Description 11/14/2023 1:00 PM EDT [facility] [address] [place] [address] [place], [facility] [place] [address] [place] [address] 01/14/2024 2:00 PM EST [facility] [place] [address] 01/21/2024 1:30 PM EST [facility] [address] [place] [address] Grace Knowles CRNP [address] [place] [address] 02/11/2024 1:40 PM EST Office Visit Rheumatology [facility] [address] [facility] [place] [address] Mc Urias MD [address] [employer] [place] [address] Health Maintenance Due Date Last Done Comments Depression Screening 1952 DTaP,Tdap,and Td Vaccines (1 - Tdap) 1959 AAA Monitoring 07/04/2022 07/04/2021, 01/20/2015 COVID-19 Vaccine ( - 2022- season) 2022 05/15/2020, 04/17/2020 DXA Scan 04/23/2030 [...] this encounter Medical Devices Implanted Type Area Unisaw Operator Device Identifier Shelf Expiration Date Model / Serial / Lot Lens 21.0 Mx60 - [id number] - [id number] Implanted:Qty: 1 on 11/07/2016 by Anatoliy Gonzalez MD at OR [facility] Left: Eye BA[employer]CH [employer] LOM[employer] : SURGICAL 02/08/2019 MX60-21.0 / [id number] / Lens 20.5 Mx60 - [id number] - [id number] Implanted:Qty: 1 on 11/21/2016 by Anatoliy Gonzalez MD at OR [facility] Right: Eye BAUSCH [employer] LOMB : SURGICAL 03/11/2019 MX60-20.5 / [id number] / [id number] Valve Elvi 3 Ultra 26mm - [id number] Implanted:Qty: 1 on 09/20/2021 by Azael Eli MD at [facility] [employer] [id number] 07/10/2022 [id number] / / Lead Novus Bipolar 45cm - [id number] Implanted:Qty: 1 on 09/23/2021 by Lyn Henderson IV, MD at [facility] [employer] : CRM [id number] 05/09/2023 5076- 45 / [id number] 1 / [id number] Lead Pace [employer] 3830-69 - [id number] Implanted:Qty: 1 on 09/23/2021 by Lyn Henderson IV, MD at [facility] [employer] : CRM [id number] 07/01/2023 [id number] / [id number] V / [id number] Pacemaker Gricelda Xt Dr Mri Wrls - [id number] Implanted:Qty: 1 on 09/23/2021 by Lyn Henderson IV, MD at [facility] [employer] [id number] 02/22/2023 [id number] / [id number] / [id number] documented as of this encounter Advance Directives * Full Code (Latest Code Status on File) Date Activated Date Inactivated Comments 09/20/2021 3:20 PM 09/23/2021 7:40 PM This order r eflects the patients wishes and were consensually agreed upon. Question Answer Comments Discussion of Advance Directives occurred with: Patient/Family * Full Code Date Activated Date Inactivated Comments 11/21/2016 9:22 AM 11/21/2016 3:39 PM This order r eflects the patients wishes and were consensually agreed upon. * Full Code Date Activated Date Inactivated Comments 11/07/2016 11:32 AM 11/07/2016 5:58 PM This order reflects the patients wishes and were consensually agreed upon. Care Teams High School Vice Principal Relationship Specialty Start Date End Date Ethel Cummings, K[place] [address] [facility], [place] [address] PCP - General Physician Sign Builder Supervisor 07/19/23 documented as of this encounter
--- OUTSIDE RECORDS SUMMARY | 2023-08-04 23:49 | External Medical Summary ---
Author Name Unknown Address Unknown Organization [facility] [place] [address] [place] [address] Laboratory Report Ordering Provider Test Date Status ANA RODRÍGUEZ 07/19/2023 14:09:15 Final Observation Date Value Abnormality Reference (Units ) Status BUN 07/19/2023 14:09:15 25 Above high normal 6-20 (mg/dL) Final Creatinine 07/19/2023 14:09:15 1.0 0.5-1.0 (mg/dL) Final Glomerular filtration rate/1.73 sq M.predicted [Volume Rate/Area] in Serum, Plasma or Blood by Creatinine-based formula (CKD-EPI) 07/19/2023 14:09:15 55 Below low normal >=60 (mL/min) Final eGFR is calculated based on the CKD-EPI 2020 equation Sodium 07/19/2023 14:09:15 138 135-146 (m mol/L) Final Potassium 07/19/2023 14:09:15 5.1 3.5-5.1 (m mol/L) Final Cl 07/19/2023 14:09:15 100 98-107 (mm ol/L) Final CO2 07/19/2023 14:09:15 28 22-32 (mmo l/L) Final Anion gap 07/19/2023 14:09:15 10 7-15 (mmol /L) Final Glucose 07/19/2023 14:09:15 96 70-120 (mg /dL) Final Albumin 07/19/2023 14:09:15 3.7 Below low normal 3.8 -5.0 (g/dL) Final AST (Aspartate aminotransferase) 07/19/2023 14:09:15 21 10-35 (U/L) Fin al Alk Phos 07/19/2023 14:09:15 84 35-130 (U/ L) Final Bilirubin, Total 07/19/2023 14:09:15 0.2 <=1 .2 (mg/dL) Final Calcium 07/19/2023 14:09:15 10.0 8.4-10.2 ( mg/dL) Final Protein 07/19/2023 14:09:15 8.0 6.0-8.3 (g /dL) Final ALT (Alanine aminotransferase) 07/19/2023 14:09:15 8 Below low normal 10-35 (U/L) Final Performing Location [facility] [place] [address] [facility] [address]
--- OUTSIDE RECORDS SUMMARY | 2023-08-04 23:49 | External Medical Summary | Summary of Care ---
Author Name Unknown Organization [facility] Address [address] [facility] [address] Phone [phone] Care Team Providers Care Certified Alcohol Counselor Name Role Phone Ethel Cummings PA-C Primary Care Provider [phone] Reason for Visit * Reason Onset Date Comments Test Results 07/20/2023 Encounter Details Date Type Department Care Team (Late st Contact Info) Description 07/20/2023 Telephone Cardiology, [facility] [address] [place] [address] Grace Knowles CRNP 132 [facility] [place] [address] Test Results Allergies Active Allergy Reactions Criticality Noted Date Comments Bee Venom 12/09/2002 Duloxetine 12/02/2021 Other reaction(s): Unknown Shellfish Diarrhea 01/11/2010 Loses water via Ostomy documented as of this encounter (statuses as of 07/30/2023) Medications Medication Sig Dispensed Refills Start Date [...] Take by mouth. A ctive nystatin (NYSTOP) 563879 UNIT/GM powderIndications:as directed for ileostomy Apply topically [...] as of this encounter (statuses as of 07/30/2023) Active Problems Problem Noted Date Diagnosed Date [...] as of this encounter (statuses as of 07/30/2023) Resolved Problems Problem Noted Date Diagnosed Date Resolved Date Atrioventricular block, Mobi tz type 1, Wenckebach 09/23/2021 09/23/2021 Thrombocytopenia 09/21/2021 09/23/2021 Nonrheumatic aortic valve stenosis 07/07/2020 09/23/2021 SVT (supraventricular tachycardia) 07/07/2020 02/13/2023 documented as of this encounter (statuses as of 07/30/2023) Immunizations Name Administration Dates Next Due COVID-19 [...] encounter Miscellaneous Notes * Telephone Encounter - Izzy Linton CMA - 07/30/2023 11:42 AM EDT Letter mailed. * Telephone Encounter - Izzy Linton CMA - 07/20/2023 3:27 PM EDT My g sent. Results faxed to PCP office. * Telephone Encounter - Izzy Linton CMA - 07/20/2023 3:22 PM EDT ----- Message from ANA Vann sent at 07/20/2023 10:08 AM EDT ----- Looks like her hemoglobin is improving however TSAT is low. Patient is on iron supplementation. Recommend blood work being scanned to PCP for further evaluation and management. documented in this encounter Plan of Treatment Upcoming Encounters Date Type Department Care Team (Late st Contact Info) Description 08/01/2023 2:30 PM EDT Nurse Only Rheumatology [address] [place] [address] Pf, Nurse Rheum [address] [place] [address] [place] [address] 11/14/2023 1:00 PM EDT Cardiac Studies Cardiology, [facility] 132 [facility] [address] [place], [facility] 132 [facility] [place] [address] 01/14/2024 2:00 PM EST Cardiac Studies Cardiac Studies, [facility] 132 [facility] [place] [address] 01/21/2024 1:30 PM EST Office Visit Cardiology, [facility] 132 [facility] [address] Grace [facility]les CRNP [facility] [place] [address] 02/11/2024 1:40 PM EST Office Visit Rheumatology [address] [place] [address] Mc Urias MD [address] [place] [address] [place] [address] Health Maintenance Due Date Last Done Comments Depression Screening 1952 DTaP,Tdap,and Td Vaccines (1 - Tdap) 1959 AAA Monitoring 07/04/2022 07/04/2021, 01/20/2015 COVID-19 Vaccine (3 - 2022- season) 2022 05/15/2020, 04/17/2020 DXA [...] this encounter Medical Devices Implanted Type Area Wood Drilling Machine Operator Device Identifier Shelf Expiration Date Model / Serial / Lot Lens 21.0 Mx60 - [id number] - [id number] Implanted:Qty: 1 on 11/07/2016 by Anatoliy Gonzalez MD at OR [facility] Left: Eye BAUSCH & LOMB : SURGICAL 02/08/2019 MX60-21.0 / [id number] / Lens 20.5 Mx60 - [id number] - [id number] Implanted:Qty: 1 on 11/21/2016 by Anatoliy Gonzalez MD at OR [facility] Right: Eye BAUSCH & LOMB : SURGICAL 03/11/2019 MX60-20.5 / [id number] / [id number] Valve Elvi 3 Ultra 26mm - [id number] Implanted:Qty: 1 on 09/20/2021 by Azael Eli MD at [facility] [employer] [id number] 07/10/2022 [id number] / / Lead Novus Bipolar 45cm - [id number] Implanted:Qty: 1 on 09/23/2021 by Lyn Henderson IV, MD at [facility] [employer] : NIMA [id number] 05/09/2023 5076- 45 / [id number] 1 / [id number] Lead Pace Selectsecure 3830-69 - [id number] Implanted:Qty: 1 on 09/23/2021 by Lyn Henderson IV, MD at [facility] [employer] : NIMA [id number] 07/01/2023 [id number] 9 / [id number] V / [id number] V Pacemaker Gricelda Xt Dr Mri [facility] - [id number] Implanted:Qty: 1 on 09/23/2021 by Lyn Henderson IV, MD at [facility] [employer] [id number] 02/22/2023 [id number] / [id number] G / [id number] G documented as of this encounter Advance [...] and were consensually agreed upon. Care Teams Certified Alcohol Counselor Relationship Specialty Start Date End Date Ethle Cummings PA-C [address] [place] [address] PCP - General Physician Mapping Editor 07/19/23 documented as of this encounter
--- OUTSIDE RECORDS SUMMARY | 2023-08-04 23:49 | External Medical Summary ---
Author Name Unknown Address Unknown Organization K01:LABORATORY [facility] [place] - [address] [place] [address] Laboratory Report Ordering Provider Test Date Status ANA RODRÍGUEZ 07/19/2023 14:09:15 Final Observation Date Value Abnormality Reference (Units ) Status TSH 07/19/2023 14:09:15 2.12 0.27-4.20 (uIU/mL) Final Performing Location LABORATORY [facility] - [address] [place] [address]
--- OUTSIDE RECORDS SUMMARY | 2023-08-04 23:49 | External Medical Summary | Summary of Care ---
Author Name Unknown Organization [facility] Address [address] [facility] [place] [address] Phone [phone] Care Team Providers Care Fuels Sales Representative Name Role Phone Ethel Cummings PA-C Primary Care Provider [phone] Reason for Visit * Reason Comments Outpatient Testing Encounter Details Date Type Department Care Team (Late st Contact Info) Description 07/19/2023 2:00 PM EDT Laboratory Laboratory, [facility] 132 [facility] [place] [id number] [facility] 132 [facility] [place] [address] Severe aortic stenosis; S/P TAVR (transcatheter aortic valve replacement); CHB (complete heart block) ([facility]); Pacemaker; HTN, goal below 140/90; Dyslipidemia, goal LDL below 70 Allergies Active Allergy Reactions Criticality Noted Date Comments Bee Venom 12/09/2002 Duloxetine 12/02/2021 Other reaction(s): Unknown Shellfish Diarrhea 01/11/2010 Loses water via Ostomy documented as of this encounter (statuses as of 07/19/2023) Medications Medication Sig Dispensed Refills Start Date [...] by mouth. 0 A ctive nystatin (NYSTOP) [id number] UNIT/GM powderIndications:as directed for ileostomy Apply topically [...] as of this encounter (statuses as of 07/19/2023) Active Problems Problem Noted Date Diagnosed Date [...] as of this encounter (statuses as of 07/19/2023) Resolved Problems Problem Noted Date Diagnosed Date Resolved Date Atrioventricular block, Mobi tz type 1, Wenckebach 09/23/2021 09/23/2021 Thrombocytopenia 09/21/2021 09/23/2021 Nonrheumatic aortic valve stenosis 07/07/2020 09/23/2021 SVT (supraventricular tachycardia) 07/07/2020 02/13/2023 documented as of this encounter (statuses as of 07/19/2023) Immunizations Name Administration Dates Next Due COVID-19 [...] No 09/20/2021 documented as of this encounter Plan of Treatment Upcoming Encounters Date Type Department Care Team (Late st Contact Info) Description 08/01/2023 2:30 PM EDT Nurse Only Rheumatology [address] [place] [address] Pf, Nurse Rheum [address] [place] [address] [place] [address] 11/14/2023 1:00 PM EDT Cardiac Studies Cardiology, [facility] 132 [facility] [place] [address] [place], Pacer Clinic [facility] 132 [facility] [place] [address] 01/14/2024 2:00 PM EST Cardiac Studies Cardiac Studies, [facility] 132 [facility] [place] [address] 01/21/2024 1:30 PM EST Office Visit Cardiology, [facility] [address] [place] [address] Grace Knowles CRNP [address] [place] [address] 02/11/2024 1:40 PM EST Office Visit Rheumatology [place] [id number] [facility] [place] [address] Mc Urias MD [facility] [place] [address] Pending Results Name Type Priority Associated Diagnoses Date /Time CBC WITH WBC DIFFERENTIAL AND ANEMIA REFLEX WORKUP Lab Routine Severe aortic stenosis S/P TAVR (transcatheter aortic valve replacement) CHB (complete heart block) (HCC) Pacemaker HTN, goal below 140/90 Dyslipidemia, goal LDL below 70 07/19/2023 2:09 PM EDT COMPREHENSIVE METABOLIC PANEL Lab Routine Severe aortic stenosis S/P TAVR (transcatheter aortic valve replacement) CHB (complete heart block) (HCC) Pacemaker HTN, goal below 140/90 Dyslipidemia, goal LDL below 70 07/19/2023 2:09 PM EDT ANEMIA CBC Lab Routine Severe aortic stenosis S/P TAVR (transcatheter aortic valve replacement) CHB (complete heart block) (HCC) Pacemaker HTN, goal below 140/90 Dyslipidemia, goal LDL below 70 07/19/2023 2:09 PM EDT DIFFERENTIAL, AUTOMATED Lab Routine Severe aortic stenosis S/P TAVR (transcatheter aortic valve replacement) CHB (complete heart block) (HCC) Pacemaker HTN, goal below 140/90 Dyslipidemia, goal LDL below 70 07/19/2023 2:09 PM EDT ANEMIA REFLEX CHEMISTRY HOLD Lab Routine Severe aortic stenosis S/P TAVR (transcatheter aortic valve replacement) CHB (complete heart block) (HCC) Pacemaker HTN, goal below 140/90 Dyslipidemia, goal LDL below 70 07/19/2023 2:09 PM EDT Health Maintenance Due Date Last Done Comments Depression Screening 1952 DTaP,Tdap,and Td Vaccines (1 - Tdap) 1959 AAA Monitoring 07/04/2022 07/04/2021, 01/20/2015 COVID-19 Vaccine ( season) 2022 05/15/2020, 04/17/2020 DXA Scan 04/23/2030 [...] this encounter Medical Devices Implanted Type Area Legal Project Manager Device Identifier Shelf Expiration Date Model / Serial / Lot Lens 21.0 Mx60 - [id number] - [id number] Implanted:Qty: 1 on 11/07/2016 by Anatoliy Gonzalez MD at OR [facility] Left: Eye BAUSCH & LOMB : SURGICAL 02/08/2019 MX60-21.0 / [id number] / Lens 20.5 Mx60 - [id number] - [id number] Implanted:Qty: 1 on 11/21/2016 by Anatoliy Gonzalez MD at OR [facility] Right: Eye BAUSCH & LOMB : SURGICAL 03/11/2019 MX60-20.5 / [id number] / [id number] Valve Elvi 3 Ultra 26mm - [id number] Implanted:Qty: 1 on 09/20/2021 by Azael Eli MD at [facility] [employer] [id number] 07/10/2022 [id number] / / Lead Novus Bipolar 45cm - [id number] Implanted:Qty: 1 on 09/23/2021 by Lyn Henderson IV, MD at [facility] [employer] : CRM [id number] 05/09/2023 5076- 45 / [id number] 1 / [id number] 1 Lead Pace Selectsecure 3830-69 - [id number] Implanted:Qty: 1 on 09/23/2021 by Lyn Henderson IV, MD at [facility] [employer] : CRM [id number] 07/01/2023 [id number] 9 / [id number] V / [id number] V Pacemaker [place] Xt [facility] Nathan [facility] - [id number] Implanted:Qty: 1 on 09/23/2021 by Lyn Henderson IV, MD at [facility] [employer] [id number] 02/22/2023 W1DR01 / [id number] G / [id number] documented as of this encounter Visit Diagnoses Diagnosis Severe aortic stenosis Aortic valve disorders S/P TAVR (transcatheter aortic valve replacement) Heart valve replaced by other means CHB (complete heart block) (HCC) Atrioventricular block, complete Pacemaker Cardiac pacemaker in situ HTN, goal below 140/90 Unspecified essential hypertension Dyslipidemia, goal LDL below 70 Other and unspecified hyperlipidemia documented in this encounter Advance Directives Latest [...] and were consensually agreed upon. Care Teams Fuels Sales Representative Relationship Specialty Start Date End Date Ethel Cummings PA-C [address] [place], [place] [address] PCP - General Physician Kiss Machine Operator 07/19/23 documented as of this encounter
--- OUTSIDE RECORDS SUMMARY | 2023-08-04 23:49 | External Medical Summary | Summary of Care ---
Author Name Unknown Organization [facility] Address [address] [facility] [address] Phone [phone] Care Team Providers Care Church Official Name Role Phone Ethel Cummings PA-C Primary Care Provider [phone] Reason for Visit * Reason Onset Date Comments Test Results 07/20/2023 Encounter Details Date Type Department Care Team (Late st Contact Info) Description 07/20/2023 Telephone Cardiology, [facility] [address] [place] [address] Grace Knowles CRNP 132 [facility] [place] [address] Test Results Allergies Active Allergy Reactions Criticality Noted Date Comments Bee Venom 12/09/2002 Duloxetine 12/02/2021 Other reaction(s): Unknown Shellfish Diarrhea 01/11/2010 Loses water via Ostomy documented as of this encounter (statuses as of 07/20/2023) Medications Medication Sig Dispensed Refills Start Date [...] by mouth. 0 A ctive nystatin (NYSTOP) [id number] UNIT/GM powderIndications:as directed for ileostomy Apply topically [...] as of this encounter (statuses as of 07/20/2023) Active Problems Problem Noted Date Diagnosed Date [...] as of this encounter (statuses as of 07/20/2023) Resolved Problems Problem Noted Date Diagnosed Date Resolved Date Atrioventricular block, Mobi tz type 1, Wenckebach 09/23/2021 09/23/2021 Thrombocytopenia 09/21/2021 09/23/2021 Nonrheumatic aortic valve stenosis 07/07/2020 09/23/2021 SVT (supraventricular tachycardia) 07/07/2020 02/13/2023 documented as of this encounter (statuses as of 07/20/2023) Immunizations Name Administration Dates Next Due COVID-19 [...] 08/01/2023 2:30 PM EDT Nurse Only Rheumatology [address] [place] [address] Pf, Nurse Rheum [address] [place] [address] [place], [place] [address] 11/14/2023 1:00 PM EDT Cardiac Studies Cardiology, [facility] 132 [facility] [address] [place], Pac[facility] Clinic [facility] 132 [facility] [address] 01/14/2024 2:00 PM EST Cardiac Studies Cardiac Studies, [facility] 132 [facility] [address] 01/21/2024 1:30 PM EST Office Visit Cardiology, [facility] 132 [facility] [address] Grace Knowles CRNP 132 [facility] [place] [address] 02/11/2024 1:40 PM EST Office Visit Rheumatology [place] [id number] [facility] [place], [place] [address] [place] [address] [place] [address] [place], [place] [address] Health Maintenance Due Date Last Done Comments [...] this encounter Medical Devices Implanted Type Area Mast Maker Device Identifier Shelf Expiration Date Model / Serial / Lot Lens 21.0 Mx60 - [id number] - [id number] Implanted:Qty: 1 on 11/07/2016 by Anatoliy Gonzalez MD at OR [facility] Left: Eye BAUSCH & LOMB : SURGICAL 02/08/2019 MX60-21.0 / [id number] / Lens 20.5 Mx60 - [id number] - [id number] Implanted:Qty: 1 on 11/21/2016 by Anatoliy Gonzalez MD at OR [facility] Right: Eye BAUSCH & LOMB : SURGICAL 03/11/2019 MX60-20.5 / [id number] / [id number] Valve Elvi 3 Ultra 26mm - [id number] Implanted:Qty: 1 on 09/20/2021 by zAael Eli MD at [facility] [place] [employer] [id number] 07/10/2022 [id number] / / Lead Novus Bipolar 45cm - [id number] Implanted:Qty: 1 on 09/23/2021 by Lyn Henderson IV, MD at [facility] [place] [employer] : NIMA [id number] 05/09/2023 5076- 45 / [id number] 1 / [id number] 1 Lead Pace [employer] 3830-69 - [id number] Implanted:Qty: 1 on 09/23/2021 by Lyn Henderson IV, MD at [facility] [employer] : CRM [id number] 07/01/2023 [id number] 9 / [id number] V / [id number] V Pacemaker [place] Xt [facility] Evans [employer]r[facility] - [id number] Implanted:Qty: 1 on 09/23/2021 by Lyn Henderson IV, MD at [facility] [employer] [id number] 02/22/2023 [id number] / [id number] / [id number] documented as of this encounter Advance Directives Latest Code Status [...] and were consensually agreed upon. Care Teams Church Official Relationship Specialty Start Date End Date Ethel Cummings PA-C [address] [place] [address] PCP - General Physician Hand Assembler For Puller Over 07/19/23 documented as of this encounter
--- OUTSIDE RECORDS SUMMARY | 2023-08-04 23:49 | External Medical Summary ---
Author Name Unknown Address Unknown Organization K01:LAB[facility]ATORY [facility] - [address] [facility] [place] [address] Laboratory Report Ordering Provider Test Date Status ANA RODRÍGUEZ 07/19/2023 14:09:15 Final Observation Date Value Abnormality Reference (Units ) Status WBC, Total 07/19/2023 14:09:15 6.97 4.00-10.8 0 (K/uL) Final RBC 07/19/2023 14:09:15 3.67 3.85-5.15 (M/uL) Final Hemoglobin 07/19/2023 14:09:15 11.1 Below low normal 12 .0-15.3 (g/dL) Final Anemia reflex testing trigge rs on a HGB < 12.0 for Females and HGB < 13.0 for Males in accordance with the WHO Anemia Guidelines
Anemia reflex testing triggers on a HGB < 12.0 for Females and HGB < 13.0 for Males in accordance with the WHO Anemia Guidelines HCT 07/19/2023 14:09:15 36.5 36.0-45.2 (%) Final MCV 07/19/2023 14:09:15 99.5 81.5-97.5 (fL) Final MCH 07/19/2023 14:09:15 30.2 27.0-34.0 (pg) Final MCHC 07/19/2023 14:09:15 30.4 32.0-36.0 (g/dL) Final RDW 07/19/2023 14:09:15 15.4 11.5-15.5 (%) Final Platelets 07/19/2023 14:09:15 158 140-400 (K /uL) Final MPV 07/19/2023 14:09:15 11.1 6.6-11.1 ( fL) Final Nucleated erythrocytes/100 leukocytes [Ratio] in Blood by Automated count 07/19/2023 14:09:15 0 <=0 (/100 WBCs) Fi nal Performing Location LAB[facility]ATORY [facility] - [address] [facility] [address]
--- OUTSIDE RECORDS SUMMARY | 2023-08-04 23:49 | External Medical Summary | Summary of Care ---
Author Name Unknown Organization [facility] Address [address] [address] Phone [phone] Care Team Providers Care Sales Support Manager Name Role Phone Ethel Cummings PA-C Primary Care Provider [phone] Reason for Referral * Precert (Within 10 days (routine)) - Authorized Specialty Diagnoses / Procedures Referred By Contac t Referred To Contact Cardiac Studies Diagnoses Severe aortic stenosis S/P TAVR (transcatheter aortic valve replacement) CHB (complete heart block) (HCC) Pacemaker HTN, goal below 140/90 Dyslipidemia, goal LDL below 70 Procedures ECHO, COMPLETE (2D), TRANS-THORACIC Grace Knowles CRNP [address] [place] [address] Referral ID Status Reason Start Date Expiration Date V isits Requested Visits Authorized [id number] Authorized Precert 01/19/2024 999 999 Reason for Visit * Reason Comments Follow Up Encounter Details Date Type Department Care Team (Late st Contact Info) Description 07/19/2023 1:30 PM EDT Office Visit Cardiology, [facility] [address] [place] [address] Grace Knowles CRNP [address] [place] [address] Severe aortic stenosis*; S/P TAVR (transcatheter aortic valve replacement); CHB (complete heart block) ([facility]); Pacemaker; HTN, goal below 140/90; Dyslipidemia, [...] by mouth. 0 A ctive nystatin (NYSTOP) 385424 UNIT/GM powderIndications:as directed for ileostomy Apply topically [...] Former Cigarettes 2 27 Smokeless Tobacco: Never Tobacco Cessation:Counseling Given: Not Answered Comments:Quit ~6 years ago Alcohol Use Standard [...] on file documented as of this encounter Last Filed Vital Signs Vital Sign Reading Time Taken Comments Blood Pressure 130/72 07/19/2023 1:30 PM EDT Pulse 66 07/19/2023 1:30 PM EDT Temperature - - Respiratory Rate - - Oxygen Saturation - - Inhaled Oxygen Concentration - - Weight 45.4 kg (100 lb) 07/19/2023 1:30 PM EDT Height - - Body Mass Index 19.53 09/20/2021 8:20 AM EDT documented in this encounter Functional Status Functional Status Response [...] (15 years old or older) No 09/21/19 22 Cognitive Status Response Date of Assessm ent Because of a physical, menta l, or emotional condition, do you have serious difficulty concentrating, remembering, or making decisions? (5 years old or older) No 09/20/2021 documented as of this encounter Progress Notes * EleniRomeoGraceANA Cardenas - 07/19/2023 1:30 PM EDT Cardiology Outpatient Clinic Note 07/19/2023 Primary Catalyst Concentration Operator: Edmar Garcia PA-C Past medical history: Severe aortic stenosis, s/p TAVR (Successful transcarotid implantation of a # 26 mm [place] Elvi S3 Ultra valve, underinflated by one cc), 09/20/2021 CHB post TAVR s/p dual chamber ppm 09/23/[address] Gayle. Recurrent drug-refractory PSVT status post ablation Hypertension Mild carotid stenosis Dyslipidemia Abdominal aortic aneurysm status post remote repair by Dr. 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 HPI 82 year old female presenting to the cardiology office today in routine follow up. Patient carries a history of severe aortic stenosis and underwent TAVR with Dr. Eli in September of 2021. Procedure was complicated by complete heart block and underwent dual-chamber permanent pacemaker that admission. Last device interrogation dated 12/2022 showed appropriate thresholds and adequate battery life. A pacing burden of 25% and RV pacing burden of 90%. No mode switches/AFib. Last echocardiogram dated 11/2022 showed a preserved LV systolic function of 60- 64%. TAVR gradientswere stable. Today the patient presents with her . Notes that she is feeling well and offers no acute concerns. Is generally pretty sedentary. Notes ongoing fatigue that has been present for quite some time. Did arrived in a wheelchair. No chest pain, shortness of breath, palpitations, dizziness, syncopeor near syncope. No orthopnea, PND, or increased lower extremity edema. No fever, chills, cough, hem atochezia, melena, or hemoptysis. She states she is compliant with all medications and offers no side effects. Current Outpatient Medications Medication Sig Dispense Refill VITAMIN B COMPLEX PO TABS One tablet daily 0 0 MULTIVITAMINS PO TABS One tablet daily 0 0 POTASSIUM 99 MG PO TABS One tablet daily 0 0 LORAZEPAM 1 MG PO TABS 1 pill every 6 hours prn 60 0 VITAMIN C-BRANDY HIPS 100 MG PO TABS one pill each day 0 CALCIUM 600 + D 600-200 MG-UNIT PO TABS one pill twice a day 0 FEOSOL 200 (65 FE) MG PO TABS one pill each day SIMVASTATIN 10 MG PO TABS take one daily OMEPRAZOLE 20 MG PO CPDR two tablets daily Magnesium 250 MG Tablet Take 1 Tablet by mouth in the morning. Cholecalciferol 25 MCG (1000 UT) Oral Tablet Take 1 Tablet by mouth in the morning and 1 Tablet before bedtime. Gelatin 650 MG CAPS Take by mouth. nystatin (NYSTOP) 267140 UNIT/GM powder Apply topically to affected area. Indications: as directed for ileostomy meclizine (ANTIVERT) 25 MG Tablet Take 1 Tablet by mouth 3 times a day as needed. Aspirin 81 MG Oral Tablet Chewable Take by mouth 1 Tablet in the morning. Do not start before September 24, 2021. 30 Tablet 3 Eliquis 2.5 MG Oral Tablet Take 1 Tablet by mouth in the morning and 1 Tablet before bedtime. Atenolol 50 MG Oral Tablet (Tenormin) Furosemide 20 MG Oral Tablet (Lasix) oxyCODONE-Acetaminophen 5-325 MG Oral Tablet (Percocet) Potassium Chloride ER 20 MEQ Oral Tablet Extended Release Diclofenac Sodium 1 % External Gel (Voltaren) FOUR TIMES DAILY Sodium Chloride 1 GM Oral Tablet DAILY IN THE MORNING Prolia 60 MG/ML Subcutaneous Solution Prefilled Syringe Inject 60 mg under the skin every 6 months.As directed. 1 mL 0 Eliquis 2.5 MG Oral Tablet (Apixaban) take 1t ablet by mouth twice a day 180 Tablet 3 Amoxicillin 500 MG Oral Capsule (Amoxil) Take 4 capsules 1 hour prior to any dental work. 4 Capsule6 No current facility-administered medications for this visit. 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 wound into cavity Splenic infarct Paroxysmal SVT (supraventricular tachycardia) (HCC) s/p ablation Patent foramen ovale SVT (supraventricular tachycardia) (HCC) 07/07/2020 Past Surgical History: Procedure Laterality Date ABDOMEN SURGERY PROCEDURE NEC 07/11/2006 Multiple abdominal hernia repairs X 6 - Dr Barrientos [facility] 07/2006 ABLATE HEART DYSRHYTHM FOCUS 12/12 ANEURYSM ABDOM AORTA 09/26/05 Repair abdominal aortic aneurysm with straight tube graft by Dr Zaman on 09/26/05 CARPAL TUNNEL SURGERY Right CARPAL TUNNEL SURGERY 08/02/2010 Carpal Tunnel repair Left hand Dr Edmond [facility] CORONARY ANGIOGRAPHY W/LEFT HEART CATH Right 08/10/2021 CORONARY ANGIOGRAPHY W/LEFT HEART CATH performed by Lon Gallo MD at [facility] INSERT/REPLACE PACEMAKER,ATRIAL/VENTRICULAR Left 09/23/2021 NEW DDD PACEMAKER IMPLANT performed by Bassem Gayle MD at [facility] LIGATE/CUT OVIDUCT(S) AT SURGERY MISCELLANEOUS ORDER illeostomy 1975 MISCELLANEOUS ORDER illeostomy 1987 REMOVE CATARACT, INSERT LENS PROSTH Left 11/07/2016 left EXTRACAPSULAR CATARACT REMOVAL WITH INTRAOCULAR LENS performed by Anatoliy Gonzalez MD at [facility] REMOVE CATARACT, INSERT LENS PROSTH Right 11/21/2016 right EXTRACAPSULAR CATARACT REMOVAL WITH INTRAOCULAR LENS performed by Anatoliy Gonzalez MD at [facility] REPLACE AORTIC VALVE, OPEN FEMORAL N/A 09/20/2021 REPLACE AORTIC VALVE, OPEN FEMORAL performed by Azael Eli MD at [facility] [place] REPLACE AORTIC VALVE, TRANSAORTIC 09/20/2021 REPLACE AORTIC VALVE, TRANSAORTIC performed by Ranjith Nichols MD at [facility] [place] Social History Tobacco Use Smoking status: Former Current packs/day: 2.00 Average packs/day: 2.0 packs/day for 27.0 years (54.0 ttl pk-yrs) Types: Cigarettes Smokeless tobacco: Never Tobacco comments: Quit ~6 years ago Vaping Use Vaping Use: Never used Substance Use Topics Alcohol use: No Drug use: No Review of patient's allergies indicates: Allergen Reactions Bee Venom Duloxetine Other reaction(s): Unknown Shellfish Diarrhea Loses water via Ostomy Review of Systems: See HPI for pertinent positives. All others negative, other than those noted in HPI. Physical Exam BP 130/72 | Pulse 66 | Wt 45.4 kg (100 lb) | BMI 19.53 kg/m | BSA 1.39 m General: alert, healthy, no distress, well nourished. Skin: no rashes or significant lesions Eyes: PER. Conjunctiva pink, sclera clear. HENT: Normocephalic. Atraumatic. Neck: Bilateral carotid bruits versus transmitted systolic murmur. No JVD. No HJR. Heart: RRR. +2/6 systolic murmur. Lungs: Normal respiratory rate and rhythm, lungs clear to auscultation Extremities: No clubbing, cyanosis, or edema. Pulses: radial=2/4, posterior tibial=2/4. Lab data/imaging study review: Echo, 1 year post TAVR 12/06/2022 The qualitative LV ejection fraction is 60-64% (normal). The LV wall thickness is moderately increased (concentric). The patient is status post TAVR with Elvi type prosthetic valve. The aortic valve prosthesis systolic gradients are normal for this type prosthesis. Significant aortic valve prosthesis regurgitation is absent. There is moderate mitral annular calcification. The mitral valve leaflets thickness is moderately increased. Mild mitral regurgitation is present. Mild tricuspid regurgitation is present. The estimated pulmonary artery systolic pressure is 39mm Hg. There are moderate atherosclerotic plaque in the descending aorta. Compared to prior study of 11/07/2021, there is no significant change. Echo 1 year post TAVR 11/07/2021 Interpretation Summary The examination is adequate to evaluate the referral indication. The qualitative LV ejection fraction is 65-69% (normal). The LV wall thickness is moderately increased (concentric). The patient is status post TAVR with Elvi type prosthetic valve. Aortic valve prosthesis stenosis is absent. Significant aortic valve prosthesis regurgitation is absent. Mild tricuspid regurgitation is present. The estimated pulmonary artery systolic pressure is 39mm Hg. There are moderate atherosclerotic plaques in the descending aorta. Echo 09/21/2021 The examination is adequate to evaluate the referral indication. The qualitative LV ejection fraction is >70% (hyperdynamic). The LV wall thickness is moderatelyincreased (concentric). No LV segmental wall motion abnormalities. The patient is status post TAVR with Elvi type prosthetic valve. Aortic valve prosthesis stenosisis absent. Significant aortic valve prosthesis regurgitation is absent. Mild tricuspid regurgitation is present. Mild pulmonary hypertension is present. The estimated pulmonary artery systolic pressure is 41mm Hg. June 21, 2020 TTE Interpretation Summary ([facility], Dr. Slim Yousif): Normal LV size, wall motion, and systolic function. Ejection fraction 60 to 65%. Mild concentric LVH. Severe aortic valve calcification, with severe aortic valve stenosis. Aortic valve velocity ratio 0.19. Calculated aortic valve area 0.7 cm2. Aortic mean pressure gradient 33.3 mmHg. AoV2 max: 376.3 cm/sec. Moderate mitral annular calcification. Mild mitral regurgitation. July 19, 2020 TTE Interpretation Summary (as per Dr. Eden): Normal LV chamber size with mild concentric LVH. Normal LV systolic function without regional wall motion abnormality. Calculated LV ejection Fraction = 67% (bi-plane method of discs). Grade 1 diastolic dysfunction. Heavily calcified aortic valve possibly bicuspid either due to calcification or congenital. Severe aortic stenosis is present with a velocity of 4 m/sec and a mean pressure gradient of 40 mm of mercury along with an aortic valve area of 0.5 cm2. Mild mitral regurgitation. Mild tricuspid regurgitation. Mild left atrial enlargement July 2020 Carotid Duplex: Right carotid artery duplex examination indicates evidence of less than 50% stenosis of the internal carotid artery. Left carotid artery duplex examination indicates evidenceof less than 50% stenosis of the internal carotid artery Impression/Plan: This is an 82 year old female who is being evaluated in the cardiology office for ongoing care/riskmanagement for the below diagnoses. 1. Severe aortic stenosis 2. S/P TAVR (transcatheter aortic valve replacement) -H/o severe aortic stenosis, s/p TAVR 09/20/2021 -TAVR gradients stable on most recent echo 11/2022 -NYHA class 3 Continue aspirin 81 mg daily Antibiotics are needed for all dental work: Amoxicillin 2g- Take 4 capsules 1 hour prior to any dental work Repeat echocardiogram prior to follow-up to reassess TAVR gradients. Routine blood work ordered. 3. CHB (complete heart block) (HCC) 4. Pacemaker -HB post TAVR s/p dual chamber ppm 09/23/[address] Gayle. -Appropriate function on last check. Continue to follow with device Clinic as scheduled 5. HTN, goal below 140/90 -Blood pressure well controlled. No medication changes needed at this time 6. Dyslipidemia, LDL goal below 70 -LDL well controlled, 39 Continue simvastatin 10 mg daily The patient agrees to the above plan and will call with additional questions or concerns. ER with all emergencies advised. Follow-up: Return in about 6 months (around 01/19/2024). | Check-out note: Echo prior to follow up with AE or Edmar. Update PCP info. I spent a total of 40 minutes on the date of service in preparation, delivery, and documentation ofthe care provided to Miranda Reddy excluding any time spent in the performance of separately billed services. ANA Driver, Department of Cardiology This chart was completed in part utilizing [employer] Speech Voice Recognition Software. Grammatical errors, random word insertions, prounoun errors, and incomplete sentences are an occasional consequence of this system due to software limitations, ambient noise, and hardware issues. Any formal questions or concerns about the content, text, or information contained within the body of this dictation should be directly addressed to the provider for clarification. documented in this encounter Nursing Notes * Izzy Linton CMA - 07/19/2023 1:30 PM EDT Examination Room: 7 Name: Miranda Reddy Date of : (1940) Reason for Visit: 6m Interim Hospitalization(s): none Problems/Concerns: denied Chest Pain/SOB: denied My [facility] is a way you can talk to your provider online through e-mail. Would you like to sign up? I can activate it for you? ALREADY ACTIVE Patient was instructed to not get up on the exam table until directed and assisted by their provider; patient is to remain seated in the chair/ wheelchair/ exam table for fall prevention and safety reasons. Patient is aware to have assistance to step down off exam table with personnel. Patient voiced full comprehension of instructions. documented in this encounter Plan of Treatment Upcoming Encounters Date Type Department Care Team (Late st Contact Info) Description 08/01/2023 2:30 PM EDT Nurse Only Rheumatology [address] [place], [place] [address] Pf, Nurse Rheum [address] [place] [address] [place] [address] 11/14/2023 1:00 PM EDT Cardiac Studies Cardiology, [facility] [address] [place] [address] [place] [address] [place] [address] 01/14/2024 2:00 PM EST Cardiac Studies Cardiac Studies, [facility] [address] [place] [address] 01/21/2024 1:30 PM EST Office Visit Cardiology, [facility] [address] [place] [address] Grace Knowles CRNP [address] [place] [address] 02/11/2024 1:40 PM EST Office Visit Rheumatology [address] [place], [place] [address] Mc Urias MD [address] [place] [address] [place] [address] Scheduled Orders Name Type Priority Associated Diagnoses Orde r Schedule ECHO, COMPLETE (2D), TRANS-THORACIC Echocardiology Routine Severe aortic stenosis S/P TAVR (transcatheter aortic valve replacement) CHB (complete heart block) (HCC) Pacemaker HTN, goal below 140/90 Dyslipidemia, goal LDL below 70 Expected: 01/19/2024 (Approximate), Expires: 08/18/2025 CBC WITH WBC DIFFERENTIAL AND ANEMIA REFLEX WORKUP Lab Routine Severe aortic stenosis S/P TAVR (transcatheter aortic valve replacement) CHB (complete heart block) (HCC) Pacemaker HTN, goal below 140/90 Dyslipidemia, goal LDL below 70 Expected: 07/19/2023, Expires: 07/18/2024 COMPREHENSIVE METABOLIC PANEL Lab Routine Severe aortic stenosis S/P TAVR (transcatheter aortic valve replacement) CHB (complete heart block) (HCC) Pacemaker HTN, goal below 140/90 Dyslipidemia, goal LDL below 70 Expected: 07/19/2023, Expires: 07/18/2024 Health Maintenance Due Date Last Done Comments [...] this encounter Medical Devices Implanted Type Area Local Company Refrigerated Truck Driver Device Identifier Shelf Expiration Date Model / Serial / Lot Lens 21.0 Mx60 - [id number] - [id number] Implanted:Qty: 1 on 11/07/2016 by Anatoliy Gonzalez MD at [facility] Left: Eye [employer] : SURGICAL 02/08/2019 MX60-21.0 / [id number] / Lens 20.5 Mx60 - [id number] - [id number] Implanted:Qty: 1 on 11/21/2016 by Anatoliy Gonzalez MD at OR [facility] Right: Eye [employer]USCH [employer] LOMB : SURGICAL 03/11/2019 MX60-20.5 / [id number] / [id number] Valve Elvi 3 Ultra 26mm - [id number] Implanted:Qty: 1 on 09/20/2021 by Azael Eli MD at [facility] [employer] [id number] 07/10/2022 [id number] / / Lead Novus Bipolar 45cm - [id number] Implanted:Qty: 1 on 09/23/2021 by Lyn Henderson IV, MD at [facility] [employer] : [facility] [id number] 05/09/2023 [id number] / [id number] / [id number] Lead Pace [employer] 3830-69 - [id number] Implanted:Qty: 1 on 09/23/2021 by Lyn Henderson IV, MD at [facility] [employer] : CRM [id number] 07/01/2023 [id number] / [id number] V / [id number] Pacemaker [place] Xt Dr Mri Wr - [id number] Implanted:Qty: 1 on 09/23/2021 by Lyn Henderson IV, MD at [facility] [employer] [id number] 02/22/2023 [id number] / [id number] G / [id number] documented as of this encounter Visit Diagnoses Diagnosis Severe aortic stenosis- Primary Aortic valve disorders S/P TAVR (transcatheter aortic [...] and were consensually agreed upon. Care Teams Sales Support Manager Relationship Specialty Start Date End Date Ethel Cummings PA-C [address] [place], [place] [address] PCP - General Physician [place] Inspector 07/19/23 documented as of this encounter"
--- OUTSIDE RECORDS SUMMARY | 2023-08-04 23:50 | External Medical Summary | Summary of Care ---
Author Name Unknown Organization [facility] Address [address] [address] Phone [phone] Care Team Providers Care Dispensary Technician Name Role Phone Buck Zamorano MD Primary Care Provider [phone] Reason for Visit * Reason Onset Date Comments Advice 07/04/2023 Encounter Details Date Type Department Care Team (Late st Contact Info) Description 07/04/2023 Telephone Rheumatology [facility] [address] [place] [address] Mc Urias MD [facility] [place] [address] Advice Allergies Active Allergy Reactions Criticality Noted Date Comments Bee Venom 12/09/2002 Duloxetine 12/02/2021 Other reaction(s): Unknown Shellfish Diarrhea 01/11/2010 Loses water via Ostomy documented as of this encounter (statuses as of 07/04/2023) Medications Medication Sig Dispensed Refills Start Date [...] TABS one pill each day 0 08/08/2005 Active CALCIUM 600 + D 600-200 MG-UNIT PO [...] by mouth. 0 A ctive nystatin (NYSTOP) 924329 UNIT/GM powderIndications:a s directed for ileostomy Apply topically to affected [...] Oral Tablet (Lasix) 0 12/02/2021 Activ e oxyCODONE-Acetamino phen 5-325 MG Oral Tablet (Percocet) 0 11/26/2021 [...] a day 180 Tablet 3 05/29/2023 Active Prolia 60 MG/ML Subcutaneous Solution Prefilled Syringe (Denosumab) Inject 60 mg under the skin once for 1 dose. 1 Each 0 07/04/2023 07/04/2023 Active documented as of this encounter (statuses as of 07/04/2023) Active Problems Problem Noted Date Diagnosed Date [...] as of this encounter (statuses as of 07/04/2023) Resolved Problems Problem Noted Date Diagnosed Date Resolved Date Atrioventricular block, Mobi tz type 1, Wenckebach 09/23/2021 09/23/2021 Thrombocytopenia 09/21/2021 09/23/2021 Nonrheumatic aortic valve stenosis 07/07/2020 09/23/2021 SVT (supraventricular tachycardia) 07/07/2020 02/13/2023 documented as of this encounter (statuses as of 07/04/2023) Immunizations Name Administration Dates Next Due COVID-19 [...] encounter Miscellaneous Notes * Telephone Encounter - Daphney Sanchez LPN - 07/04/2023 1:09 PM EDT Please deliver to office at [facility] [place] [address], her mext appt is 08/01/23, thanks * Telephone Encounter - Mc Urias MD - 07/04/2023 12:52 PM EDT signed * Telephone Encounter - Daphney Sanchez LPN - 07/04/2023 10:43 AM EDT Med is obtained from [facility] and is run thru [facility] Please sign order to go to [facility] * Telephone Encounter - Yaima Kate OSA - 07/04/2023 10:33 AM EDT [facility] does not doing anything with [facility] * Telephone Encounter - Sylvia Sanchez LPN - 07/04/2023 10:13 AM EDT Pt gets prolia through [facility], please advise * Telephone Encounter - Caroline Guadarrama OSA - 07/04/2023 10:03 AM EDT The patient is concerned because she was told that she will have to pay over 2000 for her prolia injection. She states that she only pays 30. Please advise patient about this at [phone]. documented in this encounter Plan of Treatment Upcoming Encounters Date Type Department Care Team (Late st Contact Info) Description 07/19/2023 1:30 PM EDT Office Visit Cardiology, [facility] [address] [facility] [place] [address] Grace Knowles CRNP [address] [facility] [place] [address] 08/01/2023 2:30 PM EDT Nurse Only Rheumatology [place] [id number] [place] [address] Pf, Nurse Rheum [facility] [address] [place] [address] 11/14/2023 1:00 PM EDT Cardiac Studies Cardiology, [facility] [address] [facility] [place] [address] [facility] [address] [place] [address] 02/11/2024 1:40 PM EST Office Visit Rheumatology [place] [id number] [facility] [place] [address] Mc Urias MD [address] [place] [address] Health Maintenance Due Date Last Done Comments [...] this encounter Medical Devices Implanted Type Area Electrical Design Technologist Device Identifier Shelf Expiration Date Model / Serial / Lot Lens 21.0 Mx60 - [id number] - [id number] Implanted:Qty: 1 on 11/07/2016 by Anatoliy Gonzalez MD at OR [facility] Left: Eye [employer]OM[employer] : SURGICAL 02/08/2019 MX60-21.0 / [id number] / Lens 20.5 Mx60 - [id number] - [id number] Implanted:Qty: 1 on 11/21/2016 by Anatoliy Gonzalez MD at [facility] Right: Eye BAUSCH & LOMB : SURGICAL 03/11/2019 MX60-20.5 / [id number] / [id number] Valve Elvi 3 Ultra 26mm - [id number] Implanted:Qty: 1 on 09/20/2021 by Azael Eli MD at [facility] [employer] [id number] 07/10/2022 [id number] / / Lead Novus Bipolar 45cm - [id number] Implanted:Qty: 1 on 09/23/2021 by Lyn Henderson IV, MD at [facility] [employer] : CRM [id number] 05/09/2023 5076- 45 / [id number] 1 / [id number] Lead Pace Selectsecure 3830-69 - [id number] Implanted:Qty: 1 on 09/23/2021 by Lyn Henderson IV, MD at [facility] [employer] : CRM [id number] 07/01/2023 [id number] / [id number] V / [id number] Pacemaker Gricelda Xt Dr Nathan Wrls - [id number] Implanted:Qty: 1 on 09/23/2021 by Lyn Henderson IV, MD at [facility] [employer] [id number] 02/22/2023 [id number] / [id number] G / [id number] documented as of this encounter Advance [...] and were consensually agreed upon. Care Teams Dispensary Technician Relationship Specialty Start Date End Date Buck Zamorano MD [address] [address] PCP - General Internal Medicine 08/16/20 documented as of this encounter
--- OUTSIDE RECORDS SUMMARY | 2023-08-04 23:50 | External Medical Summary | Summary of Care ---
Author Name Unknown Organization [facility] Address [address] [address] Phone [phone] Care Team Providers Care Chef Under Name Role Phone Buck Zamorano MD Primary Care Provider [phone] Reason for Visit * Reason Onset Date Comments Advice 07/04/2023 Encounter Details Date Type Department Care Team (Late st Contact Info) Description 07/04/2023 Telephone Rheumatology [facility] [address] [place] [address] Mc Urias MD [facility] [place] [address] Advice Allergies Active Allergy Reactions Criticality Noted Date Comments Bee Venom 12/09/2002 Duloxetine 12/02/2021 Other reaction(s): Unknown Shellfish Diarrhea 01/11/2010 Loses water via Ostomy documented as of this encounter (statuses as of 07/12/2023) Medications Medication Sig Dispensed Refills Start Date [...] by mouth. 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 09/23/2021 Thrombocytopenia 09/21/2021 09/23/2021 Nonrheumatic aortic valve stenosis 07/07/2020 09/23/2021 SVT (supraventricular tachycardia) 07/07/2020 02/13/2023 documented as of this encounter (statuses as of 07/12/2023) Immunizations Name Administration Dates Next Due COVID-19 [...] encounter Miscellaneous Notes * Telephone Encounter - Willow Owen LPN - 07/12/2023 10:42 AM EDT Prolia arrived at * Telephone Encounter - Angeles Spring CPhT - 07/04/2023 2:14 PM EDT Shippig 07/10 for 07/11, pt oked copay * Telephone Encounter - Daphney Sanchez LPN - 07/04/2023 1:09 PM EDT Please deliver to office at [facility] [place] [address], her mext appt is 08/01/23, thanks * Telephone Encounter - Mc Urias MD - 07/04/2023 12:52 PM EDT signed * Telephone Encounter - Daphney Sanchez LPN - 07/04/2023 10:43 AM EDT Med is obtained from [facility] and is run thru [facility] Please sign order to go to [facility] * Telephone Encounter - Yaima Kate OSA [...] 30. Please advise patient about this at [phone]. documented in this encounter Plan of Treatment Upcoming Encounters Date Type Department Care Team (Late st Contact Info) Description 07/19/2023 1:30 PM EDT Office Visit Cardiology, [facility] [address] [place] [address] Grace Knowles CRNP [address] [place] [address] 08/01/2023 2:30 PM EDT Nurse Only Rheumatology [address] [place] [address] Pf, Nurse Rheum [address] [place] [address] [place] [address] 11/14/2023 1:00 PM EDT Cardiac Studies Cardiology, [facility] [address] [place] 132 [facility] [place] [address] 02/11/2024 1:40 PM EST Office Visit Rheumatology [address] [place] [address] Mc Urias MD [address] [place] [address] [place] [address] Health Maintenance Due Date Last Done Comments [...] this encounter Medical Devices Implanted Type Area Soda Room Operator Device Identifier Shelf Expiration Date Model / Serial / Lot Lens 21.0 Mx60 - [id number] - [id number] Implanted:Qty: 1 on 11/07/2016 by Anatoliy Gonzalez MD at OR [facility] Left: Eye BAUSCH [employer] LOMB : SURGICAL 02/08/2019 MX60-21.0 / [id number] / Lens 20.5 Mx60 - [id number] - [id number] Implanted:Qty: 1 on 11/21/2016 by Anatoliy Gonzalez MD at OR [facility] Right: Eye BAUSCH & LOMB : SURGICAL 03/11/2019 MX60-20.5 / [id number] / [id number] Valve Elvi 3 Ultra 26mm - [id number] Implanted:Qty: 1 on 09/20/2021 by Azael Eli MD at [facility] [employer] [id number] 07/10/2022 [id number] / / Lead Novus Bipolar 45cm - [id number] Implanted:Qty: 1 on 09/23/2021 by Lyn Henderson IV, MD at [facility] [employer] : CRM [id number] 05/09/2023 5076- 45 / [id number] 1 / [id number] Lead Pace Selectsecure 3830-69 - [id number] Implanted:Qty: 1 on 09/23/2021 by Lyn Henderson IV, MD at [facility] [employer] : CRM [id number] 07/01/2023 [id number] 9 / [id number] V / [id number] Pacemaker Gricelda Xt Dr Nathan Wrls - [id number] Implanted:Qty: 1 on 09/23/2021 by Lyn Henderson IV, MD at [facility] [employer] [facility] [id number] 02/22/2023 [id number] / [id number] / [id number] documented as of this encounter Advance [...] and were consensually agreed upon. Care Teams Chef Under Relationship Specialty Start Date End Date Buck Zamorano MD [address] [place] [address] PCP - General Internal Medicine 08/16/20 documented as of this encounter
--- OUTSIDE RECORDS SUMMARY | 2023-08-04 23:50 | External Medical Summary | Summary of Care ---
Author Name Unknown Organization [facility] Address [address] [facility] [place] [address] Phone [phone] Care Team Providers Care Production Planner Scheduler Name Role Phone Buck Zamorano MD Primary Care Provider [phone] Encounter Details Date Type Department Care Team (Late st Contact Info) Description 03/07/2023 Orders Only Rheumatology [place] [address] [employer] [place] [address] Mc Urias MD [facility] [employer] [place] [address] Allergies Active Allergy Reactions Criticality Noted Date Comments Bee Venom 12/09/2002 Duloxetine 12/02/2021 Other reaction(s): Unknown Shellfish Diarrhea 01/11/2010 Loses water via Ostomy documented as of this encounter (statuses as of 03/07/2023) Medications Medication Sig Dispensed Refills Start Date [...] by mouth. 0 A ctive nystatin (NYSTOP) 611123 UNIT/GM powderIndications:a s directed for ileostomy Apply [...] DAILY IN THE MORNING 0 01/27/2022 Active Nystatin 952470 UNIT/GM External Powder (Nystop) APPLY TOPICALLY TO AFFECTED AREA(S) THREE TIMES A DAY NEEDED FOR IRRITATION 180 g 3 07/07/2022 07/01/2023 Active Apixaban 2.5 MG Oral Tablet (Eliquis) TAKE ONE TABLET BY MOUTH TWICE A DAY 180 Tablet 3 05/31/2022 06/03/2023 Active Prolia 60 MG/ML Subcutaneous Solution Prefilled Syringe Inject 60 mg under the skin every 6 months. As directed. 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 09/23/2021 Thrombocytopenia 09/21/2021 09/23/2021 Nonrheumatic aortic valve stenosis 07/07/2020 09/23/2021 SVT (supraventricular tachycardia) 07/07/2020 02/13/2023 documented as of this encounter (statuses as of 03/07/2023) Immunizations Name Administration Dates Next Due COVID-19 [...] Care Team (Late st Contact Info) Description 04/12/2023 8:00 AM EST Laboratory Lab Mobile Phlebotomy [facility] [address] [place] [address] [facility] Mobile Home Draw [address] [place] [address] 04/23/2023 2:30 PM EST Imaging Radiology, [place] [address] [place] [address] 06/13/2023 2:30 PM EDT Office Visit Cardiology, [facility] [address] [place] [address] Grace Knowles CRNP [address] [place] [address] 08/01/2023 2:30 PM EDT Nurse Only Rheumatology [place] [address] [employer] [place] [address] Pf, Nurse Rheum [facility] [place] [address] 11/14/2023 1:00 PM EDT Cardiac Studies Cardiology, [facility] [address] [place] [address] [place] [address] [place] [address] 02/11/2024 1:40 PM EST Office Visit Rheumatology [facility] [address] [facility] [place] [address] Mc Urias MD [address] [facility] [place] [address] Health Maintenance Due Date Last Done Comments Depression Screening 1952 DTaP,Tdap,and Td Vaccines (1 - Tdap) 1959 AAA Monitoring 07/04/2022 07/04/2021, 01/20/2015 COVID-19 Vaccine (2022- season) 2022 05/15/2020, 04/17/2020 DXA Scan 01/28/2027 01/29/2020, 09/09, 07/15/2012, Additional history exists Pneumococcal Vaccine: 65+ Years Completed 01/22/2014, 01/19/2009 Zoster Vaccines Completed 08/19/2018, 04/12, 07/13/2011 Influenza Vaccine (FLU shot) Completed 01/20/2023, 11/15/2020 GARDASIL-HPV IMMUNIZATION SERIES Aged Out No longer eligible based on patient's age to complete this topic Hepatitis B Aged Out No longer eligi ble based on patient's age to complete this topic MENINGOCOCCAL (MENACTRA/MENVEO) Aged Out No longer eligible based on patient's age to complete this topic documented as of this encounter Medical Devices Implanted Type Area Casting Director Device Identifier Shelf Expiration Date Model / Serial / Lot Lens 21.0 Mx60 - [id number] - [id number] Implanted:Qty: 1 on 11/07/2016 by Anatoliy Gonzalez MD at OR [facility] Left: Eye BAUSCH & LOMB : SURGICAL 02/08/2019 MX60-21.0 / [id number] / Lens 20.5 Mx60 - [id number] - [id number] Implanted:Qty: 1 on 11/21/2016 by Anatoliy Gonzalez MD at OR [facility] Right: Eye BAUSCH & LOMB : SURGICAL 03/11/2019 MX60-20.5 / [id number] / [id number] Valve Elvi 3 Ultra 26mm - [id number] Implanted:Qty: 1 on 09/20/2021 by Azael Eli MD at [facility] [employer] [id number] 07/10/2022 [id number] / / Pacemaker Gricelda Xt Dr Evans [facility] - [id number] Implanted:Qty: 1 on 09/23/2021 by Lyn Henderson IV, MD at [facility] [employer] [id number] 02/22/2023 W1DR01 / [id number] / [id number] documented as of this encounter Procedures Procedure Name Priority Date/Time Associated Diagnosis Comments CHEMISTRY-OUTSIDE Routine 01/05/2023 TSH Routine 01/05/2023 documented in this encounter Results * TSH (01/05/2023) TSH - OUTSIDE LAB 2.070 0.300 - 4.500 UIU/ML OUTSIDE LAB (SEE SCANNED REPORT) Blood Venous blood specimen / Unknown 01/05/2023 Ethel Cummings PA-C LAB BLOOD ORDERABLES OUTSIDE LAB (SEE SCANNED REPORT) * (ABNORMAL) CHEMISTRY-OUTSIDE (01/05/2023) Not all results display below - see scan for full detail OUTSIDE LAB (SEE SCANNED REPORT) Comment:SCAN INCLUDES: CBCD, CMP, LIPID PANEL, TSH CREATININE-OUTSID E LAB 0.97 0.6 - 1.2 MG/DL OUTSIDE LAB (SEE SCANNED REPORT) EGFR-OUTSIDE LAB 54.8 ML/MIN OUT SIDE LAB (SEE SCANNED REPORT) POTASSIUM-OUTSIDE LAB 4.4 3.5 - 5.1 MMOL/L OUTSIDE LAB (SEE SCANNED REPORT) GLUCOSE-OUTSIDE LAB 93 70 - 99 MG/DL OUTSIDE LAB (SEE SCANNED REPORT) HOURS FASTING OUTSID E LAB (SEE SCANNED REPORT) TRIGLYCERIDES-OUT SIDE LAB 132 0 - 150 MG/DL OUTSIDE LAB (SEE SCANNED REPORT) CHOLESTEROL-OUTSI DE LAB 101 0 - 200 MG/DL OUTSIDE LAB (SEE SCANNED REPORT) HDL-OUTSIDE LAB 36(L) 40 - 60 MG/DL OUTSIDE LAB (SEE SCANNED REPORT) CHOL/HDL RATIO-OUTSIDE LAB 2.8 0 - 5 OUTSIDE LA B (SEE SCANNED REPORT) LDL (CALCULATED)-OUTS ISABELA LAB 39 <100 MG/DL OUTSIDE LAB (SEE SCANNED REPORT) LDL (DIRECT MEASURE)-OUTSIDE LAB OUTSIDE LAB (SEE SCANNED REPORT) HEMOGLOBIN, [id number] LAB OUTSIDE LAB (SEE SCANNED REPORT) PHOSPHORUS-OUTSID E LAB OUTSIDE LAB (SEE SCANNED REPORT) PTH-OUTSIDE LAB OUTS ISABELA LAB (SEE SCANNED REPORT) MICROALBUMIN RATIO-OUTSIDE LAB OUTSIDE LA B (SEE SCANNED REPORT) PROTEIN, UA-OUTSIDE LAB OUTSIDE LAB (SEE SCANNED REPORT) HEMOGLOBIN-OUTSID E LAB 10.6(A) 12.0 - 16.0 G/DL OUTSIDE LAB (SEE SCANNED REPORT) 01/05/2023 Ethel Cummings PA-C LABORATORY OUTSIDE LAB (SEE SCANNED REPORT) documented in this encounter Advance Directives Latest [...] and were consensually agreed upon. Care Teams Production Planner Scheduler Relationship Specialty Start Date End Date Buck Zamorano MD [address] [address] PCP - General Internal Medicine 08/16/20 documented as of this encounter
--- OUTSIDE RECORDS SUMMARY | 2023-08-04 23:50 | External Medical Summary ---
Author Name Unknown Address Unknown Organization [id number]:LABORATORY [facility] - [address] [facility] [place] [address] Laboratory Report Ordering Provider Test Date Status ANA RODRÍGUEZ 07/19/2023 14:09:15 Final Observation Date Value Abnormality Reference (Units ) Status SYNC LEUKOCYTES IN BLOOD BY AUTOMATED COUNT 07/19/2023 14:09:15 6.97 4.00-10.80 (K/uL) Final Segs 07/19/2023 14:09:15 73.4 40.0-75.0 (%) Final Lymphs % 07/19/2023 14:09:15 15.4 Below low normal 18.0-42.0 (%) Final Monos 07/19/2023 14:09:15 8.2 1.0-11.0 (%) Final Eosinophils 07/19/2023 14:09:15 2.4 0.0-6.0 (%) Final Basos 07/19/2023 14:09:15 0.3 0.0-2.0 (%) Final Immature Granulocyte, Percent 07/19/2023 14:09:15 0.3 0.0-2.0 (%) Final Absolute Segs 07/19/2023 14:09:15 5.12 1.80-7.70 (K/uL) Final Lymphs, absolute 07/19/2023 14:09:15 1.07 1.00-4.80 (K/ul) Final Monos, Abs 07/19/2023 14:09:15 0.57 0.00-1.10 (K/uL) Final Eos, Abs 07/19/2023 14:09:15 0.17 0.00-0.70 (K/uL) Final Basos, Abs 07/19/2023 14:09:15 0.02 0.00-0.20 (K/uL) Final Immature Granulocytes, Number 07/19/2023 14:09:15 0.02 0.00-0.20 (K/uL) Final Performing Location LABORATORY [facility] - [facility] [address] [facility] [address]
--- OUTSIDE RECORDS SUMMARY | 2023-08-04 23:50 | External Medical Summary ---
Author Name Unknown Address Unknown Organization K01:LABORATORY [facility] - [address] [place] [address] Laboratory Report Ordering Provider Test Date Status ANA RODRÍGUEZ 07/19/2023 14:09:15 Final Observation Date Value Abnormality Reference (Units ) Status Iron 07/19/2023 14:09:15 34 33-151 (ug/dL) Final Iron-binding capacity 07/19/2023 14:09:15 253 250-425 (ug/dL) Final Transferrin Sat % 07/19/2023 14:09:15 13 Below low normal 15-55 (%) Final Performing Location LABORATORY [facility] - [address] [place] [address]
--- OUTSIDE RECORDS SUMMARY | 2023-08-04 23:50 | External Medical Summary ---
Author Name Unknown Address Unknown Organization [id number]:[facility]ATORY [facility] - [address] [place] [address] Laboratory Report Ordering Provider Test Date Status ANA RODRÍGUEZ 07/19/2023 14:09:15 Final Observation Date Value Abnormality Reference (Units ) Status Folic Acid 07/19/2023 14:09:15 >20.0 >4.5 (ng/ mL) Final Performing Location LABORATORY [facility] - [address] [place] [address]
--- OUTSIDE RECORDS SUMMARY | 2023-08-04 23:50 | External Medical Summary ---
Author Name Unknown Address Unknown Organization [id number]:LABORATORY [facility] - [address] [facility] [address] [place] [address] Laboratory Report Ordering Provider Test Date Status LINCOLN RODRÍGUEZISO 07/19/2023 14:09:15 Final Observation Date Value Abnormality Reference (Units ) Status Ferritin 07/19/2023 14:09:15 395 Above high normal 13 -150 (ng/mL) Final Postmenopausal women have hi gher ferritin levels than pre-menopausal women. The above reference interval is based on pre-menopausal women. Performing Location LABORATORY [facility] - [address] [place] [address]
--- OUTSIDE RECORDS SUMMARY | 2023-08-04 23:50 | External Medical Summary | Summary of Care ---
Author Name Unknown Organization [facility] Address [address] [place] [address] Phone [phone] Care Team Providers Care Service Support Representative Name Role Phone Buck Zamorano MD Primary Care Provider [phone] Encounter Details Date Type Department Care Team (Late st Contact Info) Description 07/18/2023 Result Scan Unspecified Department Lyn Henderson IV, MD [address] [place] [address] <No scans attached> Allergies Active Allergy Reactions Criticality Noted Date Comments Bee Venom 12/09/2002 Duloxetine 12/02/2021 Other reaction(s): Unknown Shellfish Diarrhea 01/11/2010 Loses water via Ostomy documented as of this encounter (statuses as of 07/18/2023) Medications Medication Sig Dispensed Refills Start Date [...] by mouth. 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 09/23/2021 Thrombocytopenia 09/21/2021 09/23/2021 Nonrheumatic aortic valve stenosis 07/07/2020 09/23/2021 SVT (supraventricular tachycardia) 07/07/2020 02/13/2023 documented as of this encounter (statuses as of 07/18/2023) Immunizations Name Administration Dates Next Due COVID-19 [...] 07/19/2023 1:30 PM EDT Office Visit Cardiology, [facility] [address] [place] [address] Grace Knowles CRNP 132 [facility] [place] [address] 08/01/2023 2:30 PM EDT Nurse Only Rheumatology [place] [address] [place] [address] Pf, Nurse Rheum [facility] [address]unes [place] [address] 11/14/2023 1:00 PM EDT Cardiac Studies Cardiology, [facility] [address] [place] [address] [facility] 132 [facility] [place] [address] 02/11/2024 1:40 PM EST Office Visit Rheumatology [place] [address] [place] [place] [address] Mc Urias MD [address] [place] [address] Health Maintenance Due Date Last Done Comments Depression Screening 1952 DTaP,Tdap,and Td Vaccines (1 - Tdap) 1960 AAA Monitoring 07/04/2022 07/04/2021, 01/20/2015 COVID-19 Vaccine (3 - season) 2022 05/15/2020, 04/17/2020 DXA Scan 04/23/2030 [...] this encounter Medical Devices Implanted Type Area Tandem Mill Roller Device Identifier Shelf Expiration Date Model / Serial / Lot Lens 21.0 Mx60 - [id number] - [id number] Implanted:Qty: 1 on 11/07/2016 by Anatoliy Gonzalez MD at OR [facility] Left: Eye BAUSCH & LOMB : SURGICAL 02/08/2019 MX60-21.0 / [id number] / Lens 20.5 Mx60 - [id number] - [id number] Implanted:Qty: 1 on 11/21/2016 by Anatoliy Gonzalez MD at [facility] Right: Eye BAUSCH & LOMB : SURGICAL 03/11/2019 MX60-20.5 / [id number] / [id number] Valve Elvi 3 Ultra 26mm - [id number] Implanted:Qty: 1 on 09/20/2021 by Azael Eli MD at [facility] [employer] [id number] 07/10/2022 [id number] / / Lead Novus Bipolar 45cm - [id number] Implanted:Qty: 1 on 09/23/2021 by Lyn Henderson IV, MD at [facility] [employer] : CRM [id number] 05/09/2023 5076- 45 / [id number] 1 / [id number] Lead Pace Selectsecure 3830-69 - [id number] Implanted:Qty: 1 on 09/23/2021 by Lyn Henderson IV, MD at [facility] [employer] : CRM [id number] 07/01/2023 [id number] 9 / [id number] V / [id number] V Pacemaker Gricelda Xt Dr Nathan Wr - [id number] Implanted:Qty: 1 on 09/23/2021 by Lyn Henderson IV, MD at [facility] [employer] [facility] [id number] 02/22/2023 [id number] / [id number] / [id number] G documented as of this encounter Procedures Procedure Name Priority Date/Time Associated Diagnosis Comments CARDIOLOGY SCANNED RESULT 07/18/2023 documented in this encounter Results * CARDIOLOGY SCANNED RESULT (07/18/2023) 07/18/2023 Lyn Henderson IV, MD OTHER documented in this encounter Advance Directives Latest [...] and were consensually agreed upon. Care Teams Service Support Representative Relationship Specialty Start Date End Date Buck Zamorano MD [address] [place] [address] PCP - General Internal Medicine 08/16/20 documented as of this encounter
--- OUTSIDE RECORDS SUMMARY | 2023-08-04 23:50 | External Medical Summary ---
Author Name Unknown Address Unknown Organization K09:[facility] [place] [address] Laboratory Report Ordering Provider Test Date Status YODIT GIPSON 04/12/2023 12:32:37 Final Observation Date Value Abnormality Reference (Units ) Status WBC, Total 04/12/2023 12:32:37 6.42 4.00-10.8 0 (K/uL) Final RBC 04/12/2023 12:32:37 3.33 3.85-5.15 (M/uL) Final Hemoglobin 04/12/2023 12:32:37 10.0 Below low normal 12 .0-15.3 (g/dL) Final HCT 04/12/2023 12:32:37 33.6 Below low normal 36. 0-45.2 (%) Final MCV 04/12/2023 12:32:37 100.9 81.5-97.5 (fL) Final MCH 04/12/2023 12:32:37 30.0 27.0-34.0 (pg) Final MCHC 04/12/2023 12:32:37 29.8 32.0-36.0 (g/dL) Final RDW 04/12/2023 12:32:37 15.7 11.5-15.5 (%) Final Platelets 04/12/2023 12:32:37 193 140-400 (K /uL) Final MPV 04/12/2023 12:32:37 10.3 6.6-11.1 ( fL) Final Performing Location [facility] [place] [address]
--- OUTSIDE RECORDS SUMMARY | 2023-08-04 23:50 | External Medical Summary | Summary of Care ---
Author Name Unknown Organization [facility] Address [address] [facility] [address] Phone [phone] Care Team Providers Care Peoplesoft Hr Developer Name Role Phone Buck Zamorano MD Primary Care Provider [phone] Reason for Visit * Reason Onset Date Comments Advice 07/04/2023 Encounter Details Date Type Department Care Team (Late st Contact Info) Description 07/04/2023 Telephone Rheumatology [facility] [address] [place] [address] [facility] [employer] [place] [address] Advice Allergies Active Allergy Reactions Criticality Noted [...] by mouth. 0 A ctive nystatin (NYSTOP) 450473 UNIT/GM powderIndications:a s directed for ileostomy Apply [...] 10:43 AM EDT Med is obtained from [facility] and is run thru [facility] Please sign order to go to [facility] * Telephone Encounter - Yaima Kate OSA [...] 30. Please advise patient about this at [phone]. documented in this encounter Plan of Treatment Upcoming Encounters Date Type Department Care Team (Late st Contact Info) Description 07/19/2023 1:30 PM EDT Office Visit Cardiology, [facility] 132 [facility] [place] [address] Grace [facility]les CRNP [facility] [place] [address] 08/01/2023 2:30 PM EDT Nurse Only Rheumatology [address] [place] [address] Pf, Nurse Rheum [facility] [place] [address] 11/14/2023 1:00 PM EDT Cardiac Studies Cardiology, [facility] 132 [facility] [place] [address] Movritika, [facility] 132 [facility] [place] [address] 02/11/2024 1:40 PM EST Office Visit Rheumatology [place] [address] [facility] [place] [address] Mc Urias MD [address] [place] [address] [place] [address] Health Maintenance Due Date Last Done Comments [...] this encounter Medical Devices Implanted Type Area Order Entry Clerk Device Identifier Shelf Expiration Date Model / Serial / Lot Lens 21.0 Mx60 - [id number] - [id number] Implanted:Qty: 1 on 11/07/2016 by Anatoliy Gonzalez MD at OR [facility] Left: Eye BAUSCH & LOMB : SURGICAL 02/08/2019 MX60-21.0 / [id number] / Lens 20.5 Mx60 - [id number] - [id number] Implanted:Qty: 1 on 11/21/2016 by Anatoliy Gonzalez MD at OR [facility] Right: Eye BAUSCH & LOMB : SURGICAL 03/11/2019 MX60-20.5 / [id number] / [id number] Valve Elvi 3 Ultra 26mm - [id number] Implanted:Qty: 1 on 09/20/2021 by Azael Eli MD at [facility] [employer] [id number] 07/10/2022 [id number] / / Lead Novus Bipolar 45cm - [id number] Implanted:Qty: 1 on 09/23/2021 by Lyn Henderson IV, MD at [facility] [employer] : CRM [id number] 05/09/2023 5076- 45 / [id number] 1 / [id number] 1 Lead Pace Selectsecure 3830-69 - [id number] Implanted:Qty: 1 on 09/23/2021 by Lyn Henderson IV, MD at [facility] [employer] : CRM [id number] 07/01/2023 49907 9 / [id number] V / [id number] V Pacemaker Gricelda Xt Dr Mri Wrls - [id number] Implanted:Qty: 1 on 09/23/2021 by Lyn Henderson IV, MD at [facility] [employer] [id number] 02/22/2023 W1DR01 / [id number] G / [id number] G documented as of this encounter Advance [...] and were consensually agreed upon. Care Teams Peoplesoft Hr Developer Relationship Specialty Start Date End Date Buck Zamorano MD [address] [place] [address] PCP - General Internal Medicine 08/16/20 documented as of this encounter
--- OUTSIDE RECORDS SUMMARY | 2023-08-04 23:50 | External Medical Summary ---
Author Name Unknown Address Unknown Organization K01:[facility] [address] [address] [place] [address] Laboratory Report Ordering Provider Test Date Status ANA RODRÍGUEZ 07/19/2023 14:09:15 Final Observation Date Value Abnormality Reference (Units ) Status Retic, % (auto) 07/19/2023 14:09:15 1.71 0.80-1.90 (%) Final Reticulocytes, Absolute 07/19/2023 14:09:15 62.9 31.3-100.1 (K/uL) Final Reticulocyte fraction, immature 07/19/2023 14:09:15 23.4 Above high normal 2.5-20.6 (%) Final Reticulocyte HGB 07/19/2023 14:09:15 30.8 29.7-37.4 (pg) Final Performing Location [facility] [address] [place] [address]
--- OUTSIDE RECORDS SUMMARY | 2023-08-04 23:50 | External Medical Summary | Summary of Care ---
Author Name Unknown Organization [facility] Address [address] [facility] [address] Phone [phone] Care Team Providers Care Watchguard Name Role Phone Buck Zamorano MD Primary Care Provider [phone] Reason for Visit * Reason Onset Date Comments Advice 07/04/2023 Encounter Details Date Type Department Care Team (Late st Contact Info) Description 07/04/2023 Telephone Rheumatology [facility] [address] [place] [address] Mc Urias MD [facility] [place] [address] Advice Allergies Active Allergy Reactions Criticality Noted [...] by mouth. 0 A ctive nystatin (NYSTOP) 790777 UNIT/GM powderIndications:a s directed for ileostomy Apply [...] for 1 dose. 1 Each 0 07/04/2023 07/05/2023 Active documented as of this encounter (statuses [...] encounter Miscellaneous Notes * Telephone Encounter - Angeles Spring CPhT - 07/04/2023 2:14 PM EDT Shippig 07/10 for 07/11, pt oked copay * Telephone Encounter - Daphney Sanchez LPN - 07/04/2023 1:09 PM EDT Please deliver to office at [address] [place] [address], [place] [address], her mext appt is 08/01/23, thanks * Telephone Encounter - Mc Urias MD - 07/04/2023 12:52 PM EDT signed * Telephone Encounter - Daphney Sanchez LPN - 07/04/2023 10:43 AM EDT Med is obtained from [facility] and is run thru [facility] [...] 30. Please advise patient about this at [phone]. documented in this encounter Plan of Treatment Upcoming Encounters Date Type Department Care Team (Late st Contact Info) Description 07/19/2023 1:30 PM EDT Office Visit Cardiology, [facility] [address] [place] [address] Grace Knowles CRNP [address] [place] [address] 08/01/2023 2:30 PM EDT Nurse Only Rheumatology [address] [place] [address] Pf, Nurse Rheum [facility] [place] [address] 11/14/2023 1:00 PM EDT Cardiac Studies Cardiology, [facility] 132 [facility] [place] [address] [place], [facility] [address] [place] [address] 02/11/2024 1:40 PM EST Office Visit Rheumatology [facility] [address] [place] [address] Mc Urias MD [address] [place] [address] Health Maintenance Due Date Last Done Comments [...] this encounter Medical Devices Implanted Type Area Wave Soldering Machine Operator Device Identifier Shelf Expiration Date Model / Serial / Lot Lens 21.0 Mx60 - [id number] - [id number] Implanted:Qty: 1 on 11/07/2016 by CarlosAnatoliy malone MD at OR [facility] Left: Eye BAUSCH & LOMB : SURGICAL 02/08/2019 MX60-21.0 / [id number] / Lens 20.5 Mx60 - [id number] - [id number] Implanted:Qty: 1 on 11/21/2016 by Anatoliy Gonzalez MD at OR [facility] Right: Eye BAUSCH & LOMB : SURGICAL 03/11/2019 MX60-20.5 / [id number] / [id number] Valve Elvi 3 Ultra 26mm - [id number] Implanted:Qty: 1 on 09/20/2021 by Azael Eli MD at [facility] [employer] [id number] 07/10/2022 [id number] / / Lead Novus Bipolar 45cm - [id number] Implanted:Qty: 1 on 09/23/2021 by Lyn Henderson IV, MD at [facility] [employer] : CRM [id number] 05/09/2023 5076- 45 / [id number] 1 / [id number] 1 Lead Pace [employer] 3830-69 - [id number] Implanted:Qty: 1 on 09/23/2021 by Lyn Henderson IV, MD at [facility] [employer] : CRM [id number] 07/01/2023 [id number] 9 / [id number] V / [id number] V Pacemaker Gricelda Xt [facility] - [id number] Implanted:Qty: 1 on 09/23/2021 by Lyn Henderson IV, MD at [facility] [employer] [id number] 02/22/2023 [id number] / [id number] / [id number] documented as of this encounter Advance [...] and were consensually agreed upon. Care Teams Watchguard Relationship Specialty Start Date End Date Buck Zamorano MD [address] [place] [address] PCP - General Internal Medicine 08/16/20 documented as of this encounter
--- OUTSIDE RECORDS SUMMARY | 2023-08-04 23:50 | External Medical Summary ---
Author Name Unknown Address Unknown Organization K09:[facility] [place] [address] Laboratory Report Ordering Provider Test Date Status YODIT GIPSON 04/12/2023 12:32:37 Final Observation Date Value Abnormality Reference (Units ) Status SYNC LEUKOCYTES IN BLOOD BY AUTOMATED COUNT 04/12/2023 12:32:37 6.42 4.00-10.80 (K/uL) Final Segs 04/12/2023 12:32:37 68.2 40.0-75.0 (%) Final Lymphs % 04/12/2023 12:32:37 15.4 Below low normal 18.0-42.0 (%) Final Monos 04/12/2023 12:32:37 10.3 1.0-11.0 (%) Final Eosinophils 04/12/2023 12:32:37 5.9 0.0-6.0 (%) Final Basos 04/12/2023 12:32:37 0.2 0.0-2.0 (%) Final Absolute Segs 04/12/2023 12:32:37 4.38 1.80-7.70 (K/uL) Final Lymphs, absolute 04/12/2023 12:32:37 0.99 Below low normal 1.00-4.80 (K/ul) Final Monos, Abs 04/12/2023 12:32:37 0.66 0.00-1.10 (K/uL) Final Eos, Abs 04/12/2023 12:32:37 0.38 0.00-0.70 (K/uL) Final Basos, Abs 04/12/2023 12:32:37 0.01 0.00-0.20 (K/uL) Final Performing Location [facility] [place] [address]
--- OUTSIDE RECORDS SUMMARY | 2023-08-04 23:50 | External Medical Summary ---
Author Name Unknown Address Unknown Organization K01:[facility] [place] - [address] [place] [address] Laboratory Report Ordering Provider Test Date Status YODIT GIPSON 04/12/2023 12:32:37 Final Observation Date Value Abnormality Reference (Units ) Status Vitamin B12 04/12/2023 12:32:37 >2000 Above high normal 232-1245 (pg/mL) Final Performing Location [facility] - [address] [place] [address]
[2023-08-05 00:28] LABS: Hematocrit (blood only) 29.6 % (37.0-47.0); Hemoglobin 9.2 g/dl (12.0-16.0)
[2023-08-05 07:00] LABS: Basophils # (auto) 0.01 K/uL (0.00-0.20); Basophils % (auto) 0.1 %; Eosinophils # (auto) 0.23 K/uL (0.00-0.50); Eosinophils % (auto) 2.7 %; Hematocrit (blood only) 32.7 % (37.0-47.0); Hemoglobin 10.3 g/dl (12.0-16.0); Immature Granulocytes # (auto) 0.04 K/uL (0.01-0.20); Immature Granulocytes % (auto) 0.5 %; Lymphocytes # (auto) 0.99 K/uL (1.20-3.40); Lymphocytes % (auto) 11.5 %; Mean Corpuscular Hemoglobin 30.1 pg (25.0-34.0); Mean Corpuscular Hgb Conc 31.5 g/dL (32.0-36.0); Mean Corpuscular Volume 95.6 fL (80.0-100.0); Mean Platelet Volume 10.4 fL (9.4-12.4); Monocytes # (auto) 0.68 K/uL (0.11-0.59); Monocytes % (auto) 7.9 %; Neutrophils # (auto) 6.63 K/uL (1.40-6.50); Neutrophils % (auto) 77.3 %; Platelet Count 112 K/uL (130-400); RDW Coefficient of Variation 15.1 % (11.5-14.5); RDW Standard Deviation 52.5 fL (36.4-46.3); Red Blood Count 3.42 M/uL (4.20-5.40); White Blood Count 8.58 K/ul (4.8-10.8)
--- NOTE | 2023-08-05 07:09 | Hospitalist Progress Note ---
Date of Service August 05, 2023 Assessment & Plan (1) Acute UTI: Plan: Metabolic encephalopathy with Multiple falls in the morning of 08/03 UA positive for UTI present on arrival >100,000 Gram negative (pevious klebsiella only intermediate nitrofurantoin, sensitive to all else) no focal neurologic deficits, CT head negative Rocephin 2000 mg IV q24h (2) Fracture of right superior pubic ramus: Plan: A/P CT revealed acute nondisplaced right superior pubic ramus fracture; multiple age-indeterminate compression fractures (chronic) in the thoracic and lumbar spine Given history of recent falls, unclear when this occurred multimodal pain relief limit opiod use, at home on oxycodoneacetaminophen 5-325 BID scheduled could be contributing to falls, remove oxy and continue acetaminphen Fall precautions PT/OT evaluations appreciated Case management consulted for potential placement given patient's gradual decline, and 's difficulty caring for patient at home (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 Eli in September 2021 (5) History of SIADH: Plan: Monitor for hyponatremia with UTI + fluid resuscitation Continue sodium chloride 1000 mg tablets QAM (6) Cachexia: Plan: moderate protein malsumitirion, Dietitian consulted Plan S/p ileostomy, h/o crohns disease Daily ileostomy care Ostomy nurse consulted DNR/DNI VTE PPx: Hold apixaban 24 hours in the setting of acute falls/trauma Admission and Anticipated Discharge Date Admission Date: August 04, 2023 Subjective Pt is lethargic but does respond, falls asleep easily no focal complaints from falls Physical Exam Physical Exam: awakes, oriented x3 cardiac is regular with murmur lungs are clear Results & Data Results & Data Vital Signs (Past 12 Hours) Vital Signs Temp Pulse Pulse Resp BP BP Pulse Ox 08/05/23 02:40 63 13 100 08/05/23 02:30 70 12 99 08/05/23 02:20 63 9 L 97 08/05/23 02:10 63 14 98 08/05/23 02:00 118/58 L 08/05/23 02:00 65 13 96 08/05/23 01:50 61 13 98 08/05/23 01:40 72 10 L 97 08/05/23 01:30 62 13 97 08/05/23 01:20 68 12 94 08/05/23 01:10 62 12 96 08/05/23 01:00 113/49 L 08/05/23 01:00 61 11 L 98 08/05/23 00:58 117/50 L 08/05/23 00:58 71 20 100 08/05/23 00:50 63 11 L 97 08/05/23 00:40 64 12 97 08/05/23 00:30 74 10 L 98 08/05/23 00:20 65 13 98 08/05/23 00:10 65 8 L 99 08/05/23 00:00 102/74 08/05/23 00:00 80 14 98 08/04/23 23:50 79/35 L 08/04/23 23:50 79/35 L 08/04/23 23:50 63 11 L 94 08/04/23 23:40 62 15 92 08/04/23 23:30 66 15 96 08/04/23 23:21 69 19 95 08/04/23 23:21 89/40 L 08/04/23 23:20 63 13 95 08/04/23 23:19 65 18 95 08/04/23 23:19 89/37 L 08/04/23 23:10 62 23 98 08/04/23 23:10 85/45 L 08/04/23 23:09 85/39 L 08/04/23 23:09 66 8 L 96 08/04/23 23:00 68 18 96 08/04/23 22:50 81 24 96 08/04/23 22:50 74 08/04/23 22:40 79 21 96 08/04/23 22:30 91 H 24 96 08/04/23 22:20 82 18 98 08/04/23 22:10 84 24 100 08/04/23 22:04 98.1 F 86 18 122/60 96 08/04/23 22:00 81 17 97 08/04/23 21:56 74 19 97 08/04/23 21:56 122/60 08/04/23 21:50 79 15 94 08/04/23 21:40 94 H 17 93 08/04/23 21:30 86 21 94 08/04/23 21:20 84 21 89 L 08/04/23 21:10 85 22 97 08/04/23 21:04 104/47 L 08/04/23 21:04 82 11 L 100 08/04/23 21:01 74 23 98 08/04/23 21:01 72 08/04/23 21:00 08/04/23 20:58 98.3 F 90 16 123/71 96 08/04/23 20:20 75 15 95 08/04/23 20:12 73 08/04/23 20:10 82 23 98 08/04/23 20:01 67 27 H 97 08/04/23 20:01 98/72 L 08/04/23 20:00 69 24 97 08/04/23 19:50 80 15 94 08/04/23 19:40 71 20 99 08/04/23 19:31 86 39 H 98 08/04/23 19:31 91/61 L 08/04/23 19:30 86 26 H 97 08/04/23 19:20 67 22 91 08/04/23 19:10 60 40 H 92 O2 Del Method O2 Flow Rate 08/05/23 02:40 08/05/23 02:30 08/05/23 02:20 08/05/23 02:10 08/05/23 02:00 08/05/23 02:00 08/05/23 01:50 08/05/23 01:40 08/05/23 01:30 08/05/23 01:20 08/05/23 01:10 08/05/23 01:00 08/05/23 01:00 08/05/23 00:58 08/05/23 00:58 08/05/23 00:50 08/05/23 00:40 08/05/23 00:30 08/05/23 00:20 08/05/23 00:10 08/05/23 00:00 08/05/23 00:00 08/04/23 23:50 08/04/23 23:50 08/04/23 23:50 08/04/23 23:40 08/04/23 23:30 08/04/23 23:21 08/04/23 23:21 08/04/23 23:20 08/04/23 23:19 08/04/23 23:19 08/04/23 23:10 08/04/23 23:10 08/04/23 23:09 08/04/23 23:09 08/04/23 23:00 08/04/23 22:50 08/04/23 22:50 08/04/23 22:40 08/04/23 22:30 08/04/23 22:20 08/04/23 22:10 08/04/23 22:04 Nasal Cannula 3 08/04/23 22:00 08/04/23 21:56 08/04/23 21:56 08/04/23 21:50 08/04/23 21:40 08/04/23 21:30 08/04/23 21:20 08/04/23 21:10 08/04/23 21:04 08/04/23 21:04 08/04/23 21:01 08/04/23 21:01 08/04/23 21:00 Nasal Cannula 3 08/04/23 20:58 Nasal Cannula 2 08/04/23 20:20 08/04/23 20:12 08/04/23 20:10 08/04/23 20:01 2 08/04/23 20:01 08/04/23 20:00 08/04/23 19:50 08/04/23 19:40 08/04/23 19:31 08/04/23 19:31 08/04/23 19:30 08/04/23 19:20 08/04/23 19:10 Laboratory Results review cbc review chemistry PG Care Time/CCT Total # of Minutes Spent Total Time Spent with Patient: Total time spent is greater than 50% in coordination of care (as documented) at patient's floor/unit and/or counseling patient: Coding Level of Care Code 38106 SUB INP/OBS CARE 3/50MIN Diagnoses Acute UTI N39.0 Fracture of right superior pubic ramus S32.511A snf current use of anticoagulant Z79.01 CHF (congestive heart failure) I50.9 History of SIADH Z86.39 Cachexia R64
[2023-08-05 07:32] LABS: BUN Creatinine Ratio 29.1 (10-20); Calcium 9.5 mg/dl (8.6-10.3); Creatinine Clr Calc Pharmacy 36.3 ml/min; Est GFR (African American) 73.4 ml/min; Est GFR (Non-African American) 63.4 ml/min; Magnesium 1.7 mg/dl (1.7-2.4); Potassium 3.9 mmol/L (3.5-5.1)
[2023-08-05 07:47] LABS: Troponin I High Sensitivity 46.8 pg/ml (0-14)
[2023-08-05] MEDS: ATENOLOL 50 MG TABLET PO SCH (08:26)
[2023-08-05] MEDS: MAGNESIUM CHLORIDE W/CALCIUM 64MG DELAYED REL TAB PO SCH (08:26)
[2023-08-05] MEDS: SODIUM CHLORIDE 1 GM TABLET PO SCH (08:26)
[2023-08-05] MEDS: oxyCODONE/ACETAMINOPHEN 5mg/325mg TAB PO SCH (08:28)
[2023-08-05 12:39] LABS: A calco-baum cmplx NotReported Not Detected (NotDetected); Bact fragilis Not Reported Not Detected (NotDetected); Blood Culture Id Panel See PCR Comment (NotDetected); C auris Not Reported Not Detected (NotDetected); Calbicans Not Reported Not Detected (NotDetected); Candida glabrata Not Reported Not Detected (NotDetected); Candida krusei Not Reported Not Detected (NotDetected); Cneoformans/gatti Not Reported Not Detected (NotDetected); Cparapsilosis Not Reported Not Detected (NotDetected); E cloacae compx Not Reported Not Detected (NotDetected); Efaecalis Not Reported Not Detected (NotDetected); Efaecium Not Reported Not Detected (NotDetected); Enterobacterales Not Reported Not Detected (NotDetected); Escherichia coli Not Reported Not Detected (NotDetected); H influenzae Not Reported Not Detected (NotDetected); K aerogenes Not Reported Not Detected (NotDetected); Koxytoca Not Reported Not Detected (NotDetected); Kpneumoniae grp Not Reported Not Detected (NotDetected); Lmonocyt Not Reported Not Detected (NotDetected); N meningitidis Not Reported Not Detected (NotDetected); P aeruginosa Not Reported Not Detected (NotDetected); Proteus spp Not Reported Not Detected (NotDetected); Salmonella spp Not Reported Not Detected (NotDetected); Smarcescens Not Reported Not Detected (NotDetected); Staph lugdunensis Not Reported Not Detected (NotDetected); Staph spp. Not Reported DETECTED (NotDetected); Staphaureus Not Reported Not Detected (NotDetected); Staphepi Not Reported DETECTED (NotDetected); Stenmaltophilia Not Reported Not Detected (NotDetected); Strep agal(GrpB) Not Reported Not Detected (NotDetected); Strep pneum Not Reported Not Detected (NotDetected); Strep pyog (GrpA) Not Reported Not Detected (NotDetected); Strep spp Not Reported Not Detected (NotDetected); mecAC Resistant Gene Not Detected (NotDetected)
[2023-08-05 12:46] LABS: Staphylococcus epidermidis DETECTED (NotDetected); Staphylococcus spp. DETECTED (NotDetected)
[2023-08-05] MEDS: cefTRIAXone SODIUM 2,000 MG/50 ML BAG IV SCH (18:00)
--- NOTE | 2023-08-05 21:12 | Electrocardiogram Report ---
Test Reason : Blood Pressure : / mmHG Vent. Rate : 071 BPM Atrial Rate : 071 BPM P-R Int : 204 ms QRS Dur : 080 ms QT Int : 412 ms P-R-T Axes : 084 -87 086 degrees QTc Int : 447 ms Atrial-sensed ventricular-paced rhythm Abnormal ECG When compared with ECG of 02-FEB-2022 05:34, No significant change was found Confirmed by Carlos Hylton ([id number]) on 08/05/2023 9:12:02 PM Referred By: REFERRED SELF Confirmed By:Carlos Hylton
[2023-08-06 05:48] LABS: Basophils # (auto) 0.02 K/uL (0.00-0.20); Basophils % (auto) 0.3 %; Eosinophils # (auto) 0.28 K/uL (0.00-0.50); Hematocrit (blood only) 31.2 % (37.0-47.0); Hemoglobin 9.6 g/dl (12.0-16.0); Immature Granulocytes # (auto) 0.02 K/uL (0.01-0.20); Immature Granulocytes % (auto) 0.3 %; Lymphocytes # (auto) 0.91 K/uL (1.20-3.40); Lymphocytes % (auto) 12.9 %; Mean Corpuscular Hemoglobin 29.4 pg (25.0-34.0); Mean Corpuscular Hgb Conc 30.8 g/dL (32.0-36.0); Mean Corpuscular Volume 95.4 fL (80.0-100.0); Mean Platelet Volume 10.8 fL (9.4-12.4); Monocytes # (auto) 0.63 K/uL (0.11-0.59); Monocytes % (auto) 8.9 %; Neutrophils # (auto) 5.22 K/uL (1.40-6.50); Neutrophils % (auto) 73.6 %; Platelet Count 108 K/uL (130-400); RDW Coefficient of Variation 14.8 % (11.5-14.5); RDW Standard Deviation 52.4 fL (36.4-46.3); Red Blood Count 3.27 M/uL (4.20-5.40); White Blood Count 7.08 K/ul (4.8-10.8)
[2023-08-06 06:01] LABS: BUN Creatinine Ratio 28.2 (10-20); Calcium 9.2 mg/dl (8.6-10.3); Creatinine Clr Calc Pharmacy 36.1 ml/min; Est GFR (African American) 74.5 ml/min; Est GFR (Non-African American) 64.3 ml/min; Potassium 3.9 mmol/L (3.5-5.1)
[2023-08-06] MEDS: APIXABAN 2.5 MG TAB PO SCH (07:44)
[2023-08-06] MEDS: ACETAMINOPHEN 325 MG TAB PO PRN (07:47)
--- NOTE | 2023-08-06 15:07 | Hospitalist Progress Note ---
Date of Service August 06, 2023 Assessment & Plan (1) Acute UTI: Plan: Metabolic encephalopathy with Multiple falls in the morning of 08/03 UA positive for UTI present on arrival, E Coli resistant to pcn Bactrim and quinolones one blood culture is positive for coag neg staph considered a contaminant no focal neurologic deficits, CT head negative Rocephin 2000 mg IV q24h (2) Fracture of right superior pubic ramus: Plan: A/P CT revealed acute nondisplaced right superior pubic ramus fracture; multiple age-indeterminate compression fractures (chronic) in the thoracic and lumbar spine Given history of recent falls, unclear when this occurred multimodal pain relief limit opiod use, at home on oxycodoneacetaminophen 5-325 BID scheduled could be contributing to falls, remove oxy and continue ac etaminphen Fall precautions PT/OT evaluations appreciated Case management consulted for potential placement given patient's gradual decline, and 's difficulty caring for patient at home (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 Eli in September 2021 (5) History of SIADH: Plan: Monitor for hyponatremia with UTI + fluid resuscitation sodium remains normal 08/06/23 Continue sodium chloride 1000 mg tablets QAM (6) Cachexia: Plan: moderate protein Efraín norrisitian consulted Plan S/p ileostomy, h/o crohns disease Daily ileostomy care Ostomy nurse consulted DNR/DNI VTE PPx: Hold apixaban 24 hours in the setting of acute falls/trauma Admission and Anticipated Discharge Date Admission Date: August 04, 2023 Subjective pt is much more awake and alert is conversant and oriented confirmed e coli uti poa no focal complaints from falls Physical Exam Physical Exam: awakes, oriented x3 cardiac is regular with murmur lungs are clear Results & Data Results & Data Vital Signs (Past 12 Hours) Vital Signs Temp Pulse Pulse Resp BP Pulse Ox O2 Del Method 08/06/23 14:00 60 08/06/23 12:25 60 08/06/23 12:20 98.8 F 68 19 98/54 L 94 Nasal Cannula 08/06/23 09:39 Nasal Cannula 08/06/23 07:59 98.4 F 66 18 127/58 L 94 Nasal Cannula O2 Flow Rate 08/06/23 14:00 08/06/23 12:25 08/06/23 12:20 08/06/23 09:39 3 08/06/23 07:59 Laboratory Results review cbc review chemistry PG Care Time/CCT Total # of Minutes Spent Total Time Spent with Patient: Total time spent is greater than 50% in coordination of care (as documented) at patient's floor/unit and/or counseling patient: Coding Level of Care Code 12821 SUB INP/OBS CARE 2/35MIN Diagnoses Acute UTI N39.0 Fracture of right superior pubic ramus 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
[2023-08-06] MEDS: MELATONIN 3 MG TAB PO PRN (20:34)
[2023-08-07 06:42] LABS: Basophils # (auto) 0.02 K/uL (0.00-0.20); Basophils % (auto) 0.3 %; Eosinophils # (auto) 0.21 K/uL (0.00-0.50); Eosinophils % (auto) 3.2 %; Hematocrit (blood only) 31.8 % (37.0-47.0); Hemoglobin 9.9 g/dl (12.0-16.0); Immature Granulocytes # (auto) 0.02 K/uL (0.01-0.20); Immature Granulocytes % (auto) 0.3 %; Lymphocytes % (auto) 13.8 %; Mean Corpuscular Hemoglobin 29.1 pg (25.0-34.0); Mean Corpuscular Hgb Conc 31.1 g/dL (32.0-36.0); Mean Corpuscular Volume 93.5 fL (80.0-100.0); Monocytes # (auto) 0.41 K/uL (0.11-0.59); Monocytes % (auto) 6.3 %; Neutrophils # (auto) 4.96 K/uL (1.40-6.50); Neutrophils % (auto) 76.1 %; Platelet Count 121 K/uL (130-400); RDW Coefficient of Variation 14.6 % (11.5-14.5); RDW Standard Deviation 50.2 fL (36.4-46.3); White Blood Count 6.52 K/ul (4.8-10.8)
[2023-08-07 06:58] LABS: BUN Creatinine Ratio 27.5 (10-20); Calcium 8.7 mg/dl (8.6-10.3); Creatinine Clr Calc Pharmacy 45.9 ml/min; Est GFR (African American) 94.6 ml/min; Est GFR (Non-African American) 81.6 ml/min; Potassium 4.6 mmol/L (3.5-5.1)
--- NOTE | 2023-08-07 20:37 | Hospitalist Progress Note ---
Date of Service August 07, 2023 Assessment & Plan (1) Acute UTI: Plan: Metabolic encephalopathy with Multiple falls in the morning of 08/03 UA positive for UTI present on arrival, E Coli resistant to pcn Bactrim and quinolones one blood culture is positive for coag neg staph considered a contaminant no focal neurologic deficits, CT head negative Rocephin 2000 mg IV q24h continue above treatment. reviewed cbc and bmp (2) Fracture of right superior pubic ramus: Plan: A/P CT revealed acute nondisplaced right superior pubic ramus fracture; multiple age-indeterminate compression fractures (chronic) in the thoracic and lumbar spine Given history of recent falls, unclear when this occurred multimodal pain relief limit opiod use, at home on oxycodoneacetaminophen 5-325 BID scheduled could be contributing to falls, remove oxy and continue acetaminphen Fall precautions PT/OT evaluations appreciated Case management consulted for potential placement given patient's gradual decline, and 's difficulty caring for patient at home (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 Eli in September 2021 (5) History of SIADH: Plan: Monitor for hyponatremia with UTI + fluid resuscitation sodium remains normal 08/06/23 Continue sodium chloride 1000 mg tablets QAM (6) Cachexia: Plan: moderate protein jr Dietitian consulted Plan S/p ileostomy, h/o crohns disease Daily ileostomy care Ostomy nurse consulted DNR/DNI VTE PPx: Hold apixaban 24 hours in the setting of acute falls/trauma Admission and Anticipated Discharge Date Admission Date: August 04, 2023 Subjective 82 yo female reports no new symptoms. Review of Systems Review of Systems: All systems reviewed & are unremarkable except as noted in HPI & below Physical Exam Physical Exam: awakes, oriented x3 cardiac is regular with murmur lungs are clear Results & Data Results & Data Vital Signs (Past 12 Hours) Vital Signs Temp Pulse Pulse Resp BP Pulse Ox O2 Del Method 08/07/23 19:34 36.9 C 85 23 127/76 96 Nasal Cannula 08/07/23 16:27 87 08/07/23 16:00 36.7 C 80 16 100/61 97 Nasal Cannula 08/07/23 11:00 36.6 C 88 18 120/63 99 Nasal Cannula O2 Flow Rate 08/07/23 19:34 2 08/07/23 16:27 08/07/23 16:00 2 08/07/23 11:00 2 PG Care Time/CCT Total # of Minutes Spent Total Time Spent with Patient: Total time spent is greater than 50% in coordination of care (as documented) at patient's floor/unit and/or counseling patient: Coding Level of Care Code 57307 SUB INP/OBS CARE 2/35MIN Diagnoses Acute UTI N39.0 Fracture of right superior pubic ramus S32.511A care home current use of anticoagulant Z79.01 CHF (congestive heart failure) I50.9 History of SIADH Z86.39 Cachexia R64
[2023-08-08 06:50] LABS: Creatinine Clr Calc Pharmacy 45.3 ml/min; Est GFR (African American) 94.2 ml/min; Est GFR (Non-African American) 81.3 ml/min
--- NOTE | 2023-08-08 21:57 | Hospitalist Progress Note ---
Date of Service August 08, 2023 Assessment & Plan (1) Acute UTI: Plan: Metabolic encephalopathy with Multiple falls in the morning of 08/03 UA positive for UTI present on arrival, E Coli resistant to pcn Bactrim and quinolones one blood culture is positive for coag neg staph considered a contaminant no focal neurologic deficits, CT head negative Rocephin 2000 mg IV q24h completed 5 day course reviewed cbc and bmp (2) Fracture of right superior pubic ramus: Plan: A/P CT revealed acute nondisplaced right superior pubic ramus fracture; multiple age-indeterminate compression fractures (chronic) in the thoracic and lumbar spine Given history of recent falls, unclear when this occurred multimodal pain relief limit opiod use, at home on oxycodoneacetaminophen 5-325 BID scheduled could be contributing to falls, remove oxy and continue acetaminphen Fall precautions PT/OT evaluations appreciated Case management consulted for potential placement given patient's gradual decline, and 's difficulty caring for patient at home (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 Eli in September 2021 (5) History of SIADH: Plan: Monitor for hyponatremia with UTI + fluid resuscitation sodium remains normal 08/06/23 Continue sodium chloride 1000 mg tablets QAM (6) Cachexia: Plan: moderate protein jr Dietitian consulted Plan S/p ileostomy, h/o crohns disease Daily ileostomy care Ostomy nurse consulted DNR/DNI VTE PPx: Hold apixaban 24 hours in the setting of acute falls/trauma Admission and Anticipated Discharge Date Admission Date: August 04, 2023 Subjective 82 yo female reports no new symptoms. Review of Systems Review of Systems: All systems reviewed & are unremarkable except as noted in HPI & below Physical Exam Physical Exam: awakes, oriented x3 cardiac is regular with murmur lungs are clear Results & Data Results & Data Vital Signs (Past 12 Hours) Vital Signs Temp Pulse Resp BP Pulse Ox O2 Del Method O2 Flow Rate 08/08/23 15:00 36.8 C 67 18 109/60 98 Nasal Cannula 2 08/08/23 11:00 36.7 C 68 20 119/65 98 Nasal Cannula 2 PG Care Time/CCT Total # of Minutes Spent Total Time Spent with Patient: Total time spent is greater than 50% in coordination of care (as documented) at patient's floor/unit and/or counseling patient: Coding Level of Care Code 87761 SUB INP/OBS CARE 2/35MIN Diagnoses Acute UTI N39.0 Fracture of right superior pubic ramus 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
[2023-08-09 08:27] LABS: BUN Creatinine Ratio 15.6 (10-20); Calcium 8.1 mg/dl (8.6-10.3); Creatinine Clr Calc Pharmacy 49.5 ml/min; Est GFR (Non-African American) 83.7 ml/min; Potassium 4.4 mmol/L (3.5-5.1)
--- NOTE | 2023-08-09 13:19 | Discharge Summary ---
Date of Service August 09, 2023 Admission HPI Per Admitting Provider Miranda is an 82-year-old female with PMH of ileostomy, CAD, s/p TAVR, cardiac pacemaker, CHF, SIADH, HTN, hyperlipidemia, anxiety, aortic stenosis, GERD, Crohn's, PSVT, and UTIs. She presented for multiple falls on the morning of 08/03. Patient's reports that she fell around 1 AM, and then again around 5:30 AM. These were unwitnessed falls. No LOC. Possible head strike; patient says she "bumped" her head on the carpeted floor. Patient reports that she lost her balance, and her legs gave out on her. However she also felt dizzy/lightheaded prior to fall. Patient appears to be a poor historian at this time. Patient's daughter is present, and does report that this is an acute change in cognitive baseline for her mother. Patient has a history of recurrent falls, and per , she has been on a clinical decline ever since she had a heart valve replaced around a year ago. She has difficulty with ambulation; ambulates with a walker at baseline. She also has been eating less and less. Patient's has concerns about taking care of her at home. She is ileostomy status, and requires daily ostomy care. Patient does have supplemental oxygen at home (2L [place]) however she only uses it as needed. No CPAP at night. Patient took all of her regular morning medications today; no recent change in medications. Patient's daughter reports that during her last UTI, the patient did develop confusion as well as hyponatremia. No history of strokes. Patient is a former smoker but quit 40 years ago. She denies any recent alcohol use. Patient is hypotensive at 106/48 at time of admission; SpO2 87% on 2L NC. ED course: Lorazepam 0.25 mg IV Rocephin 2000 mg IV ROS is difficult to obtain at this time given patient's acute change in cognitive baseline. However: Patient endorses multiple falls, left lower back pain, urinary incontinence, confusion, lightheadedness, and nausea. Patient denies fever, chills, night sweats, new body aches, headaches, slurred speech, facial droop, chest pain, pleuritic CP, SOB, cough, abdominal pain, burning with urination, or blood in the urine/stool. Principal Diagnosis acute UTI Discharge Exam awake cardiac is regular with murmur lungs are clear Discharge Data Allergies Allergy/AdvReac Type Severity Reaction Status Date / Time bee venom protein (honey bee) Allergy Unknown Unknown Verified 08/04/23 16:42 duloxetine [From Cymbalta] Allergy Unknown Unknown Verified 08/04/23 16:42 iodine Allergy Unknown Unknown Verified 08/04/23 16:42 shellfish derived Allergy Unknown Unknown Verified 08/04/23 16:42 Consultations 08/04/23 17:37 ED Decision to Admit Stat Ordered Studies 08/04/23 15:41 CT abd pelvis wo con Stat CT cervical spine wo con Stat CT head/brain wo con Stat Hospital Course (1) Acute UTI: Metabolic encephalopathy with Multiple falls in the morning of 08/03 UA positive for UTI present on arrival, E Coli resistant to pcn Bactrim and quinolones one blood culture is positive for coag neg staph considered a contaminant no focal neurologic deficits, CT head negative Rocephin 2000 mg IV q24h completed 5 day course reviewed cbc and bmp (2) Fracture of right superior pubic ramus: A/P CT revealed acute nondisplaced right superior pubic ramus fracture; multiple age-indeterminate compression fractures (chronic) in the thoracic and lumbar spine Given history of recent falls, unclear when this occurred multimodal pain relief limit opiod use, at home on oxycodoneacetaminophen 5-325 BID scheduled could be contributing to falls, remove oxy and continue acetaminphen Fall precautions PT/OT evaluations appreciated Case management consulted for potential placement given patient's gradual decline, and 's difficulty caring for patient at home Patient will bne going to [facility]hab (3) FDC current use of anticoagulant: Secondary hypercoagulable state, protein S deficiency, prescribed lifelong anticoagulation Will hold apixaban for 24 hours in the setting of acute falls; okay to resume if hemoglobin remains stable (4) CHF (congestive heart failure): History of Chronic diastolic heart failure Troponin 52-57-57-47 do not suspect ACS secondary to demand ischemia Hx of severe ; underwent TAVR with Dr. Eli in September 2021 (5) History of SIADH: Monitor for hyponatremia with UTI + fluid resuscitation sodium remains normal 08/06/23 Continue sodium chloride 1000 mg tablets QAM (6) Cachexia: moderate protein malnutirion, Dietitian consulted Plan S/p ileostomy, h/o crohns disease Daily ileostomy care Ostomy nurse consulted Total Time Total Time Spent Total Time Spent (In Minutes): 32 Discharge Plan Discharge Items Patient Disposition: Transfer Long-Term Fac Reason For Visit: MULTIPLE FALLS, UTI Discharge Diagnosis: multiple falls Activity: Resume your previous activity Non-emergency contact: Primary Care Provider Call non-emergency contact if: you have any medication questions Follow-up/Referrals: Bertha Alexander MD [Primary Care Provider] - Diet: Regular Diet Texture: Easy to Chew Addtl Attending Provider Instructions: Recommend followup with PCP in 1-2 weeks. recheck BMP in 1 week Pending Studies at Discharge: No Stand-Alone Forms: My Influx Skilled Items Patient informed of condition?: Yes DNR: No Discharge Level of Care: Skilled Communicable Disease: No Discharge Prognosis: Stable Lines: None Urinary Catheter: No Medications and DC Order Prescriptions: New quetiapine [Seroquel] 25 mg tablet 25 mg PO HS PRN (Reason: withdrawal symptoms) Qty: 30 0RF Continued cholecalciferol (vitamin D3) 25 mcg (1,000 unit) tablet 25 mcg PO BID atenolol 50 mg tablet 50 mg PO DAILY Qty: 90 3RF furosemide 40 mg tablet 40 mg PO QAM Qty: 90 3RF Eliquis 2.5 mg tablet 2.5 mg PO BID Qty: 180 3RF omeprazole 20 mg capsule,delayed release(DR/EC) 20 mg PO BID Qty: 180 3RF Rx Instructions: take 1 cap PO BID magnesium chloride [Mag 64] 64 mg Tablet,Delayed Release (Dr/Ec) 64 mg PO QAM Qty: 30 0RF (DME) Oxygen Home Liters Per Minute See Rx Instructions .Route Qty: 1 0RF Rx Instructions: As directed ascorbic acid (vitamin C) [Vitamin C With Oriana Hips] 1,000 mg Tablet 1 g PO BID cyanocobalamin (vitamin B-12) [Vitamin B-12] 1,000 mcg Tablet 1,000 mcg PO Q OTHER DAY oxycodone-acetaminophen 5-325 mg tablet 1 tab PO BID Rx Instructions: TAKES AT 1100 & 2300 calcium carbonate [Calcium 600] 600 mg calcium (1,500 mg) Tablet 600 mg PO BID ferrous sulfate [iron] 325 mg (65 mg iron) Tablet 325 mg PO DAILY sodium chloride 1,000 mg Tablet,Soluble 1,000 mg PO QAM Probiotic 10 billion cell Capsule 10,000 mmu cells PO DAILY [id number] [MegaRed [place]-3 Krill Oil] 1,000-230-60 mg Capsule 1 cap PO DAILY simvastatin 10 mg tablet 10 mg PO HS potassium chloride 20 mEq tablet extended release 20 meq PO QAM Discontinued clonazepam 1 mg tablet See Rx Instructions .ROUTE .COMPLEX Rx Instructions: TAKES 0.5 MG @ 1100, THEN 1 MG AT 2300. Discharge Orders: Discharge Order (Routine); Ordered 08/09/23 Ordered By: Bronson Montes Admission Data Admit Date/Time: 08/04/23 18:46 Attending Provider: Bronson Montes Admit Provider: Buck Simons Primary Care Provider: Bertha Alexander Other Providers: Ankita Cárdenas at [place]; Buck Simons Other Interventions: Discharge Summary Assessment (RN) Last Done: 08/09/23 13:53 Coding Level of Care Code 26820 INP/OBS DISCH >30 MIN Diagnoses Acute UTI N39.0 Fracture of right superior pubic ramus S32.511A FDC current use of anticoagulant Z79.01 CHF (congestive heart failure) I50.9 History of SIADH Z86.39 Cachexia R64
[2023-08-09] MEDS: FUROSEMIDE 40 MG TAB PO STA (14:03)
== END 2023-08-09 15:02 | DRG 689 ==
LOC: SUATTDRO → ED 15:28 → 2E 18:46 → SUATTDRO 18:46 → 2E 20:28 → 3N 08-08 20:34

== ENCOUNTER 2024-04-24 06:01 | Inpatient (IN) ==
[2024-04-24] MEDS ORDERED: STAT IV Infusion **Titration per Protocol STA (06:06)
[2024-04-24] MEDS ORDERED: ALBUT/IPRATROP 3MG/0.5MG NEB 3 ML VIAL INH PRN (06:06)
--- NOTE | 2024-04-24 06:11 | History & Physical Report ---
Date of Service April 24, 2024 Assessment & Plan (1) Admitted to intensive care unit: (2) Hypotension: (3) Septic shock: (4) Elevated troponin: Plan The patient presented to the emergency department at [facility], with history of a fall 3 days previously, has developed a temperature, and progressive confusion and disorientation since that time. At [facility], she initially had a normal pressure 125/44, however, progressively developed lower blood pressure, to systolic of 70, and despite 1 L fluid resuscitation, and then a second liter fluid resuscitation, systolic blood pressure not respond, she was started on Levophed infusion at that time. Emerg ency department at the outside facility, and called [facility], and patient was accepted in transfer to the ICU. Of note, the patient has been noted to be DNR/DNI, but conversation from the ED physician at [facility], confirmed with that pressor support and treatment was desired. In addition to Levophed, the patient was placed on vancomycin IV and Zosyn IV. It is noted, received a total 2 L normal saline fluid bolus, and was then asked to have additional 500 mL normal saline bolus prior to transfer. Of note, patient was COVID and flu negative prior to transfer. CT head without contrast, CT chest, CT abdomen and pelvis and CT neck were all reported as negative Hypotension from unknown source- NPO Status post 2.5 L normal saline bolus from the ED at [facility]. 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 Clements and staff Hypertension/history of TAVR/CHF history- Holding antihypertensives On apixaban as outpatient, convert to IV heparin per protocol per ICU The patient will be admitted to ICU for serial cardiac enzymes, serial EKG's, cardiac rhythm monitoring and a 2-D echocardiogram with Dopplers. History of TAVR, concern regarding possibility of endocarditis Continue vancomycin IV and Zosyn IV Follow-up blood cultures GERD- Change omeprazole to pantoprazole Remaining orders per ICU History of Present Illness Chief Complaint: The patient presented to the emergency department at [facility], with history of a fall 3 days previously, has developed a temperature, and progressive confusion and disorientation since that time. At [facility], she initially had a normal pressure 125/44, however, progressively developed lower blood pressure, to systolic of 70, and despite 1 L fluid resuscitation, and then a second liter fluid resuscitation, systolic blood pre ssure not respond, she was started on Levophed infusion at that time. Emergency department at the outside facility, and called [facility], and patient was accepted in transfer to the ICU. Of note, the patient has been noted to be DNR/DNI, but conversation from the ED physician at [facility], confirmed with that pressor support and treatment was desired Primary Care Provider: Bertha Buckner MD The patient is an 83-year-old female with a past medical history including SI ADH, interstitial lung disease, sacral decubitus ulcer, complete heart block, history of cardiac pacemaker, status post TAVR, PSVT, GERD, Crohn's disease, chronic pain syndrome, hyperlipidemia, and ileostomy in place.The patient presented to the emergency department at [facility], with history of a fall 3 days previously, has developed a temperature, and progressive confusion and disorientation since that time. At [facility], she initially had a normal pressure 125/44, however, progressively developed lower blood pressure, to systolic of 70, and despite 1 L fluid resuscitation, and then a second liter fluid resuscitation, systolic blood pressure not respond, she was started on Levophed infusion at that time. Emergency department at the outside facility, and called [facility], and patient was accepted in transfer to the ICU. Of note, the patient has been noted to be DNR/DNI, but conversation from the ED physician at [facility], confirmed with that pressor support and treatment was desired Allergies Allergy/AdvReac Type Severity Reaction Status Date / Time bee venom protein (honey bee) Allergy Unknown Unknown Verified 08/27/23 14:36 duloxetine [From Cymbalta] Allergy Unknown Unknown Verified 08/27/23 14:36 iodine Allergy Unknown Unknown Verified 08/27/23 14:36 shellfish derived Allergy Unknown Unknown Verified 08/27/23 14:36 Home Medications Medication Instructions Recorded Confirmed Type magnesium chloride 64 mg 64 mg PO QAM #30 tabs 11/18/21 04/24/24 Rx (magnesium chloride) tablet,delayed release (Mag 64) Oxygen Home #1 ea 01/27/22 08/27/23 Rx cholecalciferol (vitamin D3) 25 25 mcg PO BID 09/21/22 04/24/24 History mcg (1,000 unit) tablet furosemide 40 mg tablet 40 mg PO QAM #90 tabs 04/04/23 04/24/24 Rx apixaban 2.5 mg tablet (Eliquis) 2.5 mg PO BID #180 tabs 05/29/23 04/24/24 Rx omeprazole 20 mg capsule,delayed 20 mg PO BID #180 caps 07/30/23 08/27/23 Rx release Lactobacillus acidophilus 10 10,000 mmu cells PO DAILY 08/04/23 04/24/24 History billion cell capsule (Probiotic) ascorbic acid (vitamin C) 1,000 mg 1 g PO BID 08/04/23 04/24/24 History tablet (Vitamin C With Oriana Hips) calcium carbonate (Calcium 600) 600 mg PO BID 08/04/23 04/24/24 History cyanocobalamin (vitamin B-12) 1,000 mcg PO Q OTHER DAY 08/04/23 04/24/24 History 1,000 mcg tablet (Vitamin B-12) ferrous sulfate 325 mg (65 mg 325 mg PO DAILY 08/04/23 04/24/24 History iron) tablet (iron) krill 1,000 mg-omega-3 230 mg-dha 1 cap PO DAILY 08/04/23 08/27/23 History 60 jv-tko-madkurwue-astaxan capsule (MegaRed [place]-3 Krill Oil) potassium chloride 20 mEq 20 meq PO QAM 08/04/23 04/24/24 History tablet,extended release simvastatin 10 mg tablet 10 mg PO HS 08/04/23 04/24/24 History sodium chloride 1,000 mg soluble 1,000 mg PO QAM 08/04/23 04/24/24 History tablet quetiapine 25 mg tablet (Seroquel) 25 mg PO HS PRN withdrawal 08/09/23 08/27/23 Rx symptoms #30 tabs apixaban 2.5 mg tablet (Eliquis) 2.5 mg PO BID 04/24/24 04/24/24 History atenolol 50 mg tablet 50 mg PO DAILY 04/24/24 04/24/24 History clonazepam 1 mg tablet mg 04/24/24 History omeprazole 20 mg capsule,delayed 20 mg PO BID 04/24/24 04/24/24 History release oxycodone-acetaminophen 5 mg-325 1 tab PO BID PRN Pain 04/24/24 04/24/24 History mg tablet Past Med/Surg History Problem List (Updated 04/24/24 @ 06:40 by Abhishek Arambula MD) Septic shock Hypotension Admitted to intensive care unit Cachexia Anemia Recurrent falls (Acute) SIADH (syndrome of inappropriate ADH production) Interstitial lung disease Sacral decubitus ulcer Hyponatremia Protein calorie malnutrition CHB (complete heart block) Hypercoagulable state Cardiac pacemaker in situ S/P TAVR (transcatheter aortic valve replacement) Weight loss Hypertension PSVT (paroxysmal supraventricular tachycardia) GERD (gastroesophageal reflux disease) (Chronic) Crohn's disease (Chronic) Osteoporosis (Chronic) Hyperproteinemia (Chronic ~02/13/19) Opioid use agreement exists (Chronic) Chronic pain syndrome (Chronic) prison current use of anticoagulant (Chronic) Anxiety disorder (Chronic) Hyperlipidemia (Chronic) 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) Medical History (Updated 04/24/24 @ 06:40 by Abhishek Arambula MD) Fracture of right superior pubic ramus (08/04/23) from a fall History of compression fracture of spine (~01/24/22) Interval progression of the moderate anterior wedge-shaped compression deformity at L2 History of compression fracture of vertebral column (~08/17/20) CHF (congestive heart failure) Degenerative lumbar spinal stenosis Secondary hypercoagulable state Coronary artery disease Hyponatremia Tremor H/O small bowel obstruction Surgical History (Updated 09/09/23 @ 00:09 by Ga Guerra) Status post proctocolectomy History of abdominal aortic aneurysm (AAA) repair History of resection of small bowel History of tooth extraction History of carpal tunnel surgery History of breast biopsy History of ileostomy History of hernia repair History of colposcopy History of colostomy Status post catheter ablation of atrial fibrillation Hx of tubal ligation History of tonsillectomy and adenoidectomy History of appendectomy H/O resection of small bowel H/O pyloroplasty H/O heart artery stent H/O abdominal aortic aneurysm repair Family History Father Coronary heart disease Hypertension Stroke Sister No problems noted. Mother Coronary heart disease Hypertension Stroke Denies family history of Ovarian cancer Prostate cancer Myocardial infarction Breast cancer Lung cancer Colorectal cancer Social History Smoking Status: Unknown if ever smoked Tobacco Type: Cigarettes Age Started Using Tobacco: 26; Age Quit Using Tobacco: 61; packs per day: 1; Second Hand Exposure: No; Do You Dip or Chew Tobacco: No; Hx Alcohol Use: No Hx Substance Use: No Preferred Language: Danish Communication Ability: Effective Visual Impairment: Limited Hearing Ability: Normal Auto Striper Required: No Beliefs That Will Affect Care: None marital status: Current Living Situation: Spouse Current Living Situation Comment: jose c current occupational status: retired How many Children do You have: 2 Feels Safe at Home: Yes Safety Concerns: Feels Safe At This Time Childhood Exposure to Second-Hand Smoke: Yes Diet: regular caffeine: Yes (coffee) during the past year weight has: remained stable Dental Care, Regularly: Yes Physical Activity Frequency: 1-2 Times per Week Physical Activity Frequency Comment: walks with PT Seatbelt Use: always Sunscreen Use: Yes Assistive Devices: Oxygen - Continuous, Walker and Wheelchair Review of Systems Review of Systems: As noted in transfer and records from ED physician and EMS Physical Exam Physical Exam: The patient is awake, mildly confused, well developed and well nourished, normocephalic and atraumatic, lying in bed and in no acute distress. HEENT--PERRL, EOMI, mucous membranes and oropharynx dry. Neck--supple. No JVD. No bruits. Thyroid normal, trachea midline, no adenopathy. Heart--normal S1 and S2. No murmurs, rubs or gallops. Lungs--clear bilaterally, no respiratory distress, no accessory muscle use. Abdomen--normal bowel sounds and soft. Nontender. Nondistended, no hernias or masses, no organomegaly. Extremities--no cyanosis or clubbing. No edema. There are good distal pulses b/l. Dermatologic--normal skin turgor, normal color, no abnormal lymph nodes, no rash. Neurologic--cranial nerves II through XII grossly intact. Rheumatologic--normal range of motion. Psychiatric--normal affect. Results & Data Results & Data Laboratory Results Laboratories ordered and pending Code Status & VTE Plan Code Status DNR/DNI Patient will except pressors and antibiotics VTE Prophylaxis Plan VTE Prophylaxis will be ordered: Yes PG Care Time/CCT Total # of Minutes Spent Total Time Spent with Patient: Total time spent is greater than 50% in coordination of care (as documented) at patient's floor/unit and/or counseling patient: 45 minutes Coding Level of Care Code 49811 INT INP/OBS CARE 3/75MIN Diagnoses Admitted to intensive care unit Z78.9 Hypotension I95.9 Septic shock A41.9; R65.21 Elevated troponin R77.8
--- NOTE | 2024-04-24 06:21 | Critical Care Consultation ---
Date of Consultation April 24, 2024 Assessment & Plan (1) Septic shock: (2) Cachexia: Plan Reason Critically Ill: Undifferentiated shock, hypovolemic vs septic Neuro - CAM ICU RASS GOAL 0 Avoid sedating medications Sleep hygiene, delirium precautions Reassess patient's home Rx, chronic opiates and benzodiazepines are listed and restart as appropriate CTH negative for acute intracranial pathology Cardiac - Hold home antihypertensives Continue statin Wean norepinephrine for MAP goal > 65mmHg Evaluate appropriateness of Eliquis, risk vs. benefit given her Protein S deficiency and frequent falls POCUS on arrival to ICU. Hold additional IVF TTE Respiratory - No acute concerns Stop steroids SpO2 goal 90% 2L O2 at baseline, ?ILD vs. emphysema. No PFTs on file GI - Diet: NPO except meds pending nursing dysphagia screen Aspiration precautions SUP: Home PPI Bowel regimen: Miralax RENAL/LYTES - BMP pending, consider restarting home NaCl tabs and fluid restriction today Replete electrolytes as indicated No current indication for rm catheter. Place external catheter if patient incontinent or unable to express needs Maintain net even to net negative She is s/p 2.5L at OSH ENDO - Random cortisol BG 140-180 per SCCM guidelines ISS if needed while inpatient HEME - No acute concerns ID - Continue Zosyn and Vancomycin pending culture data Trend fever curve, WBC, de-escalate as appropriate BC x2, UA repeat here, procalcitonin pending, MRSA pending, RVP negative LINES/TUBES/DRAINS - PIV x2 DVT PROPHYLAXIS - Eliquis is in effect currently. PPX held I have personally spent 35 minutes of critical care time in the direct management of this patient. This is a life/limb threatening event. This includes time spent evaluating patient, direct bedside care, chart review, placing orders, interpretation of diagnostic studies, discussion with consultants, patient, and family members, as well as other required patient management activities. This time is exclusive of all separately billable procedures, and teaching time and separate from and in addition to any other critical care service time. Thank you for allowing us to participate in the care of this patient. Please refer to my attending physician's documentation for any further recommendations. Supervising Physician Co-Signing Physician Notes Patient seen and examined. EMR reviewed. Discussed with critical care WARREN and on multidisciplinary rounds as well as with bedside critical care nurse. Agree with assessment plan as noted. According to family members, the patient was on hospice. Unclear how we got to being in the ICU on vasopressor agents from hospice. Her interstitial lung disease certainly would support pursuing palliative care measures. At this point in time I think we need to involve case management and palliative care. Will have them try and set up a family meeting so we can determine logical steps moving forward but at this point in time would favor discontinuation of vasopr essor agents and focusing on symptom based therapies. Will continue current level of care until will order able to get all family members on board with a conference. History of Present Illness Reason for Consultation: Shock Requesting Physician: Ralf Attending Physician: Abhishek Arambula MD History of Present Illness Mrs. Miranda Reddy is an 83YOF with a complex past medical history including but not limited to dementia/cognitive decline, frequent falls, TAVR, HFpEF, protein S on Eliquis, malnutrition, SIADH, Crohn's disease s/p ileostomy, chronic hypoxemic respiratory failure on 2L NC baseline who presents to [facility] ICU as a transfer from [facility] due to undifferentiated shock. Per sending facility the patient presented with confusion and multiples falls in the past 3 days as well as decreased PO intake. On arrival to OSH patient was febrile to 39.1C. Initially hemodynamically stable, but subsequently developed shock refractory to 2L IVF. Oxygen requirement at baseline 2L. Imaging was negative for traumatic injury or infectious source. RVP negative. She received Rocephin, Zosyn, and vancomycin as well as methylprednisolone. Labs largely unremarkable based on report. Troponin mildly elevated at 83. She was started on norepinephrine and transferred to [facility] due to needing ICU level of care. Patient seen on arrival to ICU 102. She is AAOx2. Oriented to city, type of place, person. No acute distress. MAP 73 on 0.03mcg/kg/min of norepinephrine. Saturating 94% on 2L NC. Tells me she has not been eating or drinking much. Only eats breakfast, 2 poached eggs her prepares. She does try to drink a few ensures a day for lunch and dinner. Is uncertain what brought her in today, tells me she maybe lost her balance. When reminded she does acknowledge she has fallen over the past few days. Denies syncope, but patient is poor historian and no family at bedside. Allergies Allergy/AdvReac Type Severity Reaction Status Date / Time bee venom protein (honey bee) Allergy Unknown Unknown Verified 08/27/23 14:36 duloxetine [From Cymbalta] Allergy Unknown Unknown Verified 08/27/23 14:36 iodine Allergy Unknown Unknown Verified 08/27/23 14:36 shellfish derived Allergy Unknown Unknown Verified 08/27/23 14:36 Home Medications Medication Instructions Recorded Confirmed Type magnesium chloride 64 mg 64 mg PO QAM #30 tabs 11/18/21 04/24/24 Rx (magnesium chloride) tablet,delayed release (Mag 64) Oxygen Home #1 ea 01/27/22 08/27/23 Rx cholecalciferol (vitamin D3) 25 25 mcg PO BID 09/21/22 04/24/24 History mcg (1,000 unit) tablet furosemide 40 mg tablet 40 mg PO QAM #90 tabs 04/04/23 04/24/24 Rx apixaban 2.5 mg tablet (Eliquis) 2.5 mg PO BID #180 tabs 05/29/23 04/24/24 Rx omeprazole 20 mg capsule,delayed 20 mg PO BID #180 caps 07/30/23 08/27/23 Rx release Lactobacillus acidophilus 10 10,000 mmu cells PO DAILY 08/04/23 04/24/24 History billion cell capsule (Probiotic) ascorbic acid (vitamin C) 1,000 mg 1 g PO BID 08/04/23 04/24/24 History tablet (Vitamin C With Oriana Hips) calcium carbonate (Calcium 600) 600 mg PO BID 08/04/23 04/24/24 History cyanocobalamin (vitamin B-12) 1,000 mcg PO Q OTHER DAY 08/04/23 04/24/24 History 1,000 mcg tablet (Vitamin B-12) ferrous sulfate 325 mg (65 mg 325 mg PO DAILY 08/04/23 04/24/24 History iron) tablet (iron) krill 1,000 mg-omega-3 230 mg-dha 1 cap PO DAILY 08/04/23 08/27/23 History 60 jp-ram-usbfckvat-astaxan capsule (MegaRed [place]-3 Krill Oil) potassium chloride 20 mEq 20 meq PO QAM 08/04/23 04/24/24 History tablet,extended release simvastatin 10 mg tablet 10 mg PO HS 08/04/23 04/24/24 History sodium chloride 1,000 mg soluble 1,000 mg PO QAM 08/04/23 04/24/24 History tablet quetiapine 25 mg tablet (Seroquel) 25 mg PO HS PRN withdrawal 08/09/23 08/27/23 Rx symptoms #30 tabs apixaban 2.5 mg tablet (Eliquis) 2.5 mg PO BID 04/24/24 04/24/24 History atenolol 50 mg tablet 50 mg PO DAILY 04/24/24 04/24/24 History clonazepam 1 mg tablet mg 04/24/24 History omeprazole 20 mg capsule,delayed 20 mg PO BID 04/24/24 04/24/24 History release oxycodone-acetaminophen 5 mg-325 1 tab PO BID PRN Pain 04/24/24 04/24/24 History mg tablet Patient History Medical History (Updated 04/24/24 @ 06:40 by Abhishek Arambula MD) Fracture of right superior pubic ramus (08/04/23) from a fall History of compression fracture of spine (~01/24/22) Interval progression of the moderate anterior wedge-shaped compression deformity at L2 History of compression fracture of vertebral column (~08/17/20) CHF (congestive heart failure) Degenerative lumbar spinal stenosis Secondary hypercoagulable state Coronary artery disease Hyponatremia Tremor H/O small bowel obstruction Surgical History (Updated 09/09/23 @ 00:09 by Ga Guerra) Status post proctocolectomy History of abdominal aortic aneurysm (AAA) repair History of resection of small bowel History of tooth extraction History of carpal tunnel surgery History of breast biopsy History of ileostomy History of hernia repair History of colposcopy History of colostomy Status post catheter ablation of atrial fibrillation Hx of tubal ligation History of tonsillectomy and adenoidectomy History of appendectomy H/O resection of small bowel H/O pyloroplasty H/O heart artery stent H/O abdominal aortic aneurysm repair Family History Father Coronary heart disease Hypertension Stroke Sister No problems noted. Mother Coronary heart disease Hypertension Stroke Denies family history of Ovarian cancer Prostate cancer Myocardial infarction Breast cancer Lung cancer Colorectal cancer Social History Smoking Status: Unknown if ever smoked Tobacco Type: Cigarettes Age Started Using Tobacco: 26; Age Quit Using Tobacco: 61; packs per day: 1; Second Hand Exposure: No; Do You Dip or Chew Tobacco: No; Hx Alcohol Use: No Hx Substance Use: No Preferred Language: Qatari Communication Ability: Effective Visual Impairment: Limited Hearing Ability: Normal Trainman Required: No Beliefs That Will Affect Care: None marital status: Current Living Situation: Spouse Current Living Situation Comment: jose c current occupational status: retired How many Children do You have: 2 Feels Safe at Home: Yes Safety Concerns: Feels Safe At This Time Childhood Exposure to Second-Hand Smoke: Yes Diet: regular caffeine: Yes (coffee) during the past year weight has: remained stable Dental Care, Regularly: Yes Physical Activity Frequency: 1-2 Times per Week Physical Activity Frequency Comment: walks with PT Seatbelt Use: always Sunscreen Use: Yes Assistive Devices: Walker Review of Systems Review of Systems: All systems reviewed & are unremarkable except as noted in Subjective Physical Exam Constitutional: + thin, + frail appearing and + [place] shed; no acute distress Eyes: PERRL, conjunctivae normal, anicteric sclerae ENMT: Dry Neck: trachea midline, no thyromegaly Respiratory: normal respiratory effort Auscultation: + diminished lung sounds and + crackles; no rhonchi and no wheezes Cardiovascular: Rate/Rhythm: regular rate and regular rhythm Heart Sounds: + murmur Vessels: normal peripheral pulses; no JVD and no carotid bruit Extremities: normal capillary refill; no edema AICD in place Gastrointestinal (Abdomen): normal bowel sounds, soft, nontender, no hepatosplenomegaly Ostomy bag secure, light brown/green liquid stool present. Skin: no rashes, warm and dry Dry flaky skin. No lesions. No edema Neurologic: PERRL, EOMI, accommodation nl, no face palsy, no dysarthria Genitourinary: + CVA tenderness Results & Data Results & Data Laboratory Results Reviewed Diagnostic Findings Reviewed Medications Administered See JONATHAN Coding Level of Care Code 65362 CRITICAL CARE 1ST 30-74M Diagnoses Septic shock A41.9; R65.21 Cachexia R64 Time Spent (min) 35
--- OUTSIDE RECORDS SUMMARY | 2024-04-24 06:36 | External Medical Summary | Summary of Care ---
Author Name Unknown Organization [facility] Address [address] [facility] [place] [address] Phone [phone] Care Team Providers Care Central Service Technician Name Role Phone Benny Rizo PA-C Primary Care Provider + [phone] Encounter Details Date Type Department Care Team (Late st Contact Info) Description 03/31/2024 Population Health External Data Unspecified Department Allergies Active Allergy Reactions Criticality Noted Date Comments Bee Venom 12/09/2002 Duloxetine 12/02/2021 Other reaction(s): Unknown Shellfish Diarrhea 01/11/2010 Loses water via Ostomy documented as of this encounter (statuses as of 03/31/2024) Medications FEOSOL 200 (65 FE) MG PO TABS one pill each day Active SIMVASTATIN 10 MG PO TABS take one daily Active Cholecalciferol 25 MCG (1000 UT) Oral Tablet Take 1 Tablet by mouth in the morning and 1 Tablet before bedtime. Active Amoxicillin 500 MG Oral Capsule (Amoxil) Take 4 capsules 1 hour prior to any dental work. 4 Capsule 6 2 Active Diclofenac Sodium 1 % External Gel (Voltaren) FOUR TIMES DAILY 2 Active Sodium Chloride 1 GM Oral Tablet DAILY IN THE MORNING 2 Active Prolia 60 MG/ML Subcutaneous Solution Prefilled Syringe Inject 60 mg under the skin every 6 months. As directed. 1 mL 01/08/2023 1:32 PM EDT 3 Active Eliquis 2.5 MG Oral Tablet (Apixaban) take 1 tablet by mouth twice a day 180 Tablet 3 02/19/2024 6:44 PM EST 4 Active Magnesium Chloride 64 MG Oral Tablet Delayed Release (Mag64) Take 2 Tablets by mouth in the morning. Active Acidophilus Probiotic 0.5 MG Oral Tablet Take 0.5 mg by mouth in the morning. Active Kirk Krill & Fish Oil Blend Oral Capsule Take by mouth daily. Active Calcium Citrate + Oral Tablet Take by mouth daily. Active Vitamin C 1000 MG Oral Tablet Take 1 Tablet by mouth in the morning. Active Vitamin B-12 1000 MCG Oral Tablet (Cyanocobalamin) Take 1 Tablet by mouth in the morning. Active oxygen IN GAS Use 2 L/min(Oxygen) as directed continuous. Active Omeprazole 20 MG Oral Capsule Delayed Release (PriLOSEC) Take 1 Capsule by mouth in the morning and 1 Capsule before bedtime. 4 Active Atenolol 25 MG Oral Tablet (Tenormin) Take 1 Tablet by mouth in the morning. 4 Active Mirtazapine 15 MG Oral Tablet (Remeron) Take 1 Tablet by mouth at bedtime. 30 Tablet 5 4 Active Potassium Chloride ER 20 MEQ Oral Tablet Extended Release Take 1 Tablet by mouth in the morning. 30 Tablet 5 4 Active Furosemide 40 MG Oral Tablet (Lasix) Take 1 Tablet by mouth in the morning. 30 Tablet 5 4 Active oxyCODONE-Acetami nophen 5-325 MG Oral Tablet (Percocet) Take 1 Tablet by mouth every 8 hours as needed for Pain, Breakthrough. 90 Tablet 4 Active documented as of this encounter (statuses as of 03/31/2024) Active Problems Problem Noted Date Diagnosed Date Interstitial pulmonary disease 10/22/2023 Assessment & Plan (12/05/2023 12:12 PM EDT): Continuous oxygen supplement at 2L Assessment & Plan (10/22/2023 12:34 PM EDT): On continuous oxygen at 2L CHB (complete heart block) 10/22/2023 Cachexia 08/09/2023 Assessment & Plan (12/05/2023 1:02 PM EDT): Continue supplement shakes Will try adding remeron for appetite Cushion for chair, frequent repositioning, monitor closely for skin breakdown Chronic pain disorder 08/09/2023 Assessment & Plan (12/05/2023 12:12 PM EDT): Hx of multiple vertebral compression fractures Continues on oxy/apap 5/325mg bid with relief Assessment & Plan (10/22/2023 12:35 PM EDT): Hx of multiple vertebral compression fractures Continues on oxy/apap 5/325mg bid with relief Ileostomy in place 08/09/2023 Cardiac pacemaker in situ 09/23/2021 Overview (10/22/2023): dual chamber ppm 09/23/[address] Gayle. S/P TAVR (transcatheter aortic valve replacement ) 09/20/2021 Overview (10/22/2023): transcarotid implantation of a # 26 mm Loving Elvi S3 Ultra valve, underinflated by one cc), 09/20/2021 AAA (abdominal aortic aneurysm) 01/22/2015 MGUS (monoclonal gammopathy of unknown significa nce) 02/13/2014 Other specified diseases of blood and blood-forming organs(289.89) 11/30/2010 Patent foramen ovale 11/30/2010 Crohn's disease of small intestine 11/30/2010 Overview (10/22/2023): Small bowel resection; Proctocolectomy with ileostomy formation in 1976. 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): chrones disease Palpitations documented as of this encounter (statuses as of 03/31/2024) Resolved Problems Problem Noted Date Diagnosed Date Resolved Date Atrioventricular block, Mobi tz type 1, Wenckebach 09/23/2021 09/23/2021 Thrombocytopenia 09/21/2021 09/23/2021 Nonrheumatic aortic valve stenosis 07/07/2020 09/23/2021 SVT (supraventricular tachycardia) 07/07/2020 02/13/2023 ADVANCE DIRECTIVE INFORMATION 01/03/2006 01/14/2024 Overview (01/03/2006): Yes, Patient instructed to provide copy of advance directive for provider to review and to be scanned into Electronic Medical Record.Patient states copy given to PCP. documented as of this encounter (statuses as of 03/31/2024) Immunizations Name Administration Dates Next Due COVID-19 [...] drink = 0.6 oz pur e alcohol) Hunger Vital Sign Answer Date Recorded Within the past 12 months, y ou worried that your food would run out before you got the money to buy more. Never true 01/01/20 24 Within the past 12 months, t he food you bought just didn't last and you didn't have money to get more. Never true 01/01/2024 Childcare Answer Date Recorded Do you feel overwhelmed with taking care of a child, family member or friend? No 01/01/2024 Does your family need help f inding childcare? (Household - for ages 0-17 years) Not on file 01/01/2024 Clothing Answer Date Recorded Have you been unable to get clothing when it was really needed? No 01/01/2024 Is your family able to get c lothes or diapers when needed? (Household - for ages 0-17 years) Not on file 01/01/2024 Personal Safety Answer Date Recorded Do you feel unsafe or have concerns for your saf ety? No 01/01/2024 Do you have concerns for you r family's safety? (Household - for ages 0-17 years) Not on file 01/01/2024 Utilities Answer Date Recorded Do you have trouble paying y our heating, water, or electric bill? No 01/01/2024 Is your family able to pay t he heat, water, or electric bill? (Household - for ages 0-17 years) Not on file 01/01/2024 Does your family have access to good internet? (Household - for ages 0-17 years) Not on file 01/01/2024 Employment Status Answer Date Recorded Are you unemployed or without regular income? No 01/01/2024 Does the household have a re lar source of income? (Household - for ages 0-17 years) Not on file 01/01/2024 Social Connections Answer Date Recorded How often do you feel lonely or isolated from th ose around you? Never 01/01/2024 Financial Resource Strain Answer Date R ecorded Do you have any trouble payi ng for your medications, or do you think you might in the future? No 01/01/2024 Does your family have troubl e paying for medicine? (Household - for ages 0-17 years) Not on file 01/01/2024 Transportation Needs Answer Date Record ed Do you have trouble getting a ride to medical visits or work? (Adult - for ages 18 years and over) Not on file 01/01/2024 Does your family have a hard time getting a ride to doctors visits? (Household - for ages 0-17 years) Not on file 01/01/2024 Has lack of transportation k ept you from medical appointments, meetings, work, or from getting things needed for daily living? Check all that apply. No 01/01/2024 Do you (or your family) have trouble finding or paying for a ride (transportation)? (Household - for ages 0-17 years) Not on file 01/01/2024 Housing Stability Answer Date Recorded Do you currently live in a s helter or have no steady place to sleep at night? No 01/01/2024 Do you think you are at risk of becoming homeless? (Adult - for ages 18 years and over) Not on file 01/01/2024 Does your family worry about paying for your home or becoming homeless? (Household - for ages 0-17 years) Not on file 1 Are you homeless or worried that you might be in the future? No 01/01/2024 Are you (or your family) marbin eless or worried that you might be in the future? (Household - for ages 0-17 years) Not on file Food Insecurity Answer Date Recorded Do you need food for this week? No 01/01/2024 Are you able to get enough f ood for your family? (Household - for ages 0-17 years) Not on file 01/01/2024 Does your family need food t his week? (Household - for ages 0-17 years) Not on file 01/01/2024 Do you always have enough fo od for your family? (Household - for ages 0-17 years) Not on file 01/01/2024 Comments No Sex and Gender Information Value Date Recorded Sex Assigned at Female 01/30/2023 8:04 AM EST Legal Sex Female 5:02 AM EST Gender Identity Female 01/30/2023 8:04 AM EST Sexual Orientation Straight 01/30/2023 8: 04 AM EST documented as of this encounter Functional Status * Are you deaf or do you have serious difficulty hearing? Answer Date of Assessment Author No 09/20/2021 5:59 PM Sebastian Dutta RN * Are you blind or do you have serious difficulty seeing, even when wearing glasses? Answer Date of Assessment Author No 09/20/2021 5:59 PM Sebastian Dutta RN * Do you have serious difficulty walking or climbing stairs? (5 years old or older) Answer Date of Assessment Author No 09/20/2021 5:59 PM Sebastian Dutta RN * Do you have difficulty dressing or bathing? (5 years old or older) Answer Date of Assessment Author No 09/20/2021 5:59 PM Sebastian Dutta RN * Because of a physical, mental, or emotional condition, do you have difficulty doing errands alone such as visiting a doctors office or shopping? (15 years old or older) Answer Date of Assessment Author No 09/20/2021 5:59 PM Sebastian Dutta RN documented as of this encounter Mental Status * Because of a physical, mental, or emotional condition, do you have serious difficulty concentrating, remembering, or making decisions? (5 years old or older) Answer Entry Date Author No 09/20/2021 5:59 PM EDT Sebastian Russell RN documented in this encounter Plan of Treatment Health Maintenance Due Date Last Done Comments Depression Screening 1952 DTap/Tdap Vaccines (1 - Tdap) 1960 Adult Wellness Visit 10/25/2007 AAA Monitoring 07/04/2022 07/04/2021, 01/10, 12/06/2010, Additional history exists COVID-19 Vaccine ( season) 2023 05/15/2020, 05/15/2020, 04/17/2020, Additional history exists Influenza Vaccine (FLU shot) (#1) 2023 01/20/2023, 12/01/2022, 01/06/2022, Additional history exists DXA Scan 04/23/2030 04/23/2023, 04/12, 01/29/2020, Additional history exists Pneumococcal Vaccine: 50+ Years Completed 01/22/2014, 01/19/2009 Zoster Vaccines Completed 08/19/2018, 04/12, 07/13/2011 HPV (Gardasil) Vaccine Aged Out No lo nger eligible based on patient's age to complete this topic Hepatitis B Vaccine Aged Out No longe r eligible based on patient's age to complete this topic MENINGOCOCCAL (MENACTRA/MENVEO) Aged Out No longer eligible based on patient's age to complete this topic documented as of this encounter Medical Devices Implanted Type Area Dam Attendant Device Identifier Shelf Expiration Date Model / Serial / Lot Lens 21.0 Mx60 - [id number] - [id number] Implanted:Qty: 1 on 11/07/2016 by Anatoliy Gonzalez MD at [facility] Left: Eye [employer] : SURGICAL 02/08/2019 MX60-21.0 / [id number] / Lens 20.5 Mx60 - [id number] - [id number] Implanted:Qty: 1 on 11/21/2016 by Anatoliy Gonzalez MD at [facility] Right: Eye BAUSCH [employer] LOMB : SURGICAL 03/11/2019 MX60-20.5 / [id number] Valve Elvi 3 Ultra 26mm - [id number] Implanted:Qty: 1 on 09/20/2021 by Azael Eli MD at [facility] [employer] [id number] 07/10/2022 [id number] / / Lead Novus Bipolar 45cm - [id number] Implanted:Qty: 1 on 09/23/2021 by Lyn Henderson IV, MD at [facility] [employer] : CRM [id number] 05/09/2023 5076- 45 / [id number] / [id number] Lead Pace Selectsecure 3830-69 - [id number] Implanted:Qty: 1 on 09/23/2021 by Lyn Henderson IV, MD at [facility] [employer] : CRM [id number] 07/01/2023 [id number] / [id number] V / [id number] Pacemaker Gricelda Xt Dr Mri Wr - [id number] Implanted:Qty: 1 on 09/23/2021 by Lyn Henderson IV, MD at [facility] [employer] [id number] 02/22/2023 [id number] / [id number] G / [id number] G documented as of this encounter Advance [...] and were consensually agreed upon. Care Teams Central Service Technician Relationship Specialty Start Date End Date Benny Rizo PA-C [address] [place] [address] [place] [phone] PCP - General Physician Cutter [employer]wind Reeds 10/30/23 documented as of this encounter
--- OUTSIDE RECORDS SUMMARY | 2024-04-24 06:36 | External Medical Summary | Summary of Care ---
Author Name Unknown Organization [facility] Address [address] [facility] [place] [address] Phone [phone] Care Team Providers Care Box Closing Machine Operator Name Role Phone Garcia Benton PA-C Primary Care Provider + [phone] Encounter Details Date Type Department Care Team (Late st Contact Info) Description 02/11/2024 Telephone [facility] [place] [address] [facility] [place] [address] [place], JERRY [facility] [address] [facility] [place] [address] Allergies Active Allergy Reactions Criticality Noted Date Comments Bee Venom 12/09/2002 Duloxetine 12/02/2021 Other reaction(s): Unknown Shellfish Diarrhea 01/11/2010 Loses water via Ostomy documented as of this encounter (statuses as of 02/11/2024) Medications FEOSOL 200 (65 FE) MG PO [...] mouth twice a day 180 Tablet 3 11/21/2023 3:43 PM EDT 4 Active Magnesium Chloride 64 MG Oral [...] morning. Active oxygen IN GAS Use 2 L/min(Oxygen ) as directed continuous. Active Omeprazole 20 MG [...] the morning. 30 Tablet 5 4 Active oxyCODONE-Acetam inophen 5-325 MG Oral Tablet (Percocet) Take 1 Tablet by mouth every 8 hours as needed for Pain, Breakthrough . 90 Tablet 4 Active oxyCODONE-Acetam inophen 5-325 MG Oral Tablet (Percocet) Take 1 Tablet by mouth every 8 hours as needed for Pain, Breakthrough . 90 Tablet 4 02/11/20 24 Discontinu ed(Refill) documented as of this encounter (statuses as of 02/11/2024) Active Problems Problem Noted Date Diagnosed Date [...] as of this encounter (statuses as of 02/11/2024) Resolved Problems Problem Noted Date Diagnosed Date [...] as of this encounter (statuses as of 02/11/2024) Immunizations Name Administration Dates Next Due COVID-19 [...] No 01/01/2024 Does the household have a ascension macombr source of income? (Household - for ages [...] of Assessment Author No 09/20/2021 5:59 PM EDSebastian Bray, RN * Do you have serious difficulty walking or climbing stairs? (5 years old or older) Answer Date of Assessment Author No 09/20/2021 5:59 PM EDSebastian Bray, RN * Do you have difficulty dressing or bathing? (5 years old or older) Answer Date of Assessment Author No 09/20/2021 5:59 PM EDT Sebastian Russell RN * Because of a physical, mental, or emotional condition, do you have difficulty doing errands alone such as visiting a doctors office or shopping? (15 years old or older) Answer Date of Assessment Author No 09/20/2021 5:59 PM EDT Sebastian Russell RN documented as of this encounter Mental Status * Because of a physical, mental, or emotional condition, do you have serious difficulty concentrating, remembering, or making decisions? (5 years old or older) Answer Entry Date Author No 09/20/2021 5:59 PM EDT Sebastian Russell RN documented in this encounter Miscellaneous Notes * Telephone Encounter - Garcia Benton PA-C - 02/11/2024 5:29 PM ESTSigned Prescriptions: Disp Refills oxyCODONE-Acetaminophen 5-325 MG Oral Tabl*90 Tab*0 Sig: Take 1 Tablet by mouth every 8 hours as needed for Pain, Breakthrough.Authorizing Provider: GARCIA BENTON- * Telephone Encounter - Garcia Benton PA-C - 02/11/2024 5:29 PM EST Refill initially sent, but patient is on hospice. Called pharmacy to cancel refill. All medications to go through hospice provider. * Telephone Encounter - [place] RN - 02/11/2024 2:07 PM EST Phone call from spouse requesting refill on patient's Percocet be sent to their [facility] pharmacy. Medication pended. REDD Corona Registered Nurse Navigator Triage [facility] documented in this encounter Plan of Treatment Upcoming Encounters Date Type Department Care Team (Late st Contact Info) Description 02/12/2024 10:00 AM EST [facility] [address] [facility] [place] [address] Janessa Manning RN [address] [place] [address] Health Maintenance Due Date Last Done Comments Depression Screening 1952 DTap/Tdap Vaccines (1 - Tdap) 1960 Adult Wellness Visit 10/25/2007 AAA Monitoring 07/04/2022 07/04/2021, 01/10, 12/06/2010, Additional history exists COVID-19 Vaccine ( season) 2023 05/15/2020, 05/15/2020, 04/17/2020, Additional history exists Influenza Vaccine (FLU shot) (#1) 2023 01/20/2023, 12/01/2022, 01/06/2022, Additional history exists DXA Scan 04/23/2030 04/23/2023, 04/12, 01/29/2020, Additional history exists Pneumococcal Vaccine: 65+ Years [...] this encounter Medical Devices Implanted Type Area Vehicle Operator Device Identifier Shelf Expiration Date Model / Serial / Lot Lens 21.0 Mx60 - [id number] - [id number] Implanted:Qty: 1 on 11/07/2016 by Anatoliy Gonzalez MD at [facility] Left: Eye BA[employer]CH [employer]OM[employer] : SURGICAL 02/08/2019 MX60-21.0 / [id number] / Lens 20.5 Mx60 - [id number] - [id number] Implanted:Qty: 1 on 11/21/2016 by Anatoliy Gonzalez MD at OR [facility] Right: Eye BAUSCH [employer] LOMB : SURGICAL 03/11/2019 MX60-20.5 / [id number] / [id number] Valve Elvi 3 Ultra 26mm - [id number] Implanted:Qty: 1 on 09/20/2021 by Azael Eli MD at [facility] [employer] [id number] 07/10/2022 [id number] / / Lead Novus Bipolar 45cm - [id number] Implanted:Qty: 1 on 09/23/2021 by Lyn Henderson IV, MD at [facility] [employer] : CRM [id number] 05/09/2023 5076- 45 / [id number] 1 / [id number] Lead Pace Selectsecure 3830-69 - [id number] Implanted:Qty: 1 on 09/23/2021 by Lyn Henderson IV, MD at [facility] [employer] : CRM [id number] 07/01/2023 [id number] / [id number] V / [id number] Pacemaker Ward Xt Dr Mri Wrls - [id number] Implanted:Qty: 1 on 09/23/2021 by Lyn Henderson IV, MD at [facility] [employer] [id number] 02/22/2023 [id number] / [id number] G / [id number] documented as of this encounter Advance [...] and were consensually agreed upon. Care Teams Box Closing Machine Operator Relationship Specialty Start Date End Date Garcia Benton PA-C [address] [place] [address] PCP - General Physician Marketing Mgr 10/30/23 documented as of this encounter
--- OUTSIDE RECORDS SUMMARY | 2024-04-24 06:36 | External Medical Summary | Summary of Care ---
Author Name Unknown Organization [facility] Address [address] [facility] [place] [address] Phone [phone] Care Team Providers Care Mounted Police Officer Name Role Phone Benny Rizo PA-C Primary Care Provider + [phone] Encounter Details Date Type Department Care Team (Late st Contact Info) Description 02/12/2024 10:00 AM EST [facility] Visit [facility] [address] [facility] [place] [address] Janessa Manning, JERRY [address] [facility] [place] [address] Allergies Active Allergy Reactions Criticality Noted Date Comments Bee Venom 12/09/2002 Duloxetine 12/02/2021 Other reaction(s): Unknown Shellfish Diarrhea 01/11/2010 Loses water via Ostomy documented as of this encounter (statuses as of 02/12/2024) Medications FEOSOL 200 (65 FE) MG PO [...] as of this encounter (statuses as of 02/12/2024) Active Problems Problem Noted Date Diagnosed Date [...] as of this encounter (statuses as of 02/12/2024) Resolved Problems Problem Noted Date Diagnosed Date Resolved Date Atrioventricular block, Mobi tz type 1, [place] 09/23/2021 09/23/2021 Thrombocytopenia 09/21/2021 09/23/2021 Nonrheumatic aortic valve stenosis 07/07/2020 09/23/2021 SVT (supraventricular tachycardia) 07/07/2020 02/13/2023 ADVANCE DIRECTIVE INFORMATION 01/03/2006 01/14/2024 Overview (01/03/2006): Yes, Patient instructed to provide copy of advance directive for provider to review and to be scanned into Electronic Medical Record.Patient states copy given to PCP. documented as of this encounter (statuses as of 02/12/2024) Immunizations Name Administration Dates Next Due COVID-19 [...] 01/01/2024 Does the household have a re gular source of income? (Household - for ages [...] AM EST documented as of this encounter Last Filed Vital Signs Vital Sign Reading Time Taken Comments Blood Pressure 126/58 02/12/2024 10:32 AM EST Pulse 72 02/12/2024 10:32 AM EST Temperature 36.7 C (98.1 F) 02/12/2024 10:[address] Respiratory Rate 18 02/12/2024 10:32 AM EST Oxygen Saturation 93% 02/12/2024 10:32 AM EST Inhaled Oxygen Concentration - - Weight - - Height - - Body Mass Index - - documented in this encounter Functional Status * Are you deaf or do you have serious difficulty hearing? Answer Date of Assessment Author No 09/20/2021 5:59 PM EDT Sebastian Russell, RN * Are you blind or do you have serious difficulty seeing, even when wearing glasses? Answer Date of Assessment Author No 09/20/2021 5:59 PM EDT Sebastian Russell RN * Do you have serious difficulty walking or climbing stairs? (5 years old or older) Answer Date of Assessment Author No 09/20/2021 5:59 PM EDT Sebastian Russell RN * Do you have difficulty dressing [...] Entry Date Author No 09/20/2021 5:59 PM MAREKT Sebastian Russell RN documented in this encounter Progress Notes * Janessa Manning RN - 02/12/2024 10:23 AM EST Current Concerns: Patient seen for follow up- Interstitial pulmonary disease, cachexia Currently on hospice- [facility] upset that hospice has not called in to refill oxycodone/acetaminophen. Call to pharmacy. No refill available. e business manager- [facility] made aware. Discussed medications with - attempt to educate on medication Repeatedly complaining that his will be in constant pain if refill isn't sent in. frustrated with discussion- proceeded to go in kitchen- then to put screen in patio door. 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 Comfortable with hospice interventions- patient request additional [facility] visit- need for additional teaching. Hospice CM aware. Physical Exam: Physical Exam Constitutional: Appearance: Normal appearance. Cardiovascular: Rate and Rhythm: Normal rate and regular rhythm. Pulses: Normal pulses. Pulmonary: Effort: Pulmonary effort is normal. Breath sounds: Normal breath sounds. Abdominal: General: Bowel sounds are normal. Palpations: Abdomen is soft. Musculoskeletal: General: Normal range of motion. Skin: General: Skin is warm and dry. Capillary Refill: Capillary refill takes 2 to 3 seconds. Coloration: Skin is pale. Neurological: General: No focal deficit present. Mental Status: She is alert and oriented to person, place, and time. Psychiatric: Mood and Affect: Mood normal. Behavior: Behavior normal. Review of Systems: Review of Systems Constitutional: Negative. Respiratory: Positive for shortness of breath. Cardiovascular: Negative. Gastrointestinal: Negative. Genitourinary: Negative. Musculoskeletal: Positive for gait problem. Skin: Negative. Hematological: Negative. Psychiatric/Behavioral: The patient is nervous/anxious. Care Plan Goal Progress: Orders Placed: No orders of the defined types were placed in this encounter. Medications Given: Care Gaps: Care Gaps Care gaps closed this contact: Education (02/12/24 8172) Type of education: Clinical/disease (02/12/246) documented in this encounter Plan of Treatment Upcoming Encounters Date Type Department Care Team (Late st Contact Info) Description 02/20/2024 12:30 PM EST Home Visit [facility] [address] [facility] [place] [address] Janessa Manning RN [address] [facility] [place] [address] Health Maintenance Due Date Last Done Comments Depression Screening 1952 DTap/Tdap Vaccines (1 - Tdap) 1960 Adult Wellness Visit 10/25/2007 AAA Monitoring 07/04/2022 07/04/2021, 01/10, 12/06/2010, Additional history exists COVID-19 Vaccine ( - 2023- season) 2023 05/15/2020, 05/15/2020, 04/17/2020, Additional history [...] this encounter Medical Devices Implanted Type Area Strategic Account Manager Device Identifier Shelf Expiration Date Model / Serial / Lot Lens 21.0 Mx60 - [id number] - [id number] Implanted:Qty: 1 on 11/07/2016 by Anatoliy Gonzalez MD at OR [facility] Left: Eye [employer]OM[employer] : SURGICAL 02/08/2019 MX60-21.0 / [id number] / Lens 20.5 Mx60 - [id number] - [id number] Implanted:Qty: 1 on 11/21/2016 by Anatoliy Gonzalez MD at OR [facility] Right: Eye BAUSCH & LOMB : SURGICAL 03/11/2019 MX60-20.5 / [id number] / [id number] Valve Elvi 3 Ultra 26mm - [id number] Implanted:Qty: 1 on 09/20/2021 by Azael Eli MD at [facility] [employer] [id number] 07/10/2022 [id number] / / Lead Novus Bipolar 45cm - [id number] Implanted:Qty: 1 on 09/23/2021 by Lyn Henderson IV, MD at [facility] [employer] : NIMA [id number] 05/09/2023 5076- 45 / [id number] 1 / [id number] Lead Pace Select[employer] 3830-69 - [id number] Implanted:Qty: 1 on 09/23/2021 by Lyn Henderson IV, MD at [facility] [employer] : CRM [id number] 07/01/2023 [id number] 9 / [id number] V / [id number] V Pacemaker [place] Xt Dr Evans [facility] - [id number] Implanted:Qty: 1 on 09/23/2021 by Lyn Henderson IV, MD at [facility] [employer] [id number] 02/22/2023 [id number] / [id number] G / [id number] documented as of this encounter Advance [...] and were consensually agreed upon. Care Teams Mounted Police Officer Relationship Specialty Start Date End Date Benny Rizo PA-C [address] [place] [address] PCP - General Physician Gas Plant Worker 10/30/23 documented as of this encounter
--- OUTSIDE RECORDS SUMMARY | 2024-04-24 06:36 | External Medical Summary | Summary of Care ---
Author Name Unknown Organization [facility] Address [address] [place] [address] Phone [phone] Care Team Providers Care Sales Promotion Director Name Role Phone Darrius Benny LOVE Primary Care Provider + [phone] Encounter Details Date Type Department Care Team (Late st Contact Info) Description 04/22/2024 Result Scan Unspecified Department Lyn Henderson IV, MD [address] [place] [address] <No scans attached> Allergies Active Allergy Reactions Criticality Noted Date Comments Bee Venom 12/09/2002 Duloxetine 12/02/2021 Other reaction(s): Unknown Shellfish Diarrhea 01/11/2010 Loses water via Ostomy documented as of this encounter (statuses as of 04/22/2024) Medications FEOSOL 200 (65 FE) MG PO [...] as of this encounter (statuses as of 04/22/2024) Active Problems Problem Noted Date Diagnosed Date [...] as of this encounter (statuses as of 04/22/2024) Resolved Problems Problem Noted Date Diagnosed Date [...] as of this encounter (statuses as of 04/22/2024) Immunizations Name Administration Dates Next Due COVID-19 [...] No 01/01/2024 Does the household have a [facility] source of income? (Household - for ages [...] ages 0-17 years) Not on file 01/01/2024 Food Insecurity Answer Date Recorded Within the past 12 months, y ou worried that your food would run out before you got the money to buy more. Never true 01/01/20 24 Within the past 12 months, t he food you bought just didn't last and you didn't have money to get more. Never true 01/01/2024 Do you need food for this week? No 01/01/2024 Comments No Sex and Gender Information [...] this encounter Medical Devices Implanted Type Area Engraver Tire Mold Device Identifier Shelf Expiration Date Model / Serial / Lot Lens 21.0 Mx60 - [id number] - [id number] Implanted:Qty: 1 on 11/07/2016 by Anatoliy Gonzalez MD at OR [facility] Left: Eye BAUSCH [employer] LOMB : SURGICAL 02/08/2019 MX60-21.0 / [id number] / Lens 20.5 Mx60 - [id number] - [id number] Implanted:Qty: 1 on 11/21/2016 by Anatoliy Gonzalez MD at OR [facility] Right: Eye BAUSCH [employer] LOMB : SURGICAL 03/11/2019 MX60-20.5 / [id number] / [id number] Valve Elvi 3 Ultra 26mm - [id number] Implanted:Qty: 1 on 09/20/2021 by Azael Eli MD at [facility] [place] [employer] [id number] 07/10/2022 [id number] / / Lead Novus Bipolar 45cm - [id number] Implanted:Qty: 1 on 09/23/2021 by Lyn Henderson IV, MD at [facility] [employer] : CRM [id number] 05/09/2023 5076- 45 / [id number] 1 / [id number] Lead Pace [employer] 3830-69 - [id number] Implanted:Qty: 1 on 09/23/2021 by Lyn Henderson IV, MD at [facility] [place] [place] [employer] : CRM [id number] 07/01/2023 [id number] 9 / [id number] V / [id number] V Pacemaker Gricelda Xt Dr Evans [facility] - [id number] Implanted:Qty: 1 on 09/23/2021 by Lyn Henderson IV, MD at [facility] [place] [employer] [id number] 02/22/2023 W1DR01 / [id number] G / [id number] documented as of this encounter Procedures Procedure Name Priority Date/Time Associated Diagnosis Comments CARDIOLOGY SCANNED RESULT 04/22/2024 documented in this encounter Results * CARDIOLOGY SCANNED RESULT (04/22/2024) 04/22/2024 us Lyn Henderson IV, MD OTHER Final Result documented in this encounter Advance Directives * Full Code [...] were consensually agreed upon. Care Teams Sales Promotion Director Relationship Specialty Start Date End Date Benny Rizo PA-C [address] [facility] [place] [address] PCP - General Physician Outboard Motorboat Operator 10/30/23 documented as of this encounter
--- OUTSIDE RECORDS SUMMARY | 2024-04-24 06:37 | External Medical Summary | Summary of Care ---
Author Name Unknown Organization [facility] Address [address] [facility] [place] [address] Phone [phone] Care Team Providers Care Anchorer Name Role Phone Benny Rizo PA-C Primary Care Provider + [phone] Reason for Visit * Reason Onset Date Comments Appointment 01/31/2024 Prolia appt need s to be a provider visit Encounter Details Date Type Department Care Team (Late st Contact Info) Description 01/31/2024 Telephone Rheumatology [facility] [address] [facility] [place] [address] Terrence Sanchez CRNP [address] [facility] [place] [address] Appointment (Prolia appt needs to be a pro... Allergies Active Allergy Reactions Criticality Noted Date Comments Bee Venom 12/09/2002 Duloxetine 12/02/2021 Other reaction(s): Unknown Shellfish Diarrhea 01/11/2010 Loses water via Ostomy documented as of this encounter (statuses as of 02/04/2024) Medications FEOSOL 200 (65 FE) MG PO [...] as of this encounter (statuses as of 02/04/2024) Active Problems Problem Noted Date Diagnosed Date [...] as of this encounter (statuses as of 02/04/2024) Resolved Problems Problem Noted Date Diagnosed Date Resolved Date Atrioventricular block, Corinne tz type 1, Rosy 09/23/2021 09/23/2021 Thrombocytopenia 09/21/2021 09/23/2021 Nonrheumatic aortic valve stenosis 07/07/2020 09/23/2021 SVT (supraventricular tachycardia) 07/07/2020 02/13/2023 ADVANCE DIRECTIVE INFORMATION 01/03/2006 01/14/2024 Overview (01/03/2006): Yes, Patient instructed to provide copy of advance directive for provider to review and to be scanned into Electronic Medical Record.Patient states copy given to PCP. documented as of this encounter (statuses as of 02/04/2024) Immunizations Name Administration Dates Next Due COVID-19 [...] No 01/01/2024 Does the household have a [facility] source of income? (Household - for ages [...] 09/20/2021 5:59 PM EDSebastian Bray, RN * Are you blind or do you have serious difficulty seeing, even when wearing glasses? Answer Date of Assessment Author No 09/20/2021 5:59 PM Sebastian Dutta, RN * Do you have serious difficulty walking or climbing stairs? (5 years old or older) Answer Date of Assessment Author No 09/20/2021 5:59 PM Sebastian Dutta, RN * Do you have difficulty dressing or bathing? (5 years old or older) Answer Date of Assessment Author No 09/20/2021 5:59 PM Sebastian Dutta, JERRY * Because of a physical, mental, or [...] Entry Date Author No 09/20/2021 5:59 PM Sebastian Dutta, JERRY documented in this encounter Miscellaneous Notes * Telephone Encounter - Daphney Sanchez LPN - 02/04/2024 1:57 PM EST Called and spoke to pts , he states she is on Hospice for her "pulmonary issues" Advised that we would just discontinue Prolia in the office for now. They could speak to Hospice tosee if that was something they wanted to continue at home thru Hospice. Pts voiced understanding. * Telephone Encounter - Terrence Sanchez CRNP - 02/04/2024 12:30 PM EST At this point if she is on Hospice we would discontinue Prolia. Please check if patient is on Hospice or they are thinking about it. * Telephone Encounter - Daphney Sanchez LPN - 02/04/2024 9:57 AM EST If she is on Hospice are we still giving Prolia? * Telephone Encounter - Kylah Treadwell OSA - 02/04/2024 9:43 AM EST I called to schedule patient and she said she is housebound and can't come here. Asking if there isany way someone can go to her home? She mentioned hospice. Please help me understand what need scheduled. * Telephone Encounter - Sylvia Sanchez LPN - 01/31/2024 2:33 PM EST Please call and cancel nurse visit to receive prolia on 02/05/2024. Pt is due to see a provider after 02/02/24 at . Medication is pt supplied and is already at . Pt can be scheduled with any provider available. Thank you! documented in this encounter Plan of Treatment Upcoming Encounters Date Type Department Care Team (Late st Contact Info) Description 02/12/2024 10:00 AM EST Home Visit [facility], [facility] [address] [place] [address] Janessa Manning, JERRY [address] [facility] [place] [address] Health Maintenance Due Date Last Done Comments [...] this encounter Medical Devices Implanted Type Area Rn Prior Authorization Device Identifier Shelf Expiration Date Model / Serial / Lot Lens 21.0 Mx60 - [id number] - [id number] Implanted:Qty: 1 on 11/07/2016 by Anatoliy Gonzalez MD at OR [facility] Left: Eye BAUSCH [employer] LOMB : SURGICAL 02/08/2019 MX60-21.0 / [id number] / Lens 20.5 Mx60 - [id number] - [id number] Implanted:Qty: 1 on 11/21/2016 by Anatoliy Gonzalez MD at OR [facility] Right: Eye BAUSCH & LOMB : SURGICAL 03/11/2019 MX60-20.5 / [id number] / [id number] Valve Elvi 3 Ultra 26mm - [id number] Implanted:Qty: 1 on 09/20/2021 by Azael Eli MD at [facility] [place] [employer] [id number] 07/10/2022 [id number] / / Lead Novus Bipolar 45cm - [id number] Implanted:Qty: 1 on 09/23/2021 by Lyn Henderson IV, MD at [facility] [place] [employer] : CRM [id number] 05/09/2023 5076- 45 / [id number] 1 / [id number] 1 Lead Pace [employer] 3830-69 - [id number] Implanted:Qty: 1 on 09/23/2021 by Lyn Henderson IV, MD at [facility] [place] [employer] : CRM [id number] 07/01/2023 [id number] 9 / [id number] V / [id number] V Pacemaker Gricelda Xt Dr Evans [facility] - [id number] Implanted:Qty: 1 on 09/23/2021 by Lyn Henderson IV, MD at [facility] [place] [employer] [facility] [id number] 02/22/2023 W1DR01 / [id number] G / [id number] documented as of this encounter Advance [...] and were consensually agreed upon. Care Teams Anchorer Relationship Specialty Start Date End Date Benny Rizo PA-C [address] [place] [address] PCP - General Physician Services Host 10/30/23 documented as of this encounter
--- OUTSIDE RECORDS SUMMARY | 2024-04-24 06:37 | External Medical Summary | Summary of Care ---
Author Name Unknown Organization [facility] Address [address] [facility] [place] [address] Phone [phone] Care Team Providers Care Director Banking Name Role Phone Darrius Benny LOVE Primary Care Provider + [phone] Reason for Visit * Reason Comments Medication Refill Prolia Encounter Details Date Type Department Care Team (Late st Contact Info) Description 01/09/2024 Refill Rheumatology [address] [address] [place] [address] Mc Urias MD [facility] [place] 2[place] [address] Senile osteoporosis* Allergies Active Allergy Reactions Criticality Noted Date Comments Bee Venom 12/09/2002 Duloxetine 12/02/2021 Other reaction(s): Unknown Shellfish Diarrhea 01/11/2010 Loses water via Ostomy documented as of this encounter (statuses as of 01/15/2024) Medications Medication Sig Dispensed Refills Start Date End Date Status FEOSOL 200 (65 FE) MG PO TABS one pill each day Active SIMVASTATIN 10 MG PO TABS take one daily Active Cholecalciferol 25 MCG (1000 UT) Oral Tablet Take 1 Tablet by mouth in the morning and 1 Tablet before bedtime. Active Amoxicillin 500 MG Oral Capsule (Amoxil) Take 4 capsules 1 hour prior to any dental work. 4 Capsule 6 11/07/2021 Active Diclofenac Sodium 1 % External Gel [...] a day 180 Tablet 3 05/29/2023 Active Magnesium Chloride 64 MG Oral Tablet [...] the morning and 1 Capsule before bedtime. 10/22/2023 Active Atenolol 25 MG Oral Tablet (Tenormin) Take 1 Tablet by mouth in the morning. 10/22/2023 Active Mirtazapine 15 MG Oral Tablet (Remeron) Take 1 Tablet by mouth at bedtime. 30 Tablet 5 12/05/2023 Active Potassium Chloride ER 20 MEQ Oral Tablet Extended Release Take 1 Tablet by mouth in the morning. 30 Tablet 5 12/10/2023 Active Furosemide 40 MG Oral Tablet (Lasix) Take 1 Tablet by mouth in the morning. 30 Tablet 5 12/31/2023 Active oxyCODONE-Acetamino phen 5-325 MG Oral Tablet (Percocet) Take 1 Tablet by mouth every 8 hours as needed for Pain, Breakthrough. 90 Tablet 12/31/2023 Active Prolia 60 MG/ML Subcutaneous Solution Prefilled Syringe (Denosumab) Inject 60 mg under the skin once every 6 months 1 Each 01/10/2024 01/12/2024 documented as of this encounter (statuses as of 01/15/2024) Active Problems Problem Noted Date Diagnosed Date Interstitial pulmonary disease 10/22/2023 Last Assessment & Plan: Continuous oxygen supplement at 2L CHB (complete heart block) 10/22/2023 Cachexia 08/09/2023 Last Assessment & Plan: Continue supplement shakes Will try adding remeron for appetite Cushion for chair, frequent repositioning, monitor closely for skin breakdown Chronic pain disorder 08/09/2023 Last Assessment & Plan: Hx of multiple vertebral compression fractures Continues on oxy/apap 5/325mg bid with relief Ileostomy in place 08/09/2023 Cardiac pacemaker in situ 09/23/2021 Overview: dual chamber ppm 09/23/[address] Gayle. S/P TAVR (transcatheter aortic valve replacement ) 09/20/2021 Overview: transcarotid implantation of a # 26 mm [place] Elvi S3 Ultra valve, underinflated by one cc), 09/20/2021 AAA (abdominal aortic aneurysm) 01/22/2015 MGUS (monoclonal gammopathy of unknown significa nce) 02/13/2014 Other specified diseases of blood and blood-forming organs(289.89) 11/30/2010 Patent foramen ovale 11/30/2010 Crohn's disease of small intestine 11/30/2010 Overview: Small bowel resection; Proctocolectomy with ileostomy formation in 1976. Ulcerative ileocolitis Overview: chrones disease Palpitations documented as of this encounter (statuses as of 01/15/2024) Resolved Problems Problem Noted Date Diagnosed Date Resolved Date Atrioventricular block, Mobi tz type 1, Wenckebach 09/23/2021 09/23/2021 Thrombocytopenia 09/21/2021 09/23/2021 Nonrheumatic aortic valve stenosis 07/07/2020 09/23/2021 SVT (supraventricular tachycardia) 07/07/2020 02/13/2023 ADVANCE DIRECTIVE INFORMATION 01/03/2006 01/14/2024 Overview: Yes, Patient instructed to provide copy of advance directive for provider to review and to be scanned into Electronic Medical Record.Patient states copy given to PCP. documented as of this encounter (statuses as of 01/15/2024) Immunizations Name Administration Dates Next Due COVID-19 [...] ages 0-17 years) Not on file 01/01/2024 Sex and Gender Information Value Date Recorded [...] encounter Miscellaneous Notes * Telephone Encounter - Vance Escobar OSA - 01/15/2024 3:53 PM EST [facility] - Patient Related Communication Reason for Call: Scheduled 02-05-24 RUBENS [place] * Telephone Encounter - Kylah Treadwell OSA - 01/15/2024 1:15 PM EST LMOm for patient to call and schedule with Nurse clinic in for Prolia after 02/02/2024 * Telephone Encounter - Terrence Klein CRNP - 01/10/2024 2:56 PM EDTSigned Prescriptions: Disp Refills Prolia 60 MG/ML Subcutaneous Solution Pref*1 Each 0 Sig: Inject 60 mg under the skin once every 6 months Authorizing Provider: TERRENCE KLEIN * Telephone Encounter - Terrence Klein CRNP - 01/10/2024 2:54 PM EDT Catherine, Please assist patient with follow up provider visit. Nursing staff please advise patient she needs updated vitamin-D level. Reviewed and signed. * Telephone Encounter - Sylvia Sanchez LPN - 01/10/2024 1:48 PM EDTPending Prescriptions: Disp Refills Prolia 60 MG/ML Subcutaneous Solution Pref*1 Each 0 Sig: Inject 60 mg under the skin once every 6 months * Telephone Encounter - Sylvia Sanchez LPN - 01/10/2024 1:39 PM EDT Scheduling: Please call and schedule this patient for an appointment with the [facility] [place] for Prolia after 02/02/2024 Dr. Urias: Pt get prolia through [facility], please sign order. Thank you! * Telephone Encounter - Alecia Tineo formerly [facility] - 01/10/2024 11:15 AM EDTPending Prescriptions: Disp Refills Prolia 60 MG/ML Subcutaneous Solution Pref*1 Each 0 Sig: [id number] mg under the skin once every 6 months documented in this encounter Plan of Treatment Upcoming Encounters Date Type Department Care Team (Late st Contact Info) Description 02/05/2024 1:30 PM EST Nurse Only Rheumatology [address] [place] [address] Pf, Nurse Rheum [address] [place] [address] [place] [address] 02/12/2024 10:00 AM EST Home Visit [facility] [address] [facility] [place] [address] aJnessa Manning, JERRY [address] [facility] [place] [address] Scheduled Orders Name Type Priority Associated Diagnoses Orde r Schedule 25-HYDROXY VITAMIN D Lab Routine Senile osteoporosis Expected: 01/10/2024, Expires: 01/09/2025 Health Maintenance Due Date Last Done Comments Depression Screening 1952 DTap/Tdap Vaccines (1 - Tdap) 1959 Adult Wellness Visit 10/25/2007 AAA Monitoring 07/04/2022 07/04/2021, 01/10, 12/06/2010, Additional history exists COVID-19 Vaccine (3 - 2024-25 season) 2023 05/15/2020, 05/15/2020, 04/17/2020, Additional history [...] this encounter Medical Devices Implanted Type Area Gastroenterologist Device Identifier Shelf Expiration Date Model / Serial / Lot Lens 21.0 Mx60 - [id number] - [id number] Implanted:Qty: 1 on 11/07/2016 by Anatoliy Gonzalez MD at [facility] Left: Eye BAUSCH & LOMB : SURGICAL 02/08/2019 MX60-21.0 / [id number] / Lens 20.5 Mx60 - [id number] - [id number] Implanted:Qty: 1 on 11/21/2016 by Anatoliy Gonzalez MD at [facility] Right: Eye BAUSCH & LOMB : SURGICAL 03/11/2019 MX60-20.5 / [id number] / [id number] Valve Elvi 3 Ultra 26mm - [id number] Implanted:Qty: 1 on 09/20/2021 by Azael Eli MD at [facility] [place] [employer] [id number] 07/10/2022 [id number] / / Lead Novus Bipolar 45cm - [id number] Implanted:Qty: 1 on 09/23/2021 by Lyn Henderson IV, MD at [facility] [place] [employer] : CRM [id number] 05/09/2023 5076- 45 / [id number] 1 / [id number] Lead Pace Selectsecure 3830-69 - [id number] Implanted:Qty: 1 on 09/23/2021 by Lyn Henderson IV, MD at [facility] [place] [employer] : CRM [id number] 07/01/2023 [id number] 9 / [id number] V / [id number] V Pacemaker Gricelda Xt Dr Mri [facility] - [id number] Implanted:Qty: 1 on 09/23/2021 by Lyn Henderson IV, MD at [facility] [place] [employer] [id number] 02/22/2023 [id number] / [id number] G / [id number] G documented as of this encounter Visit Diagnoses Diagnosis Senile osteoporosis- Primary documented in this encounter Advance Directives * [...] and were consensually agreed upon. Care Teams Director Banking Relationship Specialty Start Date End Date Benny Rizo PA-C [address] [place] [address] PCP - General Physician Bobcat Driver/Labor 10/30/23 documented as of this encounter
--- OUTSIDE RECORDS SUMMARY | 2024-04-24 06:37 | External Medical Summary | Summary of Care ---
Author Name Unknown Organization [facility] Address [address] [facility] [place] [address] Phone [phone] Care Team Providers Care Scalp Specialist Name Role Phone Benny Rizo PA-C Primary Care Provider + [phone] Encounter Details Date Type Department Care Team (Late st Contact Info) Description 01/15/2024 Orders Only PATIENT PORTAL DO NOT DELETE THIS DEPT USED BY [place] [address] Allergies Active Allergy Reactions Criticality Noted Date [...] the morning. 30 Tablet 5 12/31/2023 Active oxyCODONE-Acetaminoph en 5-325 MG Oral Tablet (Percocet) Take 1 Tablet by mouth every 8 hours as needed for Pain, Breakthrough. 90 Tablet 12/31/2023 Active documented as of this encounter (statuses [...] Description 02/12/2024 10:00 AM EST [facility] [address] [facility] [place] [address] Janessa Manning RN [address] [facility] [place] [address] Health Maintenance Due Date Last Done Comments [...] this encounter Medical Devices Implanted Type Area Camp Maintenance Supervisor Device Identifier Shelf Expiration Date Model / Serial / Lot Lens 21.0 Mx60 - [id number] - [id number] Implanted:Qty: 1 on 11/07/2016 by Anatoliy Gonzalez MD at [facility] Left: Eye BAUSCH & LOMB : SURGICAL 02/08/2019 MX60-21.0 / [id number] / Lens 20.5 Mx60 - [id number] - [id number] Implanted:Qty: 1 on 11/21/2016 by Anatoliy Gonzalez MD at [facility] Right: Eye BAUSCH & LOMB : SURGICAL 03/11/2019 MX60-20.5 / [id number] / [id number] Valve Elvi 3 Ultra 26mm - [id number] Implanted:Qty: 1 on 09/20/2021 by Azael Eli MD at [facility] [place] [employer] [id number] 07/10/2022 [id number] / / Lead Novus Bipolar 45cm - [id number] Implanted:Qty: 1 on 09/23/2021 by Lyn Henderson IV, MD at [facility] [place] [employer] : CRM [id number] 05/09/2023 5076- 45 / [id number] 1 / [id number] Lead Pace [employer] 3830-69 - [id number] Implanted:Qty: 1 on 09/23/2021 by Lyn Henderson IV, MD at [facility] [place] [employer] : CRM [id number] 07/01/2023 [id number] 9 / [id number] V / [id number] V Pacemaker Gricelda Xt Dr Nathan [facility] - [id number] Implanted:Qty: 1 on 09/23/2021 by Lyn Henderson IV, MD at [facility] [place] [employer] [facility] [id number] 02/22/2023 W1DR01 / [id number] G / [id number] G documented as of this encounter Advance [...] and were consensually agreed upon. Care Teams Scalp Specialist Relationship Specialty Start Date End Date Benny Rizo PA-C [address] [place] [address] PCP - General Physician Hide Measuring Machine Operator 10/30/23 documented as of this encounter
--- OUTSIDE RECORDS SUMMARY | 2024-04-24 06:37 | External Medical Summary | Summary of Care ---
Author Name Unknown Organization [facility] Address [address] [facility] [place] [address] Phone [phone] Care Team Providers Care Metal Rolling Mill Operator Name Role Phone Benny Rizo PA-C Primary Care Provider + [phone] Reason for Visit * Reason Onset Date Comments Appointment 01/31/2024 Prolia appt need s to be a provider visit Encounter Details Date Type Department Care Team (Late st Contact Info) Description 01/31/2024 Telephone Rheumatology [facility] [address] [facility] [place] [address] Terrence Sanchez CRNP [address] [facility] [place] [address] Appointment (Prolia appt needs to be [...] No 01/01/2024 Does the household have a [facility] source of income? (Household - for [...] encounter Miscellaneous Notes * Telephone Encounter - Terrence Sanchez CRNP [...] is pt supplied and is already at PF. Pt can be scheduled with any provider available. Thank you! documented in this encounter Plan of Treatment Upcoming Encounters Date Type Department Care Team (Late st Contact Info) Description 02/12/2024 10:00 AM EST Home Visit [facility], [facility] [address] [place] [address] Janessa Manning, JERRY [address] [place] [address] Health Maintenance Due Date Last Done Comments [...] this encounter Medical Devices Implanted Type Area Cytopathology Technologist Device Identifier Shelf Expiration Date Model / Serial / Lot Lens 21.0 Mx60 - [id number] - [id number] Implanted:Qty: 1 on 11/07/2016 by Anatoliy Gonzalez MD at [facility] Left: Eye BAUSCH & LOMB : SURGICAL 02/08/2019 MX60-21.0 / [id number] / Lens 20.5 Mx60 - [id number] - [id number] Implanted:Qty: 1 on 11/21/2016 by Anatoliy Gonzalez MD at OR [facility] Right: Eye BAUSCH & LOMB : SURGICAL 03/11/2019 MX60-20.5 / [id number] 2 / [id number] Valve Elvi 3 Ultra 26mm - [id number] Implanted:Qty: 1 on 09/20/2021 by Azael Eli MD at [facility] [employer] [id number] 07/10/2022 [id number] / / Lead Novus Bipolar 45cm - [id number] Implanted:Qty: 1 on 09/23/2021 by Lyn Henderson IV, MD at [facility] [place] [employer] : CRM [id number] 05/09/2023 5076- 45 / [id number] 1 / [id number] 1 Lead Pace [employer] 3830-69 - [id number] Implanted:Qty: 1 on 09/23/2021 by Lyn Henderson IV, MD at [facility] [employer] : CRM [id number] 07/01/2023 [id number] 9 / [id number] V / [id number] V Pacemaker Peletier Xt Dr [facility] - [id number] Implanted:Qty: 1 on 09/23/2021 by Lyn Henderson IV, MD at [facility] [employer] [id number] 02/22/2023 W1DR01 / [id number] G / [id number] G documented as of this encounter Advance [...] and were consensually agreed upon. Care Teams Metal Rolling Mill Operator Relationship Specialty Start Date End Date Benny Rizo PA-C [address] [facility] [place] [address] PCP - General Physician Energy Management Specialist 10/30/23 documented as of this encounter
--- OUTSIDE RECORDS SUMMARY | 2024-04-24 06:37 | External Medical Summary | Summary of Care ---
Author Name Unknown Organization [facility] Address [address] [facility] [address] Phone [phone] Care Team Providers Care Manager Enrollment Name Role Phone Benny Rizo PA-C Primary Care Provider + [phone] Encounter Details Date Type Department Care Team (Late st Contact Info) Description 01/01/2024 10:00 AM EDT [facility] Visit [facility] [address] [facility] [place] [address] Janessa Manning RN [address] [facility] [place] [address] Allergies Active Allergy Reactions Criticality Noted Date Comments Bee Venom 12/09/2002 Duloxetine 12/02/2021 Other reaction(s): Unknown Shellfish Diarrhea 01/11/2010 Loses water via Ostomy documented as of this encounter (statuses as of 01/02/2024) Medications Medication Sig Dispensed Refills Start Date [...] as of this encounter (statuses as of 01/02/2024) Active Problems Problem Noted Date Diagnosed Date [...] resection; Proctocolectomy with ileostomy formation in 1976. ADVANCE DIRECTIVE INFORMATION 01/03/2006 Overview: Yes, Patient instructed to provide copy of advance directive for provider to review and to be scanned into Electronic Medical Record.Patient states copy given to PCP. Ulcerative ileocolitis Overview: chrones disease Palpitations documented as of this encounter (statuses as of 01/02/2024) Resolved Problems Problem Noted Date Diagnosed Date Resolved Date Atrioventricular block, Mobi tz type 1, Wenckebach 09/23/2021 09/23/2021 Thrombocytopenia 09/21/2021 09/23/2021 Nonrheumatic aortic valve stenosis 07/07/2020 09/23/2021 SVT (supraventricular tachycardia) 07/07/2020 02/13/2023 documented as of this encounter (statuses as of 01/02/2024) Immunizations Name Administration Dates Next Due COVID-19 [...] Sign Reading Time Taken Comments Blood Pressure 104/58 01/01/2024 11:34 AM EDT Pulse 76 01/01/2024 11:34 AM EDT Temperature 36.8 C (98.3 F) 01/01/2024 11:34 AM E DT Respiratory Rate 18 01/01/2024 11:34 AM EDT Oxygen Saturation 95% 01/01/2024 11:34 AM EDT Inhaled Oxygen Concentration - - Weight - - Height - - Body Mass Index - - documented in this encounter Functional Status Functional [...] as of this encounter Progress Notes * Janessa Manning RN - 01/01/2024 11:01 AM EDT Current Concerns: Patient seen for follow- Medical history includes: Ileostomy, CAD, s/p TAVR, cardiac pacemaker, CHF, SIADH, HTN, hyperlipidemia, anxiety, aortic stenosis, GERD, Crohn's, PSVT, UTIs, sacral wound, cachexia, fx of R superior pubic ramus Hospice referral placed per request of . [facility] to visit tomorrow. Patient agrees it's time. She refuses the hospital. VS wnl Lungs clear but diminished Oxygen dependence. Sob with minimal exertion No LE edema noted Voiding without difficulty Bowels wnl- per report Appetite poor Fluids encouraged. Patient requests one more visit following hospice admission. Voices understanding at that time [facility] will close episode. Physical Exam: Physical Exam Constitutional: Appearance: Normal appearance. She is ill-appearing. Cardiovascular: Rate and Rhythm: Normal rate. Rhythm irregular. Pulses: Normal pulses. Pulmonary: Effort: Pulmonary effort is normal. Breath sounds: Normal breath sounds. Abdominal: General: Bowel sounds are normal. Palpations: Abdomen is soft. Musculoskeletal: General: Normal range of motion. Skin: General: Skin is warm and dry. Capillary Refill: Capillary refill takes 2 to 3 seconds. Neurological: General: No focal deficit present. Mental Status: She is alert and oriented to person, place, and time. Psychiatric: Mood and Affect: Mood normal. Behavior: Behavior normal. Review of Systems: Review of Systems Constitutional: Negative. HENT: Negative. Respiratory: Positive for shortness of breath. Cardiovascular: Negative. Gastrointestinal: Negative. Musculoskeletal: Negative. Skin: Negative. Psychiatric/Behavioral: Negative. Care Plan Goal Progress: Orders Placed: No orders of the defined types were placed in this encounter. Medications Given: Care Gaps: Care Gaps Care gaps closed this contact:: Education (01/02/24 0856) Type of education: Clinical/disease (01/02/24 0856) documented in this encounter Plan of Treatment Upcoming Encounters Date Type Department Care Team (Late st Contact Info) Description 02/12/2024 10:00 AM EST Home Visit [facility] [address] [facility] [place] [address] Janessa Manning RN [address] [facility] [place] [address] Health Maintenance Due Date Last Done Comments Depression Screening 1952 DTap/Tdap Vaccines (1 - Tdap) 1959 Adult Wellness Visit 10/25/2007 AAA Monitoring 07/04/2022 07/04/2021, 01/10, 12/06/2010, Additional history exists COVID-19 Vaccine ( - season) 2023 05/15/2020, 05/15/2020, 04/17/2020, Additional history [...] this encounter Medical Devices Implanted Type Area Calculus Professor Device Identifier Shelf Expiration Date Model / Serial / Lot Lens 21.0 Mx60 - [id number] - [id number] Implanted:Qty: 1 on 11/07/2016 by Anatoliy Gonzalez MD at OR [facility] Left: Eye BAUSCH & LOMB : SURGICAL 02/08/2019 MX60-21.0 / [id number] / Lens 20.5 Mx60 - [id number] - [id number] Implanted:Qty: 1 on 11/21/2016 by Anatoliy Gonzalez MD at [facility] Right: Eye BAUSCH & LOMB : SURGICAL 03/11/2019 MX60-20.5 / [id number] / [id number] Valve Elvi 3 Ultra 26mm - [id number] Implanted:Qty: 1 on 09/20/2021 by Azael Eli MD at [facility] [place] [employer] [id number] 07/10/2022 [id number] / / Lead Novus Bipolar 45cm - [id number] Implanted:Qty: 1 on 09/23/2021 by Lyn Henderson IV, MD at [facility] [place] [employer] : CRM [id number] 05/09/2023 5076- 45 / [id number] 1 / [id number] 1 Lead Pace [employer] 3830-69 - [id number] Implanted:Qty: 1 on 09/23/2021 by Lyn Henderson IV, MD at [facility] [place] [employer] : CRM [id number] 07/01/2023 [id number] 9 / [id number] V / [id number] V Pacemaker Gricelda Xt Dr Mri [facility] - [id number] Implanted:Qty: 1 on 09/23/2021 by Lyn Henderson IV, MD at [facility] [place] [employer] [id number] 02/22/2023 W1DR01 / [id number] G / [id number] documented as of this encounter Advance [...] and were consensually agreed upon. Care Teams Manager Enrollment Relationship Specialty Start Date End Date Benny Rizo PA-C [address] [place] [address] PCP - General Physician Oracle Manager 10/30/23 documented as of this encounter
--- OUTSIDE RECORDS SUMMARY | 2024-04-24 06:37 | External Medical Summary | Summary of Care ---
Author Name Unknown Organization [facility] Address [address] [facility] [place] [address] Phone [phone] Care Team Providers Care Mine Expert Name Role Phone Darrius Benny LOVE Primary Care Provider + [phone] Reason for Visit * Reason Comments Medication Refill Prolia Encounter Details Date Type Department Care Team (Late st Contact Info) Description 01/09/2024 Refill Rheumatology [place] [address] [place] [address] Mc Urias MD [facility] [place] [address] Senile osteoporosis* Allergies Active Allergy Reactions Criticality [...] encounter Miscellaneous Notes * Telephone Encounter - Kylah Treadwell OSA [...] this patient for an appointment with the [facility] Nurse [facility] for Prolia after 02/02/2024 Dr. Urias: Pt get prolia through [facility], please sign order. Thank you! * Telephone Encounter - Alecia Tineo [facility] - 01/10/2024 11:15 AM EDTPending Prescriptions: Disp Refills Prolia 60 MG/ML Subcutaneous Solution Pref*1 Each 0 Sig: Cfpome96 mg under the skin once every 6 months documented in this encounter Plan of Treatment Upcoming Encounters Date Type Department Care Team (Late st Contact Info) Description 02/12/2024 10:00 AM EST Home Visit [facility] [address] [place] [address] Janessa Manning, RN [address] [place] [address] Scheduled Orders Name Type Priority Associated Diagnoses [...] this encounter Medical Devices Implanted Type Area Cane Pusher Device Identifier Shelf Expiration Date Model / Serial / Lot Lens 21.0 Mx60 - [id number] - [id number] Implanted:Qty: 1 on 11/07/2016 by Anatoliy Gonzalez MD at OR [facility] Left: Eye BAUSCH & LOMB : SURGICAL 02/08/2019 MX60-21.0 / [id number] / Lens 20.5 Mx60 - [id number] - [id number] Implanted:Qty: 1 on 11/21/2016 by Anatoliy Gonzalez MD at OR [facility] Right: Eye BAUSCH & LOMB : SURGICAL 03/11/2019 MX60-20.5 / [id number] / [id number] Valve Elvi 3 Ultra 26mm - [id number] Implanted:Qty: 1 on 09/20/2021 by Azael Eli MD at [facility] [employer] [id number] 07/10/2022 [id number] / / Lead Novus Bipolar 45cm - [id number] Implanted:Qty: 1 on 09/23/2021 by Lyn Henderson IV, MD at [facility] [employer] : NIMA [id number] 05/09/2023 5076- 45 / [id number] 1 / [id number] Lead Pace [employer] 3830-69 - [id number] Implanted:Qty: 1 on 09/23/2021 by Lyn Henderson IV, MD at [facility] [employer] : NIMA [id number] 07/01/2023 [id number] 9 / [id number] V / [id number] Pacemaker [place] Xt Dr Nathan Wrls - [id number] Implanted:Qty: 1 on 09/23/2021 by Lyn Henderson IV, MD at [facility] [employer] [id number] 02/22/2023 W1DR01 / [id number] / [id number] G documented as of this encounter Visit [...] and were consensually agreed upon. Care Teams Mine Expert Relationship Specialty Start Date End Date Benny Rizo PA-C [address] [facility] [place] [address] PCP - General Physician Pressroom Supervisor 10/30/23 documented as of this encounter
[2024-04-24] MEDS ORDERED: VANCOMYCIN CONSULT ACTIVE PRN (06:38)
--- OUTSIDE RECORDS SUMMARY | 2024-04-24 06:38 | External Medical Summary | Summary of Care ---
Author Name Unknown Organization [facility] Address [address] [facility] [place] [address] Phone [phone] Care Team Providers Care Front Desk Host Name Role Phone Benny Rizo PA-C Primary Care Provider + [phone] Reason for Visit * Reason Onset Date Comments [facility]: Maintenance 11/23/2023 Encounter Details Date Type Department Care Team (Late st Contact Info) Description 11/23/2023 Telephone [facility], [facility] [address] [facility] [place] [address] Camila Santos RN [address] [place] [phone] [facility]: Maintenance Allergies Active Allergy Reactions Criticality Noted Date Comments Bee Venom 12/09/2002 Duloxetine 12/02/2021 Other reaction(s): Unknown Shellfish Diarrhea 01/11/2010 Loses water via Ostomy documented as of this encounter (statuses as of 11/23/2023) Medications Medication Sig Dispensed Refills Start Date [...] dental work. 4 Capsule 6 11/07/2021 Active Potassium Chloride ER 20 MEQ Oral [...] a day 180 Tablet 3 05/29/2023 Active Furosemide 40 MG Oral Tablet (Lasix) Take 1 Tablet by mouth in the morning. Active Magnesium Chloride 64 MG Oral Tablet [...] by mouth in the morning. 10/22/2023 Active oxyCODONE-Acetaminoph en 5-325 MG Oral Tablet (Percocet) Take 1 Tablet by mouth every 8 hours as needed for Pain, Breakthrough. 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 Provided updated dx per last provider note as well as next planned follow up visit. documented in this encounter Plan of Treatment Upcoming Encounters Date Type Department Care Team (Late st Contact Info) Description 12/04/2023 1:00 PM EDT Home Visit [facility] [place], [address] [place] [address] Benny Rizo PA-C [address] [place] [address] 01/01/2024 10:00 AM EDT [facility] [address] [place] [address] Janessa Manning RN [address] [place] [address] Health Maintenance Due Date Last Done Comments [...] this encounter Medical Devices Implanted Type Area Quality Control Assistant Device Identifier Shelf Expiration Date Model / Serial / Lot Lens 21.0 Mx60 - [id number] - [id number] Implanted:Qty: 1 on 11/07/2016 by Anatoliy Gonzalez MD at OR [facility] Left: Eye BAUSCH & LOMB : SURGICAL 02/08/2019 MX60-21.0 / [id number] / Lens 20.5 Mx60 - [id number] - [id number] Implanted:Qty: 1 on 11/21/2016 by Anatoliy Gonzalez MD at OR [facility] Right: Eye BAUSCH & LOMB : SURGICAL 03/11/2019 MX60-20.5 / [id number] 2 / [id number] Valve Elvi 3 Ultra 26mm - [id number] Implanted:Qty: 1 on 09/20/2021 by Azael Eli MD at [facility] [place] [employer] [id number] 07/10/2022 [id number] / / Lead Novus Bipolar 45cm - [id number] Implanted:Qty: 1 on 09/23/2021 by Lyn Henderson IV, MD at [facility] [place] [employer] : CRM [id number] 05/09/2023 5076- 45 / [id number] 1 / [id number] 1 Lead Pace [employer] 3830-69 - [id number] Implanted:Qty: 1 on 09/23/2021 by Lyn Henderson IV, MD at [facility] [place] [employer] : CRM [id number] 07/01/2023 [id number] 9 / [id number] V / [id number] V Pacemaker Gricelda Xt Dr Mri Wrls - [id number] Implanted:Qty: 1 on 09/23/2021 by Lyn Henderson IV, MD at [facility] [place] [employer] [id number] 02/22/2023 W1DR01 / [id number] G / [id number] G documented as of this encounter Advance [...] and were consensually agreed upon. Care Teams Front Desk Host Relationship Specialty Start Date End Date Benny Rizo PA-C [address] [place] [address] PCP - General Physician Staff Physician 10/30/23 documented as of this encounter
--- OUTSIDE RECORDS SUMMARY | 2024-04-24 06:38 | External Medical Summary | Summary of Care ---
Author Name Unknown Organization [facility] Address [address] [facility] [place] [address] Phone [phone] Care Team Providers Care Pr Intern Name Role Phone Benny Rizo PA-C Primary Care Provider + [phone] Reason for Visit * Reason Onset Date Comments [facility]: Maintenance 11/02/2023 Encounter Details Date Type Department Care Team (Late st Contact Info) Description 11/02/2023 Telephone [facility], [facility] 132 [facility] [place] [address] Camila Santos RN [facility] [phone] [facility]: Maintenance Allergies Active Allergy Reactions Criticality Noted Date Comments Bee Venom 12/09/2002 Duloxetine 12/02/2021 Other reaction(s): Unknown Shellfish Diarrhea 01/11/2010 Loses water via Ostomy documented as of this encounter (statuses as of 11/05/2023) Medications Medication Sig Dispensed Refills Start Date [...] dental work. 4 Capsule 6 11/07/2021 Active oxyCODONE-Acetaminoph en 5-325 MG Oral Tablet (Percocet) 11/26/2021 Active [...] by mouth in the morning. 10/22/2023 Active documented as of this encounter (statuses as of 11/05/2023) Active Problems Problem Noted Date Diagnosed Date [...] as of this encounter (statuses as of 11/05/2023) Resolved Problems Problem Noted Date Diagnosed Date Resolved Date Atrioventricular block, Mobi tz type 1, Mateonckebach 09/23/2021 09/23/2021 Thrombocytopenia 09/21/2021 09/23/2021 Nonrheumatic aortic valve stenosis 07/07/2020 09/23/2021 SVT (supraventricular tachycardia) 07/07/2020 02/13/2023 documented as of this encounter (statuses as of 11/05/2023) Immunizations Name Administration Dates Next Due COVID-19 [...] encounter Miscellaneous Notes * Telephone Encounter - Mana Jaramillo RN - 11/05/2023 7:30 AM EDT Hte box was ordered on 10/29 at the request of [facility] [place] nurse. Please plug the remote monitor in near a place she spends most of her time. Most place it near where they sleep. Call [employer] at . They will assist with walking thru pairing the monitor with the pacemaker. Thanks, Mana Jaramillo RN * Telephone Encounter - Janessa Manning RN - 11/02/2023 4:08 PM EDT Unable to make visit today d/t schedule. Cardiology can you please instruct on set up of the medtronic box? If unable reach out to me and I will have a CHW visit to assist next week. Thanks! Janessa * Telephone Encounter - Camila Santos RN - 11/02/2023 3:23 PM EDT Received call from patient's stating that she received a box with medtronic on the outside and paper on the inside of box saying it was ordered by [facility]. Asking what it's for and what should they do with it. Routing to care team documented in this encounter Plan of Treatment Upcoming Encounters Date Type Department Care Team (Late st Contact Info) Description 12/04/2023 1:00 PM EDT [facility] Visit [facility] [place] [address] [place] [address] Benny Rizo PA-C [address] [place] [address] 01/01/2024 10:00 AM EDT [facility] [address] [place] [address] Janessa Manning, JERRY [address] [place] [address] Health Maintenance Due Date Last Done Comments Depression Screening 1952 DTaP,Tdap,and Td Vaccines (1 - Tdap) 1959 Adult Wellness Visit 10/25/2007 AAA Monitoring 07/04/2022 07/04/2021, 01/10, 12/06/2010, Additional history exists COVID-19 Vaccine ( - season) 2022 05/15/2020, 05/15/2020, 04/17/2020, Additional history exists Influenza [...] this encounter Medical Devices Implanted Type Area Cement Kiln Operator Device Identifier Shelf Expiration Date Model / Serial / Lot Lens 21.0 Mx60 - [id number] - [id number] Implanted:Qty: 1 on 11/07/2016 by Anatoliy Gonzalez MD at OR [facility] Left: Eye BAUSCH & LOMB : SURGICAL 02/08/2019 MX60-21.0 / [id number] / Lens 20.5 Mx60 - [id number] - [id number] Implanted:Qty: 1 on 11/21/2016 by Anatoliy Gonzalez MD at OR [facility] Right: Eye BAUSCH & LOMB : SURGICAL 03/11/2019 MX60-20.5 / [id number] / [id number] Valve Elvi 3 Ultra 26mm - [id number] Implanted:Qty: 1 on 09/20/2021 by Azael Eli MD at [facility] [employer] [id number] 07/10/2022 [id number] / / Lead Novus Bipolar 45cm - [id number] Implanted:Qty: 1 on 09/23/2021 by Lyn Henderson IV, MD at [facility] [employer] : CRM [id number] 05/09/2023 5076- 45 / [id number] 1 / [id number] 1 Lead Pace [employer] 3830-69 - [id number] Implanted:Qty: 1 on 09/23/2021 by Lyn Henderson IV, MD at [facility] [employer] : CRM [id number] 07/01/2023 [id number] 9 / [id number] V / [id number] V Pacemaker Gricelda Xt Dr Mri [facility] - [id number] Implanted:Qty: 1 on 09/23/2021 by Lyn Henderson IV, MD at [facility] [employer] [id number] 02/22/2023 W1DR01 / [id number] G / [id number] G documented as of this encounter Advance [...] and were consensually agreed upon. Care Teams Pr Intern Relationship Specialty Start Date End Date Benny Rizo PA-C [address] [place] [address] [place] [address] PCP - General Physician Decontaminator 10/30/23 documented as of this encounter
--- OUTSIDE RECORDS SUMMARY | 2024-04-24 06:38 | External Medical Summary | Summary of Care ---
Author Name Unknown Organization [facility] Address [address] [facility] [place] [address] Phone [phone] Care Team Providers Care Mechanical Drawing Teacher Name Role Phone Benny Rizo PA-C Primary Care Provider + [phone] Reason for Visit * Reason Onset Date Comments [facility]: Maintenance 11/02/2023 Encounter Details Date Type Department Care Team (Late st Contact Info) Description 11/02/2023 Telephone [facility], [facility] [address] [facility] [place] [address] Camila Santos RN [place] [phone] [facility]: Maintenance Allergies Active Allergy Reactions Criticality Noted Date Comments Bee Venom 12/09/2002 Duloxetine 12/02/2021 Other reaction(s): Unknown Shellfish Diarrhea 01/11/2010 Loses water via Ostomy documented as of this encounter (statuses as of 11/02/2023) Medications Medication Sig Dispensed Refills Start Date [...] as of this encounter (statuses as of 11/02/2023) Active Problems Problem Noted Date Diagnosed Date [...] as of this encounter (statuses as of 11/02/2023) Resolved Problems Problem Noted Date Diagnosed Date Resolved Date Atrioventricular block, Mobi tz type 1, Mateonckebach 09/23/2021 09/23/2021 Thrombocytopenia 09/21/2021 09/23/2021 Nonrheumatic aortic valve stenosis 07/07/2020 09/23/2021 SVT (supraventricular tachycardia) 07/07/2020 02/13/2023 documented as of this encounter (statuses as of 11/02/2023) Immunizations Name Administration Dates Next Due COVID-19 [...] encounter Miscellaneous Notes * Telephone Encounter - Janessa Manning RN [...] of box saying it was ordered by [facility]. Asking what it's for and what should they do with it. Routing to care team documented in this encounter Plan of Treatment Upcoming Encounters Date Type Department Care Team (Late st Contact Info) Description 12/04/2023 1:00 PM EDT Home Visit [facility] at [facility] [address] [place] [address] Benny Rizo PA-C [address] [place] [address] 01/01/2024 10:00 AM EDT Home Visit [facility] [place], [facility] [address] [place] [address] Janessa Manning RN [address] [place] [address] Health Maintenance Due Date Last Done Comments [...] this encounter Medical Devices Implanted Type Area Clerical Office Device Identifier Shelf Expiration Date Model / Serial / Lot Lens 21.0 Mx60 - [id number] - [id number] Implanted:Qty: 1 on 11/07/2016 by Anatoliy Gonzalez MD at [facility] Left: Eye BAUSCH & LOMB : SURGICAL 02/08/2019 MX60-21.0 / [id number] / Lens 20.5 Mx60 - [id number] - [id number] Implanted:Qty: 1 on 11/21/2016 by Anatoliy Gonzalez MD at [facility] Right: Eye BAUSCH & LOMB : SURGICAL 03/11/2019 MX60-20.5 / [id number] / [id number] Valve Elvi 3 Ultra 26mm - [id number] Implanted:Qty: 1 on 09/20/2021 by Azael Eli MD at [facility] [employer] [id number] 07/10/2022 [id number] / / Lead Novus Bipolar 45cm - [id number] Implanted:Qty: 1 on 09/23/2021 by Lyn Henderson IV, MD at [facility] [employer] : NIMA [id number] 05/09/2023 5076- 45 / [id number] 1 / [id number] 1 Lead Pace [employer] 3830-69 - [id number] Implanted:Qty: 1 on 09/23/2021 by Lyn Henderson IV, MD at [facility] [employer] : CRM [id number] 07/01/2023 [id number] 9 / [id number] V / [id number] V Pacemaker Avant Xt Dr Evans Wrls - [id number] Implanted:Qty: 1 on 09/23/2021 by Lyn Henderson IV, MD at [facility] [employer] [id number] 02/22/2023 W1DR01 / [id number] G / [id number] G documented as of this encounter Advance [...] and were consensually agreed upon. Care Teams Mechanical Drawing Teacher Relationship Specialty Start Date End Date Benny Rizo PA-C [address] [facility] [place] [address] PCP - General Physician Functional Consultant 10/30/23 documented as of this encounter
--- OUTSIDE RECORDS SUMMARY | 2024-04-24 06:38 | External Medical Summary | Summary of Care ---
Author Name Unknown Organization [facility] Address [address] [facility] [place] [address] Phone [phone] Care Team Providers Care Detective Youth Bureau Name Role Phone Benny Rizo PA-C Primary Care Provider + [phone] Encounter Details Date Type Department Care Team (Late st Contact Info) Description 12/10/2023 Orders Only [facility], [facility] [address] [place] [address] Benny Rizo PA-C [address] [place] [address] Allergies Active Allergy Reactions Criticality Noted Date Comments Bee Venom 12/09/2002 Duloxetine 12/02/2021 Other reaction(s): Unknown Shellfish Diarrhea 01/11/2010 Loses water via Ostomy documented as of this encounter (statuses as of 12/10/2023) Medications Medication Sig Dispensed Refills Start Date [...] by mouth in the morning. 10/22/2023 Active oxyCODONE-Acetamin ophen 5-325 MG Oral Tablet (Percocet) Take 1 Tablet by mouth every 8 hours as needed for Pain, Breakthrough. 90 Tablet 11/23/2023 Active Mirtazapine 15 MG Oral Tablet (Remeron) Take 1 Tablet by mouth at bedtime. 30 Tablet 5 12/05/2023 Active Potassium Chloride ER 20 MEQ Oral Tablet Extended Release Take 1 Tablet by mouth in the morning. 30 Tablet 5 12/10/2023 Active Potassium Chloride ER 20 MEQ Oral Tablet Extended Release Take 1 Tablet by mouth in the morning. 30 Tablet 5 12/10/2023 12/10/2023 Discontinue d(Refill) documented as of this encounter (statuses as of 12/10/2023) Active Problems Problem Noted Date Diagnosed Date [...] as of this encounter (statuses as of 12/10/2023) Resolved Problems Problem Noted Date Diagnosed Date Resolved Date Atrioventricular block, Mobi tz type 1, Mateonckebach 09/23/2021 09/23/2021 Thrombocytopenia 09/21/2021 09/23/2021 Nonrheumatic aortic valve stenosis 07/07/2020 09/23/2021 SVT (supraventricular tachycardia) 07/07/2020 02/13/2023 documented as of this encounter (statuses as of 12/10/2023) Immunizations Name Administration Dates Next Due COVID-19 [...] Description 01/01/2024 10:00 AM EDT Home Visit [facility] at [address] [place] [address] Janessa Manning, JERRY [address] [place] [address] 01/22/2024 3:00 PM EST Home Visit [facility] at [facility], [facility] [address] [place] [address] Benny Rizo PA-C [address] [place] [address] Health Maintenance Due Date Last Done Comments [...] this encounter Medical Devices Implanted Type Area Senior Programmer Device Identifier Shelf Expiration Date Model / Serial / Lot Lens 21.0 Mx60 - [id number] - [id number] Implanted:Qty: 1 on 11/07/2016 by Anatoliy Gonzalez MD at OR [facility] Left: Eye BAUSCH & LOMB : SURGICAL 02/08/2019 MX60-21.0 / [id number] / Lens 20.5 Mx60 - [id number] - [id number] Implanted:Qty: 1 on 11/21/2016 by Anatoliy Gonzalez MD at [facility] Right: Eye BAUSCH & LOMB : SURGICAL 03/11/2019 MX60-20.5 / [id number] 2 / [id number] Valve Elvi 3 Ultra 26mm - [id number] Implanted:Qty: 1 on 09/20/2021 by Azael Eli MD at [facility] [place] [employer] [id number] 07/10/2022 [id number] / / Lead Novus Bipolar 45cm - [id number] Implanted:Qty: 1 on 09/23/2021 by Lyn Henderson IV, MD at [facility] [place] [employer] : CRM [id number] 05/09/2023 5076- 45 / [id number] 1 / [id number] 1 Lead Pace [employer] 3830-69 - [id number] Implanted:Qty: 1 on 09/23/2021 by Lyn Henderson IV, MD at [facility] [employer] : CRM [id number] 07/01/2023 53957 9 / [id number] V / [id number] V Pacemaker Gricelda Xt Dr Nathan Wrls - [id number] Implanted:Qty: 1 on 09/23/2021 by Lyn Henderson IV, MD at [facility] [employer] [id number] 02/22/2023 W1DR01 / [id number] G / [id number] G documented as of this encounter Advance [...] and were consensually agreed upon. Care Teams Detective Youth Bureau Relationship Specialty Start Date End Date Benny Rizo PA-C [address] [place] [address] PCP - General Physician Hi Lift Operator 10/30/23 documented as of this encounter
--- OUTSIDE RECORDS SUMMARY | 2024-04-24 06:38 | External Medical Summary | Summary of Care ---
Author Name Unknown Organization [facility] Address [address] [facility] [place] [address] Phone [phone] Care Team Providers Care Soyfreeze Operator Name Role Phone Benny Benton PA-C Primary Care Provider + [phone] Encounter Details Date Type Department Care Team (Late st Contact Info) Description 12/31/2023 Refill [facility], [facility] [address] [facility] [place] [address] Lary Hernandez RN [address] [facility] [place] [id number] Allergies Active Allergy Reactions Criticality Noted Date Comments Bee Venom 12/09/2002 Duloxetine 12/02/2021 Other reaction(s): Unknown Shellfish Diarrhea 01/11/2010 Loses water via Ostomy documented as of this encounter (statuses as of 12/31/2023) Medications Medication Sig Dispensed Refills Start Date [...] the morning. 30 Tablet 5 12/31/2023 Active oxyCODONE-Acetamin ophen 5-325 MG Oral Tablet (Percocet) Take 1 Tablet by mouth every 8 hours as needed for Pain, Breakthrough. 90 Tablet 12/31/2023 Active Furosemide 40 MG Oral Tablet (Lasix) Take 1 Tablet by mouth in the morning. 12/31/2023 Discontinue d(Refill) oxyCODONE-Acetamin ophen 5-325 MG Oral Tablet (Percocet) Take 1 Tablet by mouth every 8 hours as needed for Pain, Breakthrough. 90 Tablet 11/23/2023 12/31/2023 Discontinue d(Refill) documented as of this encounter (statuses as of 12/31/2023) Active Problems Problem Noted Date Diagnosed Date [...] as of this encounter (statuses as of 12/31/2023) Resolved Problems Problem Noted Date Diagnosed Date Resolved Date Atrioventricular block, Mobi tz type 1, Aaronbach 09/23/2021 09/23/2021 Thrombocytopenia 09/21/2021 09/23/2021 Nonrheumatic aortic valve stenosis 07/07/2020 09/23/2021 SVT (supraventricular tachycardia) 07/07/2020 02/13/2023 documented as of this encounter (statuses as of 12/31/2023) Immunizations Name Administration Dates Next Due COVID-19 [...] encounter Miscellaneous Notes * Telephone Encounter - Benny Benton PA-C - 12/31/2023 3:07 PM EDTSigned Prescriptions: Disp Refills Furosemide 40 MG Oral Tablet (Lasix) 30 Tab*5 Sig: Take 1 Tabletby mouth in the morning.Authorizing Provider: BENNY BENTON oxyCODONE-Acetaminophen 5-325 MG OralTabl*90 Tab*0 Sig: Take 1 Tablet by mouth every 8 hours as needed for Pain, Breakthrough.Authorizing Provider: BENNY BENTON ---- * Telephone Encounter - Lary Hernandez RN - 12/31/2023 1:43 PM EDT Call received from the pt's spouse Gabe. Calling to request refills on pt's lasix and percocet. Orders pended for review and refill if deemed appropriate. documented in this encounter Plan of Treatment Upcoming Encounters Date Type Department Care Team (Late st Contact Info) Description 01/01/2024 10:00 AM EDT Home Visit [facility] [address] [place] [address] Janessa Manning, RN 132 [facility] [place] [address] Health Maintenance Due Date Last Done Comments [...] this encounter Medical Devices Implanted Type Area Test Engineering Manager Device Identifier Shelf Expiration Date Model / Serial / Lot Lens 21.0 Mx60 - [id number] - [id number] Implanted:Qty: 1 on 11/07/2016 by Anatoliy Gonzalez MD at [facility] Left: Eye BAUSCH & LOMB : SURGICAL 02/08/2019 MX60-21.0 / [id number] / Lens 20.5 Mx60 - [id number] - [id number] Implanted:Qty: 1 on 11/21/2016 by Anatoliy Gonzalez MD at OR [facility] Right: Eye BAUSCH & LOMB : SURGICAL 03/11/2019 MX60-20.5 / [id number] / [id number] Valve Elvi 3 Ultra 26mm - [id number] Implanted:Qty: 1 on 09/20/2021 by Azael Eli MD [place] [facility] [employer] [id number] 07/10/2022 [id number] / / Lead Novus Bipolar 45cm - [id number] Implanted:Qty: 1 on 09/23/2021 by Lyn Henderson IV, MD [place] [facility] [employer] : CRM [id number] 05/09/2023 5076- 45 / [id number] 1 / [id number] Lead Pace Selectsecure 3830-69 - [id number] Implanted:Qty: 1 on 09/23/2021 by Lyn Henderson IV, MD [place] [facility] [place] [employer] : CRM [id number] 07/01/2023 [id number] / [id number] V / [id number] V Pacemaker [place] Xt Dr Mri ls - [id number] Implanted:Qty: 1 on 09/23/2021 by Lyn Henderson IV, MD at [facility] [employer] [id number] 02/22/2023 [id number] / [id number] G / [id number] G documented as of this encounter Advance [...] and were consensually agreed upon. Care Teams Soyfreeze Operator Relationship Specialty Start Date End Date Benny Benton PA-C [address] [place] [address] [place] [address] PCP - General Physician Grave Digger 10/30/23 documented as of this encounter
--- OUTSIDE RECORDS SUMMARY | 2024-04-24 06:38 | External Medical Summary | Summary of Care ---
Author Name Unknown Organization [facility] Address [address] [facility] [address] Phone [phone] Care Team Providers Care Change Management Expert Name Role Phone Benny Rizo PA-C Primary Care Provider + [phone] Reason for Visit * Reason Onset Date Comments [facility]: Maintenance 11/07/2023 Advice 11/07/2023 Encounter Details Date Type Department Care Team (Late st Contact Info) Description 11/07/2023 Telephone [facility], [facility] [address] [place] [address] Camila Santos RN [address] [place] [address] [facility]: Maintenance; Advice Allergies Active Allergy Reactions Criticality Noted Date Comments Bee Venom 12/09/2002 Duloxetine 12/02/2021 Other reaction(s): Unknown Shellfish Diarrhea 01/11/2010 Loses water via Ostomy documented as of this encounter (statuses as of 11/19/2023) Medications Medication Sig Dispensed Refills Start Date [...] as of this encounter (statuses as of 11/19/2023) Active Problems Problem Noted Date Diagnosed Date [...] as of this encounter (statuses as of 11/19/2023) Resolved Problems Problem Noted Date Diagnosed Date Resolved Date Atrioventricular block, Mobi tz type 1, 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 * Telephone Encounter - Angelica Castillo OSA - 11/17/2023 12:44 PM EDT Person calling: Miranda Reddy Relationship to patient: Self Phone/Fax to return call: [phone] Reason for call(brief): Advice Pharmacy: NA Provider Name:Camila Santos RN Detailed message to office:The patient called and was quite agitated and asking to speak to Camila. When I could not reach her, she requested that I send a message and tray it as important. Please advise. Thank you, RUBENS Medrano * Telephone Encounter - Camila Santos RN - 11/07/2023 9:29 AM EDT Received incoming call from patient and her to verify that Benny Rizo PA-C is now her PCP. Per chart review, Benny Rizo PA-C is listed as her PCP under [facility] at [facility]. Patient asked if this RN would contact previous PCP to make sure they are aware. Call to [facility] . Make them aware. They cancelled upcoming appointments for December and June of 2024. documented in this encounter Plan of Treatment Upcoming Encounters Date Type Department Care Team (Late st Contact Info) Description 12/04/2023 1:00 PM EDT [facility] [place], [facility] [address] [place] [address] Benny Rizo PA-C [address] [place] [address] 01/01/2024 10:00 AM EDT [facility] Visit [facility] [place], [facility] [address] [place] [address] Janessa Manning RN [address] [place] [address] Health Maintenance Due Date Last Done Comments [...] this encounter Medical Devices Implanted Type Area Welder Oxyhydrogen Device Identifier Shelf Expiration Date Model / Serial / Lot Lens 21.0 Mx60 - [id number] - [id number] Implanted:Qty: 1 on 11/07/2016 by Anatoliy Gonzalez MD at OR [facility] Left: Eye BAUSCH & LOMB : SURGICAL 02/08/2019 MX60-21.0 / [id number] / Lens 20.5 Mx60 - [id number] - [id number] Implanted:Qty: 1 on 11/21/2016 by Anatoliy Gonzalez MD at OR [facility] Right: Eye BAUSCH & LOMB : SURGICAL 03/11/2019 MX60-20.5 / [id number] / [id number] Valve Elvi 3 Ultra 26mm - [id number] Implanted:Qty: 1 on 09/20/2021 by Azael Eli MD at [facility] [employer] [id number] 07/10/2022 [id number] / / Lead Novus Bipolar 45cm - [id number] Implanted:Qty: 1 on 09/23/2021 by Lyn Henderson IV, MD at [facility] [employer] : CRM [id number] 05/09/2023 5076- 45 / [id number] 1 / [id number] 1 Lead Pace Selectsecure 3830-69 - [id number] Implanted:Qty: 1 on 09/23/2021 by Lyn Henderson IV, MD at [facility] [employer] : CRM [id number] 07/01/2023 [id number] 9 / [id number] V / [id number] V Pacemaker Gricelda Xt Dr Nathan ls - [id number] Implanted:Qty: 1 on 09/23/2021 by Lyn Henderson IV, MD at [facility] [employer] [id number] 02/22/2023 W1DR01 / [id number] G / [id number] documented as of this encounter Advance [...] and were consensually agreed upon. Care Teams Change Management Expert Relationship Specialty Start Date End Date Benny Rizo PA-C [address] [facility] [place] [address] PCP - General Physician Cobol Programmer 10/30/23 documented as of this encounter
--- OUTSIDE RECORDS SUMMARY | 2024-04-24 06:38 | External Medical Summary | Summary of Care ---
Author Name Unknown Organization [facility] Address [address] [facility] [place] [address] Phone [phone] Care Team Providers Care Nude Model Name Role Phone Benny Benton PA-C Primary Care Provider + [phone] Reason for Visit * Reason Onset Date Comments [facility]: Maintenance 11/22/2023 Encounter Details Date Type Department Care Team (Late st Contact Info) Description 11/22/2023 Refill [facility], [facility] [address] [place] [address] Estrella Branch RN [facility] [address] [facility] [place] [id number] Allergies Active Allergy Reactions Criticality Noted Date [...] for Pain, Breakthrough. 90 Tablet 11/23/2023 Active oxyCODONE-Acetamin ophen 5-325 MG Oral Tablet (Percocet) 11/26/2021 11/22/2023 Discontinue d(Refill) documented as of this encounter [...] Telephone Encounter - Benny Benton PA-C - 11/23/2023 8:21 AM EDTSigned Prescriptions: Disp Refills oxyCODONE-Acetaminophen 5-325 MG Oral Tabl*90 Tab*0 Sig: Take 1 Tablet by mouth every 8 hours as needed for Pain, Breakthrough. Authorizing Provider: BENNY BENTON * Telephone Encounter - Estrella Branch RN - 11/22/2023 2:04 PM EDT Spouse calling in requesting refill for Oxycodone and be sent to their pharmacy Medication pended REDD Corona Registered Nurse Navigator Triage [facility] documented in this encounter Plan of Treatment Upcoming Encounters Date Type Department Care Team (Late st Contact Info) Description 12/04/2023 1:00 PM EDT Home Visit [facility], [facility] [address] [place] [address] Benny Benton PA-C [address] [place] [address] 01/01/2024 10:00 AM EDT Home Visit [facility], [facility] [address] [place] [address] Janessa Manning RN [address] [place] [address] Health Maintenance Due Date Last Done Comments Depression Screening 1952 DTap/Tdap Vaccines (1 - Tdap) 1959 Adult Wellness Visit 10/25/2007 AAA Monitoring 07/04/2022 07/04/2021, 01/10, 12/06/2010, Additional history exists COVID-19 Vaccine (3 - 2023- season) 2023 05/15/2020, 05/15/2020, 04/17/2020, [...] this encounter Medical Devices Implanted Type Area Hog Slaughterer Device Identifier Shelf Expiration Date Model / Serial / Lot Lens 21.0 Mx60 - [id number] - [id number] Implanted:Qty: 1 on 11/07/2016 by Anatoliy Gonzalez MD at OR [facility] Left: Eye BAUSCH & LOMB : SURGICAL 02/08/2019 MX60-21.0 / [id number] / Lens 20.5 Mx60 - [id number] - [id number] Implanted:Qty: 1 on 11/21/2016 by Anatoliy Gonzalez MD at OR [facility] Right: Eye BAUSCH & LOMB : SURGICAL 03/11/2019 MX60-20.5 / [id number] / [id number] Valve Elvi 3 Ultra 26mm - [id number] Implanted:Qty: 1 on 09/20/2021 by Azael Eli MD at [facility] [place] [employer] [id number] 07/10/2022 [id number] / / Lead Novus Bipolar 45cm - [id number] Implanted:Qty: 1 on 09/23/2021 by Lyn Henderson IV, MD at [facility] [place] [employer] : NIMA [id number] 05/09/2023 5076- 45 / [id number] 1 / [id number] 1 Lead Pace Selectsecure 3830-69 - [id number] Implanted:Qty: 1 on 09/23/2021 by Lyn Henderson IV, MD at [facility] [place] [employer] : NIMA [id number] 07/01/2023 [address] 9 / [id number] V / [id number] V Pacemaker [place] Xt Dr Mri [facility] - [id number] Implanted:Qty: 1 on 09/23/2021 by Lyn Henderson IV, MD at [facility] [place] [employer] [id number] 02/22/2023 W1DR01 / [id number] G / [id number] documented as of this encounter Advance [...] and were consensually agreed upon. Care Teams Nude Model Relationship Specialty Start Date End Date Benny Benton PA-C [address] [place] [address] PCP - General Physician Body Painter 10/30/23 documented as of this encounter
--- OUTSIDE RECORDS SUMMARY | 2024-04-24 06:38 | External Medical Summary | Summary of Care ---
Author Name Unknown Organization [facility] Address [address] [facility] [address] Phone [phone] Care Team Providers Care Manager Hospital Name Role Phone Benny Rizo PA-C Primary Care Provider + [phone] Reason for Visit * Reason Comments [facility]: Acute Encounter Details Date Type Department Care Team (Late st Contact Info) Description 11/19/2023 10:00 AM EDT [facility], [facility] 132 [facility] [place] [address] Janessa Manning RN 132 [facility] [place] [address] Allergies Active Allergy Reactions Criticality Noted Date Comments Bee Venom 12/09/2002 Duloxetine 12/02/2021 Other reaction(s): Unknown Shellfish Diarrhea 01/11/2010 Loses water via Ostomy documented as of this encounter (statuses as of 11/20/2023) Medications Medication Sig Dispensed Refills Start Date [...] as of this encounter (statuses as of 11/20/2023) Active Problems Problem Noted Date Diagnosed Date [...] as of this encounter (statuses as of 11/20/2023) Resolved Problems Problem Noted Date Diagnosed Date Resolved Date Atrioventricular block, Mobi tz type 1, Wenckebach 09/23/2021 09/23/2021 Thrombocytopenia 09/21/2021 09/23/2021 Nonrheumatic aortic valve stenosis 07/07/2020 09/23/2021 SVT (supraventricular tachycardia) 07/07/2020 02/13/2023 documented as of this encounter (statuses as of 11/20/2023) Immunizations Name Administration Dates Next Due COVID-19 [...] Sign Reading Time Taken Comments Blood Pressure 110/60 11/19/2023 11:29 AM EDT Pulse 72 11/19/2023 11:29 AM EDT Temperature 36.8 C (98.3 F) 11/19/2023 11:29 AM E DT Respiratory Rate 18 11/19/2023 11:29 AM EDT Oxygen Saturation 99% 11/19/2023 11:29 AM EDT Inhaled Oxygen Concentration - - [...] Progress Notes * Janessa Manning RN - 11/19/2023 11:29 AM EDT [facility] Visit Date: 11/19/2023 Time: 11:29 AM Name: Miranda Reddy : 1940 Current Concerns: Patient seen for acute visit- patient called in reporting increased shortness of breath. Will on phone with steam finisher- patient at that time did not have oxygen on. Phone call to patient by this nurse. Patient reports she called back in to tell them to cancel the visit as she was ok. Patient stated, " If you're in the area, would you please just stop and check me out?" Medical history includes: Ileostomy, CAD, s/p TAVR, cardiac pacemaker, CHF, SIADH, HTN, hyperlipidemia, anxiety, aortic stenosis, GERD, Crohn's, PSVT, UTIs, sacral wound, cachexia, fx of R superior pubic sharee Upon arrival, patient at home sitting in recliner. not home d/t MD appointment. Patient states the sob has subsided since wearing her oxygen. No respiratory distress noted. Spo2- 99% on 2l via n/c VS wnl Lungs clear but diminished Sob with exertion No LE edema noted Voiding without difficulty Bowels wnl Appetite fair- good Taking fluids well Assisted with Medtronic setup(pacemaker)- placed on stand beside patient. Patient sleeps in recliner at HS. Problems/Symptoms: Review of Systems Constitutional: Negative. HENT: Negative. Respiratory: Positive for shortness of breath. Cardiovascular: Negative. Gastrointestinal: Negative. Genitourinary: Negative. Musculoskeletal: Positive for gait problem. Skin: Negative. Hematological: Negative. Psychiatric/Behavioral: Negative. Physical Exam: BP 110/60 (BP Site: Right Arm, BP Position: Sitting, BP Cuff Size: Regular) | Pulse 72 | Temp 36.8 C (98.3 F) (Tympanic) | Resp 18 | SpO2 99% Pain 0 Physical Exam Constitutional: Appearance: Normal appearance. Cardiovascular: [...] and Affect: Mood normal. Behavior: Behavior normal. [facility]-10 Completed this Visit: No. Routine visit Treatment/Plan: Oxygen at 2L via n/c continuous Continue medications as prescribed Keep all upcoming MD appointments Fall precautions Fluids encouraged RN CM follow up in 7 weeks Home Interventions Provided: Reinforced current Plan of Care, including self-management and medication regimen Patient's Goals of Care: Do not go back to the hospital Stay home Make it to tomorrow Patient's 'Red Flags': .Increased confusion, change in mental status Increased shortness of breath Increased dizziness/lightheadedness Patient Needs to Remember: Call [facility] at with any new or worsening health concerns or problems, red flag symptoms. Referrals Needed: N/a Follow Up: Is there cellular connectivity/connectivity in the home? Yes Does the patient have internet in the home? No Patient encouraged to call the intake phone number for all urgent but not emergent issues. Scheduled to follow up with patient in 7 weeks. Janessa Yancey RN 11/19/2023 11:29 AM documented in this encounter Plan of Treatment Upcoming Encounters Date Type Department Care Team (Late st Contact Info) Description 12/04/2023 1:00 PM EDT [facility] [address] [place] [address] Benny Rizo PA-C [address] [place] [address] 01/01/2024 10:00 AM EDT [facility] Visit [facility], [facility] [address] [place] [address] Janessa Manning RN [address] [place] [address] Health Maintenance Due Date Last Done Comments [...] this encounter Medical Devices Implanted Type Area Hand Etcher Device Identifier Shelf Expiration Date Model / Serial / Lot Lens 21.0 Mx60 - [id number] - [id number] Implanted:Qty: 1 on 11/07/2016 by Anatoliy Gonzalez MD at OR [facility] Left: Eye BAUSCH & LOMB : SURGICAL 02/08/2019 MX60-21.0 / [id number] / Lens 20.5 Mx60 - [id number] - [id number] Implanted:Qty: 1 on 11/21/2016 by Anatoliy Gonzalez MD at OR [facility] Right: Eye BAUSCH & LOMB : SURGICAL 03/11/2019 MX60-20.5 / [id number] / [id number] Valve Elvi 3 Ultra 26mm - [id number] Implanted:Qty: 1 on 09/20/2021 by Azael Eli [place] [facility] [employer] [id number] 07/10/2022 [id number] / / Lead Novus Bipolar 45cm - [id number] Implanted:Qty: 1 on 09/23/2021 by Lyn Henderson IV, MD [place] [facility] [employer] : CRM [id number] 05/09/2023 5076- 45 / [id number] 1 / [id number] Lead Pace Selectsecure 3830-69 - [id number] Implanted:Qty: 1 on 09/23/2021 by Lyn Henderson IV, MD [place] [facility] [employer] : CRM [id number] 07/01/2023 [id number] 9 / [id number] V / [id number] V Pacemaker Gricelda Xt Dr Mri ls - [id number] Implanted:Qty: 1 on 09/23/2021 by Lyn Henderson IV, MD [place] [facility] [employer] [id number] 02/22/2023 W1DR01 / [id number] G / [id number] documented as of this encounter Advance [...] were consensually agreed upon. Care Teams Manager Hospital Relationship Specialty Start Date End Date Benny Rizo PA-C [address] [place] [address] PCP - General Physician Critical Care Transport Nurse 10/30/23 documented as of this encounter
--- OUTSIDE RECORDS SUMMARY | 2024-04-24 06:38 | External Medical Summary | Summary of Care ---
Author Name Unknown Organization [facility] Address [address] [facility] [place] [address] Phone [phone] Care Team Providers Care Residential Child Care Counselor Name Role Phone Benny Rizo PA-C Primary Care Provider + [phone] Reason for Visit * Reason Onset Date Comments [facility]: Acute 11/19/2023 Encounter Details Date Type Department Care Team (Late st Contact Info) Description 11/19/2023 Telephone [facility], [place] [address] [facility] [place] [address] Camila Santos RN [address] [place] [phone] [facility]: Acute Allergies Active Allergy Reactions Criticality Noted Date [...] Encounter - Camila Santos RN - 11/19/2023 9:58 AM EDT Return call placed per request from weekend to speak directly with this RN. Patient states, "I need someone to come out here and check me out. I can't breathe." Attempted to ask for more information, patient became agitated stating, "If you can't come out here, forget it! I can't talk right now." Asked patient if she wanted me to call EMS. Pt replies, "No! If you can't come, forget it. I can't talk to you right now." Patient gave phone to . reports, "she'sjust worked up. She didn't have her oxygen on, but she put it on now." Asked if she needed an ambulance, Pt asked patient if she wanted to go to the hospital, to which pt started yelling, "Noand don't send anyone out here but a nurse.!" Pt refusing to answer triage questions. Spoke with primary RNCM who will follow up with patient to offer acute home visit today. documented in this encounter Plan of Treatment Upcoming Encounters Date Type Department Care Team (Late st Contact Info) Description 12/04/2023 1:00 PM EDT Home Visit [facility] [address] [address] Benny Rizo PA-C [address] [place] [address] 01/01/2024 10:00 AM EDT Home Visit [facility] [address] [place] [address] Janessa Manning RN [address] [place] [address] Health Maintenance Due Date Last Done Comments [...] this encounter Medical Devices Implanted Type Area Classified Ad Clerk Device Identifier Shelf Expiration Date Model / Serial / Lot Lens 21.0 Mx60 - [id number] - [id number] Implanted:Qty: 1 on 11/07/2016 by Anatoliy Gonzalez MD at OR [facility] Left: Eye BAUSCH & LOMB : SURGICAL 02/08/2019 MX60-21.0 / [id number] / Lens 20.5 Mx60 - [id number] - [id number] Implanted:Qty: 1 on 11/21/2016 by Anatoliy Gonzalez MD at OR [facility] Right: Eye BAUSCH & LOMB : SURGICAL 03/11/2019 MX60-20.5 / [id number] / [id number] Valve Elvi 3 Ultra 26mm - [id number] Implanted:Qty: 1 on 09/20/2021 by Azael Eli MD at [facility] [employer] [id number] 07/10/2022 [id number] / / Lead Novus Bipolar 45cm - [id number] Implanted:Qty: 1 on 09/23/2021 by Lyn Henderson IV, MD at [facility] [employer] : CRM [id number] 05/09/2023 5076- 45 / [id number] 1 / [id number] Lead Pace Selectsecure 3830-69 - [id number] Implanted:Qty: 1 on 09/23/2021 by Lyn Henderson IV, MD at [facility] [employer] : CRM [id number] 07/01/2023 [id number] / [id number] V / [id number] V Pacemaker [place] Xt Dr Nathan ls - [id number] Implanted:Qty: 1 on 09/23/2021 by Lyn Henderson IV, MD at [facility] [employer] [id number] 02/22/2023 [id number] / [id number] G / [id number] documented as of this encounter Advance [...] and were consensually agreed upon. Care Teams Residential Child Care Counselor Relationship Specialty Start Date End Date Benny Rizo PA-C [address] [facility] [place] [address] PCP - General Physician Dehydrogenation Operator Head 10/30/23 documented as of this encounter
--- OUTSIDE RECORDS SUMMARY | 2024-04-24 06:38 | External Medical Summary | Summary of Care ---
Author Name Unknown Organization [facility] Address [address] [facility] [place] [address] Phone [phone] Care Team Providers Care Retail Greeting Card Merchandiser Name Role Phone Benny Rizo PA-C Primary Care Provider + [phone] Reason for Visit * Reason Onset Date Comments [facility]: Maintenance 11/07/2023 Encounter Details Date Type Department Care Team (Late st Contact Info) Description 11/07/2023 Telephone [facility], [facility] [address] [facility] [place] [address] Camila Santos RN [facility] [place] [phone] [facility]: Maintenance Allergies Active Allergy Reactions Criticality Noted Date Comments Bee Venom 12/09/2002 Duloxetine 12/02/2021 Other reaction(s): Unknown Shellfish Diarrhea 01/11/2010 Loses water via Ostomy documented as of this encounter (statuses as of 11/07/2023) Medications Medication Sig Dispensed Refills Start Date [...] as of this encounter (statuses as of 11/07/2023) Active Problems Problem Noted Date Diagnosed Date [...] as of this encounter (statuses as of 11/07/2023) Resolved Problems Problem Noted Date Diagnosed Date Resolved Date Atrioventricular block, Mobi tz type 1, Mateonckebach 09/23/2021 09/23/2021 Thrombocytopenia 09/21/2021 09/23/2021 Nonrheumatic aortic valve stenosis 07/07/2020 09/23/2021 SVT (supraventricular tachycardia) 07/07/2020 02/13/2023 documented as of this encounter (statuses as of 11/07/2023) Immunizations Name Administration Dates Next Due COVID-19 [...] PA-C is listed as her PCP under [facility] at Home. Patient asked if this RN would contact previous PCP to make sure they are aware. Call to [facility] [place], . Make them aware. They cancelled upcoming appointments for December and June of 2024. documented in this encounter Plan of Treatment Upcoming Encounters Date Type Department Care Team (Late st Contact Info) Description 12/04/2023 1:00 PM EDT Home Visit [facility], [facility] [address] [place] [address] Benny Rizo PA-C [address] [place] [address] 01/01/2024 10:00 AM EDT Home Visit [facility], [facility] [address] [place] [address] Janessa Manning, JERRY [address] [place] [address] Health Maintenance Due Date Last Done Comments Depression Screening 1952 DTap/Tdap Vaccines (1 - Tdap) 1959 Adult Wellness Visit 10/25/2007 AAA Monitoring 07/04/2022 07/04/2021, 01/10, 12/06/2010, Additional history exists COVID-19 Vaccine ( season) 2022 05/15/2020, 05/15/2020, 04/17/2020, Additional history [...] this encounter Medical Devices Implanted Type Area Gis Application Developer Device Identifier Shelf Expiration Date Model / Serial / Lot Lens 21.0 Mx60 - [id number] - [id number] Implanted:Qty: 1 on 11/07/2016 by Anatoliy Gonzalez MD at OR [facility] Left: Eye BAUSCH & LOMB : SURGICAL 02/08/2019 MX60-21.0 / [id number] / Lens 20.5 Mx60 - [id number] - [id number] Implanted:Qty: 1 on 11/21/2016 by Anatoliy Gonzalez MD at OR [facility] Right: Eye BAUSCH & LOMB : SURGICAL 03/11/2019 MX60-20.5 / [id number] / [id number] Valve Elvi 3 Ultra 26mm - [id number] Implanted:Qty: 1 on 09/20/2021 by Azael Eli MD at [facility] [employer] [id number] 07/10/2022 [id number] / / Lead Novus Bipolar 45cm - [id number] Implanted:Qty: 1 on 09/23/2021 by Lyn Henderson IV, MD at [facility] [employer] : CRM [id number] 05/09/2023 5076- 45 / [id number] 1 / [id number] Lead Pace [employer] 3830-69 - [id number] Implanted:Qty: 1 on 09/23/2021 by Lyn Henderson IV, MD at [facility] [employer] : CRM [id number] 07/01/2023 [id number] 9 / [id number] V / [id number] V Pacemaker Gricelda Xt Dr Evans [facility] - [id number] Implanted:Qty: 1 on 09/23/2021 by Lyn Henderson IV, MD at [facility] [employer] [id number] 02/22/2023 W1DR01 / [id number] G / [id number] documented as of this encounter Advance [...] and were consensually agreed upon. Care Teams Retail Greeting Card Merchandiser Relationship Specialty Start Date End Date Benny Rizo PA-C [address] [facility] [place] [address] PCP - General Physician Location Manager 10/30/23 documented as of this encounter
--- OUTSIDE RECORDS SUMMARY | 2024-04-24 06:38 | External Medical Summary | Summary of Care ---
Author Name Unknown Organization [facility] Address [address] [facility] [address] Phone [phone] Care Team Providers Care Project Structural Engineer Name Role Phone Benny Rizo PA-C Primary Care Provider + [phone] Encounter Details Date Type Department Care Team (Late st Contact Info) Description 12/04/2023 1:00 PM EDT [facility] [address] [place] [address] Benny Rizo PA-C [address] [place] [address] Interstitial pulmonary disease (HCC)*; Cachexia (HCC); Chronic pain disorder; Advanced care planning/counseling discussion Allergies Active Allergy Reactions Criticality Noted Date Comments Bee Venom 12/09/2002 Duloxetine 12/02/2021 Other reaction(s): Unknown Shellfish Diarrhea 01/11/2010 Loses water via Ostomy documented as of this encounter (statuses as of 12/05/2023) Medications Medication Sig Dispensed Refills Start Date [...] at bedtime. 30 Tablet 5 12/05/2023 Active documented as of this encounter (statuses as of 12/05/2023) Active Problems Problem Noted Date Diagnosed Date [...] as of this encounter (statuses as of 12/05/2023) Resolved Problems Problem Noted Date Diagnosed Date Resolved Date Atrioventricular block, Mobi tz type 1, Wenckebach 09/23/2021 09/23/2021 Thrombocytopenia 09/21/2021 09/23/2021 Nonrheumatic aortic valve stenosis 07/07/2020 09/23/2021 SVT (supraventricular tachycardia) 07/07/2020 02/13/2023 documented as of this encounter (statuses as of 12/05/2023) Immunizations Name Administration Dates Next Due COVID-19 [...] Sign Reading Time Taken Comments Blood Pressure - - Pulse - - Temperature - - Respiratory Rate - - Oxygen Saturation - - Inhaled Oxygen Concentration - - Weight 39.9 kg (88 lb) 12/04/2023 1:02 PM EDT Height - - Body Mass Index 17.19 09/20/2021 8:20 AM EDT documented in this [...] as of this encounter Progress Notes * Benny Rizo PA-C - 12/04/2023 12:33 PM EDT Images from the original note were not included. [facility] Problem Oriented Charting Provider Visit Date: 12/04/2023 Time: 12:33 PM Assessment and Plan #1 Interstitial pulmonary disease (HCC) (Primary) Assessment & Plan: Continuous oxygen supplement at 2L #2 Cachexia (HCC) Assessment & Plan: Continue supplement shakes Will try adding remeron for appetite Cushion for chair, frequent repositioning, monitor closely for skin breakdown #3 Chronic pain disorder Assessment & Plan: Hx of multiple vertebral compression fractures Continues on oxy/apap 5/325mg bid with relief #4 Advanced care planning/counseling discussion Other orders - Mirtazapine; Take 1 Tablet by mouth at bedtime. Dispense: 30 Tablet; Refill: 5 Additional Medical Decision Making: Patient lives with spouse, single level home Spouse assists with all ADLs and IADLs, but is also elderly Remains comfort care only POLST on e Reviewed hospice and what they offer, patient does not feel like she is ready for this yet Adding remeron to help with appetite Scheduled appointments in the next 60 days: Future Appointments-next 60 days Date/Time Provider Specialty Dept Phone 12/04/2023 1:00 PM Benny Rizo PA-C [facility] [phone] 01/01/2024 10:00 AM Janessa Manning RN [facility] [phone] A total of 60 minutes was spent face to face (via video-based telemedicine if designated as a telemedicine visit) Subjective Subjective Is this a Telemedicine Visit? No, this is an Home Visit. Reason For [facility] Visit: Follow-Up Current Concerns: Miranda Reddy is a 83 year old female seen today for a [facility] provider visit. PMH includes CHB, s/p pacemaker, ILD, cachexia, HTN, s/p TAVR, GERD, dyslipidemia, crohns disease Today's concerns are: Patient in recliner at time of visit Spouse present Patient/spouse deny concerns Patient no longer going out for appts due to mobility Having intermittent SOB Occasionally will take supplemental o2 off for a break and forget to put back on Denies increased cough, fever/chills Denies chest pain Chronic low back pain Using oxy/apap approx bid with relief Denies recent falls Fairly sedentary, remains in recliner most of the day Appetite poor Usually 1 egg in the morning, tries to drink 1 supplement shake per day Denies n/v Noted weight loss, but patient does not seem concerned Additional I have reviewed the following results: CMP and CBC Current Outpatient Medications Medication Sig Dispense Refill Acidophilus Probiotic 0.5 MG Oral Tablet Take 0.5 mg by mouth in the morning. Amoxicillin 500 MG Oral Capsule (Amoxil) Take 4 capsules 1 hour prior to any dental work. 4 Capsule6 Atenolol 25 MG Oral Tablet (Tenormin) Take 1 Tablet by mouth in the morning. Calcium Citrate + Oral Tablet Take by mouth daily. Cholecalciferol 25 MCG (1000 UT) Oral Tablet Take 1 Tablet by mouth in the morning and 1 Tablet before bedtime. Diclofenac Sodium 1 % External Gel (Voltaren) FOUR TIMES DAILY Eliquis 2.5 MG Oral Tablet (Apixaban) take 1 tablet by mouth twice a day 180 Tablet 3 FEOSOL 200 (65 FE) MG PO TABS one pill each day Furosemide 40 MG Oral Tablet (Lasix) Take 1 Tablet by mouth in the morning. Magnesium Chloride 64 MG Oral Tablet Delayed Release (Mag64) Take 2 Tablets by mouth in the morning. Mirtazapine 15 MG Oral Tablet (Remeron) Take 1 Tablet by mouth at bedtime. 30 Tablet 5 Omeprazole 20 MG Oral Capsule Delayed Release (PriLOSEC) Take 1 Capsule by mouth in the morning and1 Capsule before bedtime. oxyCODONE-Acetaminophen 5-325 MG Oral Tablet (Percocet) Take 1 Tablet by mouth every 8 hours as needed for Pain, Breakthrough. 90 Tablet 0 oxygen IN GAS Use 2 L/min(Oxygen) as directed continuous. Potassium Chloride ER 20 MEQ Oral Tablet Extended Release Prolia 60 MG/ML Subcutaneous Solution Prefilled Syringe Inject 60 mg under the skin every 6 months.As directed. 1 mL 0 Kirk Krill & Fish Oil Blend Oral Capsule Take by mouth daily. SIMVASTATIN 10 MG PO TABS take one daily Sodium Chloride 1 GM Oral Tablet DAILY IN THE MORNING Vitamin B-12 1000 MCG Oral Tablet (Cyanocobalamin) Take 1 Tablet by mouth in the morning. Vitamin C 1000 MG Oral Tablet Take 1 Tablet by mouth in the morning. No current facility-administered medications for this visit. Objective Objective There were no vitals filed for this visit. Last Weights: Wt Readings from Last 3 Encounters: 12/04/23 39.9 kg (88 lb) 07/19/23 45.4 kg (100 lb) 11/07/21 45.3 kg (99 lb 12.8 oz) Last BPs: BP Readings from Last 4 Encounters: 11/19/23 110/60 10/30/23 136/54 09/24/23 108/54 08/20/23 130/82 General: alert, no distress, and ill looking Neuro: alert & oriented x 3 with fluent speech, some issues with STM Heart: regular rate & rhythm and +murmur Lungs: decreased breath sounds, scattered rales bilaterally, no wheezing Abdomen: abdomen soft, non-tender, and +ileostomy Ext: +1 edema bilat LE Skin: previous skin breakdown on buttocks healed Benny Rizo PA-C 12:33 PM documented in this encounter Miscellaneous Notes * ACP (Advance Care Planning) - Benny Rizo PA-C - 12/05/2023 1:04 PM EDT Images from the original note were not included. Patient-centered Communication 12/04/2023 The patient/surrogate voluntarily agreed to participate in advance care planning discussion. They were advised that this is a separate service which may incur out of pocket cost in the form of copayment and/or deductibles. Location: Home Individual(s) present for conversation: Patient and Spouse Decisions Synopsis SmartLink Most Recent Value Past ~10 years 10/22/2023 12:39 Decisions CPR decision: Declines CPR 10/22/2023 Declines CPR Intubation/Mechanical Ventilation decision: Declines Intubation/mechanical ventilation 10/22/2023 Declines Intubation/mechanical ventilation Antibiotic therapy decision: Patient chooses Antibiotic therapy 10/22/2023 Patient chooses Antibiotic therapy Artificial nutrition decision: Declines Artificial nutrition 10/22/2023 Declines Artificial nutrition IV hydration decision: Patient chooses IV hydration short term only 10/22/2023 Patient chooses IV hydration short term only Lab draw decision: Patient chooses Lab draws 10/22/2023 Patient chooses Lab draws Hospice decision: Undecided about Hospice 10/22/2023 Undecided about Hospice Dying at home decision: Patient chooses Dying at home 10/22/2023 Patient chooses Dying at home Additional Comments Synopsis SmartLink Most Recent Value Past ~10 years 12/05/2023 13:04 Additional Comments Additional Comments: remains comfort care. POLST on fridge. Reviewed hospice, patient not ready yet. 12/05/2023 remains comfort care. POLST on fridge. Reviewed hospice, patient not ready yet. Discerning What Matters Most to the Patient: Synopsis SmartLink Most Recent Value Past ~10 years 12/05/2023 13:03 Discerning What Matters Most to the Patient In their own words, patient's UNDERSTANDING of their illness is: "i dont know" "i didnt know I had lung disease" 12/05/2023 "i dont know" "i didnt know I had lung disease" Their current SYMPTOMS include: Tiredness;Lack of appetite;Shortnes of breath;Reduced overall well being 12/05/2023 Tiredness;Lack of appetite;Shortnes of breath;Reduced overall well being They say their illness has CHANGED THEIR LIFE by: Less enjoyment (quality of life) 10/22/2023 The patient's HOPES are: Avoid further hospitalization;Avoid the ICU;Avoid intubation/mechanical ventilation;Avoid symptoms 12/05/2023 Avoid further hospitalization;Avoid the ICU;Avoid intubation/mechanical ventilation;Avoidsymptoms Avoid symptoms include: Dyspnea;Pain 12/05/2023 Dyspnea;Pain The patient's FEARS/WORRIES about illness are: Going back to the hospital;Going to a senior living 10/22/2023 Source: Content from [employer] Program Aligning Care With What Matters Most: 1EQ Most Recent Value Past ~10 years 10/22/2023 12:39 Aligning Care With What Matters Most Interventions/Choices: CPR;Intubation/mechanical ventilation;Antibiotic therapy;Artificial nutrition;IV hydration;Lab draws;Hospice; at home 10/22/2023 CPR;Intubation/mechanical ventilation;Antibiotic therapy;Artificial nutrition;IV hydration;Lab draws;Hospice; at home Source: Content from [employer] [facility] 30 minutes spent in direct [id number] discussion today, Benny Rizo PA-C * Assessment & Plan Note - Benny Rizo PA-C - 12/05/2023 1:02 PM EDT Associated Problem(s): Cachexia (HCC) Continue supplement shakes Will try adding remeron for appetite Cushion for chair, frequent repositioning, monitor closely for skin breakdown * Assessment & Plan Note - Benny Rizo PA-C - 12/05/2023 12:12 PM EDT Associated Problem(s): Chronic pain disorder Hx of multiple vertebral compression fractures Continues on oxy/apap 5/325mg bid with relief * Assessment & Plan Note - Benny Rizo PA-C - 12/05/2023 12:12 PM EDT Associated Problem(s): Interstitial pulmonary disease (HCC) Continuous oxygen supplement at 2L documented in this encounter Plan of Treatment Upcoming Encounters Date Type Department Care Team (Late st Contact Info) Description 01/01/2024 10:00 AM EDT Home Visit [facility] [address] [place] [address] Janessa Manning, JERRY [address] [place] [address] 01/22/2024 3:00 PM EST Home Visit [facility] at [facility] [address] [place] [address] Benny Rizo PA-C [address] [place] [address] Health Maintenance Due Date Last Done Comments [...] this encounter Medical Devices Implanted Type Area Meter Reading Clerk Device Identifier Shelf Expiration Date Model / Serial / Lot Lens 21.0 Mx60 - [id number] - [id number] Implanted:Qty: 1 on 11/07/2016 by Anatoliy Gonzalez MD at OR [facility] Left: Eye BAUSCH [employer] LOMB : SURGICAL 02/08/2019 MX60-21.0 / [id number] / Lens 20.5 Mx60 - [id number] - [id number] Implanted:Qty: 1 on 11/21/2016 by Anatoliy Gonzalez MD at OR [facility] Right: Eye BAUSCH & LOMB : SURGICAL 03/11/2019 MX60-20.5 / [id number] / [id number] Valve Elvi 3 Ultra 26mm - [id number] Implanted:Qty: 1 on 09/20/2021 by Azael Eli MD at [facility] [employer] [id number] 07/10/2022 [id number] / / Lead Novus Bipolar 45cm - [id number] Implanted:Qty: 1 on 09/23/2021 by Lyn Henderson IV, MD at [facility] [employer] : CRM [id number] 05/09/2023 5076- 45 / [id number] 1 / [id number] Lead Pace [employer] 3830-69 - [id number] Implanted:Qty: 1 on 09/23/2021 by Lyn Henderson IV, MD at [facility] [employer] : CRM [id number] 07/01/2023 [id number] 9 / [id number] V / [id number] Pacemaker Gricelda Xt Dr Nathan ls - [id number] Implanted:Qty: 1 on 09/23/2021 by Lyn Henderson IV, MD at [facility] [employer] [id number] 02/22/2023 W1DR01 / [id number] / [id number] documented as of this encounter Visit Diagnoses Diagnosis Interstitial pulmonary disease (HCC)- Primary Postinflammatory pulmonary fibrosis Cachexia (HCC) Cachexia Chronic pain disorder Chronic pain syndrome Advanced care planning/counseling discussion Other specified counseling documented in this encounter Advance Directives * [...] and were consensually agreed upon. Care Teams Project Structural Engineer Relationship Specialty Start Date End Date Benny Rizo PA-C [address] [place] [address] [place] [address] PCP - General Physician Audograph Operator 10/30/23 documented as of this encounter
--- OUTSIDE RECORDS SUMMARY | 2024-04-24 06:38 | External Medical Summary | Summary of Care ---
Author Name Unknown Organization [facility] Address [address] [address] Phone [phone] Care Team Providers Care Heel Nail Rasper Name Role Phone Benny Rizo PA-C Primary Care Provider + [phone] Reason for Referral * Ancillary Services (Within 3 days (urgent)) - Authorized Specialty Diagnoses / Procedures Referred By Helga aguilar Referred To Contact HOME CARE / Palliative Medicine Diagnoses Interstitial pulmonary disease (HCC) Cachexia (HCC) Benny Rizo PA-C [address] [address] Referral ID Status Reason Start Date Expiration Date Visits Requested Visits Authorized [id number] Authorized Ancillary Services Required 4 [phone] Question Answer Referral Priority Within 3 days (urgent) Where should this appointment be scheduled? Anel Reason for Visit * Reason Onset Date Comments Follow Up 12/31/2023 Encounter Details Date Type Department Care Team (Latest Contact Info) Description 12/31/2023 2:00 PM EDT Scheduled Telephone [facility] at [place], [facility] [address] [address] Benny Rizo PA-C [address] [address] Interstitial pulmonary disease (HCC)*; Cachexia (HCC) Allergies Active Allergy Reactions Criticality Noted Date Comments Bee Venom 12/09/2002 Duloxetine 12/02/2021 Other reaction(s): Unknown Shellfish Diarrhea 01/11/2010 Loses water via Ostomy documented as of this encounter (statuses as of 01/01/2024) Medications Medication Sig Dispensed Refills Start Date [...] as of this encounter (statuses as of 01/01/2024) Active Problems Problem Noted Date Diagnosed Date [...] as of this encounter (statuses as of 01/01/2024) Resolved Problems Problem Noted Date Diagnosed Date Resolved Date Atrioventricular block, Mobi tz type 1, Wenckebach 09/23/2021 09/23/2021 Thrombocytopenia 09/21/2021 09/23/2021 Nonrheumatic aortic valve stenosis 07/07/2020 09/23/2021 SVT (supraventricular tachycardia) 07/07/2020 02/13/2023 documented as of this encounter (statuses as of 01/01/2024) Immunizations Name Administration Dates Next Due COVID-19 [...] Miscellaneous Notes * Telephone Encounter - Benny Rizo PA-C - 01/01/2024 7:50 AM EDT Spoke with via phone. Patient would like hospice referral to further discuss what they offer. Previously discussed goals of care with patient at home visit. Goal is comfort care at home. DNR/DNI. PMH includes ILD, cachexia, crohns disease s/p ileostomy, CHB s/p pacemaker, s/p TAVR. Chronic pain due to compression fractures in thoracic and lumbar spine. Will place hospice referral. documented in this encounter Plan of Treatment Upcoming Encounters Date Type Department Care Team (Late st Contact Info) Description 01/01/2024 10:00 AM EDT Home Visit [facility] [address] [facility] [place] [address] Janessa Manning RN [address] [facility] [place] [address] Scheduled Referrals Name Type Priority Associated Diagnoses Orde r Schedule HOSPICE REFERRAL OP Referral Within 3 day s (urgent) Interstitial pulmonary disease (HCC) Cachexia (HCC) Ordered: 01/01/2024 Health Maintenance Due Date Last Done Comments [...] this encounter Medical Devices Implanted Type Area Financial Reporting Accountant Device Identifier Shelf Expiration Date Model / Serial / Lot Lens 21.0 Mx60 - [id number] - [id number] Implanted:Qty: 1 on 11/07/2016 by Anatoliy Gonzalez MD at OR [facility] Left: Eye BAUSCH & LOMB : SURGICAL 02/08/2019 MX60-21.0 / [id number] / Lens 20.5 Mx60 - [id number] - [id number] Implanted:Qty: 1 on 11/21/2016 by Anatoliy Gonzalez MD at OR [facility] Right: Eye BAUSCH & LOMB : SURGICAL 03/11/2019 MX60-20.5 / [id number] / [id number] Valve Elvi 3 Ultra 26mm - [id number] Implanted:Qty: 1 on 09/20/2021 by Azael Eli MD at [facility] [employer] [id number] 07/10/2022 [id number] / / Lead Novus Bipolar 45cm - [id number] Implanted:Qty: 1 on 09/23/2021 by Lyn Henderson IV, MD at [facility] [employer] : CRM [id number] 05/09/2023 5076- 45 / [id number] 1 / [id number] Lead Pace Selectsecure 3830-69 - [id number] Implanted:Qty: 1 on 09/23/2021 by Lyn Henderson IV, MD at [facility] [employer] : CRM [id number] 07/01/2023 [id number] 9 / [id number] V / [id number] V Pacemaker [place] Xt Dr Mri Wrls - [id number] Implanted:Qty: 1 on 09/23/2021 by Lyn Henderson IV, MD at [facility] [employer] [id number] 02/22/2023 W1DR01 / [id number] / [id number] documented as of this encounter Visit Diagnoses Diagnosis Interstitial pulmonary disease (HCC)- Primary Postinflammatory pulmonary fibrosis Cachexia (HCC) Cachexia documented in this encounter Advance Directives * [...] and were consensually agreed upon. Care Teams Heel Nail Rasper Relationship Specialty Start Date End Date Benny Rizo PA-C [address] [facility] [place] [address] PCP - General Physician Remote Operations Producer 10/30/23 documented as of this encounter
--- OUTSIDE RECORDS SUMMARY | 2024-04-24 06:38 | External Medical Summary | Summary of Care ---
Author Name Unknown Organization [facility] Address [address] [address] Phone [phone] Care Team Providers Care Anode Rebuilder Name Role Phone Benny Rizo PA-C Primary Care Provider + [phone] Reason for Visit * Reason Onset Date Comments [facility]: Maintenance 11/07/2023 Advice 11/07/2023 Encounter Details Date Type Department Care Team (Late st Contact Info) Description 11/07/2023 Telephone [facility], [facility] [address] [place] [address] Camila Santos RN [address] [place] [address] [facility]: Maintenance; Advice Allergies Active Allergy Reactions Criticality Noted Date Comments Bee Venom 12/09/2002 Duloxetine 12/02/2021 Other reaction(s): Unknown Shellfish Diarrhea 01/11/2010 Loses water via Ostomy documented as of this encounter (statuses as of 11/17/2023) Medications Medication Sig Dispensed Refills Start Date [...] as of this encounter (statuses as of 11/17/2023) Active Problems Problem Noted Date Diagnosed Date [...] as of this encounter (statuses as of 11/17/2023) Resolved Problems Problem Noted Date Diagnosed Date Resolved Date Atrioventricular block, Mobi tz type 1, Wenckebach 09/23/2021 09/23/2021 Thrombocytopenia 09/21/2021 09/23/2021 Nonrheumatic aortic valve stenosis 07/07/2020 09/23/2021 SVT (supraventricular tachycardia) 07/07/2020 02/13/2023 documented as of this encounter (statuses as of 11/17/2023) Immunizations Name Administration Dates Next Due COVID-19 [...] encounter Miscellaneous Notes * Telephone Encounter - Angelica Castillo OSA - 11/17/2023 12:44 PM EDT Person calling: Miranda Reddy Relationship to patient: Self Phone/Fax to return call: [phone] Reason for call(brief): Advice Pharmacy: NA Provider [...] PA-C is listed as her PCP under [facility] Primary Care at Home. Patient asked if this RN would contact previous PCP to make sure they are aware. Call to [facility], . Make them aware. They cancelled upcoming appointments for December and June of 2024. documented in this encounter Plan of Treatment Upcoming Encounters Date Type Department Care Team (Late st Contact Info) Description 12/04/2023 1:00 PM EDT Home Visit [facility] at [facility] [address] [address] Benny Rizo PA-C [address] [place] [address] 01/01/2024 10:00 AM EDT Home Visit [facility] [address] [address] Janessa Manning, JERRY [address] [place] [address] Health Maintenance Due Date Last Done Comments Depression Screening 1952 DTap/Tdap Vaccines (1 - Tdap) 1959 Adult Wellness Visit 10/25/2007 AAA Monitoring 07/04/2022 07/04/2021, 01/10, 12/06/2010, Additional history exists COVID-19 Vaccine (3 - 2022- season) 2023 05/15/2020, 05/15/2020, 04/17/2020, Additional history [...] this encounter Medical Devices Implanted Type Area Fish Frog Or Oyster Farmer Device Identifier Shelf Expiration Date Model / Serial / Lot Lens 21.0 Mx60 - [id number] - [id number] Implanted:Qty: 1 on 11/07/2016 by Anatoliy Gonzalez MD at OR [facility] Left: Eye BAUSCH & LOMB : SURGICAL 02/08/2019 MX60-21.0 / [id number] / Lens 20.5 Mx60 - [id number] - [id number] Implanted:Qty: 1 on 11/21/2016 by Anatoliy Gonzalez MD at OR [facility] Right: Eye BAUSCH & LOMB : SURGICAL 03/11/2019 MX60-20.5 / [id number] / [id number] Valve Elvi 3 Ultra 26mm - [id number] Implanted:Qty: 1 on 09/20/2021 by Azael Eli MD at [facility] [employer] [id number] 07/10/2022 [id number] / / Lead Novus Bipolar 45cm - [id number] Implanted:Qty: 1 on 09/23/2021 by Lyn Henderson IV, MD at [facility] [employer] : CRM [id number] 05/09/2023 5076- 45 / [id number] 1 / [id number] 1 Lead Pace Selectsecure 3830-69 - [id number] Implanted:Qty: 1 on 09/23/2021 by Lyn Henderson IV, MD at [facility] [employer] : CRM [id number] 07/01/2023 [id number] 9 / [id number] V / [id number] V Pacemaker [place] Xt [facility] - [id number] Implanted:Qty: 1 on 09/23/2021 by Lyn Henderson IV, MD at [facility] [employer] [id number] 02/22/2023 W1DR01 / [id number] / [id number] documented as of this encounter Advance [...] and were consensually agreed upon. Care Teams Anode Rebuilder Relationship Specialty Start Date End Date Benny Rizo PA-C [address] [place] [address] PCP - General Physician Chocolate Temperer 10/30/23 documented as of this encounter
--- OUTSIDE RECORDS SUMMARY | 2024-04-24 06:38 | External Medical Summary | Summary of Care ---
Author Name Unknown Organization [facility] Address [address] [address] Phone [phone] Care Team Providers Care Information Technology Security Manager Name Role Phone Benny Rizo PA-C Primary Care Provider + [phone] Reason for Referral * Ancillary Services (Within 3 days (urgent)) - Authorized Specialty Diagnoses / Procedures Referred By Helga aguilar Referred To Contact HOME CARE / Palliative Medicine Diagnoses Interstitial pulmonary disease (HCC) Cachexia (HCC) Benny Rizo PA-C [address] [address] Referral ID Status Reason Start Date Expiration Date Visits Requested Visits Authorized [id number] Authorized Ancillary Services Required 4 [phone] Question Answer Referral Priority Within 3 days (urgent) Where should this appointment be scheduled? Anel Reason for Visit * Reason Onset Date Comments Follow Up 12/31/2023 Encounter Details Date Type Department Care Team (Latest Contact Info) Description 12/31/2023 2:00 PM EDT Scheduled Telephone Anel at [place], [facility] [address] [address] Benny Rizo PA-C [address] [address] Interstitial pulmonary disease (HCC)*; Cachexia (HCC) Allergies [...] encounter Miscellaneous Notes * Telephone Encounter - Mildred Dobson OSA - 01/01/2024 8:13 AM EDT Order for hospice, hv notes, snapshot and demographics faxed to [facility] today. RUBENS Patel * Telephone Encounter - Benny Rizo PA-C [...] Description 01/01/2024 10:00 AM EDT Home Visit [facility] [address] [address] Janessa Manning, RN [address] [address] Scheduled Referrals Name Type Priority Associated Diagnoses [...] this encounter Medical Devices Implanted Type Area Cctv Technician Device Identifier Shelf Expiration Date Model / Serial / Lot Lens 21.0 Mx60 - [id number] - [id number] Implanted:Qty: 1 on 11/07/2016 by Anatoliy Gonzalez MD at OR [facility] Left: Eye BAUSCH & LOMB : SURGICAL 02/08/2019 MX60-21.0 / [id number] / Lens 20.5 Mx60 - [id number] - [id number] Implanted:Qty: 1 on 11/21/2016 by Anatoliy Gonzalez MD at OR [facility] Right: Eye BAUSCH & LOMB : SURGICAL 03/11/2019 MX60-20.5 / [id number] 2 / [id number] Valve Elvi 3 Ultra 26mm - [id number] Implanted:Qty: 1 on 09/20/2021 by Azeal Eli MD at [facility] [employer] [id number] 07/10/2022 [id number] / / Lead Novus Bipolar 45cm - [id number] Implanted:Qty: 1 on 09/23/2021 by Lyn Henderson IV, MD at [facility] [employer] : CRM [id number] 05/09/2023 5076- 45 / [id number] 1 / [id number] 1 Lead Pace Selectsecure 3830-69 - [id number] Implanted:Qty: 1 on 09/23/2021 by Lyn Henderson IV, MD at [facility] [employer] : CRM [id number] 07/01/2023 [id number] 9 / [id number] V / [id number] V Pacemaker Gricelda Xt Dr Nathan Wr - [id number] Implanted:Qty: 1 on 09/23/2021 by Lyn Henderson IV, MD at [facility] [employer] [id number] 02/22/2023 W1DR01 / [id number] G / [id number] documented as of this encounter Visit [...] and were consensually agreed upon. Care Teams Information Technology Security Manager Relationship Specialty Start Date End Date Benny Rizo PA-C [address] [address] PCP - General Physician Protocol Officer 10/30/23 documented as of this encounter
--- OUTSIDE RECORDS SUMMARY | 2024-04-24 06:38 | External Medical Summary | Summary of Care ---
Author Name Unknown Organization [facility] Address [address] [facility] [place] [address] Phone [phone] Care Team Providers Care Crimper Operator Name Role Phone Benny Rizo PA-C Primary Care Provider + [phone] Reason for Visit * Reason Onset Date Comments [facility]: Maintenance 11/02/2023 Encounter Details Date Type Department Care Team (Late st Contact Info) Description 11/02/2023 Telephone [facility], [facility] [address] [facility] [place] [address] Camila Santos RN [facility] [place] [id number] [facility]: Maintenance Allergies Active Allergy [...] of box saying it was ordered by [facility]. Asking what it's for and what should they do with it. Routing to care team documented in this encounter Plan of Treatment Upcoming Encounters Date Type Department Care Team (Late st Contact Info) Description 12/04/2023 1:00 PM EDT Home Visit [place] [facility] [place], [address] [place] [address] Benny Rizo PA-C [address] [place] [address] 01/01/2024 10:00 AM EDT [facility] Visit [facility], [facility] [address] [place] [address] Janessa Manning, JERRY [address] [place] [address] Health Maintenance Due Date Last Done Comments [...] this encounter Medical Devices Implanted Type Area Icing Maker Device Identifier Shelf Expiration Date Model / Serial / Lot Lens 21.0 Mx60 - [id number] - [id number] Implanted:Qty: 1 on 11/07/2016 by Anatoliy Gonzalez MD at OR [facility] Left: Eye BAUSCH & LOMB : SURGICAL 02/08/2019 MX60-21.0 / [id number] / Lens 20.5 Mx60 - [id number] - [id number] Implanted:Qty: 1 on 11/21/2016 by Anatoliy Gonzalez MD at OR [facility] Right: Eye BAUSCH & LOMB : SURGICAL 03/11/2019 MX60-20.5 / [id number] 2 / [id number] Valve Elvi 3 Ultra 26mm - [id number] Implanted:Qty: 1 on 09/20/2021 by Azael Eli MD [place] [facility] [place] [facility] [employer] [id number] 07/10/2022 [id number] / / Lead Novus Bipolar 45cm - [id number] Implanted:Qty: 1 on 09/23/2021 by Lyn Henderson IV, MD at [facility] [place] [facility] [employer] : CRM [id number] 05/09/2023 5076- 45 / [id number] 1 / [id number] 1 Lead Pace [employer] 3830-69 - [id number] Implanted:Qty: 1 on 09/23/2021 by Lyn Henderson IV, MD at [facility] [place] [facility] [employer] : CRM [id number] 07/01/2023 [id number] 9 / [id number] V / [id number] V Pacemaker Gricelda Xt Dr Mri Wrls - [id number] Implanted:Qty: 1 on 09/23/2021 by Lyn Henderson IV, MD at [facility] [employer] [id number] 02/22/2023 W1DR01 / [id number] G / [id number] documented as of this encounter Advance [...] and were consensually agreed upon. Care Teams Crimper Operator Relationship Specialty Start Date End Date Benny Rizo PA-C [address] [address] PCP - General Physician Pickle Sorter 10/30/23 documented as of this encounter
--- OUTSIDE RECORDS SUMMARY | 2024-04-24 06:39 | External Medical Summary | Summary of Care ---
Author Name Unknown Organization [facility] Address [address] [address] Phone [phone] Care Team Providers Care Electronics Hardware Design Engineer Name Role Phone Girma Rizo PA-C Primary Care Provider + [phone] Reason for Visit * Reason Comments [facility]: Maintenance Encounter Details Date Type Department Care Team (Late st Contact Info) Description 10/30/2023 10:00 AM EDT [facility], [facility] [address] [facility] [place] [address] Janessa Manning RN 132 [facility] [place] [address] Allergies Active Allergy Reactions Criticality Noted Date Comments Bee Venom 12/09/2002 Duloxetine 12/02/2021 Other reaction(s): Unknown Shellfish Diarrhea 01/11/2010 Loses water via Ostomy documented as of this encounter (statuses as of 10/31/2023) Medications Medication Sig Dispensed Refills Start Date [...] as of this encounter (statuses as of 10/31/2023) Active Problems Problem Noted Date Diagnosed Date [...] as of this encounter (statuses as of 10/31/2023) Resolved Problems Problem Noted Date Diagnosed Date Resolved Date Atrioventricular block, Mobi tz type 1, Wenckebach 09/23/2021 09/23/2021 Thrombocytopenia 09/21/2021 09/23/2021 Nonrheumatic aortic valve stenosis 07/07/2020 09/23/2021 SVT (supraventricular tachycardia) 07/07/2020 02/13/2023 documented as of this encounter (statuses as of 10/31/2023) Immunizations Name Administration Dates Next Due COVID-19 [...] Sign Reading Time Taken Comments Blood Pressure 136/54 10/30/2023 10:29 AM EDT Pulse 68 10/30/2023 10:29 AM EDT Temperature 36.6 C (97.9 F) 10/30/2023 10:29 AM E DT Respiratory Rate 18 10/30/2023 10:29 AM EDT Oxygen Saturation 95% 10/30/2023 10:29 AM EDT Inhaled Oxygen Concentration - - [...] Progress Notes * Janessa Manning RN - 10/30/2023 9:54 AM EDT [facility] Consultant Visit Date: 10/30/2023 Time: 9:54 AM Name: Miranda Reddy : 1940 Current Concerns: Patient seen for follow up- Medical history includes: Ileostomy, CAD, s/p TAVR, cardiac pacemaker, CHF, SIADH, HTN, hyperlipidemia, anxiety, aortic stenosis, GERD, Crohn's, PSVT, UTIs, sacral wound, cachexia, fx of R superior pubic ramus Recent appointment with Girma Rizo PA-C. CLARIBEL and OOH DNR in home and on file. and patient requesting girma to become PCP d/t patient having great difficulty getting out of the home. Request to cancel her [facility] clinic appointments. Message sent to Cardiology nurse- pacemaker has been transmitting remotely. Nurse to send box to patient home. VS wnl Lungs clear bilaterally Sob with exertion No LE edema noted Voiding without difficulty Bowels wnl- per report Appetite good Taking fluids well Continues with barrier cream to coccyx daily. Bottle out med review- Epic reflects current medication regimen. Problems/Symptoms: Review of Systems Constitutional: Negative. HENT: Negative. Respiratory: Positive for shortness of breath. Cardiovascular: Negative. Gastrointestinal: Negative. Genitourinary: Negative. Musculoskeletal: Positive for gait problem. Skin: Negative. Hematological: Negative. Psychiatric/Behavioral: Negative. Physical Exam: BP 136/54 (BP Site: Right Arm, BP Position: Sitting, BP Cuff Size: Regular) | Pulse 68 | Temp 36.6 C (97.9 F) (Tympanic) | Resp 18 | SpO2 95% Pain 0 Physical Exam Constitutional: Appearance: Normal appearance. Cardiovascular: Rate and Rhythm: Normal rate. Rhythm [...] and Affect: Mood normal. Behavior: Behavior normal. [facility]-10 Completed this Visit: No. No falls since last visit Treatment/Plan: Box for Pacemaker interrogation to be sent to home. Should arrive by next Sunday. Oxygen at 2L via n/c Continue medications as prescribed Keep all upcoming MD appointments Fall precautions Fluids encouraged RN CM follow up in 8 weeks Home Interventions Provided: Reinforced current Plan of Care, including self-management and medication regimen Patient's Goals of Care: Do not go back to the hospital Stay home Make it to tomorrow Patient's 'Red Flags': Increased confusion, change in mental status Increased shortness of breath Increased dizziness/lightheadedness Patient Needs to Remember: Call [facility] at with any new or worsening health concerns or problems, red flag symptoms. Referrals Needed: N/a Follow Up: Is there cellular connectivity/connectivity in the home? Yes Does the patient have internet in the home? Yes Patient encouraged to call the intake phone number for all urgent but not emergent issues. Scheduled to follow up with patient in 8 weeks. Janessa Yancey RN 10/30/2023 9:54 AM documented in this encounter Plan of Treatment Upcoming Encounters Date Type Department Care Team (Late st Contact Info) Description 12/04/2023 1:00 PM EDT [facility] [address] [address] Girma Rizo PA-C [address] [address] 01/01/2024 10:00 AM EDT [facility] [place], [facility] [address] [address] Janessa Manning RN [address] [address] Health Maintenance Due Date Last Done Comments [...] this encounter Medical Devices Implanted Type Area Academic Advising Director Device Identifier Shelf Expiration Date Model / Serial / Lot Lens 21.0 Mx60 - [id number] - [id number] Implanted:Qty: 1 on 11/07/2016 by Anatoliy Gonzalez MD at OR [facility] Left: Eye BAUSCH & LOMB : SURGICAL 02/08/2019 MX60-21.0 / [id number] / Lens 20.5 Mx60 - [id number] - [id number] Implanted:Qty: 1 on 11/21/2016 by Anatoliy Gonzalez MD at OR [facility] Right: Eye BAUSCH & LOMB : SURGICAL 03/11/2019 MX60-20.5 / [id number] 2 / [id number] Valve Elvi 3 Ultra 26mm - [id number] Implanted:Qty: 1 on 09/20/2021 by Azael Eli MD at [facility] [employer] [id number] 07/10/2022 [id number] / / Lead Novus Bipolar 45cm - [id number] Implanted:Qty: 1 on 09/23/2021 by Lyn Henderson IV, MD at [facility] [employer] : CRM [id number] 05/09/2023 5076- 45 / [id number] 1 / [id number] 1 Lead Pace Select[employer] 3830-69 - [id number] Implanted:Qty: 1 on 09/23/2021 by Lyn Henderson IV, MD at [facility] [employer] : CRM [id number] 07/01/2023 [id number] 9 / [id number] V / [id number] V Pacemaker Gricelda Xt Dr Mri ls - [id number] Implanted:Qty: 1 on 09/23/2021 by Lyn Henderson IV, MD at [facility] [employer] [facility] [id number] 02/22/2023 W1DR01 / [id number] G / [id number] documented as of this encounter Advance [...] and were consensually agreed upon. Care Teams Electronics Hardware Design Engineer Relationship Specialty Start Date End Date Girma Rizo PA-C [address] [address] PCP - General Physician Band Booker 10/30/23 documented as of this encounter"
--- OUTSIDE RECORDS SUMMARY | 2024-04-24 06:39 | External Medical Summary | Summary of Care ---
Author Name Unknown Organization [facility] Address [address] [place] [address] Phone [phone] Care Team Providers Care Motion Picture Scene Builder Name Role Phone Benny Rizo PA-C Primary Care Provider + [phone] Reason for Visit * Reason Onset Date Comments [facility]: Maintenance 11/02/2023 Encounter Details Date Type Department Care Team (Late st Contact Info) Description 11/02/2023 Telephone [facility], [facility] [address] [facility] [place] [address] Camila Santos RN [facility] [place] [id number] [facility]: Maintenance Allergies Active Allergy [...] of box saying it was ordered by [facility]. Asking what it's for and what should they do with it. Routing to care team documented in this encounter Plan of Treatment Upcoming Encounters Date Type Department Care Team (Late st Contact Info) Description 12/04/2023 1:00 PM EDT Home Visit [facility], [address] [place] [address] Benny Rizo PA-C [address] [place] [address] 01/01/2024 10:00 AM EDT Home Visit [facility], [facility] [address] [place] [address] Janessa Manning, JERRY [address] [place] [address] Health Maintenance Due Date Last Done Comments [...] this encounter Medical Devices Implanted Type Area Testing Consultant Device Identifier Shelf Expiration Date Model / Serial / Lot Lens 21.0 Mx60 - [id number] - [id number] Implanted:Qty: 1 on 11/07/2016 by Anatoliy Gonzalez MD at [facility] Left: Eye [employer] : SURGICAL 02/08/2019 MX60-21.0 / [id number] / Lens 20.5 Mx60 - [id number] - [id number] Implanted:Qty: 1 on 11/21/2016 by Anatoliy Gonzalez MD at OR [facility] Right: Eye [employer] : SURGICAL 03/11/2019 MX60-20.5 / [id number] / [id number] Valve Elvi 3 Ultra 26mm - [id number] Implanted:Qty: 1 on 09/20/2021 by Azael Eli MD at [facility] [employer] [id number] 07/10/2022 [id number] / / Lead Novus Bipolar 45cm - [id number] Implanted:Qty: 1 on 09/23/2021 by Lyn Henderson IV, MD at [facility] [employer] : CRM [id number] 05/09/2023 [id number] 45 / [id number] / [id number] Lead Pace [employer] 3830-69 - [id number] Implanted:Qty: 1 on 09/23/2021 by Lyn Henderson IV, MD at [facility] [employer] : CRM [id number] 07/01/2023 [id number] / [id number] V / [id number] Pacemaker Gricelda Xt Dr Mri Wrls - [id number] Implanted:Qty: 1 on 09/23/2021 by Lyn Henderson IV, MD at [facility] [employer] [id number] 02/22/2023 [id number] / [id number] / [id number] documented as of this encounter Advance [...] and were consensually agreed upon. Care Teams Motion Picture Scene Builder Relationship Specialty Start Date End Date Benny Rizo PA-C [address] [place] [address] PCP - General Physician Branch Controller 10/30/23 documented as of this encounter
[2024-04-24] MEDS: NOREPINEPHRINE/D5W 4 MG/250 ML PLCT IV SCH (07:15)
[2024-04-24 07:52] LABS: Hematocrit (blood only) 31.6 % (37.0-47.0); Hemoglobin 10.1 g/dl (12.0-16.0); Mean Corpuscular Hemoglobin 29.8 pg (25.0-34.0); Mean Corpuscular Volume 93.2 fL (80.0-100.0); Mean Platelet Volume 9.9 fL (9.4-12.4); Platelet Count 138 K/uL (130-400); RDW Coefficient of Variation 14.6 % (11.5-14.5); RDW Standard Deviation 50.5 fL (36.4-46.3); Red Blood Count 3.39 M/uL (4.20-5.40); White Blood Count 13.23 K/ul (4.8-10.8)
[2024-04-24] MEDS ORDERED: PIPERACILLIN/TAZOBACTAM 4.5 GM/100 ML BAG IV SCH ×2 (08:00→10:00)
--- NOTE | 2024-04-24 08:05 | XRay Report ---
EXAM: XR chest 1V portable CLINICAL HISTORY: Hypoxia. TECHNIQUE: An X-ray image of the chest is obtained in AP projection. COMPARISON: 08/04/2023 CR. FINDINGS: Pulmonary Parenchyma: A cardiac pacemaker was noted in place on the left side. Bilateral ill defined opacities were noted on both lungs, more noted in the left avery-hilar region, which could be infection, follow-up is needed. Possible mild left pleural effusion. Heart and Mediastinum: Cardiomegaly. Prominent aortic arch. Vascular stent noted, likely aortic. Bony Thorax: The bony thorax appears intact without fractures or deformities. Soft Tissues: Elevated right diaphragmatic copula. IMPRESSION: 1. Bilateral ill-defined opacities were noted on both lungs, more noted in the left avery-hilar region, which could be infection, follow-up is needed. 2. Possible mild left pleural effusion. 3. Cardiomegaly. 4. Elevated right diaphragmatic copula. 5. No significant interval changes. Electronically signed by Aidan Narvaez 04-24-2024 08:04 AM
[2024-04-24 08:08] LABS: Albumin Globulin Ratio 0.7 (0.9-2); Albumin Level 2.7 gm/dl (3.4-5.0); Bilirubin,Total 0.5 mg/dl (0.2-1.0); Calcium 8.7 mg/dl (8.6-10.3); Creatinine Clr Calc Pharmacy 27.4 ml/min; Globulin 4.1 gm/dl (2.5-4.0); Magnesium 1.6 mg/dl (1.7-2.4); Phosphorus 3.9 mg/dl (2.5-4.9); Total Protein 6.8 gm/dl (6.0-8.3)
[2024-04-24 08:14] LABS: Basophils # (auto) 0.02 K/uL (0.00-0.20); Basophils % (auto) 0.2 %; Eosinophils # (auto) 0.01 K/uL (0.00-0.50); Eosinophils % (auto) 0.1 %; Immature Granulocytes # (auto) 0.06 K/uL (0.01-0.20); Immature Granulocytes % (auto) 0.5 %; Lymphocytes # (auto) 0.49 K/uL (1.20-3.40); Lymphocytes % (auto) 3.7 %; Monocytes # (auto) 0.33 K/uL (0.11-0.59); Monocytes % (auto) 2.5 %; Neutrophils # (auto) 12.32 K/uL (1.40-6.50)
[2024-04-24 08:19] LABS: Troponin I High Sensitivity 116.5 pg/ml (0-14)
[2024-04-24] MEDS: ICU Protocol for HYPERglycemia SCH (08:42)
[2024-04-24] MEDS: Patient's HEIGHT &/or WEIGHT Needed STA (08:46)
[2024-04-24] MEDS: PIPERACILLIN/TAZOBACTAM 4.5 GM/100 ML BAG IV SCH (08:46)
--- NOTE | 2024-04-24 12:33 | XCELERA ---
[id number] \\[id number].pdf
[2024-04-24] MEDS: ICU ELECTROLYTE REPLACEMENT PROTOCOL SCH (13:05)
[2024-04-24] MEDS: MAGNESIUM SULFATE / D5W 1 GM/100 ML BAG IV SCH ×2 (13:28→15:19)
[2024-04-24] MEDS ORDERED: Nursing to Pharmacy Communication SCH (13:30)
--- NOTE | 2024-04-24 13:32 | Pharmacy Report ---
Pharmacy PK ABX Note - Date of Service April 24, 2024 - Assessment and Plan Assessment 83 year old F receiving vancomycin and zosyn empirically in setting of septic shock. Blood cultures pending. MRSA nasal (-). Renal function stable. Requiring vasopressor support. Day #1 of antimicrobial therapy. Plan Vancomycin * Loading dose: 1000 mg IV x 1 (given @ OSH prior to transport, 04/24 ~ 0500 AM). * Random level obtained this afternoon ~ 1212- 11.8mcg/ml indicating safe to re- dose. * Maintenance dose: 500 mg IV every 12 hours * Regimen is predicted to achieve target AUC/EMELY of 400-600 mg/L.hr * Will repeat a level in AM given patient's age and small stature Pharmacy will continue to follow and will adjust dose/frequency as necessary. Thank you. Pharmacy has transitioned to AUC monitoring for vancomycin. AUC/EMELY is the preferred PK/PD target and is associated with decreased risk of nephrotoxicity compared to traditional trough targets.
[2024-04-24 13:46] LABS: Appearance Urine Cloudy (Clear); Bacteria Urine Automated None Seen (None Seen); Bilirubin Urine Negative (Negative); Blood Urine Trace (Negative); Color Urine Yellow; Glucose Urine UA Negative (Negative); Ketones Urine Trace (Negative); Leukocyte Esterase Urine 2+ (Negative); Nitrite Urine Negative (Negative); Protein Urine 1+ (Negative); Uric Acid Crystals Urine Present (None Prsent); Urobilinogen Urine Negative (Negative); pH Urine 5.5 (4.5-7.5)
[2024-04-24] MEDS: VANCOMYCIN 500 MG in NSS 100mL IV SCH (14:58)
--- NOTE | 2024-04-24 16:52 | History & Physical Bridge Note ---
Date of Service April 24, 2024 History & Physical Bridge Note I have examined the patient, reviewed the History & Physical and in the interval since the performance of the History & Physical I have noted the following changes of clinical significance: Patient seen in the later afternoon and is forgetful. Reports "I thought I was going home today." She wants to know why her seemed distraught when she saw him earlier. She reports feeling anxious and does say that she takes lorazepam every night. Denies diarrhea or abdominal pains. Denies cough or shortness of breath. Apparently, she was on hospice at home prior to coming in and hospice has since been revoked. Palliative medicine saw the patient today to discuss goals of care She was weaned off vasopressors and tolerating diet-downgraded out of ICU and resumed home p.o. meds -Continue IV antibiotics and follow cultures -Replace electrolytes -Resume home oxycodone and lorazepam -Mildly elevated troponin trended downward and echocardiogram reviewed with no wall motion abnormalities-likely demand ischemia in the setting of hypotension and septic shock
--- NOTE | 2024-04-24 18:55 | Billing Data ---
Date of Service April 24, 2024 Coding Level of Care Code 90156 CRITICAL CARE 1ST 30-74M Comment 45 minutes of critical care time
[2024-04-24] MEDS: PANTOprazole 40 MG TAB PO SCH (20:07)
[2024-04-24] MEDS: APIXABAN 2.5 MG TAB PO SCH (20:07)
[2024-04-24] MEDS: oxyCODONE/ACETAMINOPHEN 5mg/325mg TAB PO PRN (20:08)
--- NOTE | 2024-04-24 20:18 | Palliative Care Consultation ---
Date of Consultation April 24, 2024 Assessment & Plan (1) Palliative care by specialist: Met with pt and her spouse,Gabe, at bedside. Attempt made to add pt's daughter Zafar Ballard ([phone]) to conversation by phone, no answer. Introduced Palliative Medicine and explained our role in advanced care planning, symptom management and navigation through the progression of life limiting disease. Patient and/or family were receptive to palliative services for goals of care discussions. Reviewed we are different from hospice, a home health nurse visiting service. (2) Impaired decision making: Patient has exhibited current lack of decisional capacity based on the inability to convey understanding of personal PMHx, current medical condition, treatment options nor the risks / benefits of those options, and lack of ability to make decisions based on such knowledge. Hospital does not have written documentation of patient wishes concerning chosen proxy for medical decisions. Per PA [id number], in absence of written documentation of patient wishes, pt's proxy for medical decisions would be her spouse Gabe Reddy and her adult children from her previous marriage, daughter Zafar Ballard ([phone]) and a estranged son for whom we currently have no contact information. Pt does require a proxy for medical decisions. (3) Hospice care patient: Pt had been under hospice care at home prior to admission. Her spouse, Gabe, is her primary confidential investigator. Pt suffers from dementia and Gabe is having difficulty understanding the philosophy of comfort directed care. Gabe shared that he does want to continue with hospice care at home, but he will continue to call for an ambulance if she gets sick or he cannot take care of her at home. Lengthy conversation with Gabe about comfort directed care vs life prolonging therapy. (4) Counseling regarding goals of care: Prior to admission, patient was living at home with her spouse, Gabe, under hospice care. Discussed this with pt and Gabe to establish goals. Throughout conversation pt repeatedly said "i am ready to , take me home". Gabe expressed concern that he did not know what to do when his got progressively more confused to the point of being resistant to him trying to help her walk to the bedside commode. He shared that he needs help to care for her and hospice team is only available a couple hours a week to check her vitals. He questioned having home health care nurses come out "because they would draw her blood and help give her a bath". He expressed expectation that the hospice nurse would help to give her her medications and keep her safe. He shared that he did not call the hospice team because "it takes them hours to show up and the ambulance comes right away". He shared concern that the hospice team would not have been able to help and "she needed to be in the hospital to cure this infection or she would have ". It is clear that Gabe does not have an understanding of the philosophy of hospice. We spent a great deal of time discussing hospice benefit: an interdisciplinary program offered by nurses, nurses aides, social workers, chaplains and a biomedical manager for patients with a terminal condition and a life expectancy of less than 6 months. This is covered by Medicare at 100%/no out of pocket expense to patient and all meds/supplies needed by patient for the reason they are on hospice are paid for/covered by hospice. The goal is assure quality of life of the patient in their home setting (home, chcf, inpatient hospice setting) by providing symptoms management, psychosocial and spiritual support. However, they cannot offer 24 hours care and if the family is unable to provide that care, they will have to consider personal care with out of pocket cost vs. chcf placement. We discussed the goals of hospice as a patient service and the goals of care; we discussed EOL trajectories and transitions tomas the emotional impact of realizing mortality as a concrete reality from prior abstract considerations. Pt was reassured that no matter where they are along this trajectory, they are not alone - their medical team will remain by their side through their journey. Discussed the pros/cons of accepting help when especially weakened and distressed by pain-which would also help provide relief/decrease caregiver burden/strain. Patient did express desire to "go back home with the hospice nurses". Gabe shared that he worries if she goes home and "has another episode" he will have to bring her right back to ED. Gabe also shared that they do want to continue with hospice care, but then also asked that we continue to "do everything you can to get her better". After lengthy conversation with repeated explanation of hospice philosophy and requirement for night time nanny private confidential investigator at home vs Hospice care in a nursing facility vs ongoing life prolonging care,neither pt nor Gabe could convey an adequate understanding of teaching. Ultimately, Gabe continues to request a "type of hospice care where she can still get medicine to help her get better", while the pt continues to ask for Gabe to "take me home and let me ". (5) Encounter for end of life education, guidance and counseling: Lengthy conversations as above. Also spent a substantial amount of time discussing the progressively debilitating nature of dementia. Explained that dementia is incurable and irreversible, and can include progressive/worsening memory loss, confusion, la nguage difficulties/lack of comprehension skills/loss of verbal skills eventually, mood changes, impaired judgment, trouble with motor skills/coordination/balance issues, visual and spatial problems, hallucinations, and personality changes. The rate of progression in mixed dementia can vary widely from person to person. Factors such as the types of dementia involved, overall health, and genetics can influence the speed of progression. Some individuals experience a more gradual decline, while others may progress more rapidly through the stages. We discussed and differentiated dementia from del irium and helped family understand that they can co-exist. I reviewed Dementia is a terminal illness. Aggressive medical treatment for patients with advanced dementia is often inappropriate for medical reasons, has a low rate of success, and can have negative outcomes that hasten functional decline and . ( [place] [employer] Ethics Committee and Clinical Practice and Models of Care Committee. J Am Geriatr Soc. 2014 Aug;62(8):1590-3 and Edwin SL, Ronni JM, Reeves SC, Messi V. A national study of the location of for older persons with dementia. J Am Geriatr Soc 2005; 53(2):299-305.). Older adults with dementia frequently receive acute care in their last year of life although Hospice care was more common for home/DETENTION residents. Overall time in hospice remains short due to the underutilization of the hospice benefit for terminal dementia (Audi MM, Eligio JM, Lay KM, Levar DE, Leslie PY. Dementia Care in the Last Year of Life: Experiences in a Community Practice and in [facility] Facilities. J Palliat Care. 2022;38(2):135-142. doi:10.1177/00600082420772943) Home Hospice is a valuable option for terminal dementia who desire to have peaceful EOL at home. Home hospice care for advanced dementia can improve symptom management and caregiver satisfaction, while decreasing caregiver burden, preventing hospitalizations and discontinuing unnecessary medication (Leon IGLESIAS, Marshal R, Yadav G, et al. Home hospice for older people with advanced dementia: a army helicopter pilot project [published correction appears in Isr J Health Policy Res. 2019 Sep 09;8(1):56]. Isr J Health Policy Res. 2019;8(1):42. Published 2018July 15. doi:10.1186/h49363-365-5457-g). Helped Gabe understand that with progression of her disease she will continue to have cognitive and functional decline requiring increased nursing care. Encouraged Gabe to consider SNF with hospice if he feels that he cannot manage her at home. Gabe expressed concern that he will lose his farm, cars and belongings if she goes to SNF. Shared that CM can help locate resources and determine healthcare benefits pt may be eligible for. Gabe shared that he is a and questioned if Aides and Assistance help might be possible. (6) Encounter for hospice care discussion: Pt's spouse Gbae requests DNR/DNI and all therapies to prolong life at this time, despite his repeatedly requesting hospice care. Gabe was unable to convey an adequate understanding of our conversation, despite multiple repeat explanations. Gabe shared that his daughter Zafar is an VEHICLE SALES PROFESSIONAL and often helps him "understand medical things and make decisions". Unable to reach Zafar by phone today. Encouraged Gabe to contact Zafar to determine a time she could be available to join in on a GOC conversation. Plan *DNR/DNI but continue current course of care *Identify additional support for patient and spouse, they have strong desire to remain at home through end of life *Encourage additional family support for discussions as Gabe has expressed that Zafar "helps him understand things". *Gabe would benefit from clear, consistent explanations in layman's terms with frequent reinforcement. I do have concern that the pt and her spouse both have cognitive challenges. History of Present Illness Reason for Consultation: goals of care Attending Physician: Shannan Redmond MD History of Present Illness Miranda Reddy is an 83yo female with a PMHx including SIADH, interstitial lung disease, sacral decubitus ulcer, complete heart block, history of cardiac pacemaker, status post TAVR, PSVT, GERD, Crohn's disease, chronic pain syndrome, hyperlipidemia, and ileostomy in place. She was brought to [facility] ED, after GLF 3 days prior. Her called EMS due to fever, progressive confusion and difficulty ambulating since fall. At [facility], developed hypotension refractory to fluid resuscitation was started on Levophed infusion and transferred to [facility] ICU. The patient has been noted to be on hospice at home, but her spouse reported that he called EMS when he could not get his back to bed from bedside commode due to her confusion. Allergies Allergy/AdvReac Type Severity Reaction Status Date / Time bee venom protein (honey bee) Allergy Unknown Unknown Verified 08/27/23 14:36 duloxetine [From Cymbalta] Allergy Unknown Unknown Verified 08/27/23 14:36 iodine Allergy Unknown Unknown Verified 08/27/23 14:36 shellfish derived Allergy Unknown Unknown Verified 08/27/23 14:36 Home Medications Medication Instructions Recorded Confirmed Type magnesium chloride 64 mg 64 mg PO QAM #30 tabs 11/18/21 04/24/24 Rx (magnesium chloride) tablet,delayed release (Mag 64) Oxygen Home #1 ea 01/27/22 08/27/23 Rx cholecalciferol (vitamin D3) 25 25 mcg PO BID 09/21/22 04/24/24 History mcg (1,000 unit) tablet furosemide 40 mg tablet 40 mg PO QAM #90 tabs 04/04/23 04/24/24 Rx Lactobacillus acidophilus 10 10,000 mmu cells PO DAILY 08/04/23 04/24/24 History billion cell capsule (Probiotic) ascorbic acid (vitamin C) 1,000 mg 1 g PO BID 08/04/23 04/24/24 History tablet (Vitamin C With Oriana Hips) calcium carbonate (Calcium 600) 600 mg PO BID 08/04/23 04/24/24 History cyanocobalamin (vitamin B-12) 1,000 mcg PO Q OTHER DAY 08/04/23 04/24/24 History 1,000 mcg tablet (Vitamin B-12) ferrous sulfate 325 mg (65 mg 325 mg PO DAILY 08/04/23 04/24/24 History iron) tablet (iron) krill 1,000 mg-omega-3 230 mg-dha 1 cap PO DAILY 08/04/23 08/27/23 History 60 ya-hoa-absyxkyii-astaxan capsule (MegaRed [place]-3 Krill Oil) potassium chloride 20 mEq 20 meq PO QAM 08/04/23 04/24/24 History tablet,extended release simvastatin 10 mg tablet 10 mg PO HS 08/04/23 04/24/24 History sodium chloride 1,000 mg soluble 1,000 mg PO QAM 08/04/23 04/24/24 History tablet apixaban 2.5 mg tablet (Eliquis) 2.5 mg PO BID 04/24/24 04/24/24 History omeprazole 20 mg capsule,delayed 20 mg PO BID 04/24/24 04/24/24 History release oxycodone-acetaminophen 5 mg-325 1 tab PO BID PRN Pain 04/24/24 04/24/24 History mg tablet atenolol 25 mg tablet 25 mg PO QAM 04/25/24 04/25/24 History lorazepam 0.5 mg tablet 0.5 mg PO Q4H PRN anxiety or 04/25/24 04/25/24 History restlessness mirtazapine 15 mg tablet 15 mg PO HS 04/25/24 04/25/24 History Patient History Medical History (Updated 04/24/24 @ 21:54 by ANA Perez) Fracture of right superior pubic ramus (08/04/23) from a fall History of compression fracture of spine (~01/24/22) Interval progression of the moderate anterior wedge-shaped compression deformity at L2 History of compression fracture of vertebral column (~08/17/20) CHF (congestive heart failure) Degenerative lumbar spinal stenosis Secondary hypercoagulable state Coronary artery disease Hyponatremia Tremor H/O small bowel obstruction Surgical History (Updated 09/09/23 @ 00:09 by Ga Guerra) Status post proctocolectomy History of abdominal aortic aneurysm (AAA) repair History of resection of small bowel History of tooth extraction History of carpal tunnel surgery History of breast biopsy History of ileostomy History of hernia repair History of colposcopy History of colostomy Status post catheter ablation of atrial fibrillation Hx of tubal ligation History of tonsillectomy and adenoidectomy History of appendectomy H/O resection of small bowel H/O pyloroplasty H/O heart artery stent H/O abdominal aortic aneurysm repair Family History Father Coronary heart disease Hypertension Stroke Sister No problems noted. Mother Coronary heart disease Hypertension Stroke Denies family history of Ovarian cancer Prostate cancer Myocardial infarction Breast cancer Lung cancer Colorectal cancer Social History Smoking Status: Unknown if ever smoked Tobacco Type: Cigarettes Age Started Using Tobacco: 26; Age Quit Using Tobacco: 61; packs per day: 1; Second Hand Exposure: No; Do You Dip or Chew Tobacco: No; Hx Alcohol Use: No Hx Substance Use: No Preferred Language: Greek Communication Ability: Effective Visual Impairment: Limited Hearing Ability: Normal Scale Model Maker Required: No Beliefs That Will Affect Care: None marital status: Current Living Situation: Spouse Current Living Situation Comment: gabe current occupational status: retired How many Children do You have: 2 Feels Safe at Home: Yes Safety Concerns: Feels Safe At This Time Childhood Exposure to Second-Hand Smoke: Yes Diet: regular caffeine: Yes (coffee) during the past year weight has: remained stable Dental Care, Regularly: Yes Physical Activity Frequency: 1-2 Times per Week Physical Activity Frequency Comment: walks with PT Seatbelt Use: always Sunscreen Use: Yes Assistive Devices: Oxygen - Continuous, Walker and Wheelchair Review of Systems Review of Systems: Unobtainable due to cognitive status Physical Exam Constitutional: + ill appearing, + frail appearing and c omfortable; no acute distress Eyes: PERRL, conjunctivae normal, anicteric sclerae ENMT: external ear and nose normal, oropharynx normal Mouth: + dry oral mucous membranes Neck: trachea midline, no thyromegaly Respiratory: normal respiratory effort, lungs clear to auscultation Cardiovascular: Rate/Rhythm: regular rate and regular rhythm Skin: + turgor decreased, + pallor and + scar Neurologic: moves all extremities, awake and + confused Results & Data Vital Signs (Past 12 Hours) Vital Signs Temp Pulse Pulse Resp BP BP Pulse Ox 04/24/24 19:18 04/24/24 19:17 35.5 C L 77 20 122/63 91 04/24/24 17:30 74 17 92 04/24/24 17:30 126/69 04/24/24 17:30 126/69 04/24/24 17:06 78 22 80 L 04/24/24 17:02 124/74 04/24/24 17:02 124/74 04/24/24 16:57 71 22 92 04/24/24 16:45 113/91 04/24/24 16:45 113/91 04/24/24 16:31 109/58 L 04/24/24 16:31 109/58 L 04/24/24 16:27 112/62 04/24/24 16:08 70 28 H 91 04/24/24 16:03 112/56 L 04/24/24 16:03 112/56 L 04/24/24 16:03 112/56 L 04/24/24 16:00 04/24/24 16:00 36.5 C 65 22 113/91 94 04/24/24 16:00 70 04/24/24 15:56 70 19 90 04/24/24 15:45 120/61 04/24/24 15:26 65 24 90 04/24/24 15:15 123/67 04/24/24 15:15 123/67 04/24/24 15:15 123/67 04/24/24 15:05 79 22 92 04/24/24 15:00 36.6 C 16 95 04/24/24 14:53 79 18 94 04/24/24 14:47 67 23 92 04/24/24 14:45 121/55 L 04/24/24 14:45 121/55 L 04/24/24 14:45 121/55 L 04/24/24 14:44 67 20 93 04/24/24 14:32 66 22 95 04/24/24 14:30 116/62 04/24/24 14:30 116/62 04/24/24 14:30 116/62 04/24/24 14:17 66 18 94 04/24/24 14:15 119/73 04/24/24 14:15 119/73 04/24/24 14:15 119/73 04/24/24 14:08 68 20 84 L 04/24/24 14:02 75 24 95 04/24/24 14:01 115/62 04/24/24 14:01 115/62 04/24/24 13:53 67 21 87 L 04/24/24 13:45 108/56 L 04/24/24 13:45 108/56 L 04/24/24 13:35 71 20 94 04/24/24 13:30 114/62 04/24/24 13:27 66 22 94 04/24/24 13:15 71 20 92 04/24/24 13:15 103/57 L 04/24/24 13:15 103/57 L 04/24/24 13:00 36.6 C 18 94 04/24/24 12:48 66 20 93 04/24/24 12:45 123/84 04/24/24 12:42 68 22 93 04/24/24 12:33 77 20 92 04/24/24 12:31 106/64 04/24/24 12:31 106/64 04/24/24 12:31 106/64 04/24/24 12:31 106/64 04/24/24 12:31 106/64 04/24/24 12:21 76 21 95 04/24/24 12:16 117/52 L 04/24/24 12:15 70 24 84 L 04/24/24 12:00 75 23 97 04/24/24 12:00 108/58 L 04/24/24 12:00 108/58 L 04/24/24 12:00 36.6 C 22 04/24/24 11:45 108/57 L 04/24/24 11:36 74 19 98 04/24/24 11:30 71 20 98 04/24/24 11:30 98/49 L 04/24/24 11:15 67 20 98 04/24/24 11:15 90/45 L 04/24/24 11:15 90/45 L 04/24/24 11:15 90/45 L 04/24/24 11:00 69 19 97 04/24/24 11:00 96/48 L 04/24/24 11:00 96/48 L 04/24/24 11:00 96/48 L 04/24/24 11:00 36.3 C L 04/24/24 10:57 61 19 97 04/24/24 10:45 110/54 L 04/24/24 10:45 110/54 L 04/24/24 10:45 110/54 L 04/24/24 10:38 73 22 88 L 04/24/24 10:31 99/60 L 04/24/24 10:31 99/60 L 04/24/24 10:27 68 28 H 95 04/24/24 10:15 110/58 L 04/24/24 10:15 110/58 L 04/24/24 10:15 110/58 L 04/24/24 10:15 110/58 L 04/24/24 10:15 72 19 96 04/24/24 10:00 110/52 L 04/24/24 10:00 110/52 L 04/24/24 10:00 63 15 95 04/24/24 09:30 68 22 96 04/24/24 09:30 98/57 L 04/24/24 09:30 98/57 L 04/24/24 09:21 66 22 97 04/24/24 09:15 99/49 L 04/24/24 09:12 71 20 95 04/24/24 09:00 67 21 95 04/24/24 09:00 94/48 L 04/24/24 09:00 94/48 L 04/24/24 09:00 94/48 L 04/24/24 09:00 94/48 L 04/24/24 09:00 36.3 C L 04/24/24 08:57 71 20 95 04/24/24 08:30 103/54 L 04/24/24 08:21 65 20 96 04/24/24 08:18 67 20 95 04/24/24 08:16 124/49 L 04/24/24 08:16 124/49 L 04/24/24 08:12 72 19 97 O2 Del Method O2 Flow Rate 04/24/24 19:18 Nasal Cannula 2 04/24/24 19:17 Nasal Cannula 2 04/24/24 17:30 04/24/24 17:30 04/24/24 17:30 04/24/24 17:06 04/24/24 17:02 04/24/24 17:02 04/24/24 16:57 04/24/24 16:45 04/24/24 16:45 04/24/24 16:31 04/24/24 16:31 04/24/24 16:27 04/24/24 16:08 04/24/24 16:03 04/24/24 16:03 04/24/24 16:03 04/24/24 16:00 Nasal Cannula 04/24/24 16:00 Nasal Cannula 2 04/24/24 16:00 04/24/24 15:56 04/24/24 15:45 04/24/24 15:26 04/24/24 15:15 04/24/24 15:15 04/24/24 15:15 04/24/24 15:05 04/24/24 15:00 Nasal Cannula 2 04/24/24 14:53 04/24/24 14:47 04/24/24 14:45 04/24/24 14:45 04/24/24 14:45 04/24/24 14:44 04/24/24 14:32 04/24/24 14:30 04/24/24 14:30 04/24/24 14:30 04/24/24 14:17 04/24/24 14:15 04/24/24 14:15 04/24/24 14:15 04/24/24 14:08 04/24/24 14:02 04/24/24 14:01 04/24/24 14:01 04/24/24 13:53 04/24/24 13:45 04/24/24 13:45 04/24/24 13:35 04/24/24 13:30 04/24/24 13:27 04/24/24 13:15 04/24/24 13:15 04/24/24 13:15 04/24/24 13:00 Nasal Cannula 2 04/24/24 12:48 04/24/24 12:45 04/24/24 12:42 04/24/24 12:33 04/24/24 12:31 04/24/24 12:31 04/24/24 12:31 04/24/24 12:31 04/24/24 12:31 04/24/24 12:21 04/24/24 12:16 04/24/24 12:15 04/24/24 12:00 04/24/24 12:00 04/24/24 12:00 04/24/24 12:00 Nasal Cannula 2 04/24/24 11:45 04/24/24 11:36 04/24/24 11:30 04/24/24 11:30 04/24/24 11:15 04/24/24 11:15 04/24/24 11:15 04/24/24 11:15 04/24/24 11:00 04/24/24 11:00 04/24/24 11:00 04/24/24 11:00 04/24/24 11:00 04/24/24 10:57 04/24/24 10:45 04/24/24 10:45 04/24/24 10:45 04/24/24 10:38 04/24/24 10:31 04/24/24 10:31 04/24/24 10:27 04/24/24 10:15 04/24/24 10:15 04/24/24 10:15 04/24/24 10:15 04/24/24 10:15 04/24/24 10:00 04/24/24 10:00 04/24/24 10:00 04/24/24 09:30 04/24/24 09:30 04/24/24 09:30 04/24/24 09:21 04/24/24 09:15 04/24/24 09:12 04/24/24 09:00 04/24/24 09:00 04/24/24 09:00 04/24/24 09:00 04/24/24 09:00 04/24/24 09:00 04/24/24 08:57 04/24/24 08:30 04/24/24 08:21 04/24/24 08:18 04/24/24 08:16 04/24/24 08:16 04/24/24 08:12 Laboratory Results Abnormal lab results 04/24/24 04/24/24 04/24/24 Range/Units 07:15 07:24 11:43 WBC 13.23 H (4.8-10.8) K/ul RBC 3.39 L (4.20-5.40) M/uL Hgb 10.1 L (12.0-16.0) g/dl Hct 31.6 L (37.0-47.0) % RDW Std Deviation 50.5 H (36.4-46.3) fL RDW Coeff of Ana M 14.6 H (11.5-14.5) % Neut # (Auto) 12.32 H (1.40-6.50) K/uL Lymph # (Auto) 0.49 L (1.20-3.40) K/uL Chloride 108 H (98-107) mmol/L BUN 25 H (6-23) mg/dl BUN/Creatinine Ratio 26.0 H (10-20) Glucose 126 H (70-99(Fasting)) mg/dl POC Glucose 145 H 168 H (70-99) mg/dl Magnesium 1.6 L (1.7-2.4) mg/dl Troponin I High Sens 116.5 H* (0-14) pg/ml Albumin 2.7 L (3.4-5.0) gm/dl Globulin 4.1 H (2.5-4.0) gm/dl Albumin/Globulin Ratio 0.7 L (0.9-2) Lipase 10 L (11-82) U/L Urine Appearance (Clear) Urine Protein (Negative) Urine Ketones (Negative) Urine Blood (Negative) Ur Leukocyte Esterase (Negative) Urine WBC (Auto) (0-5) /hpf Urine RBC (Auto) (0-2) /hpf U Hyaline Cast (Auto) (0-2) /lpf U Epithel Cells (Auto) (0-2) /hpf Uric Acid Crystals (None Prsent) 04/24/24 04/24/24 04/24/24 Range/Units 12:50 15:36 16:10 WBC (4.8-10.8) K/ul RBC (4.20-5.40) M/uL Hgb (12.0-16.0) g/dl Hct (37.0-47.0) % RDW Std Deviation (36.4-46.3) fL RDW Coeff of Ana M (11.5-14.5) % Neut # (Auto) (1.40-6.50) K/uL Lymph # (Auto) (1.20-3.40) K/uL Chloride (98-107) mmol/L BUN (6-23) mg/dl BUN/Creatinine Ratio (10-20) Glucose (70-99(Fasting)) mg/dl POC Glucose 146 H (70-99) mg/dl Magnesium (1.7-2.4) mg/dl Troponin I High Sens 76.1 H* D (0-14) pg/ml Albumin (3.4-5.0) gm/dl Globulin (2.5-4.0) gm/dl Albumin/Globulin Ratio (0.9-2) Lipase (11-82) U/L Urine Appearance Cloudy A (Clear) Urine Protein 1+ H (Negative) Urine Ketones Trace H (Negative) Urine Blood Trace H (Negative) Ur Leukocyte Esterase 2+ H (Negative) Urine WBC (Auto) 11-20 H (0-5) /hpf Urine RBC (Auto) 11-20 H (0-2) /hpf U Hyaline Cast (Auto) 3-5 H (0-2) /lpf U Epithel Cells (Auto) 3-5 H (0-2) /hpf Uric Acid Crystals Present A (None Prsent) Diagnostic Findings Chest X-Ray 04/24/24 06:06 EXAM: XR chest 1V portable CLINICAL HISTORY: Hypoxia. TECHNIQUE: An X-ray image of the chest is obtained in AP projection. COMPARISON: 08/04/2023 CR. FINDINGS: Pulmonary Parenchyma: A cardiac pacemaker was noted in place on the left side. Bilateral ill defined opacities were noted on both lungs, more noted in the left avery-hilar region, which could be infection, follow-up is needed. Possible mild left pleural effusion. Heart and Mediastinum: Cardiomegaly. Prominent aortic arch. Vascular stent noted, likely aortic. Bony Thorax: The bony thorax appears intact without fractures or deformities. Soft Tissues: Elevated right diaphragmatic copula. IMPRESSION: 1. Bilateral ill-defined opacities were noted on both lungs, more noted in the left avery-hilar region, which could be infection, follow-up is needed. 2. Possible mild left pleural effusion. 3. Cardiomegaly. 4. Elevated right diaphragmatic copula. 5. No significant interval changes. Electronically signed by Aidan Narvaez 04-24-2024 08:04 AM Medications Administered Current Inpatient Medications Albuterol (Albut/Ipratrop 3mg/0.5mg Neb 3 Ml Vial) 3 ml INH Q4H PRN PRN Reason: Dyspnea Stop: 05/24/24 06:05 Apixaban (Apixaban 2.5 Mg Tab) 2.5 mg PO BID MINNA Stop: 05/24/24 20:59 Last Admin: 04/24/24 20:07 Dose: 2.5 mg Piperacillin Sod/Tazobactam Sod (Zosyn) 4.5 gm in 100 mls @ 200 mls/hr IV Q8H MINNA; Protocol Stop: 04/26/24 07:14 Last Infusion: 04/24/24 16:04 Dose: Infused Vancomycin HCl 500 mg/ Sodium (Chloride) 110 mls @ 200 mls/hr IV Q12H MINNA Stop: 04/26/24 13:59 Last Infusion: 04/24/24 15:28 Dose: Infused Miscellaneous Information (Vancomycin Consult Active) 1 each N/A UD PRN; Protocol PRN Reason: Consult Stop: 05/24/24 06:37 Oxycodone/Acetaminophen (Oxycodone/Acetaminophen 5mg/325mg Tab) 1 tab PO BID PRN PRN Reason: Pain Stop: 05/08/24 17:24 Last Admin: 04/24/24 20:08 Dose: 1 tab Pantoprazole Sodium (Pantoprazole 40 Mg Tab) 40 mg PO BID MINNA Stop: 05/24/24 20:59 Last Admin: 04/24/24 20:07 Dose: 40 mg PG Care Time/CCT Total # of Minutes Spent Total Time Spent with Patient: Total time spent is greater than 50% in coordination of care (as documented) at patient's floor/unit and/or counseling patient: Prolonged Care Time Prolonged Care Time: Yes Spent 65min in ACP discussions as described above Advanced Care Planning 72404 Advanced Care Planning 30 Min 04499 Advanced Care Planning Additional 30 [place] [address] IN/OBS CONSULT LVL 3,45M Patient Type New Medical Decision Making Moderate Complexity Diagnoses Palliative care by specialist Z51.5 Impaired decision making Z78.9 Hospice care patient Z51.5 Counseling regarding goals of care Z71.89 Encounter for end of life education, guidance and counseling Encounter for hospice care discussion Z71.89 Additional Codes Prolonged Care Time - Prolonged Care Time: Yes ([id number]) Advanced Care Planning - 03732 Advanced Care Planning 30 Min: 02615 Advanced Care Planning 30 Min ([id number]) Advanced Care Planning - 18773 Advanced Care Planning Additional 30 Min: 30342 Advanced Care Planning Additional 30 Min ([id number])
[2024-04-25 05:12] LABS: Basophils # (auto) 0.02 K/uL (0.00-0.20); Basophils % (auto) 0.1 %; Hematocrit (blood only) 29.3 % (37.0-47.0); Hemoglobin 9.6 g/dl (12.0-16.0); Immature Granulocytes # (auto) 0.11 K/uL (0.01-0.20); Immature Granulocytes % (auto) 0.7 %; Lymphocytes # (auto) 1.18 K/uL (1.20-3.40); Lymphocytes % (auto) 7.6 %; Mean Corpuscular Hemoglobin 30.1 pg (25.0-34.0); Mean Corpuscular Hgb Conc 32.8 g/dL (32.0-36.0); Mean Corpuscular Volume 91.8 fL (80.0-100.0); Mean Platelet Volume 10.3 fL (9.4-12.4); Monocytes % (auto) 4.5 %; Neutrophils # (auto) 13.57 K/uL (1.40-6.50); Neutrophils % (auto) 87.1 %; Platelet Count 182 K/uL (130-400); RDW Coefficient of Variation 14.6 % (11.5-14.5); RDW Standard Deviation 49.2 fL (36.4-46.3); Red Blood Count 3.19 M/uL (4.20-5.40); White Blood Count 15.58 K/ul (4.8-10.8)
[2024-04-25 05:28] LABS: Albumin Level 2.7 gm/dl (3.4-5.0); BUN Creatinine Ratio 27.7 (10-20); Bilirubin Direct 0.1 mg/dl (0-0.2); Bilirubin,Total 0.3 mg/dl (0.2-1.0); Calcium 8.7 mg/dl (8.6-10.3); Magnesium 2.1 mg/dl (1.7-2.4); Potassium 3.8 mmol/L (3.5-5.1); Total Protein 6.8 gm/dl (6.0-8.3)
[2024-04-25] MEDS: LORazepam 0.5 MG TAB PO PRN (08:43)
--- NOTE | 2024-04-25 14:45 | Palliative Care Progress Note ---
Date of Service April 25, 2024 Assessment & Plan (1) Palliative care by specialist: Plan: spoke with pt's daughter Zafar by phone. Introduced Palliative Medicine and explained our role in advanced care planning, symptom management and navigation through the progression of life limiting disease. Patient and/or family were receptive to palliative services for goals of care discussions. Reviewed we are different from hospice, a home health nurse visiting service. She shared that her mother has been at home on hospice care for several months, but she it is not clear on how she ended up on hospice. 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 She expressed concern that her stepfather is mentally challenged and f unctionally illiterate and has had difficulty managing even simple tasks for many years. She shared that they had been for 58 years and until her dementia the pt had always taken care of her and all their financial affairs because he could not read and has mental challenges. Zafar shared that her mother and step father got when Zafar was [age] years old. Pt also has a son from her previous marriage. Zafar shared that he has been estranged but she will try to find him and let him know pt is in hospital. (2) Hospice care patient: Plan: pt continues express desire to return home with assistance of hospice care. (3) Counseling regarding goals of care: Plan: goals are clearly established for comfort directed care, home with hospice vs snf TBD (4) Impaired decision making: Plan: Patient continues to exhibit current lack of decisional capacity based on the inability to convey understanding of personal PMHx, current medical condition, treatment options nor the risks / benefits of those options, and lack of ability to make decisions based on such knowledge. Hospital does not have written documentation of patient wishes concerning chosen proxy for medical decisions. Per PA [id number], in absence of written documentation of patient wishes, pt's proxy for medical decisions would be her spouse Gabe Reddy and her adult children from her previous marriage, daughter Zafar Ballard ([phone]) and a estranged son for whom we currently have no contact information. Pt does require a proxy for medical decisions. Plan *DNR/DNI but continue current course of care *Identify additional support for patient and spouse, they have strong desire to remain at home through end of life *Encourage additional family support for discussions as Gabe has expressed that Zafar "helps him understand things" and Zafar has expressed that she is willing to participate in care planning *Gabe would benefit from clear, consistent explanations in layman's terms with frequent reinforcement. Admission and Anticipated Discharge Date Admission Date: April 24, 2024 Subjective assessed pt at bedside, no visitors present today. Review of Systems Review of Systems: Unobtainable due to cognitive status Physical Exam Constitutional: + ill appearing, + frail appearing and c omfortable; no acute distress Eyes: PERRL, conjunctivae normal, anicteric sclerae ENMT: external ear and nose normal, oropharynx normal Mouth: + dry oral mucous membranes Neck: trachea midline, no thyromegaly Respiratory: normal respiratory effort, lungs clear to auscultation Cardiovascular: Rate/Rhythm: regular rate and regular rhythm Skin: + turgor decreased, + pallor and + scar Neurologic: moves all extremities, awake and + confused Results & Data Vital Signs (Past 12 Hours) Vital Signs Temp Pulse Resp BP Pulse Ox Pulse Ox O2 Del Method 04/25/24 10:52 36.8 C 72 22 127/64 96 Nasal Cannula 04/25/24 08:00 Nasal Cannula 04/25/24 08:00 97 Nasal Cannula 04/25/24 08:00 97 04/25/24 07:00 36.5 C 82 20 118/58 L 86 L Room Air O2 Del Method O2 Flow Rate O2 Flow Rate 04/25/24 10:52 2 04/25/24 08:00 2 04/25/24 08:00 2 04/25/24 08:00 Nasal Cannula 2 04/25/24 07:00 Laboratory Results Abnormal lab results 04/25/24 Range/Units 04:32 WBC 15.58 H (4.8-10.8) K/ul RBC 3.19 L (4.20-5.40) M/uL Hgb 9.6 L (12.0-16.0) g/dl Hct 29.3 L (37.0-47.0) % RDW Std Deviation 49.2 H (36.4-46.3) fL RDW Coeff of Ana M 14.6 H (11.5-14.5) % Neut # (Auto) 13.57 H (1.40-6.50) K/uL Lymph # (Auto) 1.18 L (1.20-3.40) K/uL Pierce # (Auto) 0.70 H (0.11-0.59) K/uL Sodium 135 L (136-145) mmol/L BUN 28 H (6-23) mg/dl BUN/Creatinine Ratio 27.7 H (10-20) Glucose 107 H (70-99(Fasting)) mg/dl Albumin 2.7 L (3.4-5.0) gm/dl Diagnostic Findings Chest X-Ray 04/24/24 06:06 EXAM: XR chest 1V portable CLINICAL HISTORY: Hypoxia. TECHNIQUE: An X-ray image of the chest is obtained in AP projection. COMPARISON: 08/04/2023 CR. FINDINGS: Pulmonary Parenchyma: A cardiac pacemaker was noted in place on the left side. Bilateral ill defined opacities were noted on both lungs, more noted in the left avery-hilar region, which could be infection, follow-up is needed. Possible mild left pleural effusion. Heart and Mediastinum: Cardiomegaly. Prominent aortic arch. Vascular stent noted, likely aortic. Bony Thorax: The bony thorax appears intact without fractures or deformities. Soft Tissues: Elevated right diaphragmatic copula. IMPRESSION: 1. Bilateral ill-defined opacities were noted on both lungs, more noted in the left avery-hilar region, which could be infection, follow-up is needed. 2. Possible mild left pleural effusion. 3. Cardiomegaly. 4. Elevated right diaphragmatic copula. 5. No significant interval changes. Electronically signed by Aidan Narvaez 04-24-2024 08:04 AM Medications Administered Current Inpatient Medications Albuterol (Albut/Ipratrop 3mg/0.5mg Neb 3 Ml Vial) 3 ml INH Q4H PRN PRN Reason: Dyspnea Stop: 05/24/24 06:05 Apixaban (Apixaban 2.5 Mg Tab) 2.5 mg PO BID MINNA Stop: 05/24/24 20:59 Last Admin: 04/25/24 20:17 Dose: 2.5 mg Calcium Carbonate (Calcium Carbonate 1250mg Tab) 1 tab PO BID MINNA Stop: 05/25/24 20:59 Last Admin: 04/25/24 20:17 Dose: 1 tab Cyanocobalamin (Cyanocobalamin (B-12) 500 Mcg Tablet) 1,000 mcg PO Q2D [facility] Stop: 05/26/24 08:59 Ferrous Sulfate (Ferrous Sulfate 325 Mg Tab) 325 mg PO DAILY MINNA Stop: 05/26/24 08:59 Piperacillin Sod/Tazobactam Sod (Zosyn) 4.5 gm in 100 mls @ 25 mls/hr IV Q8H MINNA; Protocol Stop: 05/04/24 07:14 Last Admin: 04/25/24 22:51 Dose: 25 mls/hr Lorazepam (Lorazepam 0.5 Mg Tab) 0.5 mg PO Q4H PRN PRN Reason: anxiety or restlessness Stop: 05/25/24 07:57 Last Admin: 04/25/24 20:18 Dose: 0.5 mg Magnesium Chloride (Magnesium Chloride W/Calcium 64mg Delayed Rel Tab) 64 mg PO QAM [facility] Stop: 05/26/24 08:59 Mirtazapine (Mirtazapine Tab 15 Mg Tab) 15 mg PO HS [facility] Stop: 05/25/24 20:59 Last Admin: 04/25/24 20:17 Dose: 15 mg Oxycodone/Acetaminophen (Oxycodone/Acetaminophen 5mg/325mg Tab) 1 tab PO BID PRN PRN Reason: Pain Stop: 05/08/24 17:24 Last Admin: 04/25/24 20:17 Dose: 1 tab Pantoprazole Sodium (Pantoprazole 40 Mg Tab) 40 mg PO BID [facility] Stop: 05/24/24 20:59 Last Admin: 04/25/24 20:17 Dose: 40 mg Simvastatin (Simvastatin 10 Mg Tab) 10 mg PO HS [facility] Stop: 05/25/24 20:59 Last Admin: 04/25/24 20:17 Dose: 10 mg Vitamin D (Cholecalciferol 25 Mcg (1000 Units) Tab) 25 mcg PO BID MINNA Stop: 05/25/24 20:59 Last Admin: 04/25/24 20:17 Dose: 25 mcg PG Care Time/CCT Total # of Minutes Spent Total Time Spent with Patient: Total time spent is greater than 50% in coordination of care (as documented) at patient's floor/unit and/or counseling patient: Coding [place] [address] SUB INP/OBS CARE 2/35MIN Patient Type Established History Problem Focused Exam Problem Focused Medical Decision Making Low Complexity Diagnoses Palliative care by specialist Z51.5 Hospice care patient Z51.5 Counseling regarding goals of care Z71.89 Impaired decision making Z78.9
[2024-04-25 15:06] VITALS: RESP 18
--- NOTE | 2024-04-25 17:26 | Hospitalist Progress Note ---
Date of Service April 25, 2024 Assessment & Plan (1) Septic shock: (2) Elevated troponin: (3) Interstitial lung disease: (4) S/P TAVR (transcatheter aortic valve replacement): Plan This patient is an 83-year-old female with an H/O of TAVR, HTN, ileostomy, CAD, permanent pacemaker, SIADH, HLD, anxiety, GERD, Crohn's disease, PSVT, and recurrent UTIs who was transferred to the [facility] ICU from [facility] ER with history of a fall 3 days previously, fever, and progressive confusion. At [facility], she initially had a normal pressure 125/44, however, progressively developed lower blood pressure, to systolic of 70, and despite 1 L fluid resuscitation, and then a second liter fluid resuscitation, systolic blood pressure not respond, she was started on Levophed infusion at that time. In addition to Levophed, the patient was given vancomycin IV and Zosyn IV. Patient was COVID and flu negative prior to transfer. CT head without contrast, CT chest, CT abdomen and pelvis and CT neck were all reported as negative On evaluation here, urinalysis appears positive. Chest x-ray with chronic fibrotic changes but could have superimposed pneumonia? She did have a leukocytosis but no fever. Of note, the patient was on hospice at home prior to admission but this has since been revoked. #Presumed septic shock-possibly secondary to UTI versus pneumonia-now weaned off Levophed and transferred out of ICU. Blood cultures and urine culture remain no growth. Echocardiogram with well-seated valve and preserved EF. She is euvolemic and making urine. Leukocytosis is trending down and remains afebrile here. Blood pressures remain normal. is agreeable to patient being treated with antibiotics and revoking hospice for current hospitalization. -Continue empiric Zosyn but can now discontinue vancomycin as MRSA nasal swab is negative -Follow blood and urine cultures -Continue to hold home antihypertensives #Hypertension/history of TAVR/HFpEF/HLD-follows with [facility] cardiology. With a history of complete heart block post TAVR s/p dual-chamber PPM on 09/23/2021. Also with a history of recurrent drug refractory PSVT s/p ablation. Also s/p AAA repair. Appears euvolemic -Continue to hold atenolol, as needed furosemide -Can resume statin -No longer on telemetry #GERD/s/p small bowel resection and proctocolectomy with ileostomy formation in 1976/Crohn's disease- -continue pantoprazole and ileostomy care #Hypercoagulable state secondary to protein S deficiency-continue Eliquis #Chronic pain syndrome-continue as needed home oxycodone #Anxiety/dementia-supportive care, resume home as needed lorazepam and mirtazapine Plans to resume home hospice on discharge DVT prophylaxis-Eliquis Disposition-continued stay medical/surgical Will awaiting culture results, plan to discharge back to home with hospice on 04/26. Appreciate palliative medicine consultation I called and left a voicemail for patient's on 04/25 Admission and Anticipated Discharge Date Admission Date: April 24, 2024 Subjective Patient denies pain, has no problems and is eating her dinner when I saw her. She is anxious to get home. She reports she is not anxious. She did receive lorazepam today I discussed her care with palliative medicine SCHEDULE MANAGER Physical Exam Constitutional: WD/WN, vitals as above Respiratory: normal respiratory effort; no cough Auscultation: + crackles (Lower lung bello); no rhonchi and no wheezes Cardiovascular: RRR, no murmur, no edema Gastrointestinal (Abdomen): normal bowel sounds, soft, nontender, no hepatosplenomegaly Psychiatric: Orientation: alert, oriented to person, oriented to place (Room [address] on the third floor of the same place) and cooperative Results & Data Results & Data Vital Signs (Past 12 Hours) Vital Signs Temp Pulse Resp BP Pulse Ox Pulse Ox O2 Del Method 04/25/24 15:03 36.4 C L 18 129/69 97 Nasal Cannula 04/25/24 10:52 36.8 C 72 22 127/64 96 Nasal Cannula 04/25/24 08:00 Nasal Cannula 04/25/24 08:00 97 Nasal Cannula 04/25/24 08:00 97 04/25/24 07:00 36.5 C 82 20 118/58 L 86 L Room Air O2 Del Method O2 Flow Rate O2 Flow Rate 04/25/24 15:03 2 04/25/24 10:52 2 04/25/24 08:00 2 04/25/24 08:00 2 04/25/24 08:00 Nasal Cannula 2 04/25/24 07:00 Laboratory Results CBC, CMP, magnesium, blood cultures, urine culture reviewed PG Care Time/CCT Total # of Minutes Spent Total Time Spent with Patient: Total time spent is greater than 50% in coordination of care (as documented) at patient's floor/unit and/or counseling patient: Coding Level of Care Code 49511 SUB INP/OBS CARE 2/35MIN Diagnoses Septic shock A41.9; R65.21 Elevated troponin R77.8 Interstitial lung disease J84.9 S/P TAVR (transcatheter aortic valve replacement) Z95.2
[2024-04-25 20:04] VITALS: TEMP 98.1
[2024-04-25] MEDS: CALCIUM CARBONATE 1250MG TAB PO SCH (20:17)
[2024-04-25] MEDS: MIRTAZAPINE TAB 15 MG TAB PO SCH (20:17)
[2024-04-25] MEDS: CHOLECALCIFEROL 25 MCG (1000 UNITS) TAB PO SCH (20:17)
[2024-04-25] MEDS: SIMVASTATIN 10 MG TAB PO SCH (20:17)
[2024-04-26 06:35] LABS: Basophils # (auto) 0.02 K/uL (0.00-0.20); Basophils % (auto) 0.2 %; Eosinophils # (auto) 0.45 K/uL (0.00-0.50); Eosinophils % (auto) 5.2 %; Hemoglobin 9.8 g/dl (12.0-16.0); Immature Granulocytes # (auto) 0.04 K/uL (0.01-0.20); Immature Granulocytes % (auto) 0.5 %; Lymphocytes # (auto) 1.51 K/uL (1.20-3.40); Lymphocytes % (auto) 17.5 %; Mean Corpuscular Hemoglobin 29.4 pg (25.0-34.0); Mean Corpuscular Hgb Conc 31.6 g/dL (32.0-36.0); Mean Corpuscular Volume 93.1 fL (80.0-100.0); Mean Platelet Volume 9.9 fL (9.4-12.4); Monocytes # (auto) 0.48 K/uL (0.11-0.59); Monocytes % (auto) 5.6 %; Neutrophils # (auto) 6.14 K/uL (1.40-6.50); Platelet Count 169 K/uL (130-400); RDW Coefficient of Variation 14.5 % (11.5-14.5); RDW Standard Deviation 48.8 fL (36.4-46.3); Red Blood Count 3.33 M/uL (4.20-5.40); White Blood Count 8.64 K/ul (4.8-10.8)
[2024-04-26 06:57] LABS: Albumin Level 2.5 gm/dl (3.4-5.0); BUN Creatinine Ratio 27.9 (10-20); Bilirubin,Total 0.2 mg/dl (0.2-1.0); Calcium 8.3 mg/dl (8.6-10.3); Creatinine Clr Calc Pharmacy 28.7 ml/min; Magnesium 1.8 mg/dl (1.7-2.4); Potassium 3.7 mmol/L (3.5-5.1); Total Protein 6.4 gm/dl (6.0-8.3)
[2024-04-26] MEDS: FERROUS SULFATE 325 MG TAB PO SCH (08:03)
[2024-04-26] MEDS: CYANOCOBALAMIN (B-12) 500 MCG TABLET PO SCH (08:03)
[2024-04-26] MEDS: MAGNESIUM CHLORIDE W/CALCIUM 64MG DELAYED REL TAB PO SCH (08:03)
[2024-04-26 08:16] VITALS: BP 132/77; PULSE 82; O2SAT 98
--- NOTE | 2024-04-26 11:39 | Discharge Summary ---
Discharge Summary Date of Service April 26, 2024 Principal Dx & Hospital Course #1 = Principal Diagnosis (1) Septic shock: (2) Elevated troponin: (3) Interstitial lung disease: (4) S/P TAVR (transcatheter aortic valve replacement): Plan This patient is an 83-year-old female with an H/O of TAVR, HTN, ileostomy, CAD, permanent pacemaker, SIADH, HLD, anxiety, GERD, Crohn's disease, PSVT, and recurrent UTIs who was transferred to the [facility] ICU from [facility] ER with history of a fall 3 days previously, fever, and progressive confusion. At [facility], she initially had a normal pressure 125/44, however, progressively developed lower blood pressure, to systolic of 70, and despite 1 L fluid resuscitation, and then a second liter fluid resuscitation, systolic blood pressure not respond, she was started on Levophed infusion at that time. In addition to Levophed, the patient was given vancomycin IV and Zosyn IV. Patient was COVID and flu negative prior to transfer. CT head without contrast, CT chest, CT abdomen and pelvis and CT neck were all reported as negative On evaluation here, urinalysis appears positive. Chest x-ray with chronic fibrotic changes but could have superimposed pneumonia? She did have a leukocytosis but no fever. Of note, the patient was on hospice at home prior to admission but this has since been revoked. #Presumed septic shock-possibly secondary to UTI versus pneumonia-now weaned off Levophed and transferred out of ICU, BPs have been normal. Blood cultures and urine culture remain no growth. Echocardiogram with well-seated valve and preserved EF. She is euvolemic and making urine. Leukocytosis is resolved and remained afebrile here. -She received empiric Zosyn and vancomycin but Vanco stopped after 1 day as MRSA nasal swab is negative -dc to home on Augmentin for presumed PNA vs UTI -Follow blood and urine cultures after discharge -decrease doses of home antihypertensives-cut atenolol to 12.5mg daily and cut lasix to 20mg daily, dc home KCl and NaCl tabs #Hypertension/history of TAVR/HFpEF/HLD-follows with [facility] cardiology. With a history of complete heart block post TAVR s/p dual-chamber PPM on 09/23/2021. Also with a history of recurrent drug refractory PSVT s/p ablation. Also s/p AAA repair. Appears euvolemic -cutting doses of furosemide and atenolol in half -Continue statin #ILD/Chronic hypoxic resp failure-with possible PNA, continue home dose of 2LNC O2 treating with abx #GERD/s/p small bowel resection and proctocolectomy with ileostomy formation in 1976/Crohn's disease- -continue pantoprazole and ileostomy care #Hypercoagulable state secondary to protein S deficiency-continue Eliquis #Chronic pain syndrome-continue as needed home oxycodone #Anxiety/dementia-supportive care, continue home as needed lorazepam and mirtazapine Plans to resume home hospice on discharge DVT prophylaxis-Eliquis Disposition-dc to home with hospice. Discussed care with on day of dis charge. Appreciate palliative medicine consultation Notes For Next Care Provider None Medication Changes From Visit Added Augmentin 500/125mg po bid x 5 more days Admission HPI Per Admitting Provider The patient is an 83-year-old female with a past medical history including SIADH, interstitial lung disease, sacral decubitus ulcer, complete heart block, history of cardiac pacemaker, status post TAVR, PSVT, GERD, Crohn's disease, chronic pain syndrome, hyperlipidemia, and ileostomy in place.The patient presented to the emergency department at [facility], with history of a fall 3 days previously, has developed a temperature, and progressive confusion and disorientation since that time. At [facility], she initially had a normal pressure 125/44, however, progressively developed lower blood pressure, to systolic of 70, and despite 1 L fluid resuscitation, and then a second liter fluid resuscitation, systolic blood pressure not respond, she was started on Levophed infusion at that time. Emergency department at the outside facility, and called [facility], and patient was accepted in transfer to the ICU. Of note, the patient has been noted to be DNR/DNI, but conversation from the ED physician at [facility], confirmed with that pressor support and treatment was desired Discharge Exam Constitutional WD/WN, vitals as above Respiratory normal respiratory effort; no cough Auscultation: + crackles (Lower lung bello); no rhonchi and no wheezes Cardiovascular RRR, no murmur, no edema Gastrointestinal (Abdomen) normal bowel sounds, soft, nontender, no hepatosplenomegaly Psychiatric Orientation: alert, oriented x 3 and cooperative Discharge Plan Discharge Items Patient Disposition: Hospice - Home Reason For Visit: SEPSIS Discharge Diagnosis: Septic shock UTI Condition on Discharge: Fair Activity: Resume your previous activity Non-emergency contact: Primary Care Provider Call non-emergency contact if: you have any medication questions and your symptoms worsen Follow-up/Referrals: Bertha Buckner MD [Primary Care Provider] - (You do not need to follow up with your PCP since you are cared for at home with hospice.) Diet: Regular Addtl Attending Provider Instructions: Please finish out 5 more days of the antibiotic called augmentin, twice a day. Your final urine culture result is not back yet but this antibiotic should work for your infection. You will resume home hospice services. Your atenolol and furosemide were cut in half because of your low blood pressures. Your sodium chloride tablet was stopped because your sodium levels have been normal and this is not needed anymore. Your potassium was also stopped. Pending Studies at Discharge: Yes (Blood and urine cultures-no growth to date) Stand-Alone Forms: My [facility] [address] Medications and DC Order Prescriptions: New amoxicillin-pot clavulanate [Augmentin] 500-125 mg tablet 1 tab PO BID Qty: 10 0RF Continued cholecalciferol (vitamin D3) 25 mcg (1,000 unit) tablet 25 mcg PO BID magnesium chloride [Mag 64] 64 mg Tablet,Delayed Release (Dr/Ec) 64 mg PO QAM Qty: 30 0RF (DME) Oxygen Home Liters Per Minute See Rx Instructions .Route Qty: 1 0RF Rx Instructions: As directed ascorbic acid (vitamin C) [Vitamin C With Oriana Hips] 1,000 mg Tablet 1 g PO BID cyanocobalamin (vitamin B-12) [Vitamin B-12] 1,000 mcg Tablet 1,000 mcg PO Q OTHER DAY calcium carbonate [Calcium 600] 600 mg calcium (1,500 mg) Tablet 600 mg PO BID ferrous sulfate [iron] 325 mg (65 mg iron) Tablet 325 mg PO DAILY Probiotic 10 billion cell Capsule 10,000 mmu cells PO DAILY [id number]-ast [MegaRed [place]-3 Krill Oil] 1,000-230-60 mg Capsule 1 cap PO DAILY simvastatin 10 mg tablet 10 mg PO HS Eliquis 2.5 mg tablet 2.5 mg PO BID omeprazole 20 mg capsule,delayed release(DR/EC) 20 mg PO BID oxycodone-acetaminophen 5-325 mg tablet 1 tab PO BID PRN (Reason: Pain) Rx Instructions: 1 tablet twice daily plus 3rd dose as needed lorazepam 0.5 mg tablet 0.5 mg PO Q4H PRN (Reason: anxiety or restlessness) mirtazapine 15 mg tablet 15 mg PO HS Changed furosemide 40 mg tablet 20 mg PO QAM Qty: 30 0RF atenolol 25 mg tablet 12.5 mg PO QAM Qty: 15 0RF Discontinued sodium chloride 1,000 mg Tablet,Soluble 1,000 mg PO QAM potassium chloride 20 mEq tablet extended release 20 meq PO QAM Discharge Orders: Discharge Order (Routine); Ordered 04/26/24 Ordered By: Shannan Redmond Admission Data Admit Date/Time: 04/24/24 06:01 Attending Provider: Shannan Redmond Admit Provider: Abhishek Arambula Primary Care Provider: Bertha Buckner Other Providers: Fercho Clements; Yajaira Rhodes; Marycruz Alfaro Hospital Stay Data Consultations 04/24/24 06:01 Consult Janitor Supervisor Routine 04/24/24 08:12 Consult Palliative Care Routine Pending Results Patient Have Any Pending Studies at Discharge: Yes (Blood and urine cultures-no growth to date) Discharge Instructions Given to Patient (Per Discharging Provider) Please finish out 5 more days of the antibiotic called augmentin, twice a day. Your final urine culture result is not back yet but this antibiotic should work for your infection. You will resume home hospice services. Your atenolol and furosemide were cut in half because of your low blood pressures. Your sodium chloride tablet was stopped because your sodium levels have been normal and this is not needed anymore. Your potassium was also stopped. Total Time Total Time Spent Total Time Spent (In Minutes): 35 min Total Time Includes: Examination of the Patient, Discharge Planning and M edication Reconciliation Coding Level of Care Code 43679 INP/OBS DISCH >30 MIN Diagnoses Septic shock A41.9; R65.21 Elevated troponin R77.8 Interstitial lung disease J84.9 S/P TAVR (transcatheter aortic valve replacement) Z95.2
== END 2024-04-26 12:45 | disposition hospice, home (50) | DRG 871 ==
LOC: 1E 06:30 → SUATTDRO 06:30 → 1E 06:43 → 3E 04-25 14:42

== ENCOUNTER 2024-05-03 20:37 | Inpatient (IN) ==
--- OUTSIDE RECORDS SUMMARY | 2024-05-03 20:40 | External Medical Summary | Summary of Care ---
Author Name Unknown Organization [facility] Address [address] [place] [address] Phone [phone] Care Team Providers Care Rock Wool Insulator Name Role Phone Benny Rizo PA-C Primary Care Provider + [phone] Encounter Details Date Type Department Care Team (Late st Contact Info) Description 04/28/2024 Population Health External Data Unspecified Department Allergies Active Allergy Reactions Criticality Noted Date Comments Bee Venom 12/09/2002 Duloxetine 12/02/2021 Other reaction(s): Unknown Shellfish Diarrhea 01/11/2010 Loses water via Ostomy documented as of this encounter (statuses as of 04/28/2024) Medications FEOSOL 200 (65 FE) MG PO [...] as of this encounter (statuses as of 04/28/2024) Active Problems Problem Noted Date Diagnosed Date [...] as of this encounter (statuses as of 04/28/2024) Resolved Problems Problem Noted Date Diagnosed Date [...] as of this encounter (statuses as of 04/28/2024) Immunizations Name Administration Dates Next Due COVID-19 [...] on patient's age to complete this topic Meningitis B Vaccine (Bexsero/Trumemba) Aged Out No longer eligible based on patient's age to complete this topic documented as of this encounter Medical Devices Implanted Type Area Freelance Operator Device Identifier Shelf Expiration Date Model / Serial / Lot Lens 21.0 Mx60 - [id number] - [id number] Implanted:Qty: 1 on 11/07/2016 by Anatoliy Gonzalez MD at [facility] Left: Eye [employer] : SURGICAL 02/08/2019 MX60-21.0 / [id number] / Lens 20.5 Mx60 - [id number] - [id number] Implanted:Qty: 1 on 11/21/2016 by Anatoliy Gonzalez MD at [facility] Right: Eye [employer] : SURGICAL 03/11/2019 MX60-20.5 / [id number] / [id number] Valve Elvi 3 Ultra 26mm - [id number] Implanted:Qty: 1 on 09/20/2021 by Azael Eli MD at [facility] [employer] [id number] 07/10/2022 [id number] / / Lead Novus Bipolar 45cm - [id number] Implanted:Qty: 1 on 09/23/2021 by Lyn Henderson IV, MD at [facility] [employer] : CRM [id number] 05/09/2023 [id number] 45 / [id number] / [id number] Lead Pace [employer] 3830-69 - [id number] Implanted:Qty: 1 on 09/23/2021 by Lyn Henderson IV, MD at [facility] [employer] : CRM [id number] 07/01/2023 [id number] 9 / [id number] V / [id number] Pacemaker Conway Xt Dr Nathan ls - [id number] Implanted:Qty: 1 on 09/23/2021 by Lyn Henderson IV, MD at [facility] [employer] [id number] 02/22/2023 [id number] / [id number] G / [id number] documented as of this encounter Advance [...] and were consensually agreed upon. Care Teams Rock Wool Insulator Relationship Specialty Start Date End Date Benny Rizo PA-C [address] [place] [address] PCP - General Physician Infrastructure Manager 10/30/23 documented as of this encounter
--- NOTE | 2024-05-03 21:48 | Emergency Department Note ---
Impression & Plan Generalized weakness ED Provider Note NAME: SANDRA NAVA AGE: 83 SEX: F : 1940 ARRIVES VIA: Ambulance INFORMANT: Patient, the patient's ED PROVIDER(S): Oniel Geller DO CHIEF COMPLAINT: Generalized weakness HPI: The patient is an 83-year-old female who presented to the emergency department with her significant other for an evaluation of generalized weakness. The patient's been doing poorly especially over the last 3 days. The states that his is on hospice. She does not want lots of aggressive measures but he is noticed that she has not been eating or drinking recently. The patient denies having any vomiting or fever. Was recently treated for a pulmonary infection. She also has a history of urine infection. She is been compliant with her outpatient medications as best she could. ROS: See above HPI for pertinent positives & negatives. A total of 10 systems reviewed and were otherwise negative. PAST MEDICAL HISTORY: See Below PAST SURGICAL HISTORY: See Below FAMILY HISTORY: See Below SOCIAL HISTORY: See Below HOME MEDICATIONS: See Below ALLERGIES: See Below VITALS: See Below PHYSICAL EXAMINATION: GENERAL: The patient is awake to verbal commands. She does not appear to be uncomfortable. EYES: The conjunctivae are clear. The pupils are round and reactive. EARS, NOSE, MOUTH AND THROAT: The nose is without any evidence of any deformity. Mucous membranes are dry. NECK: The neck is nontender and supple. RESPIRATORY: Diminished breath sounds are noted throughout with rhonchi scattered throughout the left lung field. CARDIOVASCULAR: Regular rate and rhythm noted there no murmurs rubs or gallops normal S1 normal S2. GASTROINTESTINAL: The abdomen is soft. Abdomen is nontender. MUSCULOSKELETAL/EXTREMITIES: There is no evidence of gross deformity full range of motion is noted in the hips and shoulders. SKIN: There is no obvious evidence of any rash. There are no petechiae, pallor or cyanosis noted. NEUROLOGIC: Patient is awake and oriented to person place and situation. She does recognize her . MEDICAL DECISION MAKING: The patient is an 83-year-old female who presented to the emergency department with her for an evaluation of generalized decline. The patient has been experiencing generalized weakness. She has been having more difficulty performing her ADLs. Her brought her to the emergency department for further evaluation as well as to request that the patient be evaluated for inpatient management. The patient does have a history of being on hospice. There were no fevers noted on physical exam. The patient was treated with a small fluid bolus in the emergency department. I discussed patient's condition with the on-call [facility] hospitalist. Triage Nursing notes reviewed. Prior medical records reviewed Vital Signs: reviewed and remarkable for no significant abnormalities Differential diagnosis: Infection, hypoglycemia, electrolyte abnormalities, overdose, toxicologic, cardiac sources, intracerebral event, neurologic, trauma, as well as other pathologies. ER treatment provided: See below Diagnostics interpreted by me: ECG: EKG was obtained in the emergency department. My interpretation is paced rhythm at 95 bpm. PVCs were noted. This was compared to a tracing from August 04, 2023. The ectopy was new otherwise no changes were noted. Cardiac Monitoring: An order was placed for continuous cardiac monitoring. The monitor shows a rate of 89 bpm with paced rhythm. Laboratory studies: As stated above and show below. Imaging studies: See below. Radiographic imaging was reviewed by myself Consultation(s): I discussed this case with Dr. Teague Past Med/Surg History Problem List (Updated 05/04/24 @ 00:00 by Oniel Geller DO) Generalized weakness (Acute) Impaired decision making Encounter for hospice care discussion Hospice care patient Encounter for end of life education, guidance and counseling Counseling regarding goals of care Palliative care by specialist Septic shock Hypotension Admitted to intensive care unit Cachexia Anemia Recurrent falls (Acute) SIADH (syndrome of inappropriate ADH production) Interstitial lung disease Sacral decubitus ulcer Hyponatremia Protein calorie malnutrition CHB (complete heart block) Hypercoagulable state Cardiac pacemaker in situ S/P TAVR (transcatheter aortic valve replacement) Weight loss Hypertension PSVT (paroxysmal supraventricular tachycardia) GERD (gastroesophageal reflux disease) (Chronic) Crohn's disease (Chronic) Osteoporosis (Chronic) Hyperproteinemia (Chronic ~02/13/19) Opioid use agreement exists (Chronic) Chronic pain syndrome (Chronic) 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) Anxiety disorder (Chronic) Hyperlipidemia (Chronic) 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) Medical History Fracture of right superior pubic ramus (08/04/23) from a fall History of compression fracture of spine (~01/24/22) Interval progression of the moderate anterior wedge-shaped compression deformity at L2 History of compression fracture of vertebral column (~08/17/20) CHF (congestive heart failure) Degenerative lumbar spinal stenosis Secondary hypercoagulable state Coronary artery disease Hyponatremia Tremor H/O small bowel obstruction Surgical History Status post proctocolectomy History of abdominal aortic aneurysm (AAA) repair History of resection of small bowel History of tooth extraction History of carpal tunnel surgery History of breast biopsy History of ileostomy History of hernia repair History of colposcopy History of colostomy Status post catheter ablation of atrial fibrillation Hx of tubal ligation History of tonsillectomy and adenoidectomy History of appendectomy H/O resection of small bowel H/O pyloroplasty H/O heart artery stent H/O abdominal aortic aneurysm repair Family History Father Coronary heart disease Hypertension Stroke Sister No problems noted. Mother Coronary heart disease Hypertension Stroke Denies family history of Ovarian cancer Prostate cancer Myocardial infarction Breast cancer Lung cancer Colorectal cancer Social History Smoking Status: Former smoker Tobacco Type: Cigarettes Age Started Using Tobacco: 26; Age Quit Using Tobacco: 61; packs per day: 1; Second Hand Exposure: No; Do You Dip or Chew Tobacco: No; Hx Alcohol Use: No Hx Substance Use: No Preferred Language: [place] Communication Ability: Effective Visual Impairment: Limited Hearing Ability: Normal Chip Mucker Required: No Beliefs That Will Affect Care: None marital status: Current Living Situation: Spouse Current Living Situation Comment: jose c current occupational status: retired How many Children do You have: 2 Feels Safe at Home: Yes Childhood Exposure to Second-Hand Smoke: Yes Diet: regular caffeine: Yes (coffee) during the past year weight has: remained stable Dental Care, Regularly: Yes Physical Activity Frequency: 1-2 Times per Week Physical Activity Frequency Comment: walks with PT Seatbelt Use: always Sunscreen Use: Yes Assistive Devices: Oxygen - Continuous, Walker and Wheelchair Allergies Allergies Allergy/AdvReac Type Severity Reaction Status Date / Time bee venom protein (honey bee) Allergy Unknown Unknown Verified 08/27/23 14:36 duloxetine [From Cymbalta] Allergy Unknown Unknown Verified 08/27/23 14:36 iodine Allergy Unknown Unknown Verified 08/27/23 14:36 shellfish derived Allergy Unknown Unknown Verified 08/27/23 14:36 Home Meds Home Medications Medication Instructions Recorded Confirmed cholecalciferol (vitamin D3) 25 25 mcg PO BID 09/21/22 05/03/24 mcg (1,000 unit) tablet Lactobacillus acidophilus 10 10,000 mmu cells PO DAILY 08/04/23 05/03/24 billion cell capsule (Probiotic) ascorbic acid (vitamin C) 1,000 mg 1 g PO BID 08/04/23 05/03/24 tablet (Vitamin C With Oriana Hips) calcium carbonate (Calcium 600) 600 mg PO BID 08/04/23 05/03/24 cyanocobalamin (vitamin B-12) 1,000 mcg PO Q OTHER DAY 08/04/23 05/03/24 1,000 mcg tablet (Vitamin B-12) ferrous sulfate 325 mg (65 mg 325 mg PO DAILY 08/04/23 05/03/24 iron) tablet (iron) krill 1,000 mg-omega-3 230 mg-dha 1 cap PO DAILY 08/04/23 05/03/24 60 uy-jrg-tiyknqjzv-astaxan capsule (MegaRed Seffner-3 Krill Oil) simvastatin 10 mg tablet 10 mg PO HS 08/04/23 05/03/24 apixaban 2.5 mg tablet (Eliquis) 2.5 mg PO BID 04/24/24 05/03/24 omeprazole 20 mg capsule,delayed 20 mg PO BID 04/24/24 05/03/24 release oxycodone-acetaminophen 5 mg-325 1 tab PO BID PRN Pain 04/24/24 05/03/24 mg tablet lorazepam 0.5 mg tablet 0.5 mg PO Q4H PRN anxiety or 04/25/24 05/03/24 restlessness mirtazapine 15 mg tablet 15 mg PO HS 04/25/24 05/03/24 Previous Rx's Medication Instructions Recorded magnesium chloride 64 mg 64 mg PO QAM #30 tabs 11/18/21 (magnesium chloride) tablet,delayed release (Mag 64) Oxygen Home #1 ea 01/27/22 atenolol 25 mg tablet 12.5 mg (1/2 x 25 mg) PO QAM #15 04/26/24 tabs furosemide 40 mg tablet 20 mg (1/2 x 40 mg) PO QAM #30 tabs 04/26/24 Results & Data (ED) Vital Signs Vital Signs - 24 hr 05/03/24 20:47 05/03/24 20:48 05/03/24 22:30 Temperature 37.0 C Temperature Source Oral Pulse Rate 70 99 H Pulse Rate [Right Finger] 88 Respiratory Rate 18 18 Respiratory Effort / Characteristics Spontaneous Blood Pressure 134/74 Blood Pressure [Right Arm] 113/56 L Blood Pressure Mean 94 Blood Pressure Mean [Right Arm] 75 Pulse Oximetry 95 96 Oxygen Delivery Method Nasal Cannula Nasal Cannula Oxygen Flow Rate 2 2 Sepsis Recent Fever Within 48 Hours No Sepsis New/Unexplained Change in Mental Status No Sepsis Action Taken by Nursing No Action Required Home Medications Current Medication List: was personally reviewed by me Laboratory Data Attestation: I reviewed the patient's lab results. 05/03/24 22:02 05/03/24 22:02 Lab Results 05/03/24 05/03/24 Range/Units 22:02 22:26 WBC 11.48 H (4.8-10.8) K/ul RBC 3.60 L (4.20-5.40) M/uL Hgb 10.6 L (12.0-16.0) g/dl Hct 32.6 L (37.0-47.0) % MCV 90.6 (80.0-100.0) fL MCH 29.4 (25.0-34.0) pg MCHC 32.5 (32.0-36.0) g/dL RDW Std Deviation 47.4 H (36.4-46.3) fL RDW Coeff of Ana M 14.3 (11.5-14.5) % Plt Count 188 (130-400) K/uL MPV 9.8 (9.4-12.4) fL Immature Gran % (Auto) 0.4 % Neut % (Auto) 84.3 % Lymph % (Auto) 7.1 % Cannon % (Auto) 7.2 % Eos % (Auto) 0.8 % Baso % (Auto) 0.2 % Neut # (Auto) 9.68 H (1.40-6.50) K/uL Lymph # (Auto) 0.81 L (1.20-3.40) K/uL Cannon # (Auto) 0.83 H (0.11-0.59) K/uL Eos # (Auto) 0.09 (0.00-0.50) K/uL Baso # (Auto) 0.02 (0.00-0.20) K/uL Immature Gran # (Auto) 0.05 (0.01-0.20) K/uL PT 11.1 (9.0-12.0) Seconds INR 1.0 (0.9-1.1) VBG pH 7.41 (7.36-7.41) VBG pCO2 58 H (38-50) mmHg VBG pO2 23 mmHg VBG HCO3 37 mmol/L VBG O2 Saturation < 60.0 % VBG Base Excess 9.9 mEq/L Sodium 135 L (136-145) mmol/L Potassium 3.9 (3.5-5.1) mmol/L Chloride 96 L (98-107) mmol/L Carbon Dioxide 34 H (21-32) mmol/L Anion Gap 5 (3-11) BUN 21 (6-23) mg/dl Creatinine 0.84 (0.6-1.2) mg/dl Est Cr Clr Drug Dosing 33.6 ml/min eGFR 69.34 BUN/Creatinine Ratio 25.0 H (10-20) Glucose 109 H (70-99(Fasting)) mg/dl Calcium 10.1 (8.6-10.3) mg/dl Magnesium 1.6 L (1.7-2.4) mg/dl Total Bilirubin 0.5 (0.2-1.0) mg/dl AST 17 (13-39) U/L ALT 9 (7-52) U/L Alkaline Phosphatase 102 (34-104) U/L Total Protein 7.8 (6.0-8.3) gm/dl Albumin 3.2 L (3.4-5.0) gm/dl Globulin 4.6 H (2.5-4.0) gm/dl Albumin/Globulin Ratio 0.7 L (0.9-2) Procalcitonin 0.14 (0-0.5) ng/ml TSH 0.998 (0.300-4.500) uIu/ml SARS-CoV-2 (PCR) NEGATIVE (Negative) Influenza Type A (PCR) Negative (Neg) Influenza Type B (PCR) Negative (Neg) RSV (RT-PCR) Negative (Neg) Administered Medications Discontinued Medications Sodium Chloride (Nss) 500 mls @ 999 mls/hr IV .Q31M ONE Stop: 05/03/24 22:16 Last Infusion: 05/03/24 23:28 Dose: Infused Documented By: Admin: 05/03/24 22:27 Dose: 999 mls/hr Documented By: CTK Discharge Plan Visit Data Chief Complaint: Illness Stated Complaint: AMS, Confusion ED Provider: Oniel Geller Discharge Problem: Generalized weakness Patient Disposition: Being Evaluated by Hospitalist Forms Stand Alone Forms: [facility] Prescriptions Prescriptions: No Action cholecalciferol (vitamin D3) 25 mcg (1,000 unit) tablet 25 mcg PO BID magnesium chloride [Mag 64] 64 mg Tablet,Delayed Release (Dr/Ec) 64 mg PO QAM Qty: 30 0RF (DME) Oxygen Home Liters Per Minute See Rx Instructions .Route Qty: 1 0RF Rx Instructions: As directed ascorbic acid (vitamin C) [Vitamin C With Oriana Hips] 1,000 mg Tablet 1 g PO BID cyanocobalamin (vitamin B-12) [Vitamin B-12] 1,000 mcg Tablet 1,000 mcg PO Q OTHER DAY calcium carbonate [Calcium 600] 600 mg calcium (1,500 mg) Tablet 600 mg PO BID ferrous sulfate [iron] 325 mg (65 mg iron) Tablet 325 mg PO DAILY Probiotic 10 billion cell Capsule 10,000 mmu cells PO DAILY nnohw-mf-2-amo-ucl-riflaqy-ast [MegaRed Seffner-3 Krill Oil] 1,000-230-60 mg Capsule 1 cap PO DAILY simvastatin 10 mg tablet 10 mg PO HS Eliquis 2.5 mg tablet 2.5 mg PO BID omeprazole 20 mg capsule,delayed release(DR/EC) 20 mg PO BID oxycodone-acetaminophen 5-325 mg tablet 1 tab PO BID PRN (Reason: Pain) Rx Instructions: 1 tablet twice daily plus 3rd dose as needed lorazepam 0.5 mg tablet 0.5 mg PO Q4H PRN (Reason: anxiety or restlessness) mirtazapine 15 mg tablet 15 mg PO HS furosemide 40 mg tablet 20 mg PO QAM Qty: 30 0RF atenolol 25 mg tablet 12.5 mg PO QAM Qty: 15 0RF Referrals Referrals: Bertha Buckner MD [Primary Care Provider] -
[2024-05-03] MEDS: SODIUM CHLORIDE 0.9% 500 ML IV ONE (22:27)
[2024-05-03 22:32] LABS: Base Excess VBG 9.9 mEq/L; HCO3 VBG 37 mmol/L; Oxygen Saturation VBG < 60.0 %; PCO2 VBG 58 mmHg (38-50); PO2 VBG 23 mmHg; pH VBG 7.41 (7.36-7.41)
[2024-05-03 22:41] LABS: Basophils # (auto) 0.02 K/uL (0.00-0.20); Basophils % (auto) 0.2 %; Eosinophils # (auto) 0.09 K/uL (0.00-0.50); Eosinophils % (auto) 0.8 %; Hematocrit (blood only) 32.6 % (37.0-47.0); Hemoglobin 10.6 g/dl (12.0-16.0); Immature Granulocytes # (auto) 0.05 K/uL (0.01-0.20); Immature Granulocytes % (auto) 0.4 %; Lymphocytes # (auto) 0.81 K/uL (1.20-3.40); Lymphocytes % (auto) 7.1 %; Mean Corpuscular Hemoglobin 29.4 pg (25.0-34.0); Mean Corpuscular Hgb Conc 32.5 g/dL (32.0-36.0); Mean Corpuscular Volume 90.6 fL (80.0-100.0); Mean Platelet Volume 9.8 fL (9.4-12.4); Monocytes # (auto) 0.83 K/uL (0.11-0.59); Monocytes % (auto) 7.2 %; Neutrophils # (auto) 9.68 K/uL (1.40-6.50); Neutrophils % (auto) 84.3 %; Platelet Count 188 K/uL (130-400); RDW Coefficient of Variation 14.3 % (11.5-14.5); RDW Standard Deviation 47.4 fL (36.4-46.3); White Blood Count 11.48 K/ul (4.8-10.8)
[2024-05-03 22:47] LABS: Albumin Globulin Ratio 0.7 (0.9-2); Albumin Level 3.2 gm/dl (3.4-5.0); Bilirubin,Total 0.5 mg/dl (0.2-1.0); Calcium 10.1 mg/dl (8.6-10.3); Creatinine Clr Calc Pharmacy 33.6 ml/min; Globulin 4.6 gm/dl (2.5-4.0); Magnesium 1.6 mg/dl (1.7-2.4); Potassium 3.9 mmol/L (3.5-5.1); Total Protein 7.8 gm/dl (6.0-8.3)
[2024-05-03 23:03] LABS: Thyroid Stimulating Hormone 0.998 uIu/ml (0.300-4.500)
[2024-05-03 23:15] LABS: Prothrombin Time 11.1 Seconds (9.0-12.0)
--- NOTE | 2024-05-03 23:22 | History & Physical Report ---
Date of Service May 03, 2024 Assessment & Plan (1) Generalized weakness: (2) HAP (hospital-acquired pneumonia): (3) Hypomagnesemia: Plan 83-year-old female PMHx dementia/cognitive decline, frequent falls, TAVR, HFpEF, protein S on Eliquis, malnutrition, SIADH, Crohn's disease s/p ileostomy, chronic hypoxic respiratory failure on 2L NC at baseline, and recent hospitalization 04/24/2024 to 04/26/2024 presenting via EMS for increased confusion as well as pain. ED evaluation reveals leukocytosis 11.48, H&H 10.6/32.6, PT/INR WNL, VBG with pCO2 58 otherwise WNL, sodium 135, chloride 96, carbon dioxide 34, BUN/creatinine ratio 25, magnesium 1.6, albumin 3.2, globulin 4.6, ratio 0.7; serology negative. EKG atrial sensed ventricular paced rhythm with fusion beats at 95 bpm. CXR appearing same as most recent imaging. Provided with NSS 500 mL. #Weakness/HAP/Ambulatory dysfunction Weakness at baseline per the patient's , worsening over the past 2 to 3 days, and the patient "cannot do anything." Patient's reports that he is unable to continue to care for the patient given her change in status. Also notes that she is at increased confusion. Stable nontoxic-appearing at time of evaluation. Suspect related weakness is due to decline in patient's state given chronic conditions as well as acute infection, likely source pulmonary. - CBC leukocytosis, H&H 10.6/30.6, VBG pCO2 58, sodium 135, magnesium 1.6, procal 0.14 CXR pending official read - CBC + BMP am - Solu-Medrol 60 mg IV x 1 then 40 mg IV every 12 hours - Suspect PNA + with recent hospitalization; cover for HAP - Vancomycin + Zosyn IV -- Hold statin - PT/OT consults placed, fall/aspiration precautions; O2 prn, 2L O2 via NC at baseline - Palliative consult placed - pt's does not feel as though he can care for the patient at home, understands that her condition is worsening and looking for options of next step #Hypomagnesemia On magnesium at baseline; prior hypomagnesemia - Mg 1.6 on admission - MgSO4 2g IV x 1; continue outpatient dose - BMP am #HTN/history TAVR/HFpEF/HLD- Follows with [facility]; s/p TAVR/P2 chamber PPM 09/2021 for complete heart block, also with history recurrent drug refractory PSVT s/p ablation and AAA repair; On Atenolol, furosemide -- HELD LASIX at admission given soft BP #GERD/status post bowel resection and proctocolectomy with ileostomy formation 1977/Crohn's disease- Pantoprazole, ileostomy care #Protein S deficiency- Eliquis #Chronic pain syndrome- Oxycodone #Anxiety/dementia-diazepam, mirtazapine Dispo: Admit, PCU VTE prophylaxis: Eliquis This document was dictated utilizing [employer]. Please excuse any grammatical errors that may be secondary to use of this software. Admission and Anticipated Discharge Date Admission Date: 05/03/2024 History of Present Illness Chief Complaint: AMS, weakness Primary Care Provider: Bertha Buckner MD 83-year-old female PMHx dementia/cognitive decline, frequent falls, TAVR, HFpEF, protein S on Eliquis, malnutrition, SIADH, Crohn's disease s/p ileostomy, chronic hypoxic respiratory failure on 2L NC at baseline, and recent hospitalization 04/24/2024 to 04/26/2024 for shock. Patient required ICU placement at that time as well as palliative consult. Patient is arriving back to hospital today via EMS for increased confusion as well as pain. Patient's was called and provides a history. 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 Pt provides a limited history, denying any symptoms to include chest pain, shortness breath, palpitations, abdominal pain, N/B/D/C, numbness/tingling, dizziness, headaches, or fever/chills. ED evaluation reveals leukocytosis 11.48, H&H 10.6/32.6, PT/INR WNL, VBG with pCO2 58 otherwise WNL, sodium 135, chloride 96, carbon dioxide 34, BUN/creatinine ratio 25, magnesium 1.6, albumin 3.2, globulin 4.6, ratio 0.7; serology negative. EKG atrial sensed ventricular paced rhythm with fusion beats at 95 bpm. CXR appearing same as most recent imaging. Provided with NSS [address] Arambula's attestation for adjustments/additions to treatment plan. Allergies Allergy/AdvReac Type Severity Reaction Status Date / Time bee venom protein (honey bee) Allergy Unknown Unknown Verified 08/27/23 14:36 duloxetine [From Cymbalta] Allergy Unknown Unknown Verified 08/27/23 14:36 iodine Allergy Unknown Unknown Verified 08/27/23 14:36 shellfish derived Allergy Unknown Unknown Verified 08/27/23 14:36 Home Medications Medication Instructions Recorded Confirmed Type magnesium chloride 64 mg 64 mg PO QAM #30 tabs 11/18/21 05/03/24 Rx (magnesium chloride) tablet,delayed release (Mag 64) Oxygen Home #1 ea 01/27/22 05/03/24 Rx cholecalciferol (vitamin D3) 25 25 mcg PO BID 09/21/22 05/03/24 History mcg (1,000 unit) tablet Lactobacillus acidophilus 10 10,000 mmu cells PO DAILY 08/04/23 05/03/24 History billion cell capsule (Probiotic) ascorbic acid (vitamin C) 1,000 mg 1 g PO BID 08/04/23 05/03/24 History tablet (Vitamin C With Oriana Hips) calcium carbonate (Calcium 600) 600 mg PO BID 08/04/23 05/03/24 History cyanocobalamin (vitamin B-12) 1,000 mcg PO Q OTHER DAY 08/04/23 05/03/24 History 1,000 mcg tablet (Vitamin B-12) ferrous sulfate 325 mg (65 mg 325 mg PO DAILY 08/04/23 05/03/24 History iron) tablet (iron) krill 1,000 mg-omega-3 230 mg-dha 1 cap PO DAILY 08/04/23 05/03/24 History 60 ic-eyp-yqtrgcikw-astaxan capsule (MegaRed Gordon-3 Krill Oil) simvastatin 10 mg tablet 10 mg PO HS 08/04/23 05/03/24 History apixaban 2.5 mg tablet (Eliquis) 2.5 mg PO BID 04/24/24 05/03/24 History omeprazole 20 mg capsule,delayed 20 mg PO BID 04/24/24 05/03/24 History release oxycodone-acetaminophen 5 mg-325 1 tab PO BID PRN Pain 04/24/24 05/03/24 History mg tablet lorazepam 0.5 mg tablet 0.5 mg PO Q4H PRN anxiety or 04/25/24 05/03/24 History restlessness mirtazapine 15 mg tablet 15 mg PO HS 04/25/24 05/03/24 History atenolol 25 mg tablet 12.5 mg (1/2 x 25 mg) PO QAM #15 04/26/24 05/03/24 Rx tabs furosemide 40 mg tablet 20 mg (1/2 x 40 mg) PO QAM #30 tabs 04/26/24 05/03/24 Rx Past Med/Surg History Problem List (Updated 05/04/24 @ 14:13 by Fernando Millard MD) Dementia Protein S deficiency HAP (hospital-acquired pneumonia) Hypomagnesemia Generalized weakness (Acute) Impaired decision making Encounter for hospice care discussion Hospice care patient Encounter for end of life education, guidance and counseling Counseling regarding goals of care Palliative care by specialist Septic shock Hypotension Admitted to intensive care unit Cachexia Anemia Recurrent falls (Acute) SIADH (syndrome of inappropriate ADH production) Interstitial lung disease Sacral decubitus ulcer Hyponatremia Protein calorie malnutrition CHB (complete heart block) Hypercoagulable state Cardiac pacemaker in situ S/P TAVR (transcatheter aortic valve replacement) Weight loss Hypertension PSVT (paroxysmal supraventricular tachycardia) GERD (gastroesophageal reflux disease) (Chronic) Crohn's disease (Chronic) Osteoporosis (Chronic) Hyperproteinemia (Chronic ~02/13/19) Opioid use agreement exists (Chronic) Chronic pain syndrome (Chronic) nursing home current use of anticoagulant (Chronic) Anxiety disorder (Chronic) Hyperlipidemia (Chronic) 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) Medical History Fracture of right superior pubic ramus (08/04/23) from a fall History of compression fracture of spine (~01/24/22) Interval progression of the moderate anterior wedge-shaped compression deformity at L2 History of compression fracture of vertebral column (~08/17/20) CHF (congestive heart failure) Degenerative lumbar spinal stenosis Secondary hypercoagulable state Coronary artery disease Hyponatremia Tremor H/O small bowel obstruction Surgical History Status post proctocolectomy History of abdominal aortic aneurysm (AAA) repair History of resection of small bowel History of tooth extraction History of carpal tunnel surgery History of breast biopsy History of ileostomy History of hernia repair History of colposcopy History of colostomy Status post catheter ablation of atrial fibrillation Hx of tubal ligation History of tonsillectomy and adenoidectomy History of appendectomy H/O resection of small bowel H/O pyloroplasty H/O heart artery stent H/O abdominal aortic aneurysm repair Family History Father Coronary heart disease Hypertension Stroke Sister No problems noted. Mother Coronary heart disease Hypertension Stroke Denies family history of Ovarian cancer Prostate cancer Myocardial infarction Breast cancer Lung cancer Colorectal cancer Social History Smoking Status: Unknown if ever smoked Tobacco Type: Cigarettes Age Started Using Tobacco: 26; Age Quit Using Tobacco: 61; packs per day: 1; Second Hand Exposure: No; Do You Dip or Chew Tobacco: No; Hx Alcohol Use: No Hx Substance Use: No Preferred Language: Urdu Communication Ability: Effective Visual Impairment: Limited Hearing Ability: Normal Hydrostatic Tester Required: No Beliefs That Will Affect Care: None marital status: Current Living Situation: Spouse Current Living Situation Comment: jose c current occupational status: retired How many Children do You have: 2 Feels Safe at Home: Yes Safety Concerns: Feels Safe At This Time Childhood Exposure to Second-Hand Smoke: Yes Diet: regular caffeine: Yes (coffee) during the past year weight has: remained stable Dental Care, Regularly: Yes Physical Activity Frequency: 1-2 Times per Week Physical Activity Frequency Comment: walks with PT Seatbelt Use: always Sunscreen Use: Yes Assistive Devices: Walker Review of Systems Review of Systems: All systems reviewed & are unremarkable except as noted in Subjective Physical Exam Physical Exam: General: No acute distress; very thin Skin: Warm and dry Head: Normocephalic, atraumatic Eyes: PERRL, conjunctivae clear, sclera non-icteric ENT: External ear and ear canal without swelling; nose atraumatic; good dentition, tongue normal appearance, pharynx normal but dry Neck: Supple, no LAD Cardio: RRR, no M/G/R, S1 and S2 normal Resp: No respiratory distress, coarse breath sounds throughout Abdomen: Soft, symmetric, nontender; No masses or hepatosplenomegaly; Bowel sounds normoactive MSK: No deformities; pulses palpable and equal; no edema. Neuro: Awake, alert; CN grossly intact Psych: Appropriate mood and affect Results & Data Results & Data Vital Signs (Past 12 Hours) Vital Signs Temp Pulse Pulse Resp BP BP Pulse Ox 05/03/24 22:30 88 18 113/56 L 96 05/03/24 20:48 99 H 05/03/24 20:47 37.0 C 70 18 134/74 95 O2 Del Method O2 Flow Rate 05/03/24 22:30 Nasal Cannula 2 05/03/24 20:48 05/03/24 20:47 Nasal Cannula 2 Laboratory Results 05/03/24 05/03/24 22:26 22:02 WBC 11.48 H RBC 3.60 L Hgb 10.6 L Hct 32.6 L MCV 90.6 MCH 29.4 MCHC 32.5 RDW Std Deviation 47.4 H RDW Coeff of Ana M 14.3 Plt Count 188 MPV 9.8 Immature Gran % (Auto) 0.4 Neut % (Auto) 84.3 Lymph % (Auto) 7.1 Mcminn % (Auto) 7.2 Eos % (Auto) 0.8 Baso % (Auto) 0.2 Neut # (Auto) 9.68 H Lymph # (Auto) 0.81 L Mcminn # (Auto) 0.83 H Eos # (Auto) 0.09 Baso # (Auto) 0.02 Immature Gran # (Auto) 0.05 PT 11.1 INR 1.0 VBG pH 7.41 VBG pCO2 58 H VBG pO2 23 VBG HCO3 37 VBG O2 Saturation < 60.0 VBG Base Excess 9.9 Sodium 135 L Potassium 3.9 Chloride 96 L Carbon Dioxide 34 H Anion Gap 5 BUN 21 Creatinine 0.84 Est Cr Clr Drug Dosing 33.6 eGFR 69.34 BUN/Creatinine Ratio 25.0 H Glucose 109 H Calcium 10.1 Magnesium 1.6 L Total Bilirubin 0.5 AST 17 ALT 9 Alkaline Phosphatase 102 Total Protein 7.8 Albumin 3.2 L Globulin 4.6 H Albumin/Globulin Ratio 0.7 L Procalcitonin 0.14 TSH 0.998 Medications Administered NSS 500mL ECG Additional Comments: Atrial sensed, ventricular paced rhythm with fusion beats 95 bpm, NH 150, QRS 116, QT/QTc 396/497, PRT 46/-58/25 Code Status & VTE Plan Code Status DNR/DNI Decision discussed with patient herself and confirmed with on phone call. VTE Prophylaxis Plan VTE Prophylaxis will be ordered: Yes Supervising Physician Co-Signing Physician Notes Attending addendum: I have physically seen this patient, have supervised the WARREN's activities, and agree with the H&P unless as otherwise noted. Assessment and Plan: The patient is an 83-year-old female with past medical history including dementia/progressive cognitive decline, frequent falls, status post TAVR, HFpEF, protein S on Eliquis, malnutrition, SIADH, Crohn's disease status post ileostomy, chronic hypoxic respiratory failure on 2 L nasal cannula oxygen, and status post recent hospitalization from 04/24-04/26/2024 after transfer from [facility] emergency department to [facility] ICU. She presented to the emergency department with increasing confusion and generalized pain. She is referred for assessment for generalized weakness, ambulatory dysfunction, and 's inability to be able to take care of her properly at home. #Progressive weakness/ambulatory dysfunction- has been had progressive difficulty taking care of her at home, report that she is not able to do anything to help her self, especially worsening over the past 2 to 3 days. The patient is stable appearing and nontoxic at this time. Will need PT/OT assessments, and social science teacher input. Healthcare associated pneumonia-give Solu-Medrol 60 mg IV x 1 now, then 40 mg IV every 12 hours Due to recent hospitalization, will place on vancomycin IV and Zosyn IV to cover healthcare associated issues DuoNebs every 2 hours as needed Mucinex 600 mg p.o. every 12 hours Nasal cannula oxygen, titrate to keep pulse ox 92-94% Hypomagnesemia-magnesium 1.6 on admission. Will receive 2 g IV replacement, recheck laboratories in the a.m. Remaining orders and notations as noted PG Care Time/CCT Total # of Minutes Spent Total Time Spent with Patient: Total time spent is greater than 50% in coordination of care (as documented) at patient's floor/unit and/or counseling patient: Coding Level of Care Code 37396 INT INP/OBS CARE 3/75MIN Diagnoses Generalized weakness R53.1 HAP (hospital-acquired pneumonia) J18.9; Y95 Hypomagnesemia E83.42
[2024-05-03 23:48] LABS: Influenza A virus by PCR Negative (Neg); Influenza B virus by PCR Negative (Neg); RSV by PCR Negative (Neg); SARS CoV2 RNA(COVID-19) Ceph NEGATIVE (Negative)
[2024-05-04] MEDS ORDERED: VANCOMYCIN CONSULT ACTIVE PRN (00:39)
[2024-05-04] MEDS: methylPREDNISolone 125 MG/2 ML VIAL IV STA (00:57)
[2024-05-04] MEDS: MAGNESIUM SULFATE / D5W 1 GM/100 ML BAG IV SCH (01:01)
[2024-05-04] MEDS: PIPERACILLIN/TAZOBACTAM 4.5 GM/100 ML BAG IV STA (01:01)
--- NOTE | 2024-05-04 01:15 | XRay Report ---
Exam(s): XR CXR 1 VIEW EXAM: XR Chest, 1 View CLINICAL HISTORY: Reason for exam: confusion. TECHNIQUE: Frontal view of the chest. COMPARISON: Chest radiograph on 04/24/2024 FINDINGS: Hardware: None. Lungs/pleura: Prominent lung markings and opacities bilaterally, most prominently in the left lower lung. Elevation of the right hemidiaphragm. Heart/mediastinum: Stable enlargement of the cardiac silhouette. Atherosclerotic changes in aorta. Left-sided pacemaker. TAVR. Soft tissues: Unremarkable. Bones: No acute fracture. Upper abdomen: Normal. IMPRESSION: Prominent lung markings and opacities bilaterally, most prominently in the left lower lung. Findings may represent pulmonary vasculature congestion and edema. Infectious/inflammatory process is not excluded. Electronically signed by: Noe Merino M.D. 05/04/24 01:13 AM
[2024-05-04] MEDS: VANCOMYCIN 750 MG in SODIUM CHLORIDE 0.9% 250 ML IV ONE (01:40)
[2024-05-04] MEDS: PIPERACILLIN/TAZOBACTAM 4.5 GM/100 ML BAG IV SCH (05:38)
[2024-05-04] MEDS: PANTOprazole 40 MG TAB PO SCH (08:45)
[2024-05-04] MEDS: MAGNESIUM CHLORIDE W/CALCIUM 64MG DELAYED REL TAB PO SCH (08:45)
[2024-05-04] MEDS: FERROUS SULFATE 325 MG TAB PO SCH (08:45)
[2024-05-04] MEDS: APIXABAN 2.5 MG TAB PO SCH (08:46)
[2024-05-04] MEDS: ATENOLOL 25 MG TABLET PO SCH (08:46)
[2024-05-04] MEDS: CYANOCOBALAMIN (B-12) 500 MCG TABLET PO SCH (08:46)
[2024-05-04] MEDS ORDERED: VANCOMYCIN HCL 500 MG in SODIUM CHLORIDE 0.9% 250 ML IV SCH (09:00)
[2024-05-04] MEDS ORDERED: VANCOMYCIN 500 MG in NSS 100mL IV SCH (09:00)
--- NOTE | 2024-05-04 10:30 | Electrocardiogram Report ---
Test Reason : Blood Pressure : */* mmHG Vent. Rate : 95 BPM Atrial Rate : 95 BPM P-R Int : 150 ms QRS Dur : 116 ms QT Int : 396 ms P-R-T Axes : 46 -58 25 degrees QTcB Int : 497 ms Poor data quality, interpretation may be adversely affected Atrial-sensed ventricular-paced rhythm with Fusion complexes Abnormal ECG When compared with ECG of 04-Aug-2023 15:52, Fusion complexes are now Present Vent. rate has increased by 24 bpm Confirmed by Oniel Triplett ([id number]) on 05/04/2024 10:30:13 AM Referred By: REFERRED SELF Confirmed By: Oniel Triplett
[2024-05-04 11:08] LABS: Appearance Urine Clear (Clear); Bacteria Urine Automated None Seen (None Seen); Bilirubin Urine Negative (Negative); Blood Urine Negative (Negative); Color Urine Yellow; Glucose Urine UA Negative (Negative); Ketones Urine Negative (Negative); Leukocyte Esterase Urine 1+ (Negative); Nitrite Urine Negative (Negative); Protein Urine 1+ (Negative); Urobilinogen Urine Negative (Negative); pH Urine 5.5 (4.5-7.5)
[2024-05-04] MEDS: methylPREDNISolone 40 MG in SYRINGE 0 ML IV SCH (11:39)
[2024-05-04] MEDS ORDERED: methylPREDNISolone 125 MG/2 ML VIAL IV SCH (12:00)
--- NOTE | 2024-05-04 14:04 | Hospitalist Progress Note ---
Date of Service May 04, 2024 Assessment & Plan (1) Generalized weakness: Plan: -appears to be baseline 2nd to dementia and chronic physical deconditioning -along with acute infection (PNA) -PT/OT - unable to take care of at home -palliative care consulted (2) HAP (hospital-acquired pneumonia): Plan: -zosyn -dunonebs (3) Hypomagnesemia: Plan: -mg+ 1.6 -repleted (4) Protein S deficiency: Plan: -eliquis (5) Hypertension: Plan: -atenolol (6) Dementia: Plan: -diazepam, mirtazapine Plan 83-year-old female PMHx dementia/cognitive decline, frequent falls, TAVR, HFpEF, protein S on Eliquis, malnutrition, SIADH, Crohn's disease s/p ileostomy, chronic hypoxic respiratory failure on 2L NC at baseline, and recent hospitalization 04/24/2024 to 04/26/2024 presenting via EMS for increased confusion as well as pain. ED evaluation reveals leukocytosis 11.48, H&H 10.6/32.6, PT/INR WNL, VBG with pCO2 58 otherwise WNL, sodium 135, chloride 96, carbon dioxide 34, BUN/creatinine ratio 25, magnesium 1.6, albumin 3.2, globulin 4.6, ratio 0.7; serology negative. EKG atrial sensed ventricular paced rhythm with fusion beats at 95 bpm. CXR appearing same as most recent imaging. Provided with NSS 500 mL Admission and Anticipated Discharge Date Admission Date: May 03, 2024 Subjective No events overnight. Pt appears pleasantly confused eating breakfast. Review of Systems Review of Systems: CONST: Negative for fever, body aches and chills. HENT: Negative for neck pain/stiffness, headache, congestion, sore throat, swelling. EYES: Negative for discharge/pain or vision changes. RESP: Negative for cough/hemoptysis and shortness of breath. CV: Negative chest pain, difficulty breathing, palpitations. ABD: Negative pain, nausea, vomiting. : Negative increase frequency, dysuria, blood in urine or stool. MUSC: Negative for muscle aches, edema. SKIN: Negative rash, lesions/sores. NEURO: Negative headache, dizziness, weakness. Physical Exam Physical Exam: GENERAL APPEARANCE NAD, activity normal for age, well developed/ well nourished, no cyanosis, pallor, or diaphoresis. EYES lids/conjunctiva normal. EARS/NOSE/THROAT Mucous membranes moist, nares normal, lips/teeth normal uvula midline without oral pharyngeal erythema, exudate or swelling TMs normal bilaterally. No lymphangitis/lymphedema. HEAD/NECK normocephalic atraumatic, no facial trauma, neck is supple. RESPIRATORY respiratory effort normal, speaks in full sentences, no tripod position, no accessory muscle use. Lungs clear to auscultation without rhonchi, wheezes, rales CARDIAC Regular rate and rhythm, no edema. ABDOMINAL Soft, ND/NT. No evidence of fluid wave. No pulsatile masses on exam, rebound tenderness, Wilder sign or pain over Mcburney's point. MUSCLES/EXTREMITIES No abnormal range of motion, no swelling. SKIN Warm, pink and dry. No rashes, dermatoses, petechiae or lesions. NEUROLOGICAL Speech is clear and appropriate. Normal level of consciousness. Gait and coordination are normal. 5/5 strength in all extremities. PSYCH Normal mood and affect. Judgement/competence is appropriate Results & Data Results & Data Vital Signs (Past 12 Hours) Vital Signs Temp Pulse Pulse Resp BP Pulse Ox O2 Del Method 05/04/24 11:26 36.6 C 80 18 107/62 92 Nasal Cannula 05/04/24 07:30 82 05/04/24 07:03 95 H 20 99/54 L 95 Nasal Cannula 05/04/24 04:16 97 H 18 120/70 94 Nasal Cannula 05/04/24 03:44 36.5 C 96 H 18 108/55 L 97 Nasal Cannula O2 Flow Rate 05/04/24 11:26 2 05/04/24 07:30 05/04/24 07:03 2 05/04/24 04:16 2 05/04/24 03:44 2 PG Care Time/CCT Total # of Minutes Spent Total Time Spent with Patient: Total time spent is greater than 50% in coordination of care (as documented) at patient's floor/unit and/or counseling patient: Coding Level of Care Code 23056 SUB INP/OBS CARE 2/35MIN Diagnoses Generalized weakness R53.1 HAP (hospital-acquired pneumonia) J18.9; Y95 Hypomagnesemia E83.42 Protein S deficiency D68.59 Hypertension I10 Dementia F03.90
[2024-05-04] MEDS ORDERED: ALBUT/IPRATROP 3MG/0.5MG NEB 3 ML VIAL NEB PRN (14:09)
[2024-05-04] MEDS: LORazepam 0.5 MG TAB PO PRN (19:27)
[2024-05-04] MEDS: MIRTAZAPINE TAB 15 MG TAB PO SCH (19:28)
[2024-05-05 06:39] LABS: Creatinine Clr Calc Pharmacy 33.6 ml/min
--- NOTE | 2024-05-05 09:30 | Palliative Care Consultation ---
Date of Consultation May 05, 2024 Assessment & Plan (1) Palliative care by specialist: met with pt at bedside, no visitors present, attempt to care pt's spouse Gabe unsuccessful, no VM ability. (2) Counseling regarding goals of care: Will continue attempt to contact pt's spouse and daughter. Patient continues to lack decisional capacity based on the inability to convey understanding of personal PMHx, current medical condition, treatment options nor the risks / benefits of those options, and lack of ability to make decisions based on such knowledge. Hospital does not have written documentation of patient wishes concerning chosen proxy for medical decisions. Per PA [id number], in absence of written documentation of patient wishes, pt's proxies for medical decisions would be (with equal decisional authority) her spouse Gabe Reddy ([phone]) and her adult children from her previous marriage, daughter Zafar Ballard ([phone]) and a estranged son for whom we currently have no contact information. (3) Hospice care patient: Spoke with pt's human services case manager Angeles from [facility]. She shared concern that pt's is unable to provide level of care required at home. Shared pt's daughter's contact information with Angeles, she will be having pt evaluated for SNF placement with ongoing hospice care. Pt does not currently qualify for [facility] level hospice. Plan Pt is hospice pt ([facility]) pending placement, due to requiring higher level of nursing care than can be offered at home. Pt does not have pain/ dyspnea requiring palliative care management. Her only complaint is anxiety which is well controlled at this time. History of Present Illness Reason for Consultation: goals of care Requesting Physician: Kyara Goel MD Attending Physician: Kyara Goel MD History of Present Illness 83-year-old female PMHx dementia/cognitive decline, frequent falls, TAVR, HFpEF, protein S on Eliquis, malnutrition, SIADH, Crohn's disease s/p ileostomy, chronic hypoxic respiratory failure on 2L NC at baseline, and recent hospitalization 04/24/2024 to 04/26/2024 for shock. Patient required ICU placement at that time as well as palliative consult. Patient is arriving back to hospital today via EMS for increased confusion as well as pain. Patient's was called and provides a history. States that he has been unable to help care for the patient over the last few days GARMENT EXAMINER as the patient seems to be "unable to due anything." States that she has been unable to stand and no for getting how to do basic functions. Allergies Allergy/AdvReac Type Severity Reaction Status Date / Time bee venom protein (honey bee) Allergy Unknown Unknown Verified 08/27/23 14:36 duloxetine [From Cymbalta] Allergy Unknown Unknown Verified 08/27/23 14:36 iodine Allergy Unknown Unknown Verified 08/27/23 14:36 shellfish derived Allergy Unknown Unknown Verified 08/27/23 14:36 Home Medications Medication Instructions Recorded Confirmed Type magnesium chloride 64 mg 64 mg PO QAM #30 tabs 11/18/21 05/03/24 Rx (magnesium chloride) tablet,delayed release (Mag 64) Oxygen Home #1 ea 01/27/22 05/03/24 Rx cholecalciferol (vitamin D3) 25 25 mcg PO BID 09/21/22 05/03/24 History mcg (1,000 unit) tablet Lactobacillus acidophilus 10 10,000 mmu cells PO DAILY 08/04/23 05/03/24 History billion cell capsule (Probiotic) ascorbic acid (vitamin C) 1,000 mg 1 g PO BID 08/04/23 05/03/24 History tablet (Vitamin C With Oriana Hips) calcium carbonate (Calcium 600) 600 mg PO BID 08/04/23 05/03/24 History cyanocobalamin (vitamin B-12) 1,000 mcg PO Q OTHER DAY 08/04/23 05/03/24 History 1,000 mcg tablet (Vitamin B-12) ferrous sulfate 325 mg (65 mg 325 mg PO DAILY 08/04/23 05/03/24 History iron) tablet (iron) krill 1,000 mg-omega-3 230 mg-dha 1 cap PO DAILY 08/04/23 05/03/24 History 60 hx-bpt-cqkfouigp-astaxan capsule (MegaRed Mcewen-3 Krill Oil) simvastatin 10 mg tablet 10 mg PO HS 08/04/23 05/03/24 History apixaban 2.5 mg tablet (Eliquis) 2.5 mg PO BID 04/24/24 05/03/24 History omeprazole 20 mg capsule,delayed 20 mg PO BID 04/24/24 05/03/24 History release oxycodone-acetaminophen 5 mg-325 1 tab PO BID PRN Pain 04/24/24 05/03/24 History mg tablet lorazepam 0.5 mg tablet 0.5 mg PO Q4H PRN anxiety or 04/25/24 05/03/24 History restlessness mirtazapine 15 mg tablet 15 mg PO HS 04/25/24 05/03/24 History atenolol 25 mg tablet 12.5 mg (1/2 x 25 mg) PO QAM #15 04/26/24 05/03/24 Rx tabs furosemide 40 mg tablet 20 mg (1/2 x 40 mg) PO QAM #30 tabs 04/26/24 05/03/24 Rx Patient History Medical History Fracture of right superior pubic ramus (08/04/23) from a fall History of compression fracture of spine (~01/24/22) Interval progression of the moderate anterior wedge-shaped compression deformity at L2 History of compression fracture of vertebral column (~08/17/20) CHF (congestive heart failure) Degenerative lumbar spinal stenosis Secondary hypercoagulable state Coronary artery disease Hyponatremia Tremor H/O small bowel obstruction Surgical History Status post proctocolectomy History of abdominal aortic aneurysm (AAA) repair History of resection of small bowel History of tooth extraction History of carpal tunnel surgery History of breast biopsy History of ileostomy History of hernia repair History of colposcopy History of colostomy Status post catheter ablation of atrial fibrillation Hx of tubal ligation History of tonsillectomy and adenoidectomy History of appendectomy H/O resection of small bowel H/O pyloroplasty H/O heart artery stent H/O abdominal aortic aneurysm repair Family History Father Coronary heart disease Hypertension Stroke Sister No problems noted. Mother Coronary heart disease Hypertension Stroke Denies family history of Ovarian cancer Prostate cancer Myocardial infarction Breast cancer Lung cancer Colorectal cancer Social History Smoking Status: Unknown if ever smoked Tobacco Type: Cigarettes Age Started Using Tobacco: 26; Age Quit Using Tobacco: 61; packs per day: 1; Second Hand Exposure: No; Do You Dip or Chew Tobacco: No; Hx Alcohol Use: No Hx Substance Use: No Preferred Language: Danish Communication Ability: Effective Visual Impairment: Limited Hearing Ability: Normal Rate Reviewer Required: No Beliefs That Will Affect Care: None marital status: Current Living Situation: Spouse Current Living Situation Comment: gabe current occupational status: retired How many Children do You have: 2 Feels Safe at Home: Yes Safety Concerns: Feels Safe At This Time Childhood Exposure to Second-Hand Smoke: Yes Diet: regular caffeine: Yes (coffee) during the past year weight has: remained stable Dental Care, Regularly: Yes Physical Activity Frequency: 1-2 Times per Week Physical Activity Frequency Comment: walks with PT Seatbelt Use: always Sunscreen Use: Yes Assistive Devices: Oxygen - Continuous, Walker and Other Review of Systems Review of Systems: Unobtainable due to cognitive status Physical Exam Constitutional: + ill appearing, + frail appearing and c omfortable; no acute distress Eyes: PERRL, conjunctivae normal, anicteric sclerae ENMT: external ear and nose normal, oropharynx normal Mouth: + dry oral mucous membranes Neck: trachea midline, no thyromegaly Respiratory: normal respiratory effort, lungs clear to auscultation Cardiovascular: Rate/Rhythm: regular rate and regular rhythm Skin: + turgor decreased, + pallor and + scar Neurologic: moves all extremities, awake and + confused Results & Data Vital Signs (Past 12 Hours) Vital Signs Temp Pulse Resp BP Pulse Ox O2 Del Method O2 Flow Rate 05/05/24 07:50 36.4 C L 72 18 117/66 98 Nasal Cannula 2 Diagnostic Findings Chest X-Ray 05/03/24 21:01 Exam(s): XR CXR 1 VIEW EXAM: XR Chest, 1 View CLINICAL HISTORY: Reason for exam: confusion. TECHNIQUE: Frontal view of the chest. COMPARISON: Chest radiograph on 04/24/2024 FINDINGS: Hardware: None. Lungs/pleura: Prominent lung markings and opacities bilaterally, most prominently in the left lower lung. Elevation of the right hemidiaphragm. Heart/mediastinum: Stable enlargement of the cardiac silhouette. Atherosclerotic changes in aorta. Left-sided pacemaker. TAVR. Soft tissues: Unremarkable. Bones: No acute fracture. Upper abdomen: Normal. IMPRESSION: Prominent lung markings and opacities bilaterally, most prominently in the left lower lung. Findings may represent pulmonary vasculature congestion and edema. Infectious/inflammatory process is not excluded. Electronically signed by: Noe Merino M.D. 05/04/24 01:13 AM Medications Administered Current Inpatient Medications Albuterol (Albut/Ipratrop 3mg/0.5mg Neb 3 Ml Vial) 3 ml NEB QIDR PRN; Protocol PRN Reason: Wheezing Stop: 06/03/24 14:08 Apixaban (Apixaban 2.5 Mg Tab) 2.5 mg PO BID MINNA Stop: 06/03/24 08:59 Last Admin: 05/05/24 20:36 Dose: 2.5 mg Atenolol (Atenolol 25 Mg Tablet) 12.5 mg PO QAM MINNA Stop: 06/03/24 08:59 Last Admin: 05/05/24 07:47 Dose: 12.5 mg Cyanocobalamin (Cyanocobalamin (B-12) 500 Mcg Tablet) 1,000 mcg PO Q48H [facility] Stop: 06/03/24 08:59 Last Admin: 05/04/24 08:46 Dose: 1,000 mcg Ferrous Sulfate (Ferrous Sulfate 325 Mg Tab) 325 mg PO DAILY [facility] Stop: 06/03/24 08:59 Last Admin: 05/05/24 07:41 Dose: 325 mg Piperacillin Sod/Tazobactam Sod (Zosyn) 4.5 gm in 100 mls @ 25 mls/hr IV Q8H [facility]NA; Protocol Stop: 05/09/24 05:59 Last Admin: 05/06/24 00:15 Dose: 25 mls/hr Lorazepam (Lorazepam 0.5 Mg Tab) 0.5 mg PO Q4H PRN PRN Reason: anxiety or restlessness Stop: 06/03/24 02:56 Last Admin: 05/04/24 19:27 Dose: 0.5 mg Magnesium Chloride (Magnesium Chloride W/Calcium 64mg Delayed Rel Tab) 64 mg PO QAM [facility] Stop: 06/03/24 08:59 Last Admin: 05/05/24 07:41 Dose: 64 mg Mirtazapine (Mirtazapine Tab 15 Mg Tab) 15 mg PO HS MINNA Stop: 06/03/24 20:59 Last Admin: 05/05/24 20:36 Dose: 15 mg Oxycodone/Acetaminophen (Oxycodone/Acetaminophen 5mg/325mg Tab) 1 tab PO BID PRN PRN Reason: Pain Stop: 05/18/24 03:56 Pantoprazole Sodium (Pantoprazole 40 Mg Tab) 40 mg PO BID MINNA Stop: 06/03/24 08:59 Last Admin: 05/05/24 20:36 Dose: 40 mg PG Care Time/CCT Total # of Minutes Spent Total Time Spent with Patient: Total time spent is greater than 50% in coordination of care (as documented) at patient's floor/unit and/or counseling patient: C[place] [address] IN/OBS CONSULT LVL 2,35M Patient Type Established History Problem Focused Exam Problem Focused Medical Decision Making Low Complexity Diagnoses Palliative care by specialist Z51.5 Counseling regarding goals of care Z71.89 Hospice care patient Z51.5
--- NOTE | 2024-05-05 17:35 | Hospitalist Progress Note ---
Date of Service May 05, 2024 Assessment & Plan (1) Dementia: (2) Protein S deficiency: (3) Interstitial lung disease: (4) Protein calorie malnutrition: Plan 83-year-old with severe dementia, COPD and interstitial lung disease, TAVR, protein S deficiency, Crohn's disease with ileostomy, chronic hypoxic respiratory failure on 2 L at baseline who has been on home hospice. recently admitted for septic shock related to pneumonia versus UTI, discharged on 04/26 with 5 more days Augmentin. Brought in by her because of weakness and not doing well for the previous 3 days. there was a left face consolidation versus atelectasis on her chest x-ray, previous chest x-ray from earlier this month with bibasilar consolidation. She had a mild leukocytosis procalcitonin was negative she was started on pip-tazo for pneumonia and given a dose of Solu-Medrol UTI was ruled out - urine culture was negative # Pneumonia - could be aspiration pneumonia or pneumonitis, has risk factors for resistant gram negative infections because of hospitalization and chronic lung disease - I'm not convinced she has a new pneumonia. I left the pip-tazo on for today - I don't see any evidence of COPD exacerbation currently - she is on her baseline 2L O2 and breathing appears fairly comfortable # COPD and ILD - appear to be at baseline. Chronic hypoxic respiratory failure with 2L home O2. Was hypercarbic on admission vbg # hypomagnesemia - 1.6, was replaced on admission # protein S deficiency - continue apixaban Palliative care consulted and I discussed the plan of care with ANA Rhodes and our manager of care. Miranda is currently on home hospice and her Gabe is taking care of her at home. He seems to have limited understanding of her medical conditions and there are concerns that he can't handle taking care of her at home any more. He has financial concerns about placement. RN PASHA spoke with her daughter today. I called Gabe and updated him, after going over things a few times I think he understood that she doesn't have UTI, we are giving her antibiotics for possible pneumonia. He states he plans to take her home. Admission and Anticipated Discharge Date Admission Date: May 03, 2024 Subjective can answer direct questions - says her breathing is ok, denies any pain, wants to go home oriented to self Physical Exam 2 Physical Exam: PHYSICAL EXAMINATION Last 24h vital signs reviewed, see documentation in flowsheet General: comfortable appearing, no distress, very frail elderly woman sitting up in bed HEENT: Normocephalic, atraumatic, pupils round and equal, sclerae anicteric, no conjunctival injection, moist mucus membranes Lungs: normal work of breathing, diminished throughout, prolonged expiratory phase no rales no wheezing Heart: Regular rate and rhythm, no murmurs. No JVD Abdomen: Soft, nontender, nondistended. Bowel sounds present. Extremities: Warm, dry, well-perfused. No extremity edema. Neuro: Alert and oriented x self, forgetful and confused, face symmetric, moves 4 extremities Psych: Normal affect and behavior Results & Data Results & Data Vital Signs (Past 12 Hours) Vital Signs Temp Pulse Resp BP Pulse Ox O2 Del Method O2 Flow Rate 05/05/24 15:37 97.5 F L 77 18 119/58 L 100 Nasal Cannula 2 05/05/24 07:50 97.5 F L 72 18 117/66 98 Nasal Cannula 2 Laboratory Results 05/03/24 22:02 05/05/24 05:33 PG Care Time/CCT Total # of Minutes Spent Total Time Spent with Patient: Total time spent is greater than 50% in coordination of care (as documented) at patient's floor/unit and/or counseling patient: Coding Level of Care Code 83291 SUB INP/OBS CARE 2/35MIN Diagnoses Dementia F03.90 Protein S deficiency D68.59 Interstitial lung disease J84.9 Protein calorie malnutrition E46
[2024-05-06 10:16] LABS: BUN Creatinine Ratio 29.6 (10-20); Creatinine Clr Calc Pharmacy 34.8 ml/min; Magnesium 1.7 mg/dl (1.7-2.4); Potassium 3.4 mmol/L (3.5-5.1)
--- NOTE | 2024-05-06 10:36 | Palliative Care Progress Note ---
Date of Service May 06, 2024 Assessment & Plan (1) Palliative care by specialist: Plan: spoke with pt's daughter Zafar by phone. Introduced Palliative Medicine and explained our role in advanced care planning, symptom management and navigation through the progression of life limiting disease. Patient and/or family were receptive to palliative services for goals of care discussions. Reviewed we are different from hospice, a home health nurse visiting service. (2) Hospice care patient: Plan: pt continues express desire to return home with assistance of hospice care. (3) Counseling regarding goals of care: Plan: goals are clearly established for comfort directed care, home with hospice vs snf TBD Spouse requests pt return home for hospice care, pt's dtr and son requests dc to SNF with ongoing hospice care to concerns for pt safety and frequent hospital admissions while on hospice. We will continue to have discussion with pt's spouse and children, with hope of gaining a consensus of decision. However, in event we are unable to get all MDM proxies to agree on plan, the majority decision should be followed. (4) Impaired decision making: Plan: Patient continues to exhibit current lack of decisional capacity based on the inability to convey understanding of personal PMHx, current medical condition, treatment options nor the risks / benefits of those options, and lack of ability to make decisions based on such knowledge. Hospital does not have written documentation of patient wishes concerning chosen proxy for medical decisions. Per PA [id number], in absence of written documentation of patient wishes, pt's proxies for medical decisions would be, with equally shared authority: her spouse Gabe Reddy and her adult children from her previous marriage, daughter Zafar Ballard ([phone]) and son Victor Manuel Zimmerman ([phone]) Pt does require a proxy for medical decisions. Plan *DNR/DNI but continue current course of care *Identify additional support for patient and spouse, they have strong desire to remain at home through end of life *Encourage additional family support for discussions as Gabe has expressed that Zafar "helps him understand things" and Zafar has expressed that she is willing to participate in care planning *Gabe would benefit from clear, consistent explanations in layman's terms with frequent reinforcement. *Zafar and Victor Manuel request SNF placement for ongoing hospice care 2/2 concern for pt safety given her spouse's confusion and difficulty providing basic care pt requires Admission and Anticipated Discharge Date Admission Date: May 03, 2024 Subjective Assessed pt at bedside, no visitors present. Pt was awake and alert, voices no complaints, in NAD on NC. NAEON. Review of Systems Review of Systems: Unobtainable due to cognitive status Physical Exam Constitutional: + ill appearing, + frail appearing and c omfortable; no acute distress Eyes: PERRL, conjunctivae normal, anicteric sclerae ENMT: external ear and nose normal, oropharynx normal Mouth: + dry oral mucous membranes Neck: trachea midline, no thyromegaly Respiratory: normal respiratory effort, lungs clear to auscultation Cardiovascular: Rate/Rhythm: regular rate and regular rhythm Skin: + turgor decreased, + pallor and + scar Neurologic: moves all extremities, awake and + confused Results & Data Vital Signs (Past 12 Hours) Vital Signs Temp Pulse Resp BP Pulse Ox O2 Del Method O2 Flow Rate 05/06/24 07:54 36.6 C 69 16 151/67 H 98 Nasal Cannula 2 Laboratory Results No further labs or diagnostics in concert with comfort directed care. Diagnostic Findings No further labs or diagnostics in concert with comfort directed care. Medications Administered Current Inpatient Medications Albuterol (Albut/Ipratrop 3mg/0.5mg Neb 3 Ml Vial) 3 ml NEB QIDR PRN; Protocol PRN Reason: Wheezing Stop: 06/03/24 14:08 Apixaban (Apixaban 2.5 Mg Tab) 2.5 mg PO BID MINNA Stop: 06/03/24 08:59 Last Admin: 05/06/24 21:11 Dose: 2.5 mg Atenolol (Atenolol 25 Mg Tablet) 12.5 mg PO QAM MINNA Stop: 06/03/24 08:59 Last Admin: 05/06/24 09:19 Dose: 12.5 mg Cyanocobalamin (Cyanocobalamin (B-12) 500 Mcg Tablet) 1,000 mcg PO Q48H MINNA Stop: 06/03/24 08:59 Last Admin: 05/06/24 09:19 Dose: 1,000 mcg Ferrous Sulfate (Ferrous Sulfate 325 Mg Tab) 325 mg PO DAILY MINNA Stop: 06/03/24 08:59 Last Admin: 05/06/24 09:19 Dose: 325 mg Piperacillin Sod/Tazobactam Sod (Zosyn) 4.5 gm in 100 mls @ 25 mls/hr IV Q8H [facility]; Protocol Stop: 05/09/24 05:59 Last Admin: 05/06/24 21:12 Dose: 25 mls/hr Lorazepam (Lorazepam 0.5 Mg Tab) 0.5 mg PO Q4H PRN PRN Reason: anxiety or restlessness Stop: 06/03/24 02:56 Last Admin: 05/06/24 21:16 Dose: 0.5 mg Magnesium Chloride (Magnesium Chloride W/Calcium 64mg Delayed Rel Tab) 64 mg PO QAM [facility] Stop: 06/03/24 08:59 Last Admin: 05/06/24 09:19 Dose: 64 mg Mirtazapine (Mirtazapine Tab 15 Mg Tab) 15 mg PO HS [facility] Stop: 06/03/24 20:59 Last Admin: 05/06/24 21:11 Dose: 15 mg Oxycodone/Acetaminophen (Oxycodone/Acetaminophen 5mg/325mg Tab) 1 tab PO BID PRN PRN Reason: Pain Stop: 05/18/24 03:56 Pantoprazole Sodium (Pantoprazole 40 Mg Tab) 40 mg PO BID [facility] Stop: 06/03/24 08:59 Last Admin: 05/06/24 21:11 Dose: 40 mg Potassium Chloride (Potassium Chloride Crtab 20 Meq Tabcr) 20 meq PO BID [facility] Stop: 05/07/24 21:01 Last Admin: 05/06/24 21:15 Dose: 20 meq PG Care Time/CCT Total # of Minutes Spent Total Time Spent with Patient: Total time spent is greater than 50% in coordination of care (as documented) at patient's floor/unit and/or counseling patient: Coding [place] [address] SUB INP/OBS CARE 3/50MIN Patient Type Established History Expanded Problem Focused Exam Expanded Problem Focused Medical Decision Making Low Complexity Diagnoses Palliative care by specialist Z51.5 Hospice care patient Z51.5 Counseling regarding goals of care Z71.89 Impaired decision making Z78.9
--- NOTE | 2024-05-06 16:30 | Hospitalist Progress Note ---
Date of Service May 06, 2024 Assessment & Plan (1) Dementia: (2) Protein S deficiency: (3) Interstitial lung disease: (4) Protein calorie malnutrition: Plan 83-year-old with severe dementia, COPD and interstitial lung disease on home O2, h/o TAVR, protein S deficiency, long-standing Crohn's disease with ileostomy, chronic hypoxic respiratory failure on 2 L at baseline who has been on home hospice. Recent admission for septic shock requiring ICU stay/pressors - presumed 2nd to pneumonia and/or UTI. Discharged on 04/26 with 5 more days Augmentin. Hospice services resumed at discharge. Brought back to [facility] by her because of weakness x 3 days. # Possible recurrent Pneumonia - aspiration vs gram negative etiology vs typicals vs other. At risk of gram negative infections due to recent hospitalization and chronic lung disease. Cont zosyn; if stable tomorrow consider changing over to PO levaquin and complete 7 days of Rx between IV/PO Today is day #3 of zosyn # COPD and ILD - stable, no exacerbation at this time. # Chronic hypoxic respiratory failure on 2L NC O2. Stable. # hypomagnesemia - repleted/resolved. # protein S deficiency - continue apixaban BID. # Crohn's disease / ileostomy status - no issues at this time. # Pacemaker status. # SVT - h/o ablation for such. # hypokalemia - replace, repeat BMP am. # Palliative care discussions - appreciate palliative care assistance/input. Pt has been on hospice at home. Gabe has been providing her care. He seems to have limited understanding of her medical conditions and there are concerns that he can't handle taking care of her at home any more. He has financial concerns about placement at SNF or [facility]. 2 children from the pt's first marriage are in agreement that Miranda should be placed in SNF or [facility]. Convincing her to do anything other than home will be the challenge. Will d/w case management in am tomorrow. Care d/w Yajaira from palliative care. Admission and Anticipated Discharge Date Admission Date: May 03, 2024 Subjective patient anxious during the visit at bedside pacing patient states "I want to go home - when can I go home?" denies dyspnea denies any cough eating about 50% of meals states he wants to take her home Review of Systems Review of Systems: cv - no chest pain pulm - no dyspnea GI - no abd pain or N/V Physical Exam Physical Exam: gen - very thin, NAD, anxious, poor insight neck - no JVD mouth - MMM heart - RRR, s1 s2 lungs - rales b/l bases, dry sounding; no wheezes; no increased work of breathing abd - soft NT ND BS+; ileostomy with bag in place; stoma clean ext - no edema, pulses 2+ b/l Results & Data Results & Data Vital Signs (Past 12 Hours) Vital Signs Temp Pulse Resp BP Pulse Ox O2 Del Method O2 Flow Rate 05/06/24 14:29 36.7 C 75 16 132/63 98 Nasal Cannula 2 05/06/24 07:54 36.6 C 69 16 151/67 H 98 Nasal Cannula 2 05/06/24 07:40 Nasal Cannula 2 Laboratory Results Laboratory Results 05/06/24 09:15 Sodium 135 L Potassium 3.4 L Chloride 103 Carbon Dioxide 31 Anion Gap 1 L BUN 24 H Creatinine 0.81 Est Cr Clr Drug Dosing 34.8 eGFR 72.43 BUN/Creatinine Ratio 29.6 H Glucose 125 H Calcium 9.0 Magnesium 1.7 Diagnostic Findings Chest X-Ray 05/03/24 21:01 Exam(s): XR CXR 1 VIEW EXAM: XR Chest, 1 View CLINICAL HISTORY: Reason for exam: confusion. TECHNIQUE: Frontal view of the chest. COMPARISON: Chest radiograph on 04/24/2024 FINDINGS: Hardware: None. Lungs/pleura: Prominent lung markings and opacities bilaterally, most prominently in the left lower lung. Elevation of the right hemidiaphragm. Heart/mediastinum: Stable enlargement of the cardiac silhouette. Atherosclerotic changes in aorta. Left-sided pacemaker. TAVR. Soft tissues: Unremarkable. Bones: No acute fracture. Upper abdomen: Normal. IMPRESSION: Prominent lung markings and opacities bilaterally, most prominently in the left lower lung. Findings may represent pulmonary vasculature congestion and edema. Infectious/inflammatory process is not excluded. Electronically signed by: Noe Merino M.D. 05/04/24 01:13 AM PG Care Time/CCT Total # of Minutes Spent Total Time Spent with Patient: Total time spent is greater than 50% in coordination of care (as documented) at patient's floor/unit and/or counseling patient: Coding Level of Care Code 92716 SUB INP/OBS CARE MIN Diagnoses Dementia F03.90 Protein S deficiency D68.59 Interstitial lung disease J84.9 Protein calorie malnutrition E46
[2024-05-06] MEDS: POTASSIUM CHLORIDE CRTAB 20 MEQ TABCR PO SCH (21:15)
[2024-05-07] MEDS: oxyCODONE/ACETAMINOPHEN 5mg/325mg TAB PO PRN (05:24)
[2024-05-07 08:05] LABS: Hematocrit (blood only) 32.1 % (37.0-47.0); Hemoglobin 10.5 g/dl (12.0-16.0); Mean Corpuscular Hemoglobin 29.2 pg (25.0-34.0); Mean Corpuscular Hgb Conc 32.7 g/dL (32.0-36.0); Mean Corpuscular Volume 89.2 fL (80.0-100.0); Mean Platelet Volume 9.7 fL (9.4-12.4); Platelet Count 214 K/uL (130-400); RDW Standard Deviation 45.6 fL (36.4-46.3); White Blood Count 9.16 K/ul (4.8-10.8)
[2024-05-07 08:17] LABS: BUN Creatinine Ratio 24.4 (10-20); Calcium 8.9 mg/dl (8.6-10.3); Creatinine Clr Calc Pharmacy 36.2 ml/min; Potassium 4.4 mmol/L (3.5-5.1)
[2024-05-07 15:13] VITALS: BP 118/69; PULSE 80; RESP 16; TEMP 98.6; O2SAT 98
--- NOTE | 2024-05-07 15:45 | Discharge Summary ---
Discharge Summary Date of Service date of admission - May 03, 2024 date of discharge - May 07, 2024 Principal Dx & Hospital Course #1 = Principal Diagnosis (1) Dementia: (2) Protein S deficiency: (3) Interstitial lung disease: (4) Protein calorie malnutrition: SEVERE Plan 83-year-old with severe dementia, COPD and interstitial lung disease on home O2, h/o TAVR, protein S deficiency, long-standing Crohn's disease with ileostomy, chronic hypoxic respiratory failure on 2 L at baseline who has been on home hospice. Recent admission for septic shock requiring ICU stay/pressors - presumed 2nd to pneumonia and/or UTI. Discharged on 04/26 with 5 more days Augmentin. Hospice services resumed at discharge on 04/26. Brought back to [facility] by her because of weakness x 3 days. # Possible recurrent Pneumonia - aspiration vs gram negative etiology vs typicals vs other. At risk of gram negative infections due to recent hospitalization and chronic lung disease. Was placed on zosyn at time of readmission. She remained stable on her typical NC O2 amount and had minimal cough/respiratory symptoms. Completed about 4 days of IV zosyn. At discharge will take 2 doses of levaquin - 750mg on 05/08/24, and then 750mg on 05/10/24. # COPD and ILD - stable, no exacerbation while here. # Chronic hypoxic respiratory failure on 2L NC O2. Stable while here. # hypomagnesemia - repleted (lowest level 1.6)/resolved. # protein S deficiency - continue apixaban 2.5mg BID. # Crohn's disease / ileostomy status - no issues while hospitalized; no dumping. # Pacemaker status. # SVT - h/o ablation for such. # hypokalemia - replaced/resolved. Lowest level 3.4. # Palliative care discussions - seen by [facility]. Pt had been on hospice at home. Gabe has been providing her care. At times he seems to have limited understanding of her medical conditions and there have been concerns that he can't handle taking care of her at home any more. He has had financial concerns about placement at SNF or [facility]. 2 children from the pt's first marriage desire that Ms Reddy be placed in SNF or [facility]. However, Gabe has been averse to the idea of SNF. Pt's was counseled numerous times that when his returns home he is to call the Hospice agency for ANY needs at ANY TIME, day or night (rather than calling 911). Referral was made to [facility] outpatient case management, Aileen Mari, to assist with outpatient needs. On day of discharge the patient's daughter (Zafar Ruiz) was notified of Ms Reddy's discharge. We discussed that a referral was made to Aileen Mari and that her mother will remain on Hospice at home. Sympathized with Zafar that the team agrees with her that SNF or [facility] acement would be best for her mother, but that ultimately Gabe needs to be agreeable to that happening. Did mention that Gabe seemed agreeable that if Ms Reddy has a 3rd hospital stay there would be no other option than to finally pursue SNF or [facility]. Notes For Next Care Provider Referral to Aileen Mari, outpatient caseworker Resumption of home hospice services Medication Changes From Visit Levaquin 750mg x 1 on 05/08/24 Levaquin 750mg x 1 on 05/10/24 Admission HPI Per Admitting Provider 83-year-old female PMHx dementia/cognitive decline, frequent falls, TAVR, HFpEF, protein S on Eliquis, malnutrition, SIADH, Crohn's disease s/p ileostomy, chronic hypoxic respiratory failure on 2L NC at baseline, and recent hospitalization 04/24/2024 to 04/26/2024 for shock. Patient required ICU placement at that time as well as palliative consult. Patient is arriving back to hospital today via EMS for increased confusion as well as pain. Patient's was called and provides a history. States that he has been unable to help care for the patient over the last few days NURSING INFORMATICS SPECIALIST as the patient seems to be "unable to due anything." States that she has been unable to stand and no forgetting how to do basic functions. Pt provides a limited history, denying any symptoms to include chest pain, shortness breath, palpitations, abdominal pain, N/B/D/C, numbness/tingling, dizziness, headaches, or fever/chills. ED evaluation reveals leukocytosis 11.48, H&H 10.6/32.6, PT/INR WNL, VBG with pCO2 58 otherwise WNL, sodium 135, chloride 96, carbon dioxide 34, BUN/creatinine ratio 25, magnesium 1.6, albumin 3.2, globulin 4.6, ratio 0.7; serology negative. EKG atrial sensed ventricular paced rhythm with fusion beats at 95 bpm. CXR appearing same as most recent imaging. Provided with NSS 500 mL. Discharge Exam gen - very thin, NAD, anxious, poor insight neck - no JVD mouth - MMM heart - RRR, s1 s2, no murmur lungs - rales b/l bases, dry sounding; no wheezes; no increased work of breathing abd - soft NT ND BS+; ileostomy with bag in place with liquid stool; stoma clean ext - no edema, pulses 2+ b/l Discharge Plan Discharge Items Patient Disposition: Hospice - Home Reason For Visit: Weakness, possible pneumonia Discharge Diagnosis: 1. weakness - likely from deconditioning, pneumonia, etc. 2. probable pneumonia 3. transition to hospice at home 4. chronic respiratory failure on home oxygen 5. ileostomy due to Crohn's disease Activity: Resume your previous activity Non-emergency contact: Primary Care Provider and Piece Worker Call non-emergency contact if: you have any medication questions, your symptoms worsen, your pain is not controlled, your pain is worsening, your pain is unusual for you, your pain is concerning for you and you have a fever Follow-up/Referrals: Bertha Buckner MD [Primary Care Provider] - Diet: Regular Diet Texture: Easy to Chew Addtl Attending Provider Instructions: Ms Reddy, Sreekanth were treated for pneumonia during your hospitalization with IV antibiotics. You remained stable on your home oxygen amount of 2 liters continuously. We had many discussions about your after-care following hospital discharge. At this time you will be resuming hospice services via [facility]. You need just 2 more doses of oral antibiotic at home. Please take dose #1 of levofloxacin on 05/08/24, then dose #2 on 05/10/24, then you are complete. Most common side effect of this antibiotic - diarrhea. Rare side effect - tendonitis or tendon rupture, particularly of the achilles tendon on the back of the heel - but this is rare. If you have any questions, concerns, new symptoms, new problems - any medical issue - please contact [facility] FIRST by telephone. They will be able to address the majority of your concerns either by phone or with a visit to your house. You can contact them day or night. Do not call your family doctor or 911 - call [facility] first. We have made a referral to Aileen Mari, [facility] outpatient caseworker, to check on you after you get home. She can help coordinate your care in conjunction with [facility], etc. Again - please contact [facility] for any questions or concerns at any time. It was our pleasure caring for you! -Dr Torres Pending Studies at Discharge: No Stand-Alone Forms: [facility] Medications and DC Order Prescriptions: New levofloxacin 750 mg tablet 750 mg PO DIRECTED Qty: 2 0RF Rx Instructions: take dose #1 on 05/08/24, and dose #2 on 05/10/24. Continued (DME) Oxygen Home Liters Per Minute See Rx Instructions .Route Qty: 1 0RF Rx Instructions: As directed Probiotic 10 billion cell Capsule 10,000 mmu cells PO DAILY Eliquis 2.5 mg tablet 2.5 mg PO BID omeprazole 20 mg capsule,delayed release(DR/EC) 20 mg PO BID oxycodone-acetaminophen 5-325 mg tablet 1 tab PO BID PRN (Reason: Pain) Rx Instructions: 1 tablet twice daily plus 3rd dose as needed lorazepam 0.5 mg tablet 0.5 mg PO Q4H PRN (Reason: anxiety or restlessness) mirtazapine 15 mg tablet 15 mg PO HS furosemide 40 mg tablet 20 mg PO QAM Qty: 30 0RF atenolol 25 mg tablet 12.5 mg PO QAM Qty: 15 0RF Discontinued cholecalciferol (vitamin D3) 25 mcg (1,000 unit) tablet 25 mcg PO BID magnesium chloride [Mag 64] 64 mg Tablet,Delayed Release (Dr/Ec) 64 mg PO QAM Qty: 30 0RF ascorbic acid (vitamin C) [Vitamin C With Oriana Hips] 1,000 mg Tablet 1 g PO BID cyanocobalamin (vitamin B-12) [Vitamin B-12] 1,000 mcg Tablet 1,000 mcg PO Q OTHER DAY calcium carbonate [Calcium 600] 600 mg calcium (1,500 mg) Tablet 600 mg PO BID ferrous sulfate [iron] 325 mg (65 mg iron) Tablet 325 mg PO DAILY [id number]-fqz-miognzp-ast [MegaRed [employer]gett-3 Krill Oil] 1,000-230-60 mg Capsule 1 cap PO DAILY simvastatin 10 mg tablet 10 mg PO HS Discharge Orders: Discharge Order (Routine); Ordered 05/07/24 Ordered By: Mohan Noyola/Other Patient Handouts: Preventing Pneumonia Admission Data Admit Date/Time: 05/03/24 23:20 Attending Provider: Mohan Torres Admit Provider: Abhishek Arambula Primary Care Provider: Bertha Buckner Other Providers: Yajaira Rhodes; Ayad Vences Other Interventions: Discharge Summary Assessment (RN) Last Done: 05/07/24 15:55 Hospital Stay Data Consultations Palliative Care social work Diagnostic Imagining Performed Chest X-Ray 05/03/24 21:01 Exam(s): XR CXR 1 VIEW EXAM: XR Chest, 1 View CLINICAL HISTORY: Reason for exam: confusion. TECHNIQUE: Frontal view of the chest. COMPARISON: Chest radiograph on 04/24/2024 FINDINGS: Hardware: None. Lungs/pleura: Prominent lung markings and opacities bilaterally, most prominently in the left lower lung. Elevation of the right hemidiaphragm. Heart/mediastinum: Stable enlargement of the cardiac silhouette. Atherosclerotic changes in aorta. Left-sided pacemaker. TAVR. Soft tissues: Unremarkable. Bones: No acute fracture. Upper abdomen: Normal. IMPRESSION: Prominent lung markings and opacities bilaterally, most prominently in the left lower lung. Findings may represent pulmonary vasculature congestion and edema. Infectious/inflammatory process is not excluded. Electronically signed by: Noe Merino M.D. 05/04/24 01:13 AM Pending Results Patient Have Any Pending Studies at Discharge: No Discharge Instructions Given to Patient (Per Discharging Provider) Ms Reddy, Sreekanth were treated for pneumonia during your hospitalization with IV antibiotics. You remained stable on your home oxygen amount of 2 liters continuously. We had many discussions about your after-care following hospital discharge. At this time you will be resuming hospice services via [facility]. You need just 2 more doses of oral antibiotic at home. Please take dose #1 of levofloxacin on 05/08/24, then dose #2 on 05/10/24, then you are complete. Most common side effect of this antibiotic - diarrhea. Rare side effect - tendonitis or tendon rupture, particularly of the achilles tendon on the back of the heel - but this is rare. If you have any questions, concerns, new symptoms, new problems - any medical issue - please contact [facility] FIRST by telephone. They will be able to address the majority of your concerns either by phone or with a visit to your house. You can contact them day or night. Do not call your family doctor or 911 - call [facility] first. We have made a referral to Aileen Mari [facility] outpatient caseworker, to check on you after you get home. She can help coordinate your care in conjunction with [facility], etc. Again - please contact [facility] for any questions or concerns at any time. It was our pleasure caring for you! -Dr Torres Total Time Total Time Spent Total Time Spent (In Minutes): 50 Coding Level of Care Code 09926 INP/OBS DISCH >30 MIN Diagnoses Dementia F03.90 Protein S deficiency D68.59 Interstitial lung disease J84.9 Protein calorie malnutrition E46
--- NOTE | 2024-05-07 15:47 | Palliative Care Progress Note ---
Date of Service May 07, 2024 Assessment & Plan (1) Palliative care by specialist: Plan: spoke with pt's spouse at bedside. Introduced Palliative Medicine and explained our role in advanced care planning, symptom management and navigation through the progression of life limiting disease. Patient and/or family were receptive to palliative services for goals of care discussions. Reviewed we are different from hospice, a home health nurse visiting service. (2) Hospice care patient: Plan: pt continues express desire to return home with assistance of hospice care. Pt's spouse also requests pt be dc home BRIAN. (3) Counseling regarding goals of care: Plan: goals are clearly established for comfort directed care. Spouse requests pt return home for hospice care, pt's dtr and son requests dc to SNF with ongoing hospice care due to concerns for pt safety and frequent hospital admissions while on hospice. Continue to have discussion with pt's spouse and children, with hope of gaining a consensus of decision. However, in event we are unable to get all MDM proxies to agree on plan, per PA [id number] the majority decision should be followed. (4) Impaired decision making: Plan: Patient continues to exhibit current lack of decisional capacity based on the inability to convey understanding of personal PMHx, current medical condition, treatment options nor the risks / benefits of those options, and lack of ability to make decisions based on such knowledge. Hospital does not have written documentation of patient wishes concerning chosen proxy for medical decisions. Per PA Ihc442, in absence of written documentation of patient wishes, pt's proxies for medical decisions would be, with equally shared authority: her spouse Gabe Reddy and her adult children from her previous marriage, daughter Zafar Ballard ([phone]) and son Victor Manuel Zimmerman ([phone]) Pt does require a proxy for medical decisions. Plan *comfort directed care *Identify additional support for patient and spouse, they have strong desire to remain at home through end of life *Recommend APS notification 2/2 concerns for pt safety and level of care required as stated by hospice team, Zafar and pt's spouse. Pt's spouse repeatedly call EMS (vs hospice team) when he is unable to provide required care for pt, but when pt is in hospital insists she return home. Hospice team are best situated to notify APS as they have more direct information and perspective of pt's home life. *Gabe would benefit from clear, consistent explanations in layman's terms with frequent reinforcement. *Encourage additional family support for discussions as Gabe has expressed that Zafar "helps him understand things" and Zafar has expressed that she is willing to participate in care planning. Although Gabe refused offer of conference call with Zafar and refused to speak with pt's son Victor Manuel. *Zafar and Victor Manuel request SNF placement for ongoing hospice care 2/2 concern for pt safety given her spouse's confusion and difficulty providing basic care pt requires 30 minutes spent in ACP discussions with Gabe today, discussed discharge planning, MDM proxy/Act 169 hierarchy, hospice care, and anticipatory guidance for expected progression of dementia. Admission and Anticipated Discharge Date Admission Date: May 03, 2024 Subjective Assessed pt at bedside. Pt was awake and alert, voices no complaints, in NAD on NC. NAEON. Spouse at bedside. Review of Systems Review of Systems: pt denies any physical discomfort, complains only about being in hospital Physical Exam Constitutional: + ill appearing, + frail appearing and c omfortable; no acute distress Eyes: PERRL, conjunctivae normal, anicteric sclerae ENMT: external ear and nose normal, oropharynx normal Mouth: + dry oral mucous membranes Neck: trachea midline, no thyromegaly Respiratory: normal respiratory effort, lungs clear to auscultation Cardiovascular: Rate/Rhythm: regular rate and regular rhythm Skin: + turgor decreased, + pallor and + scar Neurologic: moves all extremities, awake and + confused Results & Data Vital Signs (Past 12 Hours) Vital Signs Temp Pulse Resp BP Pulse Ox O2 Del Method O2 Flow Rate 05/07/24 15:12 37.0 C 80 16 118/69 98 Nasal Cannula 2 05/07/24 08:50 86 20 119/62 97 Nasal Cannula 2 05/07/24 07:41 36.9 C 73 16 109/58 L 98 Nasal Cannula 2 05/07/24 07:25 Nasal Cannula 2 Laboratory Results No further labs or diagnostics in concert with comfort directed care. Diagnostic Findings No further labs or diagnostics in concert with comfort directed care. Medications Administered Current Inpatient Medications Albuterol (Albut/Ipratrop 3mg/0.5mg Neb 3 Ml Vial) 3 ml NEB QIDR PRN; Protocol PRN Reason: Wheezing Stop: 06/03/24 14:08 Apixaban (Apixaban 2.5 Mg Tab) 2.5 mg PO BID [facility] Stop: 06/03/24 08:59 Last Admin: 05/07/24 08:54 Dose: 2.5 mg Atenolol (Atenolol 25 Mg Tablet) 12.5 mg PO QAM [facility] Stop: 06/03/24 08:59 Last Admin: 05/07/24 08:54 Dose: 12.5 mg Cyanocobalamin (Cyanocobalamin (B-12) 500 Mcg Tablet) 1,000 mcg PO Q48H [facility] Stop: 06/03/24 08:59 Last Admin: 05/06/24 09:19 Dose: 1,000 mcg Ferrous Sulfate (Ferrous Sulfate 325 Mg Tab) 325 mg PO DAILY [facility] Stop: 06/03/24 08:59 Last Admin: 05/07/24 08:54 Dose: 325 mg Piperacillin Sod/Tazobactam Sod (Zosyn) 4.5 gm in 100 mls @ 25 mls/hr IV Q8H [facility]; Protocol Stop: 05/09/24 05:59 Last Admin: 05/07/24 15:29 Dose: Not Given Lorazepam (Lorazepam 0.5 Mg Tab) 0.5 mg PO Q4H PRN PRN Reason: anxiety or restlessness Stop: 06/03/24 02:56 Last Admin: 05/06/24 21:16 Dose: 0.5 mg Magnesium Chloride (Magnesium Chloride W/Calcium 64mg Delayed Rel Tab) 64 mg PO QAM [facility] Stop: 06/03/24 08:59 Last Admin: 05/07/24 08:53 Dose: 64 mg Mirtazapine (Mirtazapine Tab 15 Mg Tab) 15 mg PO HS [facility] Stop: 06/03/24 20:59 Last Admin: 05/06/24 21:11 Dose: 15 mg Oxycodone/Acetaminophen (Oxycodone/Acetaminophen 5mg/325mg Tab) 1 tab PO BID PRN PRN Reason: Pain Stop: 05/18/24 03:56 Last Admin: 05/07/24 05:24 Dose: 1 tab Pantoprazole Sodium (Pantoprazole 40 Mg Tab) 40 mg PO BID [facility] Stop: 06/03/24 08:59 Last Admin: 05/07/24 08:53 Dose: 40 mg PG Care Time/CCT Total # of Minutes Spent Total Time Spent with Patient: Total time spent is greater than 50% in coordination of care (as documented) at patient's floor/unit and/or counseling patient: Advanced Care Planning 60924 Advanced Care Planning 30 Min [place] [address] SUB INP/OBS CARE 04/05MIN Patient Type Established History Problem Focused Exam Problem Focused Medical Decision Making Low Complexity Diagnoses Palliative care by specialist Z51.5 Hospice care patient Z51.5 Counseling regarding goals of care Z71.89 Impaired decision making Z78.9 Additional Codes Advanced Care Planning - 47179 Advanced Care Planning 30 Min: 29334 Advanced Care Planning 30 Min ([id number])
--- NOTE | 2024-05-08 10:49 | Coding Query ---
MALNUTRITION To promote full compliance with coding requirements relating to patient care, physician participation is requested in all cases of braille coder uncertainty. Please assist us with the question(s) below: Please place an X within the parenthesis (x). If other, please document: "Malnutrition" is documented in this record, as on the 05/06 Hospitalist Progress Note and on Discharge Summary. If possible, please check the box that provides a more specific diagnosis: ( ) Mild malnutrition ( ) Moderate malnutrition ( ) Severe malnutrition ( ) Protein malnutrition (kwashiorkor) ( x) Severe protein calorie malnutrition ( ) Protein calorie malnutrition, unspecified ( ) Other (please specify): Was this diagnosis present on admission? Please place an X within the parenthesis (x). ( ) Present on admission ( ) Not present on admission ( ) Unable to be clinically determined Thank you Laurie [facility]
== END 2024-05-07 16:43 | disposition hospice, home (50) | DRG 177 ==
LOC: ED 20:37 → SUATTDRO 23:20 → EDINP 23:20 → 3N 05-04 02:57
DX: I44.2 Atrioventricular block, complete; Z79.899 Other long term (current) drug therapy; K21.9 Gastro-esophageal reflux disease without esophagitis; J44.9 Chronic obstructive pulmonary disease, unspecified; Z99.81 Dependence on supplemental oxygen; K50.90 Crohn's disease, unspecified, without complications; G89.4 Chronic pain syndrome; R29.6 Repeated falls; Z91.030 Bee allergy status; Z79.01 Long term (current) use of anticoagulants; I50.30 Unspecified diastolic (congestive) heart failure; Z51.5 Encounter for palliative care; E83.42 Hypomagnesemia; Z91.81 History of falling; Z82.49 Family history of ischemic heart disease and other diseases of the circulatory system; Z68.1 Body mass index [BMI] 19.9 or less, adult; J69.0 Pneumonitis due to inhalation of food and vomit; R53.1 Weakness; E87.6 Hypokalemia; Z88.3 Allergy status to other anti-infective agents; F03.C0 Unspecified dementia, severe, without behavioral disturbance, psychotic disturbance, mood disturbance, and anxiety; I11.0 Hypertensive heart disease with heart failure; Z95.0 Presence of cardiac pacemaker; F41.9 Anxiety disorder, unspecified; Z66 Do not resuscitate; J15.69 Pneumonia due to other Gram-negative bacteria; Z87.891 Personal history of nicotine dependence; Z88.8 Allergy status to other drugs, medicaments and biological substances; I25.10 Atherosclerotic heart disease of native coronary artery without angina pectoris; J96.11 Chronic respiratory failure with hypoxia; E43 Unspecified severe protein-calorie malnutrition; D68.59 Other primary thrombophilia; Z93.2 Ileostomy status; Z91.013 Allergy to seafood; J84.9 Interstitial pulmonary disease, unspecified